=== PATIENT | female | born 1950 | race Caucasian/White ===

== ENCOUNTER → 2019-06-22 14:15 | Outpatient (BNVA) | payer MEDICARE, OTHER, SELFPAY | PROVIDERS: Visit Provider Internal Medicine Rheumatology | DX: M05.79 Rheumatoid arthritis with rheumatoid factor of multiple sites without organ or systems involvement (principal); Z79.899 Other long term (current) drug therapy; Z11.59 Encounter for screening for other viral diseases; M19.90 Unspecified osteoarthritis, unspecified site; F17.210 Nicotine dependence, cigarettes, uncomplicated; J44.9 Chronic obstructive pulmonary disease, unspecified; Z79.52 Long term (current) use of systemic steroids; M19.042 Primary osteoarthritis, left hand; M05.9 Rheumatoid arthritis with rheumatoid factor, unspecified; M05.741 Rheumatoid arthritis with rheumatoid factor of right hand without organ or systems involvement; M05.742 Rheumatoid arthritis with rheumatoid factor of left hand without organ or systems involvement; F17.200 Nicotine dependence, unspecified, uncomplicated | CPT/HCPCS: 36415; 71046; 73130; 73630; 80076; 82306; 82565; 85025; 85651; 86140; 86480; 86704; 99214 ==

== ENCOUNTER → 2019-06-22 15:17 | Outpatient (BNVA) | payer MEDICARE, OTHER, SELFPAY | PROVIDERS: Visit Provider Internal Medicine Rheumatology | DX: Z79.899 Other long term (current) drug therapy (principal); M19.90 Unspecified osteoarthritis, unspecified site; Z11.59 Encounter for screening for other viral diseases; M05.9 Rheumatoid arthritis with rheumatoid factor, unspecified; M05.741 Rheumatoid arthritis with rheumatoid factor of right hand without organ or systems involvement; M05.742 Rheumatoid arthritis with rheumatoid factor of left hand without organ or systems involvement; F17.200 Nicotine dependence, unspecified, uncomplicated; J44.9 Chronic obstructive pulmonary disease, unspecified; M05.79 Rheumatoid arthritis with rheumatoid factor of multiple sites without organ or systems involvement; M19.042 Primary osteoarthritis, left hand | CPT/HCPCS: 85025 ==

== ENCOUNTER 2019-06-22 15:48 | Outpatient (CLI) | payer MEDICARE, OTHER, SELFPAY ==
--- NOTE | 2019-06-22 15:57 | XR_ITS ---
WS: [id number] RIGHT HAND: 3 VIEW(S) TECHNIQUE: PA, oblique and lateral. HISTORY: arthritis COMPARISON: None available. No acute fracture or dislocation. Mild interphalangeal joint space narrowing. No definite erosions. There is some osteopenia. No ulnar styloid erosion. XR/XR hand RT min 3V* [id number] IMPRESSION: No definite erosions.
--- NOTE | 2019-06-22 15:57 | XR_ITS ---
WS: [id number] LEFT FOOT: 3 VIEW(S) TECHNIQUE: PA, oblique and lateral. HISTORY: arthritis COMPARISON: None available. No acute fracture or dislocation. Normal tarsal/metatarsal alignment. No soft tissue abnormality or bone destruction. Small calcaneal spur. XR/XR foot LT min 3V* [id number] IMPRESSION: No erosions.
--- NOTE | 2019-06-22 15:57 | XR_ITS ---
WS: [id number] RIGHT FOOT: 3 VIEW(S) TECHNIQUE: PA, oblique and lateral. HISTORY: arthritis COMPARISON: None available. No acute fracture or dislocation. Normal tarsal/metatarsal alignment. Possible early erosion at the fifth metatarsal head. No subluxations. Mild periarticular osteopenia. XR/XR foot RT min 3V* [id number] IMPRESSION: Indeterminate for early erosion at the fifth metatarsal head.
--- NOTE | 2019-06-22 15:57 | XR_ITS ---
WS: [id number] CHEST 2 VIEWS HISTORY: arthritis COMPARISON: 07/09/2018 Lungs: Soft tissue mass is ovoid with poorly visualized margins over the RIGHT lower lung field. This mass measures 3.0 x 2.5 cm. Otherwise the lungs are clear. Cardiac size: Normal. Mediastinum/Aorta: Mild atherosclerosis aorta. Bones: Normal. XR/XR chest 2V* [id number] IMPRESSION: 1. Possible mass in the RIGHT lower lobe versus fluid along the fissure. Recom mend follow-up chest CT with IV contrast to exclude neoplasm. 2. Chronic emphysema.
--- NOTE | 2019-06-22 15:57 | XR_ITS ---
WS: [id number] LEFT HAND: 3 VIEW(S) TECHNIQUE: PA, oblique and lateral. HISTORY: arthritis COMPARISON: None available. No acute fracture or dislocation. No soft tissue or bone abnormality. No ulnar styloid erosions. Mild osteoarthritis at the first carpometacarpal joint. XR/XR hand LT min 3V* [id number] IMPRESSION: 1. Osteoarthritis at the first carpometacarpal joint. No erosions.
== END 2019-06-22 15:49 | disposition home or self-care (01) ==
LOC: RADWPI 15:53
PROVIDERS: Visit Provider Internal Medicine Rheumatology
DX: M19.042 Primary osteoarthritis, left hand (principal); J43.9 Emphysema, unspecified
CPT/HCPCS: 71046; 73130; 73630; 80076; 82306; 82565; 85651; 86140; 86704

== ENCOUNTER 2019-09-11 11:17 | Outpatient (CLI) | payer MEDICARE, OTHER, SELFPAY ==
--- NOTE | 2019-09-11 11:45 | CT_ITS ---
WS: [id number] CT CHEST TECHNIQUE: Noncontrast CT of the chest with coronal and sagittal reformatted images. CLINICAL INFORMATION: lung mass COMPARISON: None. DLP: 902.[address] scans at [facility] use at least one of these dose optimization techniques: automat ed exposure control; mA and/or kV adjustment per patient size (includes targeted exams where dose is matched to clinical indication); or iterative reconstruction. FINDINGS: Lobulated parenchymal mass in the right lower lobe anteriorly along the fissure abutting the diaphrag m. Parenchymal mass measures 2.9 x 3.7 x 2.8 cm AP by transverse by craniocaudal. This abuts the diap hragm anteriorly. Lobulated irregular margins. A few tiny micronodular satellite opacities. Findings are suspicious for neoplasm. Small left suprahilar opacity measuring 8 mm. Small slightly spiculated nodule in the right upper lobe measuring 4 mm may represent fibrosis but indeterminant. Additional no ncalcified pulmonary nodule right upper lobe measuring 2 mm. No mediastinal or hilar lymphadenopathy. Aortic calcification. A few calcified left hilar and anterio r mediastinal lymph nodes. No axillary lymphadenopathy. Left breast nodule measuring 9 mm. Recommend diagnostic mammography and ultrasound. This is in the posterior depth outer left breast. Adrenal glands are normal. Partially visualized right renal cyst. Normal GE junction. CT/CT chest wo con [id number] IMPRESSION: 1. Lobulated parenchymal mass in the right lower lobe along the fissure suspic ious for neoplasm. This abuts the anterior diaphragm. This can be further evalu ated with PET/CT. 2. Additional hazy left suprahilar nodule measuring 8 mm. 3. Noncalcified nodule right upper lobe measuring 2 mm 4. Additional fibrotic opacity right upper lobe anteriorly measuring 4 mm. 5. No mediastinal or hilar lymphadenopathy. 6. Left breast nodule measuring 9 mm. Recommend further evaluation with diagno stic mammogram and ultrasound.
== END 2019-09-11 11:18 | disposition home or self-care (01) ==
LOC: RADWPI 11:23
PROVIDERS: PCP Nurse Practitioner Family; Visit Provider Internal Medicine Critical Care Medicine
DX: R91.8 Other nonspecific abnormal finding of lung field (principal); N63.20 Unspecified lump in the left breast, unspecified quadrant
CPT/HCPCS: 71250

== ENCOUNTER 2019-10-02 06:07 | Day surgery (SDC) | payer MEDICARE, OTHER, SELFPAY ==
[2019-10-01 14:11] VITALS: BMI 31.8
[2019-10-02] VITALS (8 sets, daily range): BP systolic 124–168; BP diastolic 47–67; PULSE 74–93; RESP 16–22; TEMP 36.4–37.1; O2SAT 88–97
--- NOTE | 2019-10-02 | CT_ITS ---
Guided Bronchoscopy Planning CT images; total exam DLP: 700.74 mGy-cm MTDD
--- NOTE | 2019-10-02 06:25 | ECG_ITS ---
Measurements Intervals [place] Rate: 79 P: 55 SD: 181 QRS: 19 QRSD: 81 T: 47 QT: 383 QTc: 441 SINUS RHYTHM NONSPECIFIC T-WAVE ABNORMALITY Compared to ECG 08/22/2018 23:14:59 T-wave abnormality now present Electronically Signed On 10-02-2019 18:32:08 CDT by Babs Young M.D. [email or web address]
[2019-10-02 06:38] LABS: Glucose Point of Care 120 mg/dL (70-110)
[2019-10-02] MEDS: sodium chloride 0.9% 1,000 ML 30 ML IV (06:39)
--- NOTE | 2019-10-02 06:46 | ANES.PREANE2 ---
Pre-Anesthetic Assessment Pre-Anesthetic Assessment: Height/Weight: Height 1.6 m Weight 81.647 kg Temp Pulse Resp BP Pulse Ox 98.8 F 74 18 153/67 97 10/02/19 06:26 10/02/19 06:26 10/02/19 06:26 10/02/19 06:26 10/02/19 06:26 Preop Diagnosis: Lung cancer Proposed Procedure: Operation Date: 10/02/19 07:00 Proposed Procedures p Navigational Bronchoscopy(Not Applicable) - Speedy Santacruz MD s Ebus(Not Applicable) - Speedy Santacruz MD Familial anesthetic complications: None Was Beta Loulou taken within 24 hours: Yes Last intake: Intake Last Liquid Date 10/01/19 Last Liquid Time 20:00 Last Solid Date 10/01/19 Last Solid Time 19:00 Social: Social History: Tobacco and No alcohol Exam: Pre-Anes Outpt Exam: alert, oriented x 3, clear to auscultation bilaterally and regular rate & rhythm Airway: Cervical ROM: WNL MP: 3 Dentition: False Pulmonary: Pulmonary: COPD Comments: Lung cancer CV/HEM: CV/HEM: HTN : : None reported Hepatic: Hepatic: None reported GI: GI: None reported Metabolic: Metabolic: DM Musc/skel: Musc/skel: None reported Neuropsych: Neuropsych: None reported Anesthetic Plan: ASA status: 3 Anesthesia: General Risk of > 500 ml blood loss (7ml/kg in children): No Meds/Allergies Current Medications: Current Medications Generic Name Dose Route Start Last Admin Trade Name Freq PRN Reason Stop Dose Admin Sodium Chloride 1,000 mls @ 30 ml s/hr 10/02/19 06:30 10/02/19 06:39 Sodium Chloride 0.9% IV 10/03/19 06:29 30 mls/hr .Q24H GEOFFREY Administration PFSH Anesthesia PFSH: Medical History (Updated 08/27/19 @ 11:58 by Renata Kwan LPN) Chronic obstructive pulmonary disease, unspecified Continuous nicotine dependence Encounter for screening for other viral diseases Essential (primary) hypertension High risk medication use Hyperlipidemia, unspecified Neuropathy Rheumatoid arthritis involving both hands with positive rheumatoid factor Type 2 diabetes mellitus without complications Surgical History No pertinent past surgical history Family History Father Osteoarthritis Mother Hypertension Fibromyalgia Denies family history of Rheumatoid arthritis Lupus Social History Smoking and tobacco status: current every day smoker cigarettes Packs smoked per day: 0.5 Years cigarettes smoked: 50 Alcohol intake: never Lives independently: Yes Household members: none Housing: House Marital status: / Current occupational status: retired History of recent travel: No Current gender identity: Female Data Anesthesia Other Labs: Laboratory Results - last 48 hr 10/02/19 06:34 POC Glucose 120 Cardiac Studies: No Data to Display
--- NOTE | 2019-10-02 06:54 | P.HP_ITS ---
Same Day Surgery H&P Indication for Procedure/HPI DATE OF PROCEDURE: October 02, 2019 CHIEF COMPLAINT/INDICATIONFOR SURGICAL PROCEDURE: Right lower lobe lung mass PREOP DIAGNOSIS: Lung cancer PLANNED PROCEDRUE: Patient is a 68-year-old female with a past history of rheumatoid arthritis coming in today for bronchoscopy, endobronchial ultrasound- guided transbronchial needle aspiration of lymph nodes and navigational bronchoscopy guided biopsy of the right lower lobe lung mass. During her visit to the product support analyst in June the patient underwent a chest x-ray with a complaints of cough. The chest x-ray revealed a right lower lobe pulmonary lesion. The patient subsequently underwent a CT scan of her chest in September 2019 which revealed a large lung mass in the right lower lobe. The patient also underwent a PET scan which showed hypermetabolic activity in the lung mass. The patient today is not complaining any significant change in her respiratory status. She has an extensive history of smoking for more than 50 years. The patient has occasional cough without any significant sputum production episodes of wheezing and exertional shortness of breath. Operation Date: 10/02/19 07:00 Proposed Procedures p Navigational Bronchoscopy(Not Applicable) - Speedy aSntacruz MD s Ebus(Not Applicable) - Speedy Santacruz MD Medications/Allergies* Home Medications Medication Instructions Recorded Confirmed Type blood sugar diagnostic #10 each 05/12/19 08/27/19 History lancets 28 gauge #25 each 05/12/19 08/27/19 History metformin 500 mg tablet 500 mg PO BID 05/12/19 10/02/19 History spironolactone 25 mg tablet 12.5 mg PO DAILY tab 05/12/19 10/02/19 History Allergies/Adverse Reactions Allergy/AdvReac Type Severity Reaction Status Date / Time aspirin Allergy Intermediate bloody Verified 10/02/19 06:56 stools lisinopril Allergy Mild rash Verified 10/02/19 06:56 nickel Allergy Mild rash Verified 10/02/19 06:56 Current Medications: Generic Name Dose Route Start Last Admin Trade Name Freq PRN Reason Stop Dose Admin Sodium Chloride 1,000 mls @ 30 mls/hr 10/02/19 06:30 10/02/19 06:39 Sodium Chloride 0.9% IV 10/03/19 06:29 30 mls/hr .Q24H GEOFFREY Administration Pertinent History/Comorbid Conditions* Medical History (Updated 08/04/19 @ 14:56 by Speedy Santacruz MD) Chronic obstructive pulmonary disease, unspecified Continuous nicotine dependence Encounter for screening for other viral diseases Essential (primary) hypertension High risk medication use Hyperlipidemia, unspecified Neuropathy Rheumatoid arthritis involving both hands with positive rheumatoid factor Type 2 diabetes mellitus without complications Surgical History (Updated 06/22/19 @ 18:07 by Ad Patterson MD) No pertinent past surgical history Family History (Updated 06/22/19 @ 14:47 by Mag Bland LPN) Father Fibromyalgia Mother Osteoarthritis Father Hypertension Mother Denies family history of Rheumatoid arthritis Lupus Social History Smoking and tobacco status: current every day smoker cigarettes Packs smoked per day: 0.5 Years cigarettes smoked: 50 Alcohol intake: never Lives independently: Yes Household members: none Housing: House Marital status: / Current occupational status: retired History of recent travel: No Current gender identity: Female Pertinent Exam Findings alert, oriented x 3, clear to auscultation bilaterally and regular rate & rhythm Related Problem List Diagnoses (1) Right lower lobe lung mass: Recommendations Surgery/Procedure today Other Plans: The patient did undergo bronchoscopy with inspection of the airway, endobronchial ultrasound-guided transbronchial needle aspiration of lymph nodes and navigational bronchoscopy guided fine-needle aspiration, transbronchial biopsy and possible transthoracic needle biopsy of the mass. The patient will follow-up with me in 2 weeks time following the procedure. Coding Level of Care Code Acute Merchandise Buyer for Olman Santamariad Diagnoses Right lower lobe lung mass R91.8
[2019-10-02 07:09] LABS: Anion Gap 19.4 (5-19); Blood Urea Nitrogen 14 mg/dL (8-23); Calcium 10.1 mg/dL (8.5-10.5); Carbon Dioxide 23 mmol/L (22-29); Chloride 96 mmol/L (98-107); Glomerular Filtration Rate 99.4 mL/min (90-130); Glucose 123 mg/dL (65-115); Osmolality Calculated 276 mOsm/kg (285-295); Potassium 4.4 mmol/L (3.5-5.1); Sodium 134 mmol/L (136-145)
[2019-10-02] MEDS: lidocaine 1% INJ 20 mL XX (07:48)
--- NOTE | 2019-10-02 09:41 | P.OP_ITS ---
Operative Report Date of procedure: October 02, 2019 Pre-op Diagnosis: Lung cancer Post-op diagnosis: same Brief History: 68-year-old lady with history of pulmonary arthritis and right lower lobe lung mass coming in for bronchoscopy evaluation. Procedure: Name of the procedure: Bronchoscopy with inspection of the airway, transbronchial biopsies and core needle biopsy of the right lower lobe lung mass under navigational guidance, endobronchial ultrasound-guided transbronchial needle aspiration of lymph nodes and control of bleeding. Indication: Right lower lobe lung mass Anesthesia: General anesthesia. Local anesthesia: The claritza in the right and left mainstem bronchi were anesthetized with 1% lidocaine, 3 mL. Description of the procedure: The procedure was explained to the patient and the consent was obtained. The patient was brought to the OR. The patient underwent endotracheal intubation for general anesthesia. Following induction of general anesthesia, the bronchoscope was advanced through the ET tube. The lower trachea appeared to be normal. The claritza was sharp. The claritza, the right and left mainstem bronchi are anesthetized with 1% lidocaine. In a systematic man ner bilateral bronchial tree was then examined. The bronchoscope was advanced into the left mainstem bronchus. There was no erythema, or areas of cobblestoning. The left upper lobe, lingula and left lower lobe bronchi were examined up to the third subsegmental level and no abnormalities were identified. There was no endobronchial lesion, active bleeding or mucous plug. The bronchoscope was then introduced into the right mainstem bronchus. The right upper lobe, right middle lobe and right lower lobe bronchi were examined up to the third subsegmental level and no abnormalities were identified. Mild mucus was noted throughout the airway. Using navigational bronchoscopy transbronchial biopsies were performed from the right lower lobe lung mass. Fine-needle aspiration and core needle biopsies were also performed. The endobronchial ultrasound was introduced through the ET tube. Mediastinal and hilar lymphadenopathy was identified with the ultrasound. Transbronchial needle aspiration was performed from 7, 10 R, 11 R lymph nodes. Samples: 1. Transbronchial biopsy of the right lower lobe lung mass was sent for histopathology 2. The core needle biopsy of the right lower lobe lung mass was sent for histopathology 3. The fine-needle aspiration of the right lower lobe lung mass was sent for cytology 4. The transbronchial needle aspiration of the aforementioned lymph node groups were sent for cytology. Complications: There was no immediate complications. The patient was extubated and brought to the PACU in stable condition. Chest x-ray: Pending
--- NOTE | 2019-10-02 09:44 | XR_ITS ---
WS: [id number] CHEST XRAY TECHNIQUE: Portable chest. CLINICAL INFORMATION: Post transbronchial biopsies COMPARISON: June 22, 2019 FINDINGS: Heart: Cardiomegaly. Aortic calcification. Lungs: Pulmonary mass right lower lobe post biopsy. Small amount of surrounding infiltrate may repres ent a small amount of hemorrhage. Left lung is well aerated. Bones: Normal visualized bony structures. XR/XR chest 1V portable [id number] IMPRESSION: Pulmonary mass right lower lobe postbiopsy with expected postbiopsy changes. No pneumothorax.
== END 2019-10-02 11:17 | disposition home or self-care (01) ==
PROVIDERS: Anesthesiology; PCP Nurse Practitioner Family; Visit Provider Internal Medicine Critical Care Medicine
PROC: 0BJ08ZZ Inspection of Tracheobronchial Tree, Via Natural or Artificial Opening Endoscopic (ICD-10-PCS; CPT 31622; principal; 2019-10-02 07:00)
PROC: BB4BZZZ Ultrasonography of Pleura (ICD-10-PCS; 2019-10-02 07:00)
DX: R91.1 Solitary pulmonary nodule (principal); R91.8 Other nonspecific abnormal finding of lung field; J44.9 Chronic obstructive pulmonary disease, unspecified; F17.210 Nicotine dependence, cigarettes, uncomplicated; I10 Essential (primary) hypertension; E78.5 Hyperlipidemia, unspecified; M06.9 Rheumatoid arthritis, unspecified; E11.40 Type 2 diabetes mellitus with diabetic neuropathy, unspecified
CPT/HCPCS: 12345; 31625; 31627; 36416; 71045; 77011; 80048; 80500; 82962; 88112; 88173; 88305; 88307; 93005; J2001; J2405; J2704; J3010; J3490; J7030

== ENCOUNTER → 2019-10-09 09:27 | Outpatient (BNVA) | payer MEDICARE, OTHER, SELFPAY | PROVIDERS: PCP Nurse Practitioner Family; Visit Provider Internal Medicine Rheumatology | DX: E11.9 Type 2 diabetes mellitus without complications (principal); I10 Essential (primary) hypertension; Z79.899 Other long term (current) drug therapy; M05.741 Rheumatoid arthritis with rheumatoid factor of right hand without organ or systems involvement; M19.90 Unspecified osteoarthritis, unspecified site; M05.742 Rheumatoid arthritis with rheumatoid factor of left hand without organ or systems involvement | CPT/HCPCS: 80053; 80061; 80076; 83036; 85025; 85651; 86140 ==

== ENCOUNTER 2019-10-19 14:01 | Outpatient (CLI) | payer MEDICARE, OTHER, SELFPAY ==
--- NOTE | 2019-10-19 20:44 | ONC CON_ITS ---
Dr. Olson New Patient Note Patient: Eunice Aguilar Unit #: [id number]: 1950 Dicatated By: Chino Olson M.D.Date of Visit: Oct 19, 2019 Onc MED New Patient/Consult Referring Physician: Dr. ISAURA SANTACRUZ M.D. Chief Complaint: Lung mass. History of Present Illness: This is a 68 year-old woman with a right lower lobe lung mass and suspected lung cancer. She has hypertension, hyperlipidemia, type 2 diabetes, and COPD. She also has rheumatoid arthritis, for which she has been on treatment with methotrexate and hydroxychloroquine. She had seen Dr. Patterson in June for a scheduled rheumatology follow-up visit. At that time, she had a coughing fit which led to a chest x-ray. That study showed a possible mass in the right lower lobe. Her further evaluation was delayed, I assume because of the restrictions related to the coronavirus pandemic. In any case, her chest CT on 09/11/2019 showed a lobulated mass in the right lower lobe measuring 2.9 x 3.7 x 2.8 cm. It was noted to abut the diaphragm anteriorly. There were a few tiny micronodular satellite opacities. A small left suprahilar opacity measured 8 mm. A noncalcified nodule in the right upper lobe measured 2 mm. An additional fibrotic opacity in the right upper lobe measured 4 mm. There was no mediastinal or hilar lymphadenopathy. She was incidentally noted to have a 9 mm left breast nodule. PET/CT on 09/19/2019 showed FDG avid mass in the right lower lobe measuring 4.0 x 3.5 cm, SUV 12.5, indicating high probability of malignancy. A 6 mm left upper lobe nodule with SUV 2.5, which was concerning for contralateral metastatic disease. There were no other areas of abnormal uptake on that study. On 10/02/2019 she underwent navigational bronchoscopy with EBUS and transbronchial biopsy of the right lung mass. The EBUS did show evidence of mediastinal and hilar lymphadenopathy, and the procedure also included FNA biopsies of stations 7, 10 R, and 11 R lymph nodes. Pathology on the transbronchial biopsy showed benign bronchial mucosa with no dysplasia or malignancy seen. Cytology on the FNA biopsies was also negative for malignancy. She says that her energy is not been very good but she thinks that some of that may be related to depression. She is still doing housework. ECOG score is 1. Her appetite has been the same. She did have a weight gain of 30 pounds, but since then her weight has remained stable. She has not had fever or night sweats. She has not had sore throat or difficulty swallowing. She has a little bit of cough which is mostly nonproductive. She has no shortness of breath or chest pain. She has no GI/ complaints other than occasional heartburn. Her joint pain is pretty well controlled on her medication. She has occasional flareups, which she manages with short course steroid therapy. She recently has been having pain in her right wrist, presumably related to minor injury. She does not complain of headache or dizziness. She does have some neuropathy in her feet. Past Medical History: Her medical history includes chronic obstructive pulmonary disease, hyperlipidemia, hypertension, peripheral neuropathy, rheumatoid arthritis, and type II diabetes. Past Surgical History: She underwent navigational bronchoscopy with EBUS and transbronchial biopsy of right lung nodule on 10/02/2019. She has had no other surgeries. Medications: Carvedilol 1.5 Tablet (of 12.5 mg) Oral b.i.d., Folic Acid 1 Tablet (of 800 mcg) Oral daily, metFORMIN HCl 1.5 Tablet (of 500 mg) Oral b.i.d., Methotrexate Sodium (2.5 mg) Tablet Oral Take as Directed, Spironolactone 0.5 Tablet (of 25 mg) Oral daily Allergies: Aspirin, Lisinopril, and Nickel. Social History: Ms. Aguilar is and she is retired. She has a history of smoking 1-1/2 packs of cigarettes daily for 50 years. She does not drink alcohol. Family History: Father of heart attack at age 69. Mother is still living at age 92. She is being treated for breast cancer. A brother of vasculitis. Another brother has had a stroke. A maternal aunt had breast cancer. Review Of Symptoms: Constitutional - Her energy is not very good, but some of that may be related to depression. There is been no change in her appetite. She had a weight gain of 30 pounds, but it then stabilized. She does not have fever, night sweats, or hot flashes. ECOG score is 1, Eyes - No change in vision, ENMT - No hearing loss or tinnitus. No sinus congestion/drainage. No mouth sores. No sore throat or difficulty swallowing, Hematologic/Lymphatic - No abnormal bruising or bleeding, Respiratory - No shortness of breath. She has a chronic smoker's cough. No pleuritic pain or hemoptysis, Cardiovascular - No angina pain. No palpitations, Gastrointestinal - No nausea or vomiting. She has heartburn. No diarrhea or constipation. No blood in the stool or black stools, Genitourinary (F) - No dysuria or hematuria. No urinary frequency. No urgency or incontinence, Musculoskeletal - She has occasional flare ups of joint pain. She sprained her right wrist and is wearing a brace, Integumentary - No skin rash or other skin changes, Neurologic - No headache or dizziness. She has chronic neuropathy in her feet. No other focal neurologic symptoms, Psychiatric - No anxiety. She has depression. She does not sleep well. Vital Signs: Performed on Oct 19, 2019 14:31: 0, 32.20 (HIGH), 1.86 sq.m, 63.00 in, 97 %, 81 /min, 22 /min, 193/72 mm(hg) (HIGH), 98.2 F (LOW), and 181.8 lbs (HIGH). Physical Examination: Constitutional - She appears to be in reasonably good general health, Eyes - Sclerae nonicteric. Conjunctivae clear, ENMT - No lesions noted in the oral cavity, Neck - No mass or thyromegaly, Hematologic/Lymphatic - No cervical, clavicular, or axillary adenopathy, Respiratory - Lungs show some decrease in air movement with slightly coarse breath sounds bilaterally, Cardiovascular - Heart rhythm is regular. There is no murmur, gallop, or rub noted, Breasts - There are no breast masses noted. There is no axillary adenopathy, Abdomen - Soft and non-tender. Liver and spleen are not enlarged. There is no abdominal mass or ascites noted and there is no inguinal adenopathy, Back/Spine - No spine or CVA tenderness noted, Extremities - Mild edema. Dorsalis pedis pulses are palpable bilaterally, Integumentary - No rashes. No suspicious skin lesions noted, Neurologic - No focal neurologic deficits noted. Impression: 1. Patient with PET/CT evidence of FDG avid right lower lobe lung mass, highly suspicious for malignancy. 2. On 10/02/2019 she underwent navigational bronchoscopy/EBUS with transbronchial biopsy of the right lung mass and with FNA biopsies of mediastinal and right hilar lymph nodes. All of these appear to have been negative for malignancy. 3. There is additional subcentimeter left upper lobe nodule with mild FDG activity suggestive of possible contralateral lung malignancy. 4. She has underlying COPD. Her other medical illnesses include: 5. Hypertension. 6. Hyperlipidemia. 7. Type 2 diabetes with neuropathy. 8. Rheumatoid arthritis, currently on immunosuppressive therapy with methotrexate and hydroxychloroquine. Plan: The CT and PET/CT findings were reviewed with the patient and her daughter, and I also reviewed the images with them. We discussed the clinical implications. There is a high probability that she has a primary lung cancer in the right lower lobe. This may be localized. However, there is an additional small left upper lobe pulmonary nodule with mild FDG avidity by PET. While it is a nonspecific finding, does raise the possibility of contralateral lung malignancy, which would obviously alter her treatment recommendations. If her disease is localized to the right lung mass, surgical resection would be appropriate, assuming her lung function is adequate. If the left upper lobe nodule is malignant, she may still be eligible for SBRT to both lesions, but that obviously would be contingent on getting a tissue diagnosis from both sides, and that will almost certainly be problematic. At least initially I will plan to review the PET/CT with Dr. Santacruz and we can determine whether to proceed with CT directed needle biopsy or other procedure. However, given the small size of the left lung nodule, there may be no option for that lesion other than to monitor it with serial imaging. Signed By: Chino Olson M.D. <<Signature on File>>
== END 2019-10-19 14:02 | disposition home or self-care (01) ==
LOC: ONCMED 14:05
PROVIDERS: PCP Family Medicine; Referring Provider Internal Medicine Critical Care Medicine; Visit Provider Internal Medicine Medical Oncology
DX: R91.8 Other nonspecific abnormal finding of lung field (principal); J44.9 Chronic obstructive pulmonary disease, unspecified; I10 Essential (primary) hypertension; E78.5 Hyperlipidemia, unspecified; E11.40 Type 2 diabetes mellitus with diabetic neuropathy, unspecified; M06.9 Rheumatoid arthritis, unspecified; Z79.899 Other long term (current) drug therapy
CPT/HCPCS: 99205

== ENCOUNTER → 2019-10-20 12:03 | Outpatient (BNVA) | payer MEDICARE, OTHER, SELFPAY | PROVIDERS: PCP Family Medicine; Visit Provider Internal Medicine Rheumatology | DX: M05.741 Rheumatoid arthritis with rheumatoid factor of right hand without organ or systems involvement (principal); M05.742 Rheumatoid arthritis with rheumatoid factor of left hand without organ or systems involvement; R91.8 Other nonspecific abnormal finding of lung field; J44.9 Chronic obstructive pulmonary disease, unspecified; Z79.899 Other long term (current) drug therapy; F17.210 Nicotine dependence, cigarettes, uncomplicated | CPT/HCPCS: 99214 ==

== ENCOUNTER 2019-11-05 07:14 | Day surgery (SDC) | payer MEDICARE, OTHER, SELFPAY ==
[2019-11-05] VITALS (10 sets, daily range): BP systolic 102–181; BP diastolic 49–83; PULSE 69–86; RESP 16–20; TEMP 36.2–36.4; O2SAT 96–100; BMI 31.7
[2019-11-05] MEDS: sodium chloride 0.9% 1,000 ML 30 ML IV (07:55)
[2019-11-05 08:00] LABS: Glucose Point of Care 124 mg/dL (70-110)
[2019-11-05 08:36] LABS: INR 0.88 (0.8-1.2)
[2019-11-05] MEDS: midazolam 1 mg/mL INJ 5 ML 5 MG IV ×2 (09:51→10:02)
[2019-11-05] MEDS: fentaNYL 50 mcg/mL INJ 2mL IVP ×2 (09:54→10:03)
--- NOTE | 2019-11-05 11:46 | XR_ITS ---
WS: [id number] PORTABLE CHEST HISTORY: post ct biopsy COMPARISON: 10/02/2019 Consolidation at the RIGHT lung base corresponds to the mass that was recently biopsied. There is a s mall amount of adjacent hemorrhage. No pneumothorax. Cardiac size: Normal. Mediastinum/Aorta: Mild atherosclerosis aorta. No osseous abnormality seen. XR/XR chest 1V portable [id number] IMPRESSION: 1. No pneumothorax status post RIGHT lung mass biopsy. 2. Small amount of postprocedural bleeding at the biopsy site.
== END 2019-11-05 12:50 | disposition home or self-care (01) ==
PROVIDERS: Visit Provider Radiology Diagnostic Radiology
DX: Z48.89 Encounter for other specified surgical aftercare (principal)
CPT/HCPCS: 36415; 36416; 71045; 82962; 85610; 96374; 96375; J2250; J3010; J7030

== ENCOUNTER 2019-11-05 08:00 | Day surgery (SDC) | payer MEDICARE, OTHER, SELFPAY ==
[2019-11-04 14:19] VITALS: BMI 30.9
--- NOTE | 2019-11-05 08:00 | CT_ITS ---
WS: [id number] CT-GUIDED BIOPSY RIGHT LUNG MASS. HISTORY: Lung cancer DLP: 710.37 mGy-cm. All CT scans at [facility] use at least one of these dose optimization techniques: automat ed exposure control; mA and/or kV adjustment per patient size (includes targeted exams where dose is matched to clinical indication); or iterative reconstruction. Prior imaging studies are reviewed. History and physical are reviewed. Procedure, risks and complicat ions were explained to the patient and family. Consent is obtained. With the patient in supine position the mass in the RIGHT lower lobe abutting the fissure is identifi ed. Skin is cleansed with ChloraPrep and anesthetized with 1% buffered lidocaine. Conscious sedation was also utilized. Small dermatome is made. 20-gauge Temno needle is inserted into the mass. After th e first biopsy the patient began coughing and the needle became dislodged from the mass and had to be a reinserted. 4 biopsies were obtained in total and placed in saline for pathology. No pneumothorax. Small amount of adjacent bleeding at the biopsy site. Patient will be observed for [address]/CT biopsy lung [id number] IMPRESSION: 1. Uncomplicated RIGHT lower lobe pulmonary mass biopsy. 2. Multiple core biopsies are obtained and placed in saline for pathology.
== END 2019-11-05 09:00 | disposition home or self-care (01) ==
LOC: RAD 12-31 15:25
PROVIDERS: PCP Nurse Practitioner Family; Visit Provider Internal Medicine Critical Care Medicine
DX: J84.10 Pulmonary fibrosis, unspecified (principal); Z85.118 Personal history of other malignant neoplasm of bronchus and lung
CPT/HCPCS: 32405; 77012; 88307

== ENCOUNTER 2019-11-09 09:11 | Outpatient (CLI) | payer MEDICARE, OTHER, SELFPAY ==
--- NOTE | 2019-11-09 14:20 | PFTS_ITS ---
Date of Study:11/09/19 Date of Dictation: MECHANICS: Forced vital capacity (FVC) is reduced. Forced expiratory volume in one second (FEV1) is . FEV1/FVC is normal. FLOW VOLUME LOOP: Normal. LUNG VOLUMES: Total lung capacity (TLC) is normal. Residual volume (RV) is normal. DIFFUSING CAPACITY FOR CARBON MONOXIDE: Moderately reduced. INTERPRETATION: The pulmonary function tests are consistent with mild restriction. Total lung capacity and residual volumes are normal. Gas exchange (DLCO) is moderately reduced. MTDD
== END 2019-11-09 09:12 | disposition home or self-care (01) ==
LOC: RT 09:11
PROVIDERS: Visit Provider Internal Medicine Critical Care Medicine
DX: C34.90 Malignant neoplasm of unspecified part of unspecified bronchus or lung (principal)
CPT/HCPCS: 94010; 94726; 94729

== ENCOUNTER 2019-11-23 13:11 | Outpatient (CLI) | payer MEDICARE, OTHER, SELFPAY ==
--- NOTE | 2019-11-24 15:00 | N.ONRAD NP_ITS ---
Radiation Oncology New Patient Visit Patient: Eunice Aguilar MR#: [id number] : 1950 Age: 69 Sex: Female Dictated by: Dr. Bossman Hong Date of Service: 11/23/2019 Referring Physician(s) : Dr Olson Primary Site: Right lower lobe of lung. 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 Although there is ambiguity with respect to histology, given the preponderance of evidence, the histology most likely represents a non-small cell carcinoma. Fine-needle aspiration of an 11 R lymph node revealed metastatic carcinoma (possibly small cell), yet CT guided needle biopsy of the right lower lobe mass revealed a rare focus that was suspicious for non-small cell malignancy (the first core needle biopsy of the right lower lobe lung mass was non-diagnostic). R91.8 - other nonspecific abnormal finding of lung field, Diagnosed 10/19/2019 (active). Purpose of Visit: Discuss the role of radiotherapy with curative intent. History of Present Illness: The patient is a 68-year-old female with a past medical history significant for a [id number] history of smoking, COPD, and rheumatoid arthritis treated with methotrexate and hydroxychloroquine. During a rheumatology routine follow-up visit, she presented with a cough and a subsequent CXR followed by a CT of the chest (09/11/2019) revealed a 2.9 x 3.7 x 2.8 cm mass in the right lower lobe of lung abutting the anterior diaphragm, an 8 mm indeterminate left suprahilar nodule, a 2 mm indeterminate non-calcified nodule in the right upper lobe, a 4 mm indeterminate fibrotic opacity in the right upper lobe, and an incidental finding of a 9 mm nodule in the upper outer quadrant of the left breast (follow-up mammogram and ultrasound recommended). A subsequent PET/CT (09/19/2019) revealed a strongly FDG avid right lower lobe mass, a subcentimeter left upper lobe nodule with an SUV of 2.5, and no other evidence for metastatic disease outside of the lungs. On 10/02/2019 a bronchoscopy with transbronchial biopsies (7, 10 R, 11 R lymph nodes) and core needle biopsy of the right lower lobe lung mass was performed by Dr. Santacruz. Pathology revealed: -) FNA right lower lobe lung mass -reactive and nonspecific inflammatory changes, no evidence of dysplastic or neoplastic process -) FNA right lower lobe, station 1 -benign lymphoid aspirate, no evidence of dysplastic or neoplastic process -) FNA right lower lobe 10 R -9 lymphoid aspirate with no evidence of necrosis or metastatic disease -) FNA right lower lobe 11 R - metastatic carcinoma. Based purely on cytomorphology, a small cell or neuroendocrine carcinoma cannot be totally excluded. Unfortunately, material for cell block is not available and special studies to attempt definitive cell lineage analysis cannot be performed. On 11/05/2019, a CT-guided biopsy of the right lower lobe lung mass revealed ???peripheral lung with fibrosis chronic inflammation and rare focus suspicious for non-small cell malignancy.??? A pulmonary function test (11/09/2019) revealed a normal total lung capacity, normal residual volume, mild restriction, and DLCO was moderately reduced. On interview today, the patient reports a dry cough, no hemoptysis, no bone pain, no headaches, no weakness/numbness, and no shortness of breath. Imaging Review: I reviewed the radiographic images discussed above. Current Medications: Carvedilol, folic Acid, metFORMIN HCl, methotrexate Sodium, spironolactone. Allergies: Aspirin, Lisinopril and Nickel. Medical History: - Chronic obstructive pulmonary disease, - hyperlipidemia, - hypertension, - peripheral neuropathy, - rheumatoid arthritis, - type II diabetes. No history of collagen vascular disease. No previous radiation therapy. Surgical History: Colonoscopy in 2017 and navigational bronchoscopy with EBUS and transbronchial biopsy of right lung nodule on 10/02/2019. Family History: Father is at age 69 having experienced myocardial infarction. Mother is alive. Father of heart attack at age 69. Mother is still living at age 92. She is being treated for breast cancer. A brother of vasculitis. Another brother has had a stroke. A maternal aunt had breast cancer. Social History: Last screened on 11/23/2019 - Current every day smoker 1.0 pack/day for 50 years (50 pack years). Last screened on 10/15/2019 - Never drank. Patient indicated access to the following support systems: Adequate transportation available for expected visits, Lives alone, and Supportive family/friends willing to assist with needs. Patient indicated the following nutritional habits: Regular meals. Patient indicated participation in the following forms of activity: Regular exercise. Current Complaints / Review of Systems: Constitutional - Complains of fatigue occasionally. Denies lack of appetite, fever, night sweats and change in weight. Eyes - Denies blurred vision and double vision. ENMT - Denies dysphagia, ear pain, problems with hearing, mouth dryness, stomatitis, altered taste and tinnitus. Neck - Denies neck pain. Integumentary - Denies rash. Breasts - Denies pain. Cardiovascular - Complains of edema in both feet. Denies arrhythmias and chest pain. Respiratory - Complains of a moderate cough which is non-productive. Complains of wheezing occasionally. Denies hemoptysis. Gastrointestinal - Complains of occasional diarrhea. Denies abdominal pain, constipation, heartburn / dyspepsia, melena / GI bleeding, nausea and vomiting. Genitourinary (F) - Denies dysuria, frequency, nocturia, urgency, vaginal discharge / bleeding and vaginal spotting. Musculoskeletal - Complains of joint pain in both hands and feet. Denies bone pain and muscle weakness. Neurologic - Denies dizziness, abnormal gait and headaches. Endocrine - Complains of Type 2 diabetes. Denies thyroid disease. Hematologic/Lymphatic - Denies tender or enlarged lymph nodes.. Vital Signs: Performed on 11/23/2019 1:35 PM BMI - 32.665 kg/m2 (high), Height - 63.00 in, Weight - 184.4 lbs, Temperature - 98.6 f, Pulse - 76, Respiration - 20, O2 Sat - 96 %, Pain - 0, Fatigue - 0 and BP - 185/ 72 mm(hg)(high/). Physical Exam: GENERAL:??? The patient is alert, and in no acute distress. HEENT:??? Head is normocephalic. Face is symmetric. External ocular movements are intact. Sclera and conjunctivae are non erythematous. NECK:??? Trachea is midline.??? Thyroid is not enlarged by palpation.??? LYMPH NODES:??? There is no cervical, supraclavicular, or axillary adenopathy bilaterally. LUNGS:??? Clear to auscultation bilaterally. Respiratory movement is unlabored. HEART:??? Regular rate and rhythm. ABDOMEN:??? Soft, nontender, without palpable mass.??? No hepatosplenomegaly. EXTREMITIES:??? No deformities. NEUROLOGIC:??? Gait and station are normal.??? The patient is well coordinated and strength is equal bilaterally. GLOVE PARTS INSPECTOR:??? Cranial nerves II-XII are intact and without focal deficits.??? Psych: Affect is normal. Skin: Cursory review of the skin reveals no obvious lesions concerning for malignancy. Pain assessment: This patient???s pain was personally assessed by me. This patient requires no adjustments to pain medications at this time. Performance Status: 1 - No physically strenuous activity, but ambulatory and able to carry out light or sedentary work (e.g. office work, light house work). (ECOG) Impression: The patient is a 68 year old female with T2a N1 MX carcinoma of the right lower lobe of lung (NSCL histology is favored). There is a question of a contralateral subcentimeter nodule in the left upper lobe of lung, which could be benign, a second primary, or metastasis. Unfortunately, this nodule is too small to biopsy at this time. This patient???s diagnosis was obtained through transbronchial fine-needle aspiration of an 11 R lymph node. Although cytology favored small cell lung carcinoma in the fine-needle aspiration, the final pathology report on the CT guided core needle biopsy of the right lower lobe lung mass favored suspicion for non-small cell lung carcinoma. Given the patient???s performance status, age, decent pulmonary function, and her desire for aggressive treatment despite the indeterminate contralateral nodule, we discussed surgical treatment options and surveillance of the left upper lobe lesion. In the event that the left upper lobe lesion grew and we are able to obtain a tissue diagnosis, SBRT to this lesion would be a reasonable treatment for local control. During our meeting, we discussed other treatment options including concurrent chemoradiation therapy; and we also discussed the prognosis of this treatment decision in the setting of a resectable stage IIB NSCLC coupled with smoking cessation counseling. Although the patient has not yet decided upon smoking cessation, the patient did verbalize understanding of the risks/benefits of concurrent chemoradiation therapy and the patient has agreed to proceed with understanding more about surgical options. If she undergoes surgery, she should be considered for adjuvant chemotherapy +/- radiotherapy as indicated after pathologic analysis. Therefore the plan is: -) Meet with Dr Cox to discuss surgical resection on at 3:00 pm; -) Evaluate the appropriateness of systemic therapy after surgical resection; -) Surveillance of the indeterminate nodules in the lung (especially the left upper lobe nodule). I have requested a follow up CT chest for Mid-Late December,; -) Order a diagnostic mammogram/biopsy to address the abnormality in the upper outer quadrant of the left breast. In the event that invasive ER positive breast cancer is found, it may be prudent to either delay definitive treatment of the breast while undergoing primary treatment of the lung, or consider neoadjuvant endocrine therapy while undergoing treatment to the lung. I defer to Medical Oncology???s opinion regarding this. -) As it relates to the possibility of adjuvant radiation therapy (most likely sequential s/p systemic therapy), this would be indicated with the presence of N2 positive disease, an R1 or R2 resection, or lymph nodes with pathologically proven extra capsular extension. The patient was requested to follow up with us one month after completing surgery. -) If metastasis is ultimately found or the patient???s stage is upstaged after surgery, consider an MRI of the brain at that time. Signed by: Bossman Hong MD 11/24/2019 2:58:52 PM <<Signature on File>> Cc: Dr Olson, Dr Santacruz, Dr Cox. CPT Code: CPT Code:
--- NOTE | 2020-01-07 12:07 | ONCRAD EPV_ITS ---
Radiation Oncology Established Patient Visit Patient: Jeff Dawson [id number] : 1950 Age: 69 Sex: Female Dictated by: Dr. 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 Fine-needle aspiration of an 11 R lymph node revealed metastatic carcinoma. On 12/07/2019 she was treated by Dr Cox with a ???right??? lower lobectomy and sampling of N1 lymph nodes (N2 lymph nodes not surgically sampled). Pathology revealed negative margins and one surgically removed interbronchial positive lymph node. The patient has a persistent ???left??? upper lobe of lung lesion now measuring 10 mm (FDG avid prior to surgery). The interventional radiologist does not believe that this is readily amenable to biopsy given the small size. Thus a repeat CT chest is planned in two months for subsequent biopsy and treatment planning (SRS is amenable if clinically indicated). Patient also has a concerning 1.2 cm lesion in the upper outer quadrant of the left breast (biopsy pending 01/07/2020). History of Present Illness: The patient is a 68-year-old female with a past medical history significant for a [id number] history of smoking, COPD, and rheumatoid arthritis treated with methotrexate and hydroxychloroquine. During a rheumatology routine follow-up visit, she presented with a cough and a subsequent CXR followed by a CT of the chest (09/11/2019) revealed a 2.9 x 3.7 x 2.8 cm mass in the right lower lobe of lung abutting the anterior diaphragm, an 8 mm indeterminate left suprahilar nodule, a 2 mm indeterminate non-calcified nodule in the right upper lobe, a 4 mm indeterminate fibrotic opacity in the right upper lobe, and an incidental finding of a 9 mm nodule in the upper outer quadrant of the left breast (follow-up mammogram and ultrasound recommended). A subsequent PET/CT (09/19/2019) revealed a strongly FDG avid right lower lobe mass, a subcentimeter left upper lobe nodule with an SUV of 2.5, and no other evidence for metastatic disease outside of the lungs. On 10/02/2019 a bronchoscopy with transbronchial biopsies (7, 10 R, 11 R lymph nodes) and core needle biopsy of the right lower lobe lung mass was performed by Dr. Santacruz. Pathology revealed: -) FNA right lower lobe lung mass -reactive and nonspecific inflammatory changes, no evidence of dysplastic or neoplastic process -) FNA right lower lobe, station 7 -benign lymphoid aspirate, no evidence of dysplastic or neoplastic process -) FNA right lower lobe 10 R -9 lymphoid aspirate with no evidence of necrosis or metastatic disease -) FNA right lower lobe 11 R - metastatic carcinoma. Based purely on cytomorphology, a small cell or neuroendocrine carcinoma cannot be totally excluded. Unfortunately, material for cell block is not available and special studies to attempt definitive cell lineage analysis cannot be performed. On 11/05/2019, a CT-guided biopsy of the right lower lobe lung mass revealed ???peripheral lung with fibrosis chronic inflammation and rare focus suspicious for non-small cell malignancy.??? A pulmonary function test (11/09/2019) revealed a normal total lung capacity, normal residual volume, mild restriction, and DLCO was moderately reduced. On December 07, 2019 Dr. Cox performed a right lower lobectomy and sampling of and 1 lymph nodes. There were no surgical complications known to me and N2 lymph nodes were not sampled. Pathology revealed 4.2 cm invasive adenocarcinoma, poorly differentiated with components comprising: Sarcomatoid, rhabdoid and giant cell-20%, invasive adenocarcinoma acinar component of 25%, papillary component of 25%, solid component of 25%, and micropapillary component of 5%. The tumor was noted to spread through airspaces. Lymphovascular invasion was present, visceropleural invasion was not identified, margins were negative, 1 interbronchial lymph node was positive (extranodal extension could not be determined), and both sampled hilar lymph nodes were negative. A postoperative CT of the chest (01/06/2020 versus 11/05/2019 and PET/CT 09/19/2019) revealed an indeterminate subcarinal lymph node which is increased in size from 8 mm to 12 mm since the prior study, a slight increase in size in the left upper lobe nodule (from 7.5mm to 10 mm), a new 5 mm nodule along the remaining fissure of the right medial lower lung field, and a small loculated right pleural effusion. In addition, a bilateral digital mammogram (12/31/2019) revealed a 1.2 cm nodule in the left breast at the 3 o'clock position concerning for malignancy. This is scheduled to be biopsied today on 01/07/2020. In follow-up today, the patient reports that she is doing well. She has minimal chest pain from the removal of her chest tube, she reports mild shortness of breath on exertion, no shortness of breath at rest, no cough, and she quit smoking approximately 6 weeks ago. Current Medications: Carvedilol, folic Acid, metFORMIN HCl, methotrexate Sodium, spironolactone. Allergies: Aspirin, Lisinopril and Nickel. Current Complaints / Review of Systems: Constitutional - Denies lack of appetite, fatigue and night sweats. Eyes - Denies blurred vision and double vision. ENMT - Denies dysphagia, ear pain, mouth dryness, stomatitis and altered taste. Neck - Denies neck pain. Integumentary - Denies rash. Breasts - Denies pain. Cardiovascular - Complains of edema is both feet. Denies arrhythmias and chest pain. Respiratory - Complains of mild dyspnea associated with normal activity. Denies cough, hemoptysis and wheezing. Gastrointestinal - Denies abdominal pain, constipation, diarrhea, heartburn / dyspepsia, melena / GI bleeding, nausea and vomiting. Genitourinary (F) - Denies dysuria, frequency, nocturia, urgency, vaginal discharge / bleeding and vaginal spotting. Musculoskeletal - Complains of joint pain in both knees, feet, and hands. Denies bone pain and muscle weakness. Neurologic - Denies dizziness, abnormal gait and headaches. Endocrine - Complains of Type 2 diabetes. Denies thyroid disease. Hematologic/Lymphatic - Denies tender or enlarged lymph nodes.. Vital Signs: Performed on 01/07/2020 9:53 AM BMI - 32.913 kg/m2 (high), Height - 63.00 in, Weight - 185.8 lbs, Temperature - 97.6 f, Pulse - 64, Respiration - 20, O2 Sat - 97 %, Pain - 0, Fatigue - 0 and BP - 161/ 74 mm(hg)(high/). Physical Exam: General: Alert and oriented x 3. No acute distress. HEENT: Normocephalic, atraumatic. Extraocular Movements Intact: Pupils Equal, Round, Reactive to Light and Accommodation: Sclerae anicteric. Oral cavity is clear without lesions, masses or ulcers. NECK: Supple without supraclavicular or jugular lymphadenopathy. LUNGS: Clear to auscultation bilaterally without rales, rhonchi or wheeze. HEART: Regular rate and rhythm, normal S1 and S2 without murmur, gallop or rub. MUSCULOSKELETAL: No tenderness or percussion pain over the axial skeleton, scapulae or pelvis. ABDOMEN: Soft, nontender, nondistended without masses or organomegaly. Bowell sounds are present. EXTREMITIES: No peripheral edema is identified. Limited motor and sensory examination are grossly intact and symmetric bilaterally. NEUROLOGIC: Cranial nerves II ???XII are grossly intact. Normal sensation, strength 5/5 in all extremities, normal gait, no ataxia. Performance Status: 1 - No physically strenuous activity, but ambulatory and able to carry out light or sedentary work (e.g. office work, light house work). (ECOG) Lab: None pending. Pathology: Primary, r91.8 - other nonspecific abnormal finding of lung field, Diagnosed 10/19/2019 (active). Imaging: See HPI Impression: The patient is a 69-year-old female with concern for not only lung cancer but also undiagnosed left breast cancer. Biopsy is pending on the left breast later on today. 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 During work-up prior to surgery, fine-needle aspiration of an 11 R lymph node revealed metastatic carcinoma, while fine-needle aspiration of a subcarinal lymph node was benign.. On 12/07/2019 she was treated by Dr Cox with a ???right??? lower lobectomy and sampling of N1 lymph nodes (N2 lymph nodes were not surgically sampled). Pathology revealed negative margins and one surgically removed interbronchial positive lymph node. The patient has a persistent ???left??? upper lobe of lung lesion which has shown slight interval growth. This lesion now measures 10 mm and it was FDG avid prior to surgery. The interventional radiologist does not believe that this is readily amenable to biopsy given its small size. Thus, a repeat CT chest was recommended to be completed in two months for subsequent biopsy and treatment planning. It should be noted that this lesion is amenable to SRS, if it is clinically warranted. There is also a new indeterminate 5 mm nodule along the remaining fissure in the medial right lower lung field, which warrants follow-up. The patient is scheduled to see Dr. Olson in the next week after her biopsy results of the left breast are available. Plan: -) Consider adjuvant chemotherapy given known N1 disease. -) Assess the feasibility and utility of a repeat EBUS and biopsy of the subcarinal lymph node (which has shown interval growth). -) If the pending left breast biopsy is ER positive, consider endocrine therapy while treating the lung cancer, until the suspected breast cancer can be treated at a later date. -) The 1 cm left upper lobe lesion could be either a new primary, metastasis, or benign. -) If the questioned subcarinal lymph node is later deemed to be positive, consider an MRI of the brain, and reconsider adjuvant treatment options (Mediastinal XRT following chemotherapy???). -) I will follow-up with the patient in 2 months with a repeat CT of the chest with contrast. Signed by: Bossman Hong MD 01/07/2020 12:06:05 PM <<Signature on File>> Time spent with patient: CPT Code: CPT Code:
== END 2019-11-23 13:12 | disposition home or self-care (01) ==
LOC: ONCMED 13:16
PROVIDERS: PCP Nurse Practitioner Family; Visit Provider Radiology Radiation Oncology
DX: C34.31 Malignant neoplasm of lower lobe, right bronchus or lung (principal); C77.1 Secondary and unspecified malignant neoplasm of intrathoracic lymph nodes; R91.8 Other nonspecific abnormal finding of lung field; N63.21 Unspecified lump in the left breast, upper outer quadrant; J44.9 Chronic obstructive pulmonary disease, unspecified; M06.9 Rheumatoid arthritis, unspecified; F17.210 Nicotine dependence, cigarettes, uncomplicated; E78.5 Hyperlipidemia, unspecified; I10 Essential (primary) hypertension; E11.42 Type 2 diabetes mellitus with diabetic polyneuropathy; Z79.899 Other long term (current) drug therapy; Z79.84 Long term (current) use of oral hypoglycemic drugs
CPT/HCPCS: 99215

== ENCOUNTER 2019-12-01 | Outpatient (CLI) | payer MEDICARE, OTHER, SELFPAY | END 2019-12-01 23:00 | disposition home or self-care (01) | LOC: LAB 12-30 12:23 | PROVIDERS: PCP Nurse Practitioner Family; Visit Provider Thoracic Surgery (Cardiothoracic Vascular Surgery) | DX: Z79.899 Other long term (current) drug therapy (principal) | CPT/HCPCS: 93005 ==

== ENCOUNTER 2019-12-07 09:25 | Inpatient (IN) | payer MEDICARE, OTHER, SELFPAY ==
[2019-12-01 13:27] VITALS: BMI 31.4
--- NOTE | 2019-12-01 13:33 | ECG_ITS ---
[facility] Test Date: 2019-12-01 Pat Name: Eunice Aguilar Department: Room: Gender: Female [employer] Developer: : 1950 Requested By: Antonio Cox Order Number: [id number] Elizalde MD: Charbel Walker M.D. Measurements Intervals Omega Rate: 73 P: 55 AZ: 166 QRS: 33 QRSD: 92 T: 50 QT: 375 QTc: 415 Interpretive Statements SINUS RHYTHM POSSIBLE RIGHT VENTRICULAR CONDUCTION DELAY [RSR (QR) IN V1/V2] NONSPECIFIC T-WAVE ABNORMALITY Compared to ECG 10/02/2019 07:03:30 No significant changes Electronically Signed On 12-01-2019 16:32:08 CDT by Charbel Walker M.D. [email or web address]
[2019-12-01 13:52] LABS: Basophils % 0.1 %; Eosinophils # 0.1 10^3/uL (0.0-0.8); Eosinophils % 1.8 %; Hematocrit 41.3 % (37.0-47.0); Hemoglobin 13.2 g/dL (11.5-15.3); Lymphocytes # 2.7 10^3/uL (0.8-4.8); Lymphocytes % 37.7 %; Mean Corpuscular Hemoglobin 30.5 pg (28.0-34.0); Mean Corpuscular Volume 95.4 fL (81-99); Mean Platelet Volume 10.2 fL (7.4-10.4); Monocytes # 0.5 10^3/uL (0.2-0.9); Monocytes % 6.6 %; Neutrophils # 3.79 10^3/uL (1.8-7.7); Neutrophils % 53.7 %; Nucleated Red Blood Cells % 0 %; Platelet Count 335 10^3/cmm (130-400); Red Blood Count 4.33 10^6/uL (4.1-5.3); White Blood Count 7.1 10^3/uL (4.0-10.0)
--- NOTE | 2019-12-01 13:56 | P.ANESASSM_ITS ---
Pre-Anesthetic Assessment Pre-Anesthetic Assessment: Height/Weight: Height 1.63 m Weight 83.007 kg Preop Diagnosis: right lower lobectomy Proposed Procedure: Operation Date: 12/07/19 12:30 Proposed Procedures p Lobectomy(Right) - Antonio Cox MD Familial anesthetic complications: None Social: Social History: Tobacco and No alcohol Exam: Pre-Anes Outpt Exam: alert, oriented x 3, clear to auscultation bilaterally and regular rate & rhythm Airway: Cervical ROM: WNL MP: 2 Dentition: False Pulmonary: Comments: Nodule/mass in R lower lobe CV/HEM: CV/HEM: HTN : : None reported Hepatic: Hepatic: None reported Metabolic: Metabolic: DM Musc/skel: Musc/skel: RA (per patient doesn't affect her neck, last took prednisone < 1 year ago) Neuropsych: Neuropsych: None reported Anesthetic Plan: ASA status: 3 Anesthesia: General and Regional (specify b elow) Risk of > 500 ml blood loss (7ml/kg in children): No PFSH Anesthesia PFSH: Medical History Chronic obstructive pulmonary disease, unspecified Continuous nicotine dependence Encounter for screening for other viral diseases Enrolled in chronic care management Essential (primary) hypertension Gastro-esophageal reflux disease without esophagitis High risk medication use Hyperlipidemia, unspecified Lung mass Neuropathy Rheumatoid arthritis involving both hands with positive rheumatoid factor Type 2 diabetes mellitus without complications Surgical History No pertinent past surgical history Family History Father Osteoarthritis Mother Hypertension Fibromyalgia Denies family history of Rheumatoid arthritis Lupus Social History Smoking and tobacco status: current every day smoker cigarettes Packs smoked per day: 0.5 Years cigarettes smoked: 50 Alcohol intake: never Lives independently: Yes Household members: none Housing: House Marital status: / Current occupational status: retired History of recent travel: No Current gender identity: Female Data Anesthesia CBC & Chem 7: 12/01/19 13:26 Other Labs: Laboratory Results - last 48 hr 12/01/19 13:26 WBC 7.1 RBC 4.33 Hgb 13.2 Hct 41.3 MCV 95.4 MCH 30.5 MCHC 32.0 RDW 15.0 Plt Count 335 MPV 10.2 Neut % (Auto) 53.7 Lymph % (Auto) 37.7 [place] % (Auto) 6.6 Eos % (Auto) 1.8 Baso % (Auto) 0.1 Neut # (Auto) 3.79 Lymph # (Auto) 2.7 [place] # (Auto) 0.5 Eos # (Auto) 0.1 Baso # (Auto) 0.0 Nucleated RBC % (auto) 0 Nucleated RBCs # 0.0 Cardiac Studies: No Data to Display
[2019-12-01 14:08] LABS: Add Urine Microscopic? NO
[2019-12-01 14:09] LABS: INR 0.91 (0.8-1.2)
[2019-12-01 14:14] LABS: Blood Urine Neg (Negative); Glucose Urine UA Norm (Normal); Ketones Urine Negative (Negative); Protein Urine Neg (Negative); Specific Gravity, Urine 1.005 (1.005-1.030); Urine Appearance Clear (CLEAR); Urine Color Yellow (Yellow); pH Urine 7 (5-7)
[2019-12-01 14:15] LABS: Bilirubin Urine Neg (NEGATIVE); Leukocyte Esterase Urine Negative (Negative); Nitrate Urine Negative (Negative); Urobilinogen Urine Neg (Negative)
[2019-12-01 14:16] LABS: Anion Gap 14.3 (5-19); Blood Urea Nitrogen 11 mg/dL (8-23); Calcium 9.2 mg/dL (8.5-10.5); Carbon Dioxide 25 mmol/L (22-29); Chloride 97 mmol/L (98-107); Glomerular Filtration Rate 99.1 mL/min (90-130); Glucose 140 mg/dL (65-115); Osmolality Calculated 272 mOsm/kg (285-295); Potassium 4.3 mmol/L (3.5-5.1); Sodium 132 mmol/L (136-145)
[2019-12-03 07:04] LABS: Coronavirus Lab Test PTC NOT DETECTED
[2019-12-07] VITALS (20 sets, daily range): BP systolic 126–175; BP diastolic 48–80; PULSE 64–101; RESP 12–26; TEMP 36.6–36.9; O2SAT 92–98
[2019-12-07] MEDS: sodium chloride 0.9% 1,000 ML 30 ML IV (10:02)
[2019-12-07] MEDS: mupirocin oint 22 gm 1 APPLIC NASAL (10:15)
[2019-12-07] MEDS: midazolam 1 mg/mL INJ 5 ML 5 MG IVP (11:01)
[2019-12-07] MEDS: fentaNYL 50 mcg/mL INJ 2mL 100 MCG IVP (11:02)
--- NOTE | 2019-12-07 11:03 | W.PM.OPSUD ---
Surgery/Procedure H&P Update DATE OF PROCEDURE: December 07, 2019 DATE H&P PERFORMED: 11/26/19 H&P UPDATE INFORMATION: I have reviewed H&P completed within last 30 days, I have examined patient prior to procedure and No changes to prior documentation PREOP DIAGNOSIS: Lung cancer PRIMARY INDICATION FOR PROCEDURE: Anterior segment right lower lobe mass with previous biopsies suspicious for malignancy. Lobectomy and appropriate node sampling carefully discussed. Proper consents have been reviewed and signed. PLANNED PROCEDURE: Operation Date: 12/07/19 11:25 Proposed Procedures p Lobectomy(Right) - Antonio Cox MD
[2019-12-07 11:14] LABS: Glucose Point of Care 111 mg/dL (70-110)
--- NOTE | 2019-12-07 11:15 | ANES.PROC ---
Anesthesia Procedures Procedure/Date: 12/07/19 Epidural: Time Out Performed: Yes Consents Signed: Procedure Consent Consent: requested by attending/covering physician, risks and benefits reviewed and patient agrees to proceed Thoracic Level: T10-T11 Epidural position: sitting Epidural procedure: sterile prep of area, 1% lidocaine to numb the area, 18 g needle, negative for paresthesia passed, neg for paresthesia, test dose given, 1.5% xylocaine 1:200k epi (3ml), no systemic response and sterile dressing applied
--- NOTE | 2019-12-07 12:38 | PC.RESP ---
Smoking Cessation and Pulmonary Rehab information sent to patient.
[2019-12-07] MEDS: ceFAZolin 1,000 mg SDV 3000 MG IRRIGATION (13:00)
--- NOTE | 2019-12-07 17:32 | PM.OP ---
Operative Report Date of procedure: December 07, 2019 Pre-op Diagnosis: Right lower lobe lung mass Post-op diagnosis: same Procedure Done: Right lower lobectomy Specimens removed/disposition: 1. Right lower lobe 2. lymph node samples from the right hilum anteriorly and posteriorly and lymph node sampling from endobronchial region between right lower lobe and right middle lobe. Surgeon: Antonio Cox Anesthesia: General Estimated blood loss (mL): 100 Condition: stable Disposition: ICU Brief History: 69-year-old female referred to our service for a 2.9 x 3.7 x 2.8 cm mass in the right lower lobe anteriorly, abutting the diaphragm which was found incidentally on routine chest x-ray. Rheumatology evaluation secondary to persistent cough. She has a long history tobacco use. Subsequent PET scan imaging revealed increased activity in this lesion. She is undergone prior MAYITO and lymph node sampling by Dr. Santacruz which returned suspicious for small cell carcinoma. She is also undergone radiology CT directed needle biopsy of the mass which returned suspicious for non-small cell carcinoma. She has been previously evaluated by Dr. Hong from oncology. Formal resection of this lesion has been recommended given the above findings and long history for tobacco use. Details risk procedure carefully and frankly discussed. Appropriate consents have been reviewed and signed. Procedure: Thoracic epidural catheter was placed prior to entering the surgical suite, by Dr. Roy. Ms. Aguilar underwent general endotracheal anesthesia with double-lumen endotracheal tube placed. Appropriate invasive lines were placed. She was placed in the left lateral decubitus position over axillary roll and protective padding. Her entire right chest was sterilely prepped and draped. A muscle-sparing limited right thoracotomy incision was made with cautery used to control bleeding. Latissimus muscle was divided. The anterior serratus muscle was retracted but not divided. The fifth intercostal space was entered. Moist laparotomy pads and the Finochietto retractor were placed. The chest was carefully opened. Right lower lobe mass could be easily palpated and identified. The pleura was opened circumferentially around the hilum. Inferior pulmonary ligament was taken down. Hilar dissection was initiated anteriorly and superiorly. The inferior pulmonary vein was controlled and stapled. It was then divided. Dissection was then continued cranially isolating branches of the pulmonary artery to the right lower lobe. These were also taken down ligated and divided. Posteriorly, the bronchus to the right lower lobe was dissected free. Fissure between middle lobe and lower lobe was divided using automated stapler both anteriorly and posteriorly. After completion of the fissure, arterial, venous, and bronchial supply to the middle lobe was preserved. Next, right lower lobe bronchus was stapled and sharply divided with scalpel. The right lower lobe specimen was removed. Lymph node sampling was then performed in the and the hilum anteriorly and posteriorly as well as interbronchial. The entire chest was irrigated with large amounts of antibiotic solution. Right upper and middle lobes were reinflated. Only a small air leaks were identified. 28 [place] drain was placed over the diaphragm and out to the apex. This was connected to Pleur-evac suction. Retractor and sponges were removed. Sponge and needle count was correct. Chest wall was reapproximated with interrupted #1 Vicryl suture. The fascia was closed with running 0 Vicryl suture. The subcutaneous layer was closed with 2-0 Vicryl suture. Skin was reapproximated in a subcuticular manner with 3-0 Monocryl suture. Sterile dressing was applied. Ms. Aguilar was returned to the supine position and awakened from anesthesia. She was extubated. She was then transferred to the ICU. Her daughter was counseled by phone. Chest x-ray is pending.
--- NOTE | 2019-12-07 19:00 | PC.NURSE ---
Received report from RIKA Estrada. Patient is resting comfortably. Slightly hypertensive at 140s/60s otherwise stable vital signs. In no discomfort at this time. SURVEY CREW CHIEF epidural is present. Epidural catheter site is free of drainage and dressing is intact. Bed in lowest position, call light in place. No concerns at this time.
[2019-12-07] MEDS: HYDROcodone-acetaminophen 7.5-325 mg Tablet PO (20:39)
[2019-12-07] MEDS: diphenhydrAMINE 25 mg Capsule PO (20:40)
--- NOTE | 2019-12-07 21:30 | PC.NURSE ---
Patient continues to be hypertensive running 150-160s/60s. Dr. Cox notified and ordered to restart home med dose of Carvedilol 18.75 mg BID.
[2019-12-07] MEDS: carvedilol 12.5 mg Tablet 18.75 MG PO (21:51)
[2019-12-07] MEDS: ketorolac 30 mg/mL INJ IVP (21:52)
--- NOTE | 2019-12-07 22:09 | PC.NURSE ---
Wasted 15mL of ropivacaine from LABOR SERVICE REPRESENTATIVE. New bag started.
[2019-12-08] VITALS (29 sets, daily range): BP systolic 111–183; BP diastolic 46–110; PULSE 72–97; RESP 16–26; TEMP 36.6–37; O2SAT 92–97
[2019-12-08] MEDS: ketorolac 30 mg/mL INJ IVP ×4 (03:44→22:00)
[2019-12-08 04:26] LABS: Basophils % 0.1 %; Eosinophils % 0.2 %; Hematocrit 36.8 % (37.0-47.0); Hemoglobin 11.5 g/dL (11.5-15.3); Lymphocytes # 2.1 10^3/uL (0.8-4.8); Lymphocytes % 20.7 %; Mean Corpuscular HGB Conc 31.3 g/dL (30.0-36.0); Mean Corpuscular Hemoglobin 30.4 pg (28.0-34.0); Mean Corpuscular Volume 97.4 fL (81-99); Mean Platelet Volume 10.3 fL (7.4-10.4); Monocytes # 0.3 10^3/uL (0.2-0.9); Neutrophils # 7.52 10^3/uL (1.8-7.7); Neutrophils % 75.9 %; Nucleated Red Blood Cells % 0 %; Platelet Count 300 10^3/cmm (130-400); Red Blood Count 3.78 10^6/uL (4.1-5.3); Red Cell Distribution Width 15.2 % (12.1-15.1); White Blood Count 9.9 10^3/uL (4.0-10.0)
[2019-12-08 05:19] LABS: Anion Gap 15.2 (5-19); Blood Urea Nitrogen 16 mg/dL (8-23); Calcium 7.7 mg/dL (8.5-10.5); Carbon Dioxide 23 mmol/L (22-29); Chloride 103 mmol/L (98-107); Glucose 120 mg/dL (65-115); Osmolality Calculated 280 mOsm/kg (285-295); Potassium 5.2 mmol/L (3.5-5.1); Sodium 136 mmol/L (136-145)
--- NOTE | 2019-12-08 06:00 | XRR_ITS ---
PROCEDURE INFORMATION: Exam: XR Chest, 1 View Exam date and time: 12/08/2019 6:23 AM Age: 69 years old Clinical indication: Condition or disease; Other: Post op; Prior surgery; Surgery date: Post-operative (0-2 days); Surgery type: RT lower lobectomy; Additional info: Pod #1 status post right lower lobectomy TECHNIQUE: Imaging protocol: XR of the chest Views: Frontal portable upright view of the chest. COMPARISON: CR XR chest 1V portable [id number] 11/05/2019 12:10 PM FINDINGS: Tubes, catheters and devices: EKG leads are present overlying the chest. Right hilar surgical clips. Lungs: The pulmonary vasculature is normal. Right pneumothorax which measures 10 mm at the medial pulmonary apex, however, there under additional contour in the medial right chest suggesting possible additional loculated pneumothorax. Mild left basilar pulmonary subsegmental atelectasis. Pleural space: Small-moderate right pleural effusion, likely with intra fissural partial loculation. Small left pleural effusion. Heart/Mediastinum: The heart is normal in size and contour. Vasculature: Moderate aortic arch atherosclerotic calcification without ectasia. Bones/joints: Mild medial positioning of the lateral right 5th rib likely related to interval thoracotomy. Soft tissues: Right lower chest tube. Mild right chest wall soft tissue emphysema. XR/XR chest 1V portable [id number] IMPRESSION: 1. Right pneumothorax with chest tube in place. A lateral image might add additional information as to the full volume and location. 2. Small-moderate right pleural effusion, likely with intra fissural partial loculation. 3. Small left pleural effusion. 4. Mild left basilar pulmonary subsegmental atelectasis.
--- NOTE | 2019-12-08 07:06 | P.PN_ITS ---
Subjective Subjective: Interval history: Postop day #1 status post right lower lobectomy. Up in chair on rounds. Looks very good. Cough is ineffective. Chest x-ray reveals right middle lobe atelectasis which I suspect is related to mucus plugging and less than ideal cough. Incentive spirometry only 500 cc. Chest tube output 350 cc since surgery. Very small intermittent air leak. Surgical dressing clean and dry. Chest wall stable. Vitals/I&O/Wt Last Vital Signs Temp 98.6 F 12/08/19 06:00 Pulse 81 12/08/19 06:00 Resp 25 H 12/08/19 06:00 BP 133/66 12/08/19 06:00 Pulse Ox 96 12/08/19 06:00 12/07/19 12/08/19 12/08/19 22:59 06:59 14:59 Intake Total 2049 / 2100 50 / 2150 Output Total 960 / 960 340 / 1300 Balance 1090 / 1140 -290 / 850 Physical Exam Resp: EFFORT & INSPECTION: Yes able to speak in complete sentences AUSCULTATION: diminished lung sounds Cardio: COMMON NORMALS: regular rate, regular rhythm and S1 normal heart sound present RATE: regular rate RHYTHM: regular rhythm HEART SOUNDS: S1 normal heart sound present Extremity: COMMON NORMALS: normal to inspection and no clubbing, cyanosis or edema Urinary Catheter Management^: Cano: Cath Placed During This Visit: yes Reason for Continuing Indwelling Catheter: Accurate Measurement of Urinary Output in Critically Ill Patients Urinary Catheter Date of Insertion: 12/07/19 Urinary Catheter Time of Insertion: 13:34 Data : 12/08/19 03:40 12/08/19 03:40 A&P Assessment and plan (1) Status post lobectomy of lung: Postop day #1 status post right lower lobectomy. Pathology pending. Atelectasis. Plan: Aggressive pulmonary toilet. DC Cano catheter. DC arterial line. Chest x-ray in a.m. 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
[2019-12-08] MEDS: pantoprazole DR 40 mg Tablet PO (08:45)
[2019-12-08] MEDS: carvedilol 12.5 mg Tablet 18.75 MG PO ×2 (08:45→17:38)
--- NOTE | 2019-12-08 10:14 | PC.NURSE ---
Observed Epidural site,scant amount of serosanguineous fluid noted under dressing.
--- NOTE | 2019-12-08 13:46 | PC.NURSE ---
Ambulated patient around unit. Did 3 laps (approx 300 feet). Patient tolerated very well. Did TCDB exercises after ambulation.
--- NOTE | 2019-12-08 14:18 | PC.NURSE ---
Slight bubbling was present in the water seal chamber after chest tube placement. After ambulation, bubbling increased. Added sterile water to the suction chamber and bubbling decreased to baseline.
--- NOTE | 2019-12-08 14:28 | PC.NURSE ---
Encouraged patient to regularly use Incentive Spirometer and tcdb. Patient is watching tv, i suggested she use commercial breaks as a reminder
--- NOTE | 2019-12-08 15:20 | PC.NURSE ---
patient stated she is having pain at the incision sites. Rated pain as 7/10. I educated patient on GRAIN SACKER pump, and adminstered scheduled ketoralac. I inspected the incision sites and saw no notable changes. Dressing still dry and intact. No additional chest tube drainage in past hour.
--- NOTE | 2019-12-08 15:56 | PC.NURSE ---
reassessed pain, patient states that her pain is now a 5/10. I offered additional pain meds if needed but patient declined.
[2019-12-08] MEDS: morphine 4 mg/mL SDV 1 mL IVP ×2 (16:36→21:00)
--- NOTE | 2019-12-08 16:46 | PC.NURSE ---
Throughout the day, patient has maintained a blood pressure between 120-150 systolic. It has increased to 184 and remained elevated for about 40 minutes. I provided PRN morphine for pain relief and hypertension. PRN dose is 4 mg. Pt is unfamiliar with morphine and requested a half dose. provided 2 mg per pt request.
[2019-12-09] VITALS (32 sets, daily range): BP systolic 102–193; BP diastolic 49–98; PULSE 66–165; RESP 16–30; TEMP 37.1–37.2; O2SAT 90–100
--- NOTE | 2019-12-09 00:37 | ECG_ITS ---
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 Measurements Intervals [place] Rate: 141 P: SD: -1 QRS: 19 QRSD: 85 T: 53 QT: 314 QTc: 482 Interpretive Statements ATRIAL FIBRILLATION WITH RAPID VENTRICULAR RESPONSE LOW QRS VOLTAGE IN PRECORDIAL LEADS [QRS DEFLECTION < 1.0 mV IN CHEST LEADS] NONSPECIFIC ST & T-WAVE ABNORMALITY ABNORMAL RHYTHM ECG INTERPRETATION BASED ON A DEFAULT AGE OF 40 YEARS Compared to ECG 12/01/2019 13:45:02 Low QRS voltage now present Sinus rhythm no longer present T-wave abnormality still present Electronically Signed On 12-10-2019 0:18:58 CDT by Kiko Albright M.D. [email or web address] cle[email or web address]/store/[id number] f
[2019-12-09] MEDS: morphine 4 mg/mL SDV 1 mL IVP ×2 (01:41→20:45)
[2019-12-09] MEDS: ketorolac 30 mg/mL INJ IVP ×4 (04:38→21:42)
--- NOTE | 2019-12-09 06:00 | XR_ITS ---
WS: [id number] CHEST XRAY TECHNIQUE: Portable chest. CLINICAL INFORMATION: POD #2 status post right lower lobectomy/atelectasis Rx with pulmonary toilet COMPARISON: December 08, 2019 FINDINGS: Shallow inspiration. Right chest tube with small right pneumothorax unchanged Heart: Cardiomegaly. Aortic calcification. Lungs: Postoperative changes right lower lobectomy. Small right pleural effusion with volume loss rig ht lower lobe. Right basilar atelectasis. Findings are unchanged since yesterday. Small left pleural effusion with left basilar atelectasis. Bones: Mild thoracic curve convex right. XR/XR chest 1V portable [id number] IMPRESSION: 1. Postoperative changes right lower lobectomy with right chest tube. Stable s mall pneumothorax. 2. Postoperative changes right lower lobe with small right pleural effusion an d right basilar atelectasis unchanged. 3. Small left pleural effusion is stable.
--- NOTE | 2019-12-09 06:44 | PM.PN ---
Subjective Subjective: Interval history: Postop day #2 status post right lower lobectomy. Pathology pending. Up in chair on rounds. Developed A. fib last night. Placed on amiodarone. Converted back to sinus rhythm. Once up in chair this morning, and has had intermittent A. fib versus sinus rhythm. Blood pressure is okay. Chest of output 4 and 70 cc overnight. Still not as effective cough as I would like. This will require some continued work. Vitals/I&O/Wt Last Vital Signs Temp 98.8 F 12/09/19 05:00 Pulse 77 12/09/19 06:00 Resp 20 H 12/09/19 06:00 BP 137/68 12/09/19 06:00 Pulse Ox 98 12/09/19 06:00 12/08/19 12/08/19 12/09/19 14:59 22:59 06:59 Intake Total 1170 / 1170 730 / 1900 50 / 1950 Output Total 690 / 690 100 / 790 820 / 1610 Balance 480 / 480 630 / 1110 -770 / 340 Physical Exam Chest: COMMONS NORMALS: normal inspection of the chest (Chest wall stable. Chest tube in place. Surgical dressing is dry.) Resp: COMMON NORMALS: normal respiratory effort OTHER: Less than ideal effective cough. Nonproductive. Only pulling about 700 cc on incentive spirometry. Cardio: RHYTHM: abnormal rhythm irregularly irregular (Still with intermittent A. fib, on amiodarone infusion.) GI: OTHER: Had some nausea this morning. Zofran given. Urinary Catheter Management^: Cano: Cath Placed During This Visit: yes Reason for Continuing Indwelling Catheter: Accurate Measurement of Urinary Output in Critically Ill Patients Urinary Catheter Date of Insertion: 12/07/19 Urinary Catheter Time of Insertion: 13:34 Data : 12/08/19 03:40 12/08/19 03:40 A&P Assessment and plan (1) Status post lobectomy of lung: Postop day #2 status post right lower lobectomy. Postop atelectasis. Pathology pending. Plan: Continue aggressive pulmonary toilet. CBC, BMP, chest x-ray in a.m. Will initiate p.o. amiodarone. Status: Acute (2) Postoperative atrial fibrillation: IV amiodarone infusing. Will add p.o. amiodarone Status: Acute Attestations Medical Necessity Statement*: Postop day #2 status post right lower lobectomy. Resume Coreg Time Spent in Patient Care: 16 - 35 minutes Coding Level of Care Code Acute Physical Therapy Assistant for Ulysses[place] Fwd Diagnoses Status post lobectomy of lung Z90.2 Postoperative atrial fibrillation I97.89; I48.91
[2019-12-09] MEDS: ondansetron 2 mg/ML SDV 2 mL 4 MG IVP (06:45)
--- NOTE | 2019-12-09 09:15 | PC.NURSE ---
epidural dressing showed to dr. james. some sersanguous drainage to sponge. feels happened during insertion. will monitor
[2019-12-09] MEDS: pantoprazole DR 40 mg Tablet PO (09:21)
[2019-12-09] MEDS: spironolactone 25 mg Tablet PO (09:21)
[2019-12-09] MEDS: carvedilol 12.5 mg Tablet 18.75 MG PO ×2 (09:21→17:45)
[2019-12-09] MEDS: amiodarone 200 mg Tablet PO (16:55)
--- NOTE | 2019-12-09 21:18 | PC.NURSE ---
Patient is reporting leaking from the epidural site. Removed dressing and evaluated. Leaking from insertion site. Redressed with tegaderm and contacted anesthesia. Spoke to Holly Bañuelos CRNA and she is going to remove epidural catheter.
--- NOTE | 2019-12-09 21:40 | PC.NURSE ---
Holly Bañuelos CRNA at bedside and assessed epidural catheter site. Epidural leaking from insertion site. FACTORER removed epidural catheter. Catheter tip intact. No bleeding noted at site. Band-aid applied to site. No complications or complaints from patient.
[2019-12-10] VITALS (21 sets, daily range): BP systolic 101–147; BP diastolic 47–76; PULSE 69–99; RESP 16–26; TEMP 36.4–37.1; O2SAT 92–100
[2019-12-10] MEDS: ketorolac 30 mg/mL INJ IVP ×4 (04:01→21:46)
[2019-12-10 04:05] LABS: Basophils % 0.3 %; Eosinophils # 0.3 10^3/uL (0.0-0.8); Eosinophils % 3.8 %; Hematocrit 33.1 % (37.0-47.0); Hemoglobin 10.2 g/dL (11.5-15.3); Lymphocytes # 2.1 10^3/uL (0.8-4.8); Lymphocytes % 27.8 %; Mean Corpuscular HGB Conc 30.8 g/dL (30.0-36.0); Mean Corpuscular Hemoglobin 30.5 pg (28.0-34.0); Mean Corpuscular Volume 99.1 fL (81-99); Mean Platelet Volume 10.1 fL (7.4-10.4); Monocytes # 0.5 10^3/uL (0.2-0.9); Monocytes % 7.1 %; Neutrophils # 4.48 10^3/uL (1.8-7.7); Neutrophils % 60.3 %; Nucleated Red Blood Cells % 0 %; Platelet Count 263 10^3/cmm (130-400); Red Blood Count 3.34 10^6/uL (4.1-5.3); Red Cell Distribution Width 15.4 % (12.1-15.1); White Blood Count 7.4 10^3/uL (4.0-10.0)
[2019-12-10 04:22] LABS: Anion Gap 11.9 (5-19); Blood Urea Nitrogen 27 mg/dL (8-23); Calcium 8.2 mg/dL (8.5-10.5); Carbon Dioxide 24 mmol/L (22-29); Chloride 100 mmol/L (98-107); Glucose 123 mg/dL (65-115); Osmolality Calculated 270 mOsm/kg (285-295); Potassium 4.9 mmol/L (3.5-5.1); Sodium 131 mmol/L (136-145)
--- NOTE | 2019-12-10 05:52 | P.PN_ITS ---
Subjective Subjective: Interval history: Postop day #3 status post right lower lobectomy. Pathology still pending. Cough is become much more effective. Chest tube output 310 cc past 24-hour, trending down. No air leak. Pleural fluid is serous. Lab has been reviewed. Chest x-ray reveals an apical cap Probably from the volume loss of the right lower lobectomy. Still needs some aggressive pulmonary toilet, though certainly is doing better. Currently remains in sinus rhythm. Vitals/I&O/Wt Last Vital Signs Temp 99 F 12/09/19 16:05 Pulse 80 12/10/19 04:00 Resp 19 H 12/10/19 04:00 BP 134/55 12/10/19 04:00 Pulse Ox 97 12/10/19 04:00 12/09/19 12/09/19 12/10/19 14:59 22:59 06:59 Intake Total 900 / 900 1378 / 2278 Output Total 0 / 0 580 / 580 730 / 1310 Balance 900 / 900 798 / 1698 -730 / 968 Physical Exam Chest: COMMONS NORMALS: normal inspection of the chest (Chest wall is stable. Surgical dressings will be removed today, incisions paint with Betadine, and redressed.) Resp: COMMON NORMALS: No use of accessory muscles EFFORT & INSPECTION: Yes able to speak in complete sentences and Yes Actively coughing (Much improved cough effort. Now becoming slightly productive of clear sputum.) AUSCULTATION: bronchial breath sounds (Slightly decreased breath sounds in the bases and some crackles, though I think this is actually improving as she opens up her airways.) Urinary Catheter Management^: Cano: Cath Placed During This Visit: yes Reason for Continuing Indwelling Catheter: Accurate Measurement of Urinary Output in Critically Ill Patients Urinary Catheter Date of Insertion: 12/07/19 Urinary Catheter Time of Insertion: 13:34 Data : 12/10/19 03:12 12/10/19 03:12 A&P Assessment and plan (1) Status post lobectomy of lung: Postop day #3 status post lobectomy. Postop A. fib, resolved. Plan: Transfer to [place]. Chest tube to waterseal. Pathology pending. 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
--- NOTE | 2019-12-10 06:00 | XR_ITS ---
WS: [id number] CHEST XRAY TECHNIQUE: Portable chest. CLINICAL INFORMATION: POD #3 status post right lower lobectomy COMPARISON: December 09, 2019 FINDINGS: Heart: Cardiomegaly. Aortic calcification. Lungs: Small bilateral pleural effusions appear unchanged. Bibasilar atelectasis right greater than l eft. Volume loss right lower lobe with right lower lobectomy. Small right pneumothorax. Bones: Normal visualized bony structures. XR/XR chest 1V portable [id number] IMPRESSION: 1. Small bilateral pleural effusions right greater than left with bibasilar at electasis unchanged. 2. Small right pneumothorax unchanged.
[2019-12-10] MEDS: amiodarone 200 mg Tablet PO ×2 (07:18→16:54)
--- NOTE | 2019-12-10 08:35 | PC.SOCIAL ---
IMM Page 2 of IMM explained to patient. Initialed, dated and timed and placed in chart. Copy provided to patient.
[2019-12-10] MEDS: enoxaparin 40 mg/0.4 mL Syringe SUBCUT (09:13)
[2019-12-10] MEDS: carvedilol 12.5 mg Tablet 18.75 MG PO ×2 (09:14→16:54)
[2019-12-10] MEDS: metformin 500 mg Tablet PO (09:14)
[2019-12-10] MEDS: pantoprazole DR 40 mg Tablet PO (09:15)
[2019-12-10] MEDS: spironolactone 25 mg Tablet PO (09:15)
--- NOTE | 2019-12-10 13:12 | PC.NURSE ---
transferred to [address] [place] [address] per w/c with belongings iincluding tablet and tour manager
--- NOTE | 2019-12-10 17:02 | PM.PN ---
Subjective Subjective: Interval history: Transfer to [place]. Up in chair on rounds. Looks very good. Cough remains effective though still pulling only about 700 cc on incentive spirometry. Chest tube output is still too great to allow for removal of the chest tube tonight. Erma was marked for reconsideration of chest tube removal tomorrow morning after review of overnight drainage. Vitals/I&O/Wt Last Vital Signs Temp 98.5 F 12/10/19 15:17 Pulse 77 12/10/19 15:17 Resp 18 12/10/19 15:17 BP 144/75 12/10/19 15:17 Pulse Ox 98 12/10/19 15:17 12/10/19 12/10/19 12/10/19 06:59 14:59 22:59 Intake Total 1020 / 1020 120 / 1140 Output Total 790 / 1370 Balance -790 / 908 1020 / 1020 120 / 1140 Physical Exam Chest: COMMONS NORMALS: normal inspection of the chest and normal palpation of entire chest wall Resp: COMMON NORMALS: normal respiratory effort and No retractions EFFORT & INSPECTION: Yes able to speak in complete sentences Urinary Catheter Management^: Cano: Cath Placed During This Visit: yes Reason for Continuing Indwelling Catheter: Accurate Measurement of Urinary Output in Critically Ill Patients Urinary Catheter Date of Insertion: 12/07/19 Urinary Catheter Time of Insertion: 13:34 Data : 12/10/19 03:12 12/10/19 03:12 A&P Assessment and plan (1) Status post lobectomy of lung: Status post right lower lobectomy. 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 Margins were clear. Plan: Reassess chest tube output overnight and possibly remove chest tube tomorrow. Status: Acute Attestations Medical Necessity Statement*: Status post right lower lobectomy; pathology: Adenocarcinoma stage II Time Spent in Patient Care: less than 15 minutes Coding Level of Care Code Acute Liquor Merchant for Olman Gomez Diagnoses Status post lobectomy of lung Z90.2
--- NOTE | 2019-12-10 18:39 | PC.NURSE ---
SHIFT SUMMARY PATIENT RECEIVED FROM ICU TODAY, SHE HAS AMBULATED WELL WITH ASSISTANCE. SHE HAS REMAINED ON 3L NC, CHEST TUBE OUTPUT WAS 100ML FOR THIS SHIFT, SEROSANGENIOUS IN COLOR. PAIN HAS BEEN WELL CONTROLLED, PT ONLY STATES DISCOMFORT WHEN COUGHING, COUGH SOUNDS MOIST BUT NO SPUTUM EXPECTORATED. LUNG SOUNDS ARE COARSE WITH INSPIRATORY AND EXPIRATORY WHEEZES. ABSENT LUNG SOUNDS TO RLL. PATIENT RESTING IN BED AT THIS TIME, CALL LIGHT WITHIN REACH.
--- NOTE | 2019-12-10 20:15 | PC.NURSE ---
dressing to right lateral and posterior chest dry and intact. Chest tube secure.
--- NOTE | 2019-12-10 21:42 | PC.NURSE ---
Voided 100 ml to hat plus miss hat.
[2019-12-10] MEDS: HYDROcodone-acetaminophen 7.5-325 mg Tablet PO (21:46)
[2019-12-11] VITALS (7 sets, daily range): BP systolic 141–170; BP diastolic 64–71; PULSE 64–68; RESP 16–21; TEMP 36.4–36.8; O2SAT 87–100
[2019-12-11] MEDS: ketorolac 30 mg/mL INJ IVP ×2 (04:10→09:49)
--- NOTE | 2019-12-11 04:17 | PC.NURSE ---
Pt ambulated to bathroom slightly sob but reports about same as it has been last couple days. No complaints voiced.
--- NOTE | 2019-12-11 06:00 | XRR_ITS ---
PROCEDURE INFORMATION: Exam: XR Chest, 1 View Exam date and time: 12/11/2019 5:18 AM Age: 69 years old Clinical indication: Device placement; Chest tube; Prior surgery; Surgery date: Post-operative (0-2 days); Additional info: Pod #4 status post right lower lobectomy TECHNIQUE: Imaging protocol: XR of the chest Views: 1 view. COMPARISON: [place] XR chest 1V portable [id number] 12/10/2019 4:56 AM FINDINGS: Tubes, catheters and devices: Parent thoracotomy tube inferiorly and medially. Lungs: Unremarkable. No consolidation. Pleural space: moderate right pleural effusion with right basilar consolidation versus atelectasis. Heart/Mediastinum: Unremarkable. No cardiomegaly. Bones/joints: Unremarkable. XR/XR chest 1V portable [id number] IMPRESSION: Moderate right pleural effusion with right basilar consolidation versus atelectasis. Pneumothorax previously described is not visualized. Minimal change.
[2019-12-11] MEDS: enoxaparin 40 mg/0.4 mL Syringe SUBCUT (06:52)
[2019-12-11] MEDS: metformin 500 mg Tablet PO (08:32)
[2019-12-11] MEDS: carvedilol 12.5 mg Tablet 18.75 MG PO (08:32)
[2019-12-11] MEDS: pantoprazole DR 40 mg Tablet PO (08:32)
[2019-12-11] MEDS: levoFLOXacin 500 mg Tablet PO (08:33)
[2019-12-11] MEDS: spironolactone 25 mg Tablet PO (08:33)
[2019-12-11] MEDS: amiodarone 200 mg Tablet PO (08:33)
--- NOTE | 2019-12-11 09:02 | PM.PN ---
Subjective Subjective: Interval history: Postop day #4 status post right lower lobectomy. 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 There still appears to be some volume loss on the right side though her cough appears to be quite effective. She still pulling only about 600 700 cc on incentive spirometry. Chest tube output 325 cc past 24 hours.. Vitals/I&O/Wt Last Vital Signs Temp 97.6 F 12/11/19 07:31 Pulse 64 12/11/19 07:31 Resp 16 12/11/19 07:31 BP 153/64 12/11/19 07:31 Pulse Ox 99 12/11/19 07:31 12/10/19 12/11/19 12/11/19 22:59 06:59 14:59 Intake Total 210 / 1230 150 / 1380 480 / 480 Output Total 200 / 200 700 / 900 Balance 10 / 1030 -550 / 480 480 / 480 Physical Exam Chest: COMMONS NORMALS: normal inspection of the chest (No crepitance. Incision line is clean and dry.) Resp: COMMON NORMALS: normal respiratory effort OTHER: A good and clearing, effective cough. Still with decreased breath sounds in the bases, on the right Cardio: COMMON NORMALS: regular rate, regular rhythm, S1 normal heart sound present and No murmurs present (Cardio) RATE: regular rate RHYTHM: regular rhythm HEART SOUNDS: S1 normal heart sound present Urinary Catheter Management^: Cano: Cath Placed During This Visit: yes Reason for Continuing Indwelling Catheter: Accurate Measurement of Urinary Output in Critically Ill Patients Urinary Catheter Date of Insertion: 12/07/19 Urinary Catheter Time of Insertion: 13:34 Data : 12/10/19 03:12 12/10/19 03:12 A&P Assessment and plan (1) Status post lobectomy of lung: Postop day #4 status post right lower lobectomy. Adenocarcinoma. Plan: Chest tube removed. Will plan Betasept shower this evening. Possible discharge home later today or tomorrow. I am a bit concerned of possibly delayed presents of an effusion. Will initiate Levaquin 500 mg daily. First dose now. Status: Acute Attestations Medical Necessity Statement*: Postop day #4 status post right lower lobectomy. Time Spent in Patient Care: 16 - 35 minutes Coding Level of Care Code Acute Newscast Producer for Chg Fwd Diagnoses Status post lobectomy of lung Z90.2
[2019-12-11] MEDS: chlorhexidine gluconate 4% Btl 118 mL 1 APPLIC TOPICAL (09:49)
--- NOTE | 2019-12-11 14:27 | PM.DCS ---
Discharge Providers Date of Admission: 12/07/19 09:25 Date of Discharge: December 11, 2019 Attending Provider at Admission: Antonio Cox MD Attending Provider at Discharge: Antonio Cox MD Primary Care Provider: LUIS Dailey Diagnoses at Discharge Discharge Diagnosis (1) Status post lobectomy of lung: Status: Acute Reason for Visit Reason for Visit: UNABLE TO SEE DX Hospital Course Discharge Summary: Ms. Aguilar is a 69-year-old female referred to our service for right lower lobe lung mass found incidentally. This was confirmed by CT scan of the chest and subsequent PET scan revealed increased activity in this lesion without evidence for metastatic disease. Given her age, and long history tobacco use along with radiographic findings, surgical resection was recommended. After careful outpatient evaluation, she was electively admitted on December 06 and underwent right lower lobectomy. Initially, she convalesced in the ICU where she remained hemodynamically stable. Good pain control with thoracic epidural catheter and supplemental narcotic administration. She did develop spontaneous atrial fibrillation and was placed on amiodarone where she chemically converted then 18 hours. She is remained in sinus rhythm since that time. IV amiodarone has been transitioned to oral. Small air leak that dissipated within 36 hours. Pulmonary status slowly improved over the next 3 days. Cough is become much more effective though her incentive spirometry still is below par, only averaging about 750 cc. 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 Margins were clear. Pleural drain was discontinued this morning. Incision line is clean and dry and intact. Chest wall is stable. She is very eager for discharge to home. We will have home O2 evaluation completed, though I do think she will qualify for supplemental oxygen. Home health arrangements are also being made. She will be scheduled to follow-up with me at [facility] next with a chest x-ray. At the time of discharge she is in stable condition. Physical Exam Chest: COMMONS NORMALS: normal inspection of the chest (Incision line is clean and dry. Chest wall is stable. Drain site is well approximated.) Resp: AUSCULTATION: breath sounds absent (In the right base. Slowly improving.) Cardio: COMMON NORMALS: regular rate, regular rhythm, S1 normal heart sound present, No gallops present (Cardio) and No rub (Cardio) RATE: regular rate RHYTHM: regular rhythm HEART SOUNDS: S1 normal heart sound present Urinary Catheter Management^: Cano: Cath Placed During This Visit: yes Reason for Continuing Indwelling Catheter: Accurate Measurement of Urinary Output in Critically Ill Patients Urinary Catheter Date of Insertion: 12/07/19 Urinary Catheter Time of Insertion: 13:34 Discharge Data Data Completed and Pending: Completed Studies During Hospitalization Category Date Time Status XR chest 1V napoleon ble 82063 Routine Exams 12/08/19 06:00 Completed XR chest 1V napoleon ble [id number] Routine Exams 12/09/19 06:00 Completed XR chest 1V napoleon ble [id number] Routine Exams 12/10/19 06:00 Completed XR chest 1V napoleon ble [id number] Routine Exams 12/11/19 06:00 Completed Pathology: Surgic al [PTH] Routine Pth 12/07/19 15:59 Completed Pending at discharge Category Date Time Status Leukocyte Reduced RBC Routine Lab 12/01/19 13:25 Results Retype for XM Rou jaclyn Lab 12/01/19 13:25 Results Type and Screen - Cardiac Routine Lab 12/01/19 13:25 Results Type and Screen R outine Lab 12/01/19 13:25 Results Vitals: Last Vital Signs Temp 97.9 F 12/11/19 14:21 Pulse 64 12/11/19 14:21 Resp 16 12/11/19 14:21 BP 154/68 12/11/19 14:21 Pulse Ox 99 12/11/19 14:21 Discharge Plan Discharge Patient Disposition: Home Health Service Condition: Stable Prescriptions: New Pacerone 200 mg Tablet 200 mg PO BID Qty: 60 RF: 0 hydrocodone-acetaminophen 7.5-325 mg Tablet 1 tab PO Q6H PRN (Reason: Moderate To Severe Pain) Qty: 28 RF: 0 levofloxacin 500 mg Tablet 500 mg PO DAILY Qty: 7 RF: 0 Continued (DME) FreeStyle Lite Strips Strip See Rx Instructions .ROUTE .MEDSUPPLY Qty: 10 RF: 0 (DME) lancets [FreeStyle Lancets] 28 gauge misc See Rx Instructions .ROUTE .MEDSUPPLY Qty: 25 RF: 0 spironolactone 25 mg tablet 25 mg PO DAILY Qty: 90 RF: 1 folic acid 1 mg tablet 1 mg PO DAILY Qty: 90 RF: 3 carvedilol 12.5 mg tablet 18.75 mg PO BID 30 Days Qty: 90 RF: 3 methotrexate sodium 2.5 mg tablet 20 mg PO .weekly Qty: 32 RF: 0 metformin 500 mg tablet 500 mg PO DAILY RF: 0 cinnamon bark [Cinnamon] 500 mg Capsule 500 mg PO QPM RF: 0 Discharge Orders: Discharge Order (Routine); Ordered 12/11/19 Ordered By: Antonio Cox Other Ambulatory Orders: XR chest 1V [id number] (Routine) Timeframe: 20191217 Facility: [facility] - Location: Radiology Ordered By: Antonio Cox DME: Oxygen (Order) Location: None Selected Ordered By: Antonio Cox Referrals: Antonio Cox MD [Physician] - 12/17/19 (With portable single view chest x-ray taken on day of and prior to clinic visit.) Discharge Diet: Usual diet Discharge Activity: Limit activity as instructed Patient Instructions: Hydrocodone/Acetaminophen (By mouth), Amiodarone (By mouth), Levofloxacin (By mouth), How to Stop Smoking (GEN), Thoracotomy (DC), Lung Lobectomy (DC), Cigarette Smoking and Your Health (GEN) Activity Restrictions/Additional Instructions: May begin daily showers [place] incision with Betadine and recover daily after drying completely following showers, for the next 2 days. No swimming or tub baths x 2 weeks No ointments on incision Report drainage, redness, heat, increased pain, or swelling to clinic Use incentive spirometer frequently. Frequent coughing and deep breathing exercises. Walk frequently, but avoid excessive heat After 2 days, May leave bandages off if desired, or recover if you prefer. Discharge Attestations Time Spent in Discharge Care*: less than 30 min Specific Discharge Activities: Specific discharge activities: educating patient, discussing with trimming caser/social workers/dc planners, documenting/other paperwork and evaluating patient/reviewing data Time Spent in Smoking Cessation: Time spent discussing smoking cessation with patient: 3 to 10 minutes Status at Discharge: Cognitive status at discharge: cognitively intact, Behavioral status at discharge: cooperative, Functional status at discharge: independent ambulation Overall status at discharge: patient is progressing back to baseline Quality Metrics Clinical Quality Measures During this hospital stay, did patient experience: None Coding Level of Care Code Acute Chargeback Specialist for Olman Gomez Diagnoses Status post lobectomy of lung Z90.2
--- NOTE | 2019-12-11 14:36 | PC.NURSE ---
patient showered with betasept today, minimal assistance needed. incision to R lateral chest clean and dry, asymptomatic. incision painted with betadine, new island dressing applied. pt tolerated well.
--- NOTE | 2019-12-11 14:59 | PC.NURSE ---
discharge instructions gone over with patient, all questions answered. patient verbalized understanding.
--- NOTE | 2019-12-24 08:48 | PC.SOCIAL ---
Post D/C Note Ailyn from [facility] calls and requests the signed O2 order. It appears that it was entered incorrectly and likely is not in Dr. Cox's electronic folder to be signed. Printed off order and faxed to [facility] and spoke with [place]. Requested Dr. Cox's signature and for her to fax back to , then we will forward it on to [facility].
== END 2019-12-11 16:21 | disposition home health service (06) | DRG 164 ==
LOC: ICU 14:26 → MEDSURG 12-10 12:50
PROVIDERS: Admitting Provider Thoracic Surgery (Cardiothoracic Vascular Surgery); PCP Nurse Practitioner Family; Visit Provider Thoracic Surgery (Cardiothoracic Vascular Surgery)
PROC: 0BTF0ZZ Resection of Right Lower Lung Lobe, Open Approach (ICD-10-PCS; CPT 32480; principal; 2019-12-07 11:15)
DX: C34.31 Malignant neoplasm of lower lobe, right bronchus or lung (principal); C77.9 Secondary and unspecified malignant neoplasm of lymph node, unspecified; J98.11 Atelectasis; I48.91 Unspecified atrial fibrillation; I10 Essential (primary) hypertension; Z79.84 Long term (current) use of oral hypoglycemic drugs; J44.9 Chronic obstructive pulmonary disease, unspecified; K21.9 Gastro-esophageal reflux disease without esophagitis; E11.40 Type 2 diabetes mellitus with diabetic neuropathy, unspecified; M06.842 Other specified rheumatoid arthritis, left hand; M06.841 Other specified rheumatoid arthritis, right hand; E78.5 Hyperlipidemia, unspecified; F17.210 Nicotine dependence, cigarettes, uncomplicated
CPT/HCPCS: 12345; 36415; 36416; 51702; 71045; 80048; 81003; 82962; 85025; 85610; 86850; 86900; 86920; 87635; 88305; 88309; 93005; 96372; 96374; 96375; J0131; J0282; J0690; J1650; J1885; J2250; J2270; J2405; J2704; J2710; J2765; J2795; J3010; J3490; J7030; J7060

== ENCOUNTER 2019-12-31 08:44 | Outpatient (CLI) | payer MEDICARE, OTHER, SELFPAY ==
--- NOTE | 2019-12-31 08:51 | MM_ITS ---
WS: [id number] DIAGNOSTIC BILATERAL DIGITAL MAMMOGRAM WITH CAD LEFT breast ultrasound, limited HISTORY: LT BREAST NODULE COMPARISON: 09/19/2019 TECHNIQUE: Bilateral craniocaudad, mediolateral oblique, and mediolateral views are submitted. Comput er aided detection utilized. Breast composition: There are scattered areas of fibroglandular density. Well-circumscribed high dens ity nodule in the mid posterior LEFT breast along the 3:00 axis measures 1.2 cm. No calcification or distortion. No additional masses or suspicious calcifications. LEFT breast ultrasound. Well-circumscribed mass in the LEFT breast is not identified by ultrasound. This may be a fatty tumor . This mass was negative by PET/CT imaging. MM/[place] [id number] IMPRESSION: BI-RADS: 4-Suspicious Finding-Biopsy Should Be Considered FOLLOW UP: Biopsy Recommended 1. Stereotactic biopsy is recommended of the LEFT breast mass. This mass is no t identified by ultrasound therefore biopsy should be performed with stereotact ic guidance. 2. Also this mass was negative on PET/CT from 09/19/2019 and therefore may be be nign.
== END 2019-12-31 08:45 | disposition home or self-care (01) ==
LOC: RADSHAW 08:49
PROVIDERS: PCP Nurse Practitioner Family; Visit Provider Radiology Radiation Oncology
DX: N63.25 Unspecified lump in the left breast, overlapping quadrants (principal)
CPT/HCPCS: 76642; 77066

== ENCOUNTER 2020-01-06 07:53 | Outpatient (CLI) | payer MEDICARE, OTHER, SELFPAY ==
--- NOTE | 2020-01-06 08:06 | CT_ITS ---
WS: [id number] CT CHEST WITH INTRAVENOUS CONTRAST HISTORY: ABNORMAL FINDINGS IN LUNG NANCE TECHNIQUE: Contiguous 5 mm axial imaging performed on the thorax. Coronal and sagittal reformats are submitted. All CT scans at [facility] use at least one of these dose optimization techniq ues: automated exposure control; mA and/or kV adjustment per patient size (includes targeted exams wh ere dose is matched to clinical indication); or iterative reconstruction. CONTRAST: Omnipaque 300; 95 mL IV. DLP: 918.08 mGycm COMPARISON: 11/05/2019, PET/CT 09/19/2019 Lungs and central airway: Status post RIGHT lower lobectomy. Volume loss in the RIGHT thorax and a sm all partially loculated pleural effusion. There is a new 5 mm nodule along the fissure projecting ove r the medial RIGHT lower lung field. LEFT upper lobe solid nodule measures 10 mm with minimal increas e in size since 11/05/2019. This LEFT upper lobe nodule was positive on the recent PET/CT. Pleura: Small loculated RIGHT pleural effusion. Heart and pericardium: Normal size heart. No pericardial effusion. Mediastinum and karly: Indeterminate subcarinal lymph node has increased in size from 8 to 12 mm since the prior study. This lymph node is closely associated with the RIGHT hilar biopsy sutures. Vessels: Mild atherosclerosis aorta with no aneurysm. Pulmonary artery size is equal to the aorta. Chest wall and lower neck: 10 mm nodule in the posterior LEFT breast at the level of the nipple. Gabby lar to prior studies and negative on the PET/CT. Upper abdomen: Small hiatal hernia. No adrenal mass. Visualized gallbladder is negative. Incompletely visualized density from the posterior mid RIGHT kidney. Osseous structures: No destructive bone lesions. Mild spondylosis. CT/CT chest w con* [id number] IMPRESSION: 1. Status post RIGHT lower lobectomy. 2. Slight increase in size of the LEFT upper lobe solid nodule since 11/05/2019 . Nodule now measures 10 mm in diameter. Positive on the PET/CT. 3. Increase in size of the RIGHT subcarinal lymph node suspicious for metastat ic disease. Lymph node has increased from 8 to 12 mm. 4. Small loculated RIGHT pleural effusion. 5. New 5 mm nodule along the remaining fissure in the medial RIGHT lower lung field. Indeterminate for metastatic lesion.
[2020-01-06] MEDS: iohexol 300 mg/mL 100 mL Btl IV (08:33)
== END 2020-01-06 07:54 | disposition home or self-care (01) ==
LOC: RADWPI 07:55
PROVIDERS: PCP Nurse Practitioner Family; Visit Provider Radiology Radiation Oncology
DX: R91.8 Other nonspecific abnormal finding of lung field (principal); Z90.2 Acquired absence of lung [part of]; R91.1 Solitary pulmonary nodule; R59.9 Enlarged lymph nodes, unspecified; J90 Pleural effusion, not elsewhere classified
CPT/HCPCS: 71260; Q9967

== ENCOUNTER 2020-01-07 09:23 | Outpatient (CLI) | payer MEDICARE, OTHER, SELFPAY ==
--- NOTE | 2020-01-07 13:06 | MM_ITS ---
WS: [id number] STEREOTACTIC LEFT BREAST BIOPSY WITH VACUUM ASSISTANCE. History: 11 mm asymmetric density mid left breast. This is unable to be verified on ultrasound and st ereotactic biopsy was recommended. Procedure, risks, and complications were discussed the patient who agreed to proceed. Prior imaging w as reviewed. Asymmetric density within the left breast localized. Stereotactic imaging was performed. Patient was prepped and draped in usual sterile fashion. After 1% lidocaine, asymmetric density was targeted ster eotactically in the left breast. Small incision was made. Needle advanced into the asymmetric density left breast. Imaging demonstrates appropriate position of the biopsy device however asymmetric densi ty is not well visualized. Needle was removed and additional imaging was performed under compression and asymmetric density not definitely identified. Biopsy clip was placed in the expected location of the asymmetric density to aashish position in case the density was cystic and ruptured by biopsy needle. Patient removed from compression and standard mammogram was performed with persistence of the opacit y with adjacent biopsy clip. Findings discussed with Dr. Olson and patient. Treatment options include stereotactic localization lesion with surgical excision which is recommende d. Alternatively, this could be followed up in 3-6 months, however based on the mammographic appearan ce and lack of comparisons, surgical excision is favored. MM/MM biopsy LT vac assist [id number] IMPRESSION: 1. Asymmetric density left breast was unable to be verified under stereotactic compression 2. Biopsy clip was placed to aashish position which will aid in placement of ster eotactic wire localization 3. Recommend treatment option is stereotactic wire localization with surgical excision.
--- NOTE | 2020-01-07 13:06 | MM_ITS ---
WS: [id number] STEREOTACTIC LEFT BREAST BIOPSY WITH VACUUM ASSISTANCE. History: 11 mm asymmetric density mid left breast. This is unable to be verified on ultrasound and st ereotactic biopsy was recommended. Procedure, risks, and complications were discussed the patient who agreed to proceed. Prior imaging w as reviewed. Asymmetric density within the left breast localized. Stereotactic imaging was performed. Patient was prepped and draped in usual sterile fashion. After 1% lidocaine, asymmetric density was targeted ster eotactically in the left breast. Small incision was made. Needle advanced into the asymmetric density left breast. Imaging demonstrates appropriate position of the biopsy device however asymmetric densi ty is not well visualized. Needle was removed and additional imaging was performed under compression and asymmetric density not definitely identified. Biopsy clip was placed in the expected location of the asymmetric density to aashish position in case the density was cystic and ruptured by biopsy needle. Patient removed from compression and standard mammogram was performed with persistence of the opacit y with adjacent biopsy clip. Findings discussed with Dr. Olson and patient. Treatment options include stereotactic localization lesion with surgical excision which is recommende d. Alternatively, this could be followed up in 3-6 months, however based on the mammographic appearan ce and lack of comparisons, surgical excision is favored. MM/[place] [id number] IMPRESSION: 1. Asymmetric density left breast was unable to be verified under stereotactic compression 2. Biopsy clip was placed to aashish position which will aid in placement of ster eotactic wire localization 3. Recommend treatment option is stereotactic wire localization with surgical excision.
[2020-01-07 13:52] LABS: INR 0.85 (0.8-1.2)
== END 2020-01-07 09:24 | disposition home or self-care (01) ==
LOC: RADSHAW 09:26
PROVIDERS: Absent Provider Radiology Radiation Oncology; PCP Nurse Practitioner Family; Visit Provider Internal Medicine Medical Oncology
DX: N64.89 Other specified disorders of breast (principal); N63.20 Unspecified lump in the left breast, unspecified quadrant
CPT/HCPCS: 19081; 77065; 85610

== ENCOUNTER → 2020-01-27 11:21 | Outpatient (BNVA) | payer MEDICARE, OTHER, SELFPAY | PROVIDERS: PCP Nurse Practitioner Family; Visit Provider Surgery | DX: Z11.59 Encounter for screening for other viral diseases (principal) | CPT/HCPCS: 87635 ==

== ENCOUNTER 2020-02-01 09:05 | Day surgery (SDC) | payer MEDICARE, OTHER, SELFPAY ==
[2020-01-29 08:25] VITALS: BMI 32.2
[2020-02-01] VITALS (7 sets, daily range): BP systolic 146–177; BP diastolic 74–85; PULSE 80–87; RESP 14–18; TEMP 36.1; O2SAT 93–96
--- NOTE | 2020-02-01 07:43 | MM_ITS ---
WS: [id number] STEREOTACTIC GUIDED LEFT BREAST NEEDLE LOCALIZATION INDICATION: Breast asymmetry FINDINGS: The procedure including risks, benefits, and complications were discussed with the patient who agreed to proceed. Using sterile technique patient was prepped and draped in usual sterile fashio n. After 1% lidocaine, using stereotactic guidance, a 9 cm Kopan's needle was advanced adjacent to th e focal asymmetric density left breast. Needle tip approximately 4 to 5 mm from the lesion. Surgical resection specimen demonstrates resected wire in total with gross total resection of the adj acent lesion Pathology is pending. MM/[place] [id number] IMPRESSION: Uncomplicated stereotactic localization of the left breast asymmetr y with gross total resection
--- NOTE | 2020-02-01 09:11 | W.PM.OPSUD ---
Surgery/Procedure H&P Update DATE OF PROCEDURE: February 01, 2020 DATE H&P PERFORMED: 01/14/20 H&P UPDATE INFORMATION: I have reviewed H&P completed within last 30 days, I have examined patient prior to procedure and No changes to prior documentation (Except for her needle localization tech the procedure went well yet the lesion tends to be mobile and the hookwire is not all the way encircling the lesion but at the lesion.) PREOP DIAGNOSIS: Abnormal mammogram PRIMARY INDICATION FOR PROCEDURE: The same PLANNED PROCEDURE: Operation Date: 02/01/20 09:10 Proposed Procedures p Breast Biopsy Needle Localization [id number] 82781 R92.8(Left) - Carmelo Osullivan MD s Excision of left breast lump(Left) - Carmelo Osullivan MD
--- NOTE | 2020-02-01 09:15 | ANES.PREANE2 ---
Pre-Anesthetic Assessment Pre-Anesthetic Assessment: Height/Weight: Height 1.63 m Weight 85.275 kg Preop Diagnosis: Abnormal mammogram Proposed Procedure: Operation Date: 02/01/20 09:10 Proposed Procedures p Breast Biopsy Needle Localization 73652 09783 R92.8(Left) - Carmelo Osullivan MD s Excision of left breast lump(Left) - Carmelo Osullivan MD Familial anesthetic complications: denies Was Beta Loulou taken within 24 hours: N/A Last intake: Intake Last Liquid Date 01/31/20 Last Liquid Time 22:00 Last Solid Date 01/31/20 Last Solid Time 22:00 Social: Social History: Tobacco and No alcohol Exam: Pre-Anes Outpt Exam: alert, oriented x 3, clear to auscultation bilaterally and regular rate & rhythm Airway: Submandibular: WNL Cervical ROM: WNL MP: 2 Dentition: False (upper) History/ROS: No significant history except as noted Pulmonary: Pulmonary: COPD and SOB CV/HEM: CV/HEM: HTN : : None reported Hepatic: Hepatic: None reported GI: GI: None reported Metabolic: Metabolic: DM Musc/skel: Musc/skel: RA (methotrexate weekly on Fridays) Neuropsych: Neuropsych: None reported Anesthetic Plan: ASA status: 3 Anesthesia: Anesthesia Evaluation and General Risk of > 500 ml blood loss (7ml/kg in children): No PFSH Anesthesia PFSH: Medical History Chronic obstructive pulmonary disease, unspecified Continuous nicotine dependence Encounter for screening for other viral diseases Enrolled in chronic care management Essential (primary) hypertension Gastro-esophageal reflux disease without esophagitis High risk medication use Hyperlipidemia, unspecified Lung mass Neuropathy Rheumatoid arthritis involving both hands with positive rheumatoid factor Type 2 diabetes mellitus without complications Surgical History No pertinent past surgical history Family History Father Osteoarthritis Mother Hypertension Fibromyalgia Denies family history of Rheumatoid arthritis Lupus Anesthesia complication Bleeding disorder Social History Smoking and tobacco status: former smoker Quit status (tobacco): has quit using tobacco Year quit tobacco: 2019 1PPD x 50 Years Alcohol intake: never Lives independently: Yes Household members: none Housing: House Marital status: / Current occupational status: retired History of recent travel: No Current gender identity: Female Data Anesthesia Cardiac Studies: No Data to Display
[2020-02-01] MEDS: sodium chloride 0.9% 1,000 ML 30 ML IV (09:38)
[2020-02-01] MEDS: lidocaine 2% INJ 20 mL INJECTION (09:55)
--- NOTE | 2020-02-01 10:33 | MM_ITS ---
WS: [id number] STEREOTACTIC GUIDED LEFT BREAST NEEDLE LOCALIZATION INDICATION: Breast asymmetry FINDINGS: The procedure including risks, benefits, and complications were discussed with the patient who agreed to proceed. Using sterile technique patient was prepped and draped in usual sterile fashio n. After 1% lidocaine, using stereotactic guidance, a 9 cm Kopan's needle was advanced adjacent to th e focal asymmetric density left breast. Needle tip approximately 4 to 5 mm from the lesion. Surgical resection specimen demonstrates resected wire in total with gross total resection of the adj acent lesion Pathology is pending. MM/MM surgical specimen LT IMPRESSION: Uncomplicated stereotactic localization of the left breast asymmetr y with gross total resection
--- NOTE | 2020-02-01 10:59 | P.OP_ITS ---
Operative Report Date of procedure: February 01, 2020 Pre-op Diagnosis: Abnormal mammogram Post-op diagnosis: same Procedure Done: Left breast lumpectomy with needle localization Specimens removed/disposition: Left breast mass with needle localization, short sutures marked superior and long sutures marked lateral, needle localization with the wire in the specimen. Surgeon: Carmelo Osullivan Auto Body Repairman: Surgical fiona Penn Circulating nurse Jessy Arnett Anesthesia: General (LMA bed bug exterminator Karen) Estimated blood loss (mL): 5 Condition: stable Disposition: same day Brief History: This is a pleasant 69 years old female patient with history of abnormal mammogram status post thoracotomy for lung cancer on the right side. She is undergone an attempt for stereotactic biopsy of a left breast lesion but that was not successful. Patient was referred to me for further surgical intervention.After thorough history physical examination and reviewing the chart and images with my personal interpretation.I did discuss with the patient and her family about surgical excision with needle localization of the left breast mass. Patient agreed to proceed accordingly and informed consent per chart. Procedure: After patient undergone a needle localization at Radiology Department hardcopies of the mammography were sent with the patient to the holding area. After identifying the patient holding area, the left breast was marked before the procedure by myself, patient was then taken to the operative suite, was placed in supine position, intubated by anesthesia, prophylactic IV antibiotics were given per protocol,left arm was placed in 90? to her body, I was able to take down the tape and dressing on top of the wire without jeopardizing it ,prep and drape of the left pectoralis region was done under the usual sterile technique. Time-out was done verifying the patient's name/date of /planned procedure and destination after the procedure, all were in agreement. After identifying the direction of the wire on the x-rays I did perform a transverse incision at the site of entrance of the needle used for the lo calization , dissection was carried on using electrocautery. The localization wire was grasped and pulled into the incision and dissection continued towards the tip of the wire and beyond it by 2 cm. The breast tissue containing mammographic abnormality was grasped with Allis forceps and using electrocautery the specimen was dissected free from the surrounding tissue.good margin of normal breast tissue surrounding the mass,and the specimen was taken out and passed to the circulating nurse to send for x-ray and pathology. Specimen was oriented with short suture superior and long suture left lateral Later we got the clearance from radiology department that the mammographic abnormality was all included in the specimen. Thorough irrigation of the cavity was done and hemostasis, followed by deep dermal closure by 3-0 Vicryl, then 4-0 Monocryl for skin closure Lidocaine 2% was injected at the site of the incision, followed by Mastisol and Steri-Strips. Pressure dressing was applied followed by fluffs and a sports bra Patient tolerated the procedure well, count of instruments and sponges were completed at the end of the procedure. And then patient was taken to the recovery area in stable condition. I was present for the whole entire procedure
--- NOTE | 2020-02-01 12:15 | ANE.PACU2 ---
Inpatient post-anesthesia follow up: Airway intact: Yes Vital signs: Temperature 97.0 F Pulse Rate 87 Respiratory Rate 18 Blood Pressure 158/82 Pulse Oximetry 94 Oxygen Delivery Me thod Room Air Oxygen Flow Rate Fraction of Inspir ed Oxygen Hydration adequate: Yes Nausea and vomiting: No Pain level: 1 Mental status: Baseline
== END 2020-02-01 12:16 | disposition home or self-care (01) ==
LOC: OPS 09:06
PROVIDERS: PCP Nurse Practitioner Family; Visit Provider Surgery
PROC: (CPT 19301; principal; 2020-02-01 09:10)
PROC: (CPT 19301; 2020-02-01 09:10)
DX: N63.20 Unspecified lump in the left breast, unspecified quadrant (principal); J44.9 Chronic obstructive pulmonary disease, unspecified; I10 Essential (primary) hypertension; E11.9 Type 2 diabetes mellitus without complications; M06.9 Rheumatoid arthritis, unspecified; E78.5 Hyperlipidemia, unspecified; Z87.891 Personal history of nicotine dependence
CPT/HCPCS: 19301; 12345; 19283; J0690; J2405; J2704; J3010; J7030

== ENCOUNTER → 2020-02-15 09:57 | Outpatient (BNVA) | payer MEDICARE, OTHER, SELFPAY | PROVIDERS: PCP Nurse Practitioner Family; Visit Provider Nurse Practitioner Family | DX: E11.9 Type 2 diabetes mellitus without complications (principal); I10 Essential (primary) hypertension; M05.741 Rheumatoid arthritis with rheumatoid factor of right hand without organ or systems involvement; M05.742 Rheumatoid arthritis with rheumatoid factor of left hand without organ or systems involvement; E78.5 Hyperlipidemia, unspecified | CPT/HCPCS: 80053; 80061; 83036; 85025; 85651; 86140 ==

== ENCOUNTER → 2020-02-23 11:27 | Outpatient (BNVA) | payer MEDICARE, OTHER, SELFPAY | PROVIDERS: PCP Nurse Practitioner Family; Visit Provider Internal Medicine Rheumatology | DX: M05.741 Rheumatoid arthritis with rheumatoid factor of right hand without organ or systems involvement (principal); Z79.899 Other long term (current) drug therapy; M05.742 Rheumatoid arthritis with rheumatoid factor of left hand without organ or systems involvement; C34.91 Malignant neoplasm of unspecified part of right bronchus or lung; E87.5 Hyperkalemia; Z90.2 Acquired absence of lung [part of]; Z87.891 Personal history of nicotine dependence | CPT/HCPCS: 36415; 84132; 99214 ==

== ENCOUNTER 2020-03-08 08:43 | Outpatient (CLI) | payer MEDICARE, OTHER, SELFPAY ==
--- NOTE | 2020-03-08 08:51 | CT_ITS ---
WS: [id number] CT CHEST TECHNIQUE: Contrast enhanced CT of the chest with coronal and sagittal reformatted images. CLINICAL INFORMATION: RESTAGING LUNG CANCER COMPARISON: CT chest January 06, 2020 DLP: 911.[address] scans at [facility] use at least one of these dose optimization techniques: automat ed exposure control; mA and/or kV adjustment per patient size (includes targeted exams where dose is matched to clinical indication); or iterative reconstruction. FINDINGS: Prior postoperative changes right lower lobectomy. Previously described small right pleural effusion has resolved. Previously described 10 mm left upper lobe nodule is unchanged from previous. Stable 5 mm nodule along the right fissure right lower lobe medially. Right subcarinal lymph node has enlarged measuring 14 mm today compared to 12 mm previous. Anterior m ediastinal lymph node measuring 10 mm appears increased in size measuring 7 mm previous. Postoperative changes left breast are new from previous. Small residual or recurrent low-attenuation lesion at the inferior margin of the resection cavity smaller compared to previous, measuring approxi mately 7 mm. Slightly prominent lymph nodes in the upper abdomen and along the napoleon hepatis appears slightly prog ressed compared to previous measuring 9 mm in maximum dimension. Small esophageal hiatal hernia. Mild diffuse fatty infiltration the liver. Adrenal glands are normal. Normal thoracic spine. CT/CT chest w con* [id number] IMPRESSION: 1. Prior postoperative changes right lower lobectomy. 2. Stable left upper lobe nodule measuring 10 mm is unchanged. 3. Slight increase in size of right subcarinal lymph node measuring 14 mm toda y. Also slightly increased right anterior mediastinal lymph node measuring 10 m m today compared to 7 mm previous. Findings suspicious for progressive disease. Recommend 3 month follow-up. 4. Stable 5 mm nodule right lower lobe along the fissure is unchanged. 5. Resolved right pleural effusion. 6. Postoperative changes left breast with residual or recurrent nodular densit y measuring 7 mm along the inferior margin of the resection cavity. Recommend l eft diagnostic mammography and ultrasound 6 months post surgical resection per protocol. 7. Prominent lymph nodes in the upper abdomen and along the napoleon hepatis appe ars slightly progressed compared to previous measuring 9 mm in maximum dimensio n.
[2020-03-08] MEDS: iohexol 300 mg/mL 100 mL Btl IV (09:10)
== END 2020-03-08 08:44 | disposition home or self-care (01) ==
LOC: RADWPI 08:48
PROVIDERS: Family Provider Nurse Practitioner Family; PCP Nurse Practitioner Family; Visit Provider Radiology Radiation Oncology
DX: C34.90 Malignant neoplasm of unspecified part of unspecified bronchus or lung (principal); R91.1 Solitary pulmonary nodule
CPT/HCPCS: 71260; Q9967

== ENCOUNTER 2020-03-09 10:59 | Outpatient (CLI) | payer MEDICARE, OTHER, SELFPAY ==
--- NOTE | 2020-03-09 17:58 | ONCRAD EPV_ITS ---
Radiation Oncology Established Patient Visit Patient: Jeff Dawson [id number] : 1950> Age: 69> Sex: Female> Dictated by: Dr. 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 Fine-needle aspiration of an 11 R lymph node revealed metastatic carcinoma, whereas FNA of lymph node stations 7 and 10R revealed benign findings (10/02/2019). Treatment rendered: -) On 12/07/2019 she was treated by Dr Cox with a ???right??? lower lobectomy and sampling of N1 lymph nodes. N2 lymph nodes were not surgically sampled at the time of lobectomy. Pathology revealed negative margins and one surgically removed positive interbronchial lymph node. -) The patient has not received adjuvant systemic therapy. Pertinent surveillance: -) The patient was also being followed for a persistent ???left??? upper lobe of lung lesion. This lesion was FDG avid prior to surgery, yet it was not amenable to biopsy per the opinion of the interventional radiologist. Thus, the left upper lobe lesion was being followed radiographically with plans for potential SRS treatment upon tissue confirmation of malignancy. -) Initial work-up incidentally found a 1.2 cm mass in the UOQ of the left breast at the 3:00 o'clock position. This was pathologically proven to be benign after a stereotactic excisional biopsy (02/01/2020). Apparently, an ultrasound-guided biopsy was initially planned, but it was later determined that a stereotactic biopsy would be more appropriate. Current History: The patient is seen today in follow-up and she reports no symptoms. She reports no shortness of breath, no chest pain, no swallowing difficulties, no bone pain, no abdominal pain, no nausea/vomiting, no headaches, no seizures, no numbness/weakness and no visual disturbances. Current Medications: Carvedilol, folic Acid, metFORMIN HCl, methotrexate Sodium, predniSONE, spironolactone. Allergies: Aspirin, Lisinopril and Nickel. Current Complaints / Review of Systems: . Vital Signs: Performed on 03/09/2020 11:44 AM BMI - 35.039 kg/m2 (high), Height - 63.00 in, Weight - 197.8 lbs, Temperature - 98.3 f, Pulse - 73, Respiration - 18, O2 Sat - 95 % (low), Pain - 0 and BP - 125/ 75 mm(hg). Physical Exam: Physical examination today was deferred and instead we spent a significant amount of time discussing current radiographic findings. Performance Status: 1 - No physically strenuous activity, but ambulatory and able to carry out light or sedentary work (e.g. office work, light house work). (ECOG) Lab: None pending. Test performed on 01/07/2020 1:10 PM PT - 11.90 seconds (low). Pathology: Primary, r91.8 - other nonspecific abnormal finding of lung field, Diagnosed 10/19/2019 (active). Imaging: I personally reviewed the radiographic imaging discussed below. 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 She was treated with a right lower lobectomy (Dr. Cox 12/07/2019) and pathology revealed negative margins and one positive interbronchial lymph node. N2 lymph nodes were not surgically sampled at the time of lobectomy and the patient has not yet begun adjuvant systemic therapy. Unfortunately, the patient's most recent CT of the chest (03/08/2020 vs 01/06/2020) revealed concern for interval growth of a subcarinal lymph node, interval growth of an anterior mediastinal lymph node, and interval growth of nap[place]on hepatic lymphadenopathy. The previously noted left upper lobe nodule in the prior study is unchanged, the previously noted right lower lobe nodule along the fissure is also unchanged, and the previously noted right pleural effusion has resolved. This case was discussed with Dr. Olson in December 2019 as well as today. I am uncertain as to why the patient did not follow-up with Dr. Olson in December as requested. I suspect that the difficulties encountered regarding the patient's left breast biopsy may have played a role. The patient was given clear instructions to follow-up with Dr. Olson after the breast biopsy was completed. I ordered a PET/CT to guide further treatment recommendations and Dr. Olson has already placed orders for molecular analysis and PD-L1 testing. The patient was instructed to follow-up with Dr. Olson and with Radiation Oncology approximately 1-2 days after completing the PET/CT. This PET/CT is expected to be completed either this Saturday, or the following Saturday, pending insurance prior authorization. In the event that PET/CT indicates no significant FDG avid concern for metastasis, I still recommend that the patient undergo EBUS and repeat biopsy of the subcarinal lymph node especially since it has demonstrated interval growth. In the absence of metastatic disease, a postoperative positive subcarinal lymph node would be an indication for adjuvant mediastinal radiation therapy after the patient received adjuvant systemic chemotherapy. However, if the PET/CT indicates positive concern for metastasis, then a new treatment plan would be warranted (i.e., biopsy to prove metastasis? MRI of the brain? Systemic chemotherapy plus immunotherapy?). I spent a total of 30 minutes in [id number] consultation answering the patient's questions. Both the patient and her friend verbally acknowledged that she was told that she needed chemotherapy in December 2019 (witnessed by Laura, radiation oncology nurse). Signed by: 03/09/2020 5:57:20 PM <<Signature on File>> Time spent with patient: CPT Code: CPT Code:
== END 2020-03-09 11:00 | disposition home or self-care (01) ==
LOC: ONCMED 11:01
PROVIDERS: PCP Nurse Practitioner Family; Visit Provider Radiology Radiation Oncology
DX: C34.31 Malignant neoplasm of lower lobe, right bronchus or lung (principal); R91.8 Other nonspecific abnormal finding of lung field; Z90.2 Acquired absence of lung [part of]
CPT/HCPCS: 99214

== ENCOUNTER 2020-03-23 06:23 | Outpatient (CLI) | payer MEDICARE, OTHER, SELFPAY ==
[2020-03-23] MEDS: pneumococcal (23 valent) SDV 0.5 mL IM (10:15)
--- NOTE | 2020-03-23 12:55 | ONC FU_ITS ---
Dr. Olson Patient Follow-Up Note Patient: Eunice Aguilar Unit #: [id number]: 1950 Dicatated By: Chino Olson M.D.Date of Visit:Mar 23, 2020 Onc Med Follow-up/Prog Note Chief Complaint: Lung mass. History of Present Illness: This is a 68 year-old woman with a right lower lobe lung mass and suspected lung cancer. In June 2019 she had a coughing fit which led to a chest x-ray. That study showed a possible mass in the right lower lobe. Her further evaluation was delayed, I assume because of the restrictions related to the coronavirus pandemic. In any case, her chest CT on 09/11/2019 showed a lobulated mass in the right lower lobe measuring 2.9 x 3.7 x 2.8 cm. It was noted to abut the diaphragm anteriorly. There were a few tiny micronodular satellite opacities. A small left suprahilar opacity measured 8 mm. A noncalcified nodule in the right upper lobe measured 2 mm. An additional fibrotic opacity in the right upper lobe measured 4 mm. There was no mediastinal or hilar lymphadenopathy. She was incidentally noted to have a 9 mm left breast nodule. PET/CT on 09/19/2019 showed FDG avid mass in the right lower lobe measuring 4.0 x 3.5 cm, SUV 12.5, indicating high probability of malignancy. A 6 mm left upper lobe nodule with SUV 2.5, which was concerning for contralateral metastatic disease. There were no other areas of abnormal uptake on that study. On 10/02/2019 she underwent navigational bronchoscopy with EBUS and transbronchial biopsy of the right lung mass. The EBUS did show evidence of mediastinal and hilar lymphadenopathy, and the procedure also included FNA biopsies of stations 7, 10 R, and 11 R lymph nodes. Pathology on the transbronchial biopsy showed benign bronchial mucosa with no dysplasia or malignancy seen. Cytology on the FNA biopsies was also negative for malignancy. I had seen her initially on 10/19/2019. With those findings, she was referred to Dr. Cox and on 12/07/2019 she underwent right lower lobectomy. 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 The tumor measured 4 x 4.2 x 3.2 cm. There was involvement in 1/3 lymph nodes, which included an intrabronchial lymph node, and inferior hilar lymph node, and a posterior hilar lymph node. The procedure did not include mediastinal lymph node sampling. Pathologic staging was pT2b, pN1. Her other medical illnesses include COPD, hypertension, hyperlipidemia, type 2 diabetes with neuropathy, and rheumatoid arthritis. She has history of smoking 1-1/2 packs of cigarettes daily for 50 years. INTERIM HISTORY: Postoperatively she underwent further evaluation for the left breast mass which had been noted on her chest CT scan. She eventually underwent left breast lumpectomy under needle localization on 02/01/2020. Pathology was benign. She has had radiation oncology follow-up with Dr. Hong regarding the left upper lobe nodule. Restaging chest CT on 03/08/2020 showed the left upper lobe nodule stable at 10 mm. There was slight increase in the right subcarinal lymph node measuring 14 mm as well as slight increase in a right anterior mediastinal lymph node measuring 10 mm. This was felt to be suspicious for disease progression. Restaging PET/CT on 03/12/2020 showed no evidence for recurrent or residual malignancy. The left upper lobe nodule measured 6 mm and showed low FDG activity, SUV 1.5, improved from the prior study. The mediastinal lymph nodes appeared radiographically benign and without significant FDG uptake. She is seen for a follow-up visit. She has been feeling okay, though she says her energy is not real good, and she has been short of breath a lot since her surgery. She has doing light work, though,. Her ECOG score is 1. Her only other significant complaint is that she has been having more joint pain, mainly in her hands, knees, and feet. She is on prednisone for that. Medications: Carvedilol 1.5 Tablet (of 12.5 mg) Tablet Oral b.i.d., Folic Acid 1 Tablet (of 800 mcg) Oral daily, metFORMIN HCl 1.5 Tablet (of 500 mg) Oral b.i.d., Methotrexate Sodium (2.5 mg) Tablet Oral Take as Directed, predniSONE 1 Tablet (of 10 mg) Tablet Oral daily PRN, Spironolactone 0.5 Tablet (of 25 mg) Oral daily, sulfaSALAzine 2 Tablet (of 500 mg) Tablet, enteric coated Oral b.i.d. Allergies: Aspirin, Lisinopril, and Nickel. Review of Systems: Constitutional - Her energy is not real good, she does get short of breath with activity. She is able to do light work. Her appetite is good, and she is curling taking prednisone. She does not have fever or night sweats. ECOG score is 1, ENMT - No sinus congestion/drainage. No mouth sores. No sore throat or difficulty swallowing, Hematologic/Lymphatic - No abnormal bruising or bleeding, Respiratory - She has been short of breath a lot since her surgery. No cough. No pleuritic pain or hemoptysis, Cardiovascular - No angina pain. No palpitations, Gastrointestinal - No nausea or vomiting. No heartburn or acid reflux. No diarrhea or constipation. No blood in the stool or black stools, Genitourinary (F) - No dysuria or hematuria. No urinary frequency. No urgency or incontinence, Musculoskeletal - She has been having more joint pain, particularly the hands, knees, and feet, Integumentary - No skin rash, Neurologic - No headache or dizziness. No numbness or tingling. No other focal neurologic symptoms, Psychiatric - She has a little depression. She does not sleep well. Vital Signs: Performed on Mar 23, 2020 09:35 Height - 63.00 in Weight - 198.8 lbs (HIGH) BSA - 1.93 sq.m BMI - 35.22 (HIGH) Temperature - 97.8 F (LOW) Pulse - 77 /min Respiration - 18 /min BP - 156/74 mm(hg) (HIGH) O2 Sat - 95 % (LOW) Pain - 0 Physical Examination: Constitutional - She looks pretty good generally, Eyes - Sclerae nonicteric. Conjunctivae clear, ENMT - No lesions noted in the oral cavity, Hematologic/Lymphatic - No cervical, clavicular, or axillary adenopathy, Respiratory - Lungs sound clear with some decrease in air movement bilaterally, Cardiovascular - Heart rhythm is regular. There is no murmur, gallop, or rub noted, Abdomen - Soft. Liver and spleen are not enlarged. There is no abdominal mass or ascites noted and there is no inguinal adenopathy, Extremities - No edema, Neurologic - No focal neurologic deficits noted. Impression: 1. 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 2. She underwent right lower lobectomy on 12/07/2019. 3. She is known to have an additional subcentimeter left upper lobe nodule with mild FDG activity, initially felt to be suspicious for contralateral lung malignancy. 4. She has underlying COPD. Her other medical illnesses include: 5. Hypertension. 6. Hyperlipidemia. 7. Type 2 diabetes with neuropathy. 8. Rheumatoid arthritis, currently on immunosuppressive therapy with methotrexate and hydroxychloroquine. Postoperative course was complicated due to finding of left breast nodule, which ultimately was determined to be benign. However, as result of that, I did not have the opportunity to see her for discussion of adjuvant chemotherapy. Her restaging chest CT was suspicious for progression of disease and mediastinal lymph nodes, but a subsequent restaging PET/CT showed no evidence for residual or recurrent malignancy. Plan: I will review the scans with Dr. Santacruz, but in the absence of any definite evidence of disease recurrence/progression, she will be followed on observation/expectant management. I will tentatively plan a follow-up visit with surveillance chest CT in 3 months. In the meantime, she will be given flu shot and Pneumovax today. Signed By: Chino Olson M.D. <<Signature on File>>
== END 2020-03-23 06:24 | disposition home or self-care (01) ==
LOC: ONCMED 06:25
PROVIDERS: PCP Nurse Practitioner Family; Visit Provider Internal Medicine Medical Oncology
DX: C34.31 Malignant neoplasm of lower lobe, right bronchus or lung (principal); Z23 Encounter for immunization; R91.1 Solitary pulmonary nodule; J44.9 Chronic obstructive pulmonary disease, unspecified; I10 Essential (primary) hypertension; E78.5 Hyperlipidemia, unspecified; E11.42 Type 2 diabetes mellitus with diabetic polyneuropathy; M06.9 Rheumatoid arthritis, unspecified; Z79.899 Other long term (current) drug therapy; Z90.2 Acquired absence of lung [part of]
CPT/HCPCS: 36415; 80076; 82565; 85025; 85651; 86140; 90471; 90686; 90732; 99214

== ENCOUNTER 2020-07-18 12:44 | Outpatient (CLI) | payer MEDICARE, OTHER, SELFPAY ==
--- NOTE | 2020-07-18 13:06 | CT_ITS ---
WS: [id number] CT CHEST TECHNIQUE: Contrast enhanced CT of the chest with coronal and sagittal reformatted images. CLINICAL INFORMATION: LUNG CANCER COMPARISON: PET/CT 03/12 CT chest March 08, 2020 DLP: 815.[address] scans at [facility] use at least one of these dose optimization techniques: automat ed exposure control; mA and/or kV adjustment per patient size (includes targeted exams where dose is matched to clinical indication); or iterative reconstruction. FINDINGS: Prior postoperative changes right lower lobectomy. 10 mm left upper lobe pulmonary nodule is stable f rom previous. Stable 5 mm nodule along the right fissure right lower lobe medially. Surgical clips in the right hilum. Bronchovascular thickening right hilum. Small right pleural effusion with subsegmen jennifer atelectasis right lower lobe. New noncalcified right upper lobe nodule measuring 3 mm. A few tiny subpleural nodules in right lower lobe appears new from previous Diffuse fatty infiltration of the liver. Prominent lymph nodes along the nap[place] hepatis are unchanged. Heterogeneously enhancing right renal cortical lesion partially visualized has a suspicious appearan ce and renal neoplasm not excluded. Recommend further evaluation with ultrasound. Interval increase in size of the right subcarinal lymph node measuring 19 mm today compared to 14 mm previous. Interval increase in size of the subcarinal lymph node measuring 17 mm today compared to 10 mm previous. Interval increase in size of the right anterior mediastinal lymph node previously measu ring 10 mm today measuring 18 mm. Postoperative changes left breast with residual nodular density measuring 7 mm. No axillary lymphaden opathy. CT/CT chest w con* [id number] IMPRESSION: 1. Prior postoperative changes right lower lobectomy. 2. Stable left upper lobe nodule measuring 10 mm is unchanged. 3. Right lower lobe nodule along the fissure measuring 6 mm is stable. 4. Several new subcentimeter noncalcified pulmonary nodules largest in the rig ht upper lobe measuring 3 mm are new from previous. Recommend 6 month follow-up . 5. Significant progression of the mediastinal and subcarinal lymphadenopathy c ompared to previous suspicious for disease progression. 6. Stable 7 mm left breast nodule. 7. Heterogeneously enhancing partially visualized right renal lesion may repre sent a complex cyst but renal neoplasm not excluded. This can be further evalua mac with ultrasound.
[2020-07-18 13:47] LABS: Basophils % 0.3 %; Eosinophils # 0.3 10^3/uL (0.0-0.8); Eosinophils % 4.8 %; Hematocrit 35.7 % (37.0-47.0); Hemoglobin 11.3 g/dL (11.5-15.3); Lymphocytes # 2.5 10^3/uL (0.8-4.8); Lymphocytes % 37.1 %; Mean Corpuscular HGB Conc 31.7 g/dL (30.0-36.0); Mean Corpuscular Hemoglobin 30.7 pg (28.0-34.0); Mean Platelet Volume 9.2 fL (7.4-10.4); Monocytes # 0.6 10^3/uL (0.2-0.9); Monocytes % 8.8 %; Neutrophils # 3.33 10^3/uL (1.8-7.7); Neutrophils % 48.7 %; Nucleated Red Blood Cells % 0 %; Platelet Count 335 10^3/cmm (130-400); Red Blood Count 3.68 10^6/uL (4.1-5.3); Red Cell Distribution Width 15.4 % (12.1-15.1); White Blood Count 6.8 10^3/uL (4.0-10.0)
[2020-07-18 14:17] LABS: Alanine Aminotransferase 30 U/L (0-33); Albumin Level 3.7 g/dL (3.5-5.2); Alkaline Phosphatase 94 IU/L (35-105); Anion Gap 15.7 (5-19); Aspartate Amino Transferase 29 U/L (0-32); Blood Urea Nitrogen 15 mg/dL (8-23); Carbon Dioxide 23 mmol/L (22-29); Chloride 100 mmol/L (98-107); Globulin 3.3 g/dL (1.3-4.6); Glucose 92 mg/dL (65-115); Osmolality Calculated 278 mOsm/kg (285-295); Potassium 4.7 mmol/L (3.5-5.1); Sodium 134 mmol/L (136-145); Total Bilirubin 0.2 mg/dL (0.15-1.2)
[2020-07-18] MEDS: iohexol 300 mg/mL 100 mL Btl IV (14:40)
== END 2020-07-18 12:45 | disposition home or self-care (01) ==
PROVIDERS: PCP Nurse Practitioner Family; Visit Provider Internal Medicine Medical Oncology
DX: C34.31 Malignant neoplasm of lower lobe, right bronchus or lung (principal); N63.20 Unspecified lump in the left breast, unspecified quadrant; R91.8 Other nonspecific abnormal finding of lung field
CPT/HCPCS: 36415; 71260; 80053; 85025

== ENCOUNTER → 2020-07-20 10:26 | Outpatient (BNVA) | payer MEDICARE, OTHER, SELFPAY | PROVIDERS: PCP Nurse Practitioner Family; Visit Provider Internal Medicine Rheumatology | DX: M05.741 Rheumatoid arthritis with rheumatoid factor of right hand without organ or systems involvement (principal); M05.742 Rheumatoid arthritis with rheumatoid factor of left hand without organ or systems involvement; Z79.899 Other long term (current) drug therapy; E87.5 Hyperkalemia; Z90.2 Acquired absence of lung [part of]; Z87.891 Personal history of nicotine dependence | CPT/HCPCS: 99214 ==

== ENCOUNTER 2020-07-27 10:26 | Outpatient (CLI) | payer MEDICARE, OTHER, SELFPAY ==
--- NOTE | 2020-07-27 14:15 | ONC FU_ITS ---
Dr. Olson Patient Follow-Up Note Patient: Eunice Aguilar Unit #: [id number]: 1950 Dicatated By: Chino Olson M.D.Date of Visit:Jul 27, 2020 Onc Med Follow-up/Prog Note Chief Complaint: Lung mass. History of Present Illness: This is a 69 year-old woman with a right lower lobe lung mass and suspected lung cancer. In June 2019 she had a coughing fit which led to a chest x-ray. That study showed a possible mass in the right lower lobe. Her further evaluation was delayed, I assume because of the restrictions related to the coronavirus pandemic. In any case, her chest CT on 09/11/2019 showed a lobulated mass in the right lower lobe measuring 2.9 x 3.7 x 2.8 cm. It was noted to abut the diaphragm anteriorly. There were a few tiny micronodular satellite opacities. A small left suprahilar opacity measured 8 mm. A noncalcified nodule in the right upper lobe measured 2 mm. An additional fibrotic opacity in the right upper lobe measured 4 mm. There was no mediastinal or hilar lymphadenopathy. She was incidentally noted to have a 9 mm left breast nodule. PET/CT on 09/19/2019 showed FDG avid mass in the right lower lobe measuring 4.0 x 3.5 cm, SUV 12.5, indicating high probability of malignancy. A 6 mm left upper lobe nodule with SUV 2.5, which was concerning for contralateral metastatic disease. There were no other areas of abnormal uptake on that study. On 10/02/2019 she underwent navigational bronchoscopy with EBUS and transbronchial biopsy of the right lung mass. The EBUS did show evidence of mediastinal and hilar lymphadenopathy, and the procedure also included FNA biopsies of stations 7, 10 R, and 11 R lymph nodes. Pathology on the transbronchial biopsy showed benign bronchial mucosa with no dysplasia or malignancy seen. Cytology on the FNA biopsies was also negative for malignancy. I had seen her initially on 10/19/2019. With those findings, she was referred to Dr. Cox and on 12/07/2019 she underwent right lower lobectomy. 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 The tumor measured 4 x 4.2 x 3.2 cm. There was involvement in 1/3 lymph nodes, which included an intrabronchial lymph node, and inferior hilar lymph node, and a posterior hilar lymph node. The procedure did not include mediastinal lymph node sampling. Pathologic staging was pT2b, pN1. Postoperatively she underwent further evaluation for the left breast mass which had been noted on her chest CT scan. She eventually underwent left breast lumpectomy under needle localization on 02/01/2020. Pathology was benign. She has had radiation oncology follow-up with Dr. Hong regarding the left upper lobe nodule. Restaging chest CT on 03/08/2020 showed the left upper lobe nodule stable at 10 mm. There was slight increase in the right subcarinal lymph node measuring 14 mm as well as slight increase in a right anterior mediastinal lymph node measuring 10 mm. This was felt to be suspicious for disease progression. Restaging PET/CT on 03/12/2020 showed no evidence for recurrent or residual malignancy. The left upper lobe nodule measured 6 mm and showed low FDG activity, SUV 1.5, improved from the prior study. The mediastinal lymph nodes appeared radiographically benign and without significant FDG uptake. I had seen her for a follow-up visit on 03/23/2020, and with those findings, she continued on observation/expectant management for the lung cancer. Her other medical illnesses include COPD, hypertension, hyperlipidemia, type 2 diabetes with neuropathy, and rheumatoid arthritis. She has history of smoking 1-1/2 packs of cigarettes daily for 50 years. INTERIM HISTORY: Her repeat chest CT on 07/18/2020 showed postoperative changes of prior right lower lobectomy. A left upper pulmonary nodule measuring 10 mm appeared unchanged. A right lower lobe nodule along the fissure measuring 6 mm also appeared stable. There were several new subcentimeter noncalcified pulmonary nodules, the largest in the right upper lobe measuring 3 mm. There appeared to be significant progression of the mediastinal and subcarinal lymphadenopathy with the right subcarinal lymph node measuring 19 mm compared to 14 mm on the previous study and with the anterior mediastinal lymph node measuring 17 mm compared to 10 mm. A partially visualized heterogeneously enhancing right renal cortical lesion was noted to have a suspicious appearance with renal neoplasm not excluded. Further evaluation with ultrasound was recommended. She is seen for a follow-up visit. She has been feeling okay. Her main complaint is that her arthritis has been bothering her more despite taking methotrexate. Her most significant pain is in her feet, hands, wrists, and knees. She also complains that her energy is not good, but she is doing light work. ECOG score is 1. She has good appetite. She has no fever or night sweats. She has noticed that she has been more short of breath since her surgery. She has just occasional cough. She does not complain of chest pain. She has no GI/ complaints other than occasional loose stools, attributable to Metformin. She does not complain of headache or dizziness. She has a little bit of numbness/tingling in her feet. Medications: Carvedilol 1.5 Tablet (of 12.5 mg) Tablet Oral b.i.d., Cinnamon Capsule Oral, [employer] Fish Oil Capsule Oral, Folic Acid 1 Tablet (of 800 mcg) Oral daily, metFORMIN HCl 1 Tablet (of 500 mg) Oral b.i.d., Methotrexate Sodium (2.5 mg) Tablet Oral Take as Directed, predniSONE 1 Tablet (of 10 mg) Tablet Oral daily PRN, Spironolactone 0.5 Tablet (of 25 mg) Oral daily Allergies: Aspirin, Lisinopril, and Nickel. Vital Signs: Performed on Jul 27, 2020 10:47 Height - 63.00 in Weight - 198.2 lbs (LOW) BSA - 1.93 sq.m BMI - 35.11 (HIGH) Temperature - 98.9 F (HIGH) Pulse - 80 /min Respiration - 16 /min BP - 142/73 mm(hg) (HIGH) O2 Sat - 96 % Pain - 0 Physical Examination: Constitutional - She looks pretty good generally, Eyes - Sclerae nonicteric. Conjunctivae clear, ENMT - No lesions noted in the oral cavity, Hematologic/Lymphatic - No cervical, clavicular, or axillary adenopathy, Respiratory - Lungs sound clear with some decrease in air movement bilaterally, Cardiovascular - Heart rhythm is regular. There is no murmur, gallop, or rub noted, Abdomen - Soft. Liver and spleen are not enlarged. There is no abdominal mass or ascites noted and there is no inguinal adenopathy, Extremities - Slight edema, Neurologic - No focal neurologic deficits noted. Lab/Imaging: Test performed on Jul 18, 2020 13:40 Sodium 134 mmol/L Potassium 4.7 mmol/L Chloride 100 mmol/L CO2 23 mmol/L Anion Gap 15.7 BUN 15 mg/dL Creatinine 0.7 mg/dL Cr Clearance (Est) 107.9800 mL/min eGFR 83.0 mL/min Glucose 92 mg/dL Osmolality - Calculated 278 mOsm/kg Calcium 9.0 mg/dL Protein, Total 7.0 g/dL Albumin 3.7 g/dL Globulin 3.3 g/dL Bilirubin, Total 0.2 mg/dL ALT (SGPT) 30 U/L AST (SGOT) 29 U/L Alkaline Phosphatase 94 IU/L WBC 6.8 10 3/uL RBC 3.68 10 6/uL HGB 11.3 g/dL HCT 35.7 % MCV 97.0 fL MCH 30.7 pg MCHC 31.7 g/dL RDW 15.4 % Platelet Count 335 10 3/cmm MPV 9.2 fL Neutrophils 3.33 10 3/uL Lymphocytes 2.5 10 3/uL Monocytes 0.6 10 3/uL Eosinophils 0.3 10 3/uL Basophils 0.0 10 3/uL Neutrophil % 48.7 % Lymphocyte % 37.1 % Monocyte % 8.8 % Eosinophil % 4.8 % Basophils % 0.3 % NRBC % 0 % Problem List: 1. 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 She underwent right lower lobectomy on 12/07/2019. 2. She also was found to have an additional subcentimeter left upper lobe nodule with mild FDG activity, initially felt to be suspicious for contralateral lung malignancy. 3. She has underlying COPD. 4. Hypertension. 5. Hyperlipidemia. 6. Type 2 diabetes with neuropathy. 7. Rheumatoid arthritis, currently on immunosuppressive therapy with methotrexate and hydroxychloroquine. 8. She had CT evidence of a left breast nodule, but that was ultimately determined to be benign on excisional biopsy. Problems Addressed with this Encounter and Plan: 1. 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 She underwent right lower lobectomy on 12/07/2019. During follow-up she has had enlarging subcarinal and anterior mediastinal lymph nodes, suspicious for metastatic disease. These had previously been evaluated with bronchoscopy/EBUS with benign findings on FNA biopsy. Nonetheless, the progressive enlargement of the lymph nodes is suspicious for metastatic disease. The CT findings and images were reviewed with the patient. At the present time she prefers to continue on close observations with surveillance CT scans. She will be scheduled for follow-up in 3 months. 2. She has CT evidence of an additional left upper lobe nodule with mild FDG activity, initially felt to be suspicious for contralateral lung malignancy. On follow-up CT scans this has not progressed. It is being managed expectantly. 3. Her current chest CT also reported presence of a suspicious appearing right renal cortical lesion. It will be further evaluated with CT abdomen/pelvis and ultrasound with her 3-month follow-up chest CT. Signed By: Chino Olson M.D. <<Signature on File>>
== END 2020-07-27 10:27 | disposition home or self-care (01) ==
LOC: ONCMED 10:29
PROVIDERS: PCP Nurse Practitioner Family; Visit Provider Internal Medicine Medical Oncology
DX: Z08 Encounter for follow-up examination after completed treatment for malignant neoplasm (principal); Z85.118 Personal history of other malignant neoplasm of bronchus and lung; J44.9 Chronic obstructive pulmonary disease, unspecified; I10 Essential (primary) hypertension; E78.5 Hyperlipidemia, unspecified; E11.42 Type 2 diabetes mellitus with diabetic polyneuropathy; M06.9 Rheumatoid arthritis, unspecified; Z79.52 Long term (current) use of systemic steroids; D84.9 Immunodeficiency, unspecified
CPT/HCPCS: 99214

== ENCOUNTER 2020-08-30 16:46 | Inpatient (IN) | payer MEDICARE, OTHER, SELFPAY ==
[2020-08-30] VITALS (7 sets, daily range): BP systolic 182–203; BP diastolic 84–107; PULSE 89–100; RESP 16–28; TEMP 36.8; O2SAT 93–94; BMI 32.5
--- NOTE | 2020-08-30 17:37 | XR_ITS ---
WS: [id number] Portable AP upright chest, 08/30/2020 Clinical Data: dyspnea/cough Comparison: Portable chest, 12/11/2019. Findings: There is a large right pleural effusion with effusion along the superior right chest wall. The left lung is clear. No pneumonia or pneumothorax is seen. There are right hilar clips seen. The a ortic arch and descending aorta are minimally tortuous. XR/XR chest 1V portable [id number] Impression: Large right pleural effusion.
--- NOTE | 2020-08-30 17:38 | ECG_ITS ---
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
--- NOTE | 2020-08-30 17:46 | ED_ITS ---
Documented by User: Francisco Riley DO 09/05/20 06:42 HPI - SOB/Dyspnea General: Chief Complaint: Shortness of Breath/Dyspnea Stated Complaint: Trouble Breathing (2nd covid shot related) Time Seen by Provider: 08/30/20 17:36 History of Present Illness: HPI Narrative: 9-year-old female comes in complaining of shortness of breath. She had increasing shortness of breath over the last week coughing the last 2 days. She is convinced is related to her second Covid shot from 3 weeks ago additionally around that same time she started taking CBD oil. She has glucose intolerance. She has a history of hypertension. She denies any history of coronary disease no history of DVTs or PEs not on anticoagulants. She denies running a fever cough has not been particularly productive. Patient has a history of adeno CA of the right lung. Reviewing her history. 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 During follow-up she had enlarging subcarinal and anterior mediastinal lymph nodes suspicious for metastatic disease. They were biopsied and found to be negative however they have continued to enlarge and are continued to thought to be suspicious for metastatic disease despite the negative biopsies per the oncology note. MD elicited complaint: shortness of breath and cough Associated symptoms: Deny abdominal pain, chest pain, fever(s), nausea, orthopnea or vomiting Review of Systems Const: Denies: fever(s), chills, body aches, change in appetite, fatigue or malaise ENMT: Denies: throat pain, ear or mastoid pain, nasal discharge or nasal congestion Card: Denies: chest pain, edema, dyspnea on exertion or orthopnea Resp: Denies: dyspnea, productive cough or non-productive cough GI: Denies: abdominal pain, nausea, vomiting, hematemesis, coffee ground emesis, diarrhea, constipation, bloating, hematochezia or melena : Denies: flank pain, difficulty voiding, dysuria, urinary frequency or urinary urgency Skin/Breast: Denies: rash or pruritus PFS ED PFSH: Medical History Chronic obstructive pulmonary disease, unspecified Continuous nicotine dependence Encounter for screening for other viral diseases Enrolled in chronic care management Essential (primary) hypertension Gastro-esophageal reflux disease without esophagitis High risk medication use Hyperlipidemia, unspecified Immunization counseling Lung mass Neuropathy Rheumatoid arthritis involving both hands with positive rheumatoid factor Type 2 diabetes mellitus without complications Surgical History H/O colonoscopy 3 yrs ago History of lobectomy of lung right lower No pertinent past surgical history Family History Father Osteoarthritis Mother Hypertension Fibromyalgia Denies family history of Rheumatoid arthritis Lupus Anesthesia complication Bleeding disorder Social History Smoking and tobacco status: former smoker Quit status (tobacco): has quit using tobacco Year quit tobacco: 2019 1PPD x 50 Years Alcohol intake: never Lives independently: Yes Household members: none Housing: House Marital status: / Current occupational status: retired History of recent travel: No Current gender identity: Female Physical Exam Const: COMMON NORMALS: no acute distress GENERAL APPEARANCE: cooperative and comfortable ORIENTATION/CONSCIOUSNESS: Yes awake, Yes oriented to person, Yes oriented to place and Yes oriented to time HENMT: COMMON NORMALS: normocephalic, atraumatic, hearing grossly normal bilaterally, external ears normal, EAC's normal, TM's normal bilaterally, Normal nasal mucous membranes and turbinates present, moist oral mucous membranes and oropharynx normal HEAD & SCALP: normocephalic and atraumatic NOSE: Normal nasal mucous membranes and turbinates present EXTERNAL EAR: Yes external ears normal EXTERNAL AUDITORY CANAL: EAC's normal TYMPANIC MEMBRANE: TM's normal bilaterally Eye: COMMON NORMALS: Equal, round and reactive pupils present, EOMs intact bilaterally, conjunctivae normal and no scleral icterus CONJUNCTIVA: Yes conjunctivae normal PUPIL: Yes Equal, round and reactive pupils present Neck/C-Spine: COMMON NORMALS: full ROM, no lymphadenopathy, supple and no JVD Lymph: LYMPHATIC: no lymphadenopathy noted and no lymphedema noted Resp: COMMON NORMALS: normal respiratory effort, No retractions, No use of accessory muscles and clear to auscultation bilaterally AUSCULTATION: clear to auscultation bilaterally Cardio: COMMON NORMALS: no JVD, regular rate, regular rhythm and No murmurs present (Cardio) RATE: regular rate RHYTHM: regular rhythm GI: COMMON NORMALS: Soft to palpation and No hepatosplenomegaly present AUSCULTATION: Yes normoactive bowel sounds PALPATION: Yes Soft to palpation, No Tenderness to palpation present (GI), No Guarding due to palpation present (GI) and Yes No hepatosplenomegaly present Extremity: COMMON NORMALS: normal to inspection, capillary refill normal, no clubbing, cyanosis or edema, no calf tenderness and no pedal edema Neuro: SENSORIUM/ORIENTATION: Yes oriented to person, Yes oriented to place and Yes oriented to time Skin: COMMON NORMALS: no rashes or lesions noted GENERAL SKIN EXAM: no rashes or lesions noted Course Vital Signs: Vital signs: Vital Signs Temperature 98.6 F 08/31/20 17:57 Pulse Rate 73 08/31/20 17:57 Respiratory Rate 18 08/31/20 17:57 Blood Pressure 120/54 08/31/20 17:57 Pulse Oximetry 98 08/31/20 17:57 MDM - SOB/Dyspnea MDM Narrative: Medical decision making narrative: Labs pending care turned over to Dr. Humphreys at change of shift see his notes for final diagnosis and disposition Lab Data: Labs: Lab Results 08/30/20 08/30/20 08/30/20 Range/Units 17:39 17:40 17:40 WBC 9.2 (4.0-10.0) 10^3/ uL RBC 3.98 L (4.1-5.3) 10^6/u L Hgb 12.4 (11.5-15.3) g/dL Hct 39.0 (37.0-47.0) % MCV 98.0 (81-99) fL MCH 31.2 (28.0-34.0) pg MCHC 31.8 (30.0-36.0) g/dL RDW 15.5 H (12.1-15.1) % Plt Count 454 H (130-400) 10^3/c mm MPV 9.6 (7.4-10.4) fL Neut % (Auto) 72.2 % Lymph % (Auto) 20.0 % [place] % (Auto) 7.1 % Eos % (Auto) 0.2 % Baso % (Auto) 0.1 % Neut # (Auto) 6.62 (1.8-7.7) 10^3/u L Lymph # (Auto) 1.8 (0.8-4.8) 10^3/u L Wy[place] # (Auto) 0.7 (0.2-0.9) 10^3/u L Eos # (Auto) 0.0 (0.0-0.8) 10^3/u L Baso # (Auto) 0.0 (0.0-0.1) 10^3/u L Nucleated RBC % (a uto) 0 % Nucleated RBCs # 0.0 /100WBC PT (12.1-14.9) SECO NDS INR (0.8-1.2) APTT (23.9-36.7) SECO NDS Specimen Type Arterial Sample Site Radial, right ABG pH 7.43 (7.35-7.45) ABG pCO2 41.6 (35-45) mmHg ABG pO2 63.4 L (80.0-100.0) mmH g ABG HCO3 27.6 H (22-26) mmol/L ABG O2 Saturation 92.9 ABG Base Excess 3.0 H (-2.0-2.0) mmol/ L Grupo Test Pos A-a O2 Gradient 4.6 L (5-10) mmHg Hematocrit 38.6 (37-47) % Hgb O2 Saturation 90.8 L (95-100) % Carboxyhemoglobin 1.4 (0.4-20.1) %THgb Methemoglobin 0.9 (0.4-1.5) % Total Hemoglobin 12.6 (12-16) g/dL Sodium 138.0 135 L (131-143) mmol/L Potassium 3.8 4.0 (3.5-5.0) mmol/L Glucose 127.0 H 133 H (70-115) mg/dL Ionized Calcium 1.3 (1.1-1.4) mmol/L O2 Delivery Device Room air FiO2 21.0 % [employer] Specialist ID Ed Chloride 97 L (98-107) mmol/L Carbon Dioxide 27 (22-29) mmol/L Anion Gap 15.0 (5-19) BUN 18 (8-23) mg/dL Creatinine 0.6 (0.5-0.9) mg/dL GFR Calculation 99.1 (90-130) mL/min Calculated Osmolal ity 284 L (285-295) mOsm/k g Calcium 9.1 (8.5-10.5) mg/dL Magnesium (1.7-2.3) mg/dL Total Bilirubin 0.3 (0.15-1.2) mg/dL AST 15 (0-32) U/L ALT 20 (0-33) U/L Alkaline Phosphata se 107 H (35-105) IU/L Total Protein 6.9 (6.6-8.7) g/dL Albumin 3.9 (3.5-5.2) g/dL Globulin 3.0 (1.3-4.6) g/dL 08/31/20 08/31/20 08/31/20 Range/Units 05:13 05:13 09:23 WBC 8.2 (4.0-10.0) 10^3/ uL RBC 3.74 L (4.1-5.3) 10^6/u L Hgb 11.8 (11.5-15.3) g/dL Hct 36.9 L 0.2 L* D (37.0-47.0) % MCV 98.7 (81-99) fL MCH 31.6 (28.0-34.0) pg MCHC 32.0 (30.0-36.0) g/dL RDW 15.5 H (12.1-15.1) % Plt Count 417 H (130-400) 10^3/c mm MPV 9.2 (7.4-10.4) fL Neut % (Auto) 60.9 % Lymph % (Auto) 28.0 % [place] % (Auto) 8.6 % Eos % (Auto) 1.8 % Baso % (Auto) 0.1 % Neut # (Auto) 4.99 (1.8-7.7) 10^3/u L Lymph # (Auto) 2.3 (0.8-4.8) 10^3/u L [place] # (Auto) 0.7 (0.2-0.9) 10^3/u L Eos # (Auto) 0.2 (0.0-0.8) 10^3/u L Baso # (Auto) 0.0 (0.0-0.1) 10^3/u L Nucleated RBC % (a uto) 0 % Nucleated RBCs # 0.0 /100WBC PT (12.1-14.9) SECO NDS INR (0.8-1.2) APTT (23.9-36.7) SECO NDS Specimen Type Sample Site ABG pH (7.35-7.45) ABG pCO2 (35-45) mmHg ABG pO2 (80.0-100.0) mmH g ABG HCO3 (22-26) mmol/L ABG O2 Saturation ABG Base Excess (-2.0-2.0) mmol/ L Grupo Test A-a O2 Gradient (5-10) mmHg Hematocrit (37-47) % Hgb O2 Saturation (95-100) % Carboxyhemoglobin (0.4-20.1) %THgb Methemoglobin (0.4-1.5) % Total Hemoglobin (12-16) g/dL Sodium 136 (131-143) mmol/L Potassium 3.7 (3.5-5.0) mmol/L Glucose 116 H (70-115) mg/dL Ionized Calcium (1.1-1.4) mmol/L O2 Delivery Device FiO2 % [employer] Specialist ID Chloride 99 (98-107) mmol/L Carbon Dioxide 28 (22-29) mmol/L Anion Gap 12.7 (5-19) BUN 17 (8-23) mg/dL Creatinine 0.6 (0.5-0.9) mg/dL GFR Calculation 99.1 (90-130) mL/min Calculated Osmolal ity 285 (285-295) mOsm/k g Calcium 8.8 (8.5-10.5) mg/dL Magnesium 1.9 (1.7-2.3) mg/dL Total Bilirubin (0.15-1.2) mg/dL AST (0-32) U/L ALT (0-33) U/L Alkaline Phosphata se (35-105) IU/L Total Protein (6.6-8.7) g/dL Albumin (3.5-5.2) g/dL Globulin (1.3-4.6) g/dL 08/31/20 Range/Units 11:57 WBC (4.0-10.0) 10^3/ uL RBC (4.1-5.3) 10^6/u L Hgb (11.5-15.3) g/dL Hct (37.0-47.0) % MCV (81-99) fL MCH (28.0-34.0) pg MCHC (30.0-36.0) g/dL RDW (12.1-15.1) % Plt Count (130-400) 10^3/c mm MPV (7.4-10.4) fL Neut % (Auto) % Lymph % (Auto) % Wy[place] % (Auto) % Eos % (Auto) % Baso % (Auto) % Neut # (Auto) (1.8-7.7) 10^3/u L Lymph # (Auto) (0.8-4.8) 10^3/u L [place] # (Auto) (0.2-0.9) 10^3/u L Eos # (Auto) (0.0-0.8) 10^3/u L Baso # (Auto) (0.0-0.1) 10^3/u L Nucleated RBC % (a uto) % Nucleated RBCs # /100WBC PT 14.30 (12.1-14.9) SECO NDS INR 1.07 (0.8-1.2) APTT 26.0 (23.9-36.7) SECO NDS Specimen Type Sample Site ABG pH (7.35-7.45) ABG pCO2 (35-45) mmHg ABG pO2 (80.0-100.0) mmH g ABG HCO3 (22-26) mmol/L ABG O2 Saturation ABG Base Excess (-2.0-2.0) mmol/ L Grupo Test A-a O2 Gradient (5-10) mmHg Hematocrit (37-47) % Hgb O2 Saturation (95-100) % Carboxyhemoglobin (0.4-20.1) %THgb Methemoglobin (0.4-1.5) % Total Hemoglobin (12-16) g/dL Sodium (131-143) mmol/L Potassium (3.5-5.0) mmol/L Glucose (70-115) mg/dL Ionized Calcium (1.1-1.4) mmol/L O2 Delivery Device FiO2 % [employer] Specialist ID Chloride (98-107) mmol/L Carbon Dioxide (22-29) mmol/L Anion Gap (5-19) BUN (8-23) mg/dL Creatinine (0.5-0.9) mg/dL GFR Calculation (90-130) mL/min Calculated Osmolal ity (285-295) mOsm/k g Calcium (8.5-10.5) mg/dL Magnesium (1.7-2.3) mg/dL Total Bilirubin (0.15-1.2) mg/dL AST (0-32) U/L ALT (0-33) U/L Alkaline Phosphata se (35-105) IU/L Total Protein (6.6-8.7) g/dL Albumin (3.5-5.2) g/dL Globulin (1.3-4.6) g/dL Discharge Plan Discharge Patient Disposition: Placed in Observation Admit Provider: Torrey Palacio Clinical Impression: Pleural effusion exudative, Lung cancer, middle lobe, Exertional shortness of breath, Hypertensive urgency Discharge Diet: Cardiac Discharge Activity: Resume usual activity Sign Out Sign Out Data: Patient Sign Out occurred on 08/30/20 at 18:14. Patient's care was discussed, and care was transferred from to Prince Humphreys MD. Coding Level of Care Code ED Remote Sensing Engineer for Chg Fwd Exam Comprehensive Documented by User: Prince Humphreys MD 08/30/20 20:23 HPI - SOB/Dyspnea General: Chief Complaint: Shortness of Breath/Dyspnea Stated Complaint: Trouble Breathing (2nd covid shot related) Time Seen by Provider: 08/30/20 17:36 PFSH ED PFSH: Medical History Chronic obstructive pulmonary disease, unspecified Continuous nicotine dependence Encounter for screening for other viral diseases Enrolled in chronic care management Essential (primary) hypertension Gastro-esophageal reflux disease without esophagitis High risk medication use Hyperlipidemia, unspecified Immunization counseling Lung mass Neuropathy Rheumatoid arthritis involving both hands with positive rheumatoid factor Type 2 diabetes mellitus without complications Surgical History H/O colonoscopy 3 yrs ago History of lobectomy of lung right lower No pertinent past surgical history Family History Father Osteoarthritis Mother Hypertension Fibromyalgia Denies family history of Rheumatoid arthritis Lupus Anesthesia complication Bleeding disorder Social History Smoking and tobacco status: former smoker Quit status (tobacco): has quit using tobacco Year quit tobacco: 2019 1PPD x 50 Years Alcohol intake: never Lives independently: Yes Household members: none Housing: House Marital status: / Current occupational status: retired History of recent travel: No Current gender identity: Female Course Vital Signs: Vital signs: Vital Signs Temperature 98.6 F 08/31/20 17:57 Pulse Rate 73 08/31/20 17:57 Respiratory Rate 18 08/31/20 17:57 Blood Pressure 120/54 08/31/20 17:57 Pulse Oximetry 98 08/31/20 17:57 MDM - SOB/Dyspnea MDM Narrative: Medical decision making narrative: Patient has recurrence of right pleural effusion with moderate to large effusion to the right lung. Patient will likely require thoracentesis to improve her shortness of breath wi th exertion. Case discussed with hospitalist Dr. Carrera he will place patient in observation. Lab Data: Attestation: I reviewed the patient's lab results. Labs: Lab Results 08/30/20 08/30/20 08/30/20 Range/Units 17:39 17:40 17:40 WBC 9.2 (4.0-10.0) 10^3/ uL RBC 3.98 L (4.1-5.3) 10^6/u L Hgb 12.4 (11.5-15.3) g/dL Hct 39.0 (37.0-47.0) % MCV 98.0 (81-99) fL MCH 31.2 (28.0-34.0) pg MCHC 31.8 (30.0-36.0) g/dL RDW 15.5 H (12.1-15.1) % Plt Count 454 H (130-400) 10^3/c mm MPV 9.6 (7.4-10.4) fL Neut % (Auto) 72.2 % Lymph % (Auto) 20.0 % [place] % (Auto) 7.1 % Eos % (Auto) 0.2 % Baso % (Auto) 0.1 % Neut # (Auto) 6.62 (1.8-7.7) 10^3/u L Lymph # (Auto) 1.8 (0.8-4.8) 10^3/u L [place] # (Auto) 0.7 (0.2-0.9) 10^3/u L Eos # (Auto) 0.0 (0.0-0.8) 10^3/u L Baso # (Auto) 0.0 (0.0-0.1) 10^3/u L Nucleated RBC % (a uto) 0 % Nucleated RBCs # 0.0 /100WBC PT (12.1-14.9) SECO NDS INR (0.8-1.2) APTT (23.9-36.7) SECO NDS Specimen Type Arterial Sample Site Radial, right ABG pH 7.43 (7.35-7.45) ABG pCO2 41.6 (35-45) mmHg ABG pO2 63.4 L (80.0-100.0) mmH g ABG HCO3 27.6 H (22-26) mmol/L ABG O2 Saturation 92.9 ABG Base Excess 3.0 H (-2.0-2.0) mmol/ L Grupo Test Pos A-a O2 Gradient 4.6 L (5-10) mmHg Hematocrit 38.6 (37-47) % Hgb O2 Saturation 90.8 L (95-100) % Carboxyhemoglobin 1.4 (0.4-20.1) %THgb Methemoglobin 0.9 (0.4-1.5) % Total Hemoglobin 12.6 (12-16) g/dL Sodium 138.0 135 L (131-143) mmol/L Potassium 3.8 4.0 (3.5-5.0) mmol/L Glucose 127.0 H 133 H (70-115) mg/dL Ionized Calcium 1.3 (1.1-1.4) mmol/L O2 Delivery Device Room air FiO2 21.0 % [employer] Specialist ID Ed Chloride 97 L (98-107) mmol/L Carbon Dioxide 27 (22-29) mmol/L Anion Gap 15.0 (5-19) BUN 18 (8-23) mg/dL Creatinine 0.6 (0.5-0.9) mg/dL GFR Calculation 99.1 (90-130) mL/min Calculated Osmolal ity 284 L (285-295) mOsm/k g Calcium 9.1 (8.5-10.5) mg/dL Magnesium (1.7-2.3) mg/dL Total Bilirubin 0.3 (0.15-1.2) mg/dL AST 15 (0-32) U/L ALT 20 (0-33) U/L Alkaline Phosphata se 107 H (35-105) IU/L Total Protein 6.9 (6.6-8.7) g/dL Albumin 3.9 (3.5-5.2) g/dL Globulin 3.0 (1.3-4.6) g/dL 08/31/20 08/31/20 08/31/20 Range/Units 05:13 05:13 09:23 WBC 8.2 (4.0-10.0) 10^3/ uL RBC 3.74 L (4.1-5.3) 10^6/u L Hgb 11.8 (11.5-15.3) g/dL Hct 36.9 L 0.2 L* D (37.0-47.0) % MCV 98.7 (81-99) fL MCH 31.6 (28.0-34.0) pg MCHC 32.0 (30.0-36.0) g/dL RDW 15.5 H (12.1-15.1) % Plt Count 417 H (130-400) 10^3/c mm MPV 9.2 (7.4-10.4) fL Neut % (Auto) 60.9 % Lymph % (Auto) 28.0 % [place] % (Auto) 8.6 % Eos % (Auto) 1.8 % Baso % (Auto) 0.1 % Neut # (Auto) 4.99 (1.8-7.7) 10^3/u L Lymph # (Auto) 2.3 (0.8-4.8) 10^3/u L [place] # (Auto) 0.7 (0.2-0.9) 10^3/u L Eos # (Auto) 0.2 (0.0-0.8) 10^3/u L Baso # (Auto) 0.0 (0.0-0.1) 10^3/u L Nucleated RBC % (a uto) 0 % Nucleated RBCs # 0.0 /100WBC PT (12.1-14.9) SECO NDS INR (0.8-1.2) APTT (23.9-36.7) SECO NDS Specimen Type Sample Site ABG pH (7.35-7.45) ABG pCO2 (35-45) mmHg ABG pO2 (80.0-100.0) mmH g ABG HCO3 (22-26) mmol/L ABG O2 Saturation ABG Base Excess (-2.0-2.0) mmol/ L Grupo Test A-a O2 Gradient (5-10) mmHg Hematocrit (37-47) % Hgb O2 Saturation (95-100) % Carboxyhemoglobin (0.4-20.1) %THgb Methemoglobin (0.4-1.5) % Total Hemoglobin (12-16) g/dL Sodium 136 (131-143) mmol/L Potassium 3.7 (3.5-5.0) mmol/L Glucose 116 H (70-115) mg/dL Ionized Calcium (1.1-1.4) mmol/L O2 Delivery Device FiO2 % [employer] Specialist ID Chloride 99 (98-107) mmol/L Carbon Dioxide 28 (22-29) mmol/L Anion Gap 12.7 (5-19) BUN 17 (8-23) mg/dL Creatinine 0.6 (0.5-0.9) mg/dL GFR Calculation 99.1 (90-130) mL/min Calculated Osmolal ity 285 (285-295) mOsm/k g Calcium 8.8 (8.5-10.5) mg/dL Magnesium 1.9 (1.7-2.3) mg/dL Total Bilirubin (0.15-1.2) mg/dL AST (0-32) U/L ALT (0-33) U/L Alkaline Phosphata se (35-105) IU/L Total Protein (6.6-8.7) g/dL Albumin (3.5-5.2) g/dL Globulin (1.3-4.6) g/dL 08/31/20 Range/Units 11:57 WBC (4.0-10.0) 10^3/ uL RBC (4.1-5.3) 10^6/u L Hgb (11.5-15.3) g/dL Hct (37.0-47.0) % MCV (81-99) fL MCH (28.0-34.0) pg MCHC (30.0-36.0) g/dL RDW (12.1-15.1) % Plt Count (130-400) 10^3/c mm MPV (7.4-10.4) fL Neut % (Auto) % Lymph % (Auto) % [place] % (Auto) % Eos % (Auto) % Baso % (Auto) % Neut # (Auto) (1.8-7.7) 10^3/u L Lymph # (Auto) (0.8-4.8) 10^3/u L [place] # (Auto) (0.2-0.9) 10^3/u L Eos # (Auto) (0.0-0.8) 10^3/u L Baso # (Auto) (0.0-0.1) 10^3/u L Nucleated RBC % (a uto) % Nucleated RBCs # /100WBC PT 14.30 (12.1-14.9) SECO NDS INR 1.07 (0.8-1.2) APTT 26.0 (23.9-36.7) SECO NDS Specimen Type Sample Site ABG pH (7.35-7.45) ABG pCO2 (35-45) mmHg ABG pO2 (80.0-100.0) mmH g ABG HCO3 (22-26) mmol/L ABG O2 Saturation ABG Base Excess (-2.0-2.0) mmol/ L Grupo Test A-a O2 Gradient (5-10) mmHg Hematocrit (37-47) % Hgb O2 Saturation (95-100) % Carboxyhemoglobin (0.4-20.1) %THgb Methemoglobin (0.4-1.5) % Total Hemoglobin (12-16) g/dL Sodium (131-143) mmol/L Potassium (3.5-5.0) mmol/L Glucose (70-115) mg/dL Ionized Calcium (1.1-1.4) mmol/L O2 Delivery Device FiO2 % [employer] Specialist ID Chloride (98-107) mmol/L Carbon Dioxide (22-29) mmol/L Anion Gap (5-19) BUN (8-23) mg/dL Creatinine (0.5-0.9) mg/dL GFR Calculation (90-130) mL/min Calculated Osmolal ity (285-295) mOsm/k g Calcium (8.5-10.5) mg/dL Magnesium (1.7-2.3) mg/dL Total Bilirubin (0.15-1.2) mg/dL AST (0-32) U/L ALT (0-33) U/L Alkaline Phosphata se (35-105) IU/L Total Protein (6.6-8.7) g/dL Albumin (3.5-5.2) g/dL Globulin (1.3-4.6) g/dL Imaging Data^: CT Chest: Radiologist's impression: [place] [address] CT Scan Report Signed Patient: Eunice Aguilar #: [id number] : 1950[facility][id number] Age/Sex: 69 / FADM Date: 08/30/20 Loc: [facility]/Bed: Attending Dr: Ordering Provider/Ordering MD: Francisco Riley DO Date of Service: 08/30/20 Procedure(s): CT angio chest PE protcl [id number] Accession Number(s): [id number] Report Number: [id number] PROCEDURE INFORMATION: Exam: CTA Chest With Contrast Exam date and time: 08/30/2020 5:54 PM Age: 69 years old Clinical indication: Shortness of breath; Prior surgery; Surgery type: RT lobectomy; Additional info: Lung CA, dyspnea TECHNIQUE: Imaging protocol: Computed tomographic angiography of the chest with contrast. 3D rendering (Not supervised by radiologist): MIP and/or 3D reconstructed images were created by the technologist. Radiation optimization: All CT scans at this facility use at least one of these dose optimization techniques: automated exposure control; mA and/or kV adjustment per patient size (includes targeted exams where dose is matched to clinical indication); or iterative reconstruction. Contrast material: OMNI 350; Contrast volume: 80 ml; Contrast route: INTRAVENOUS (IV); COMPARISON: CT chest w con* [id number] 07/18/2020 2:44 PM RADIATION DOSE METRICS: Total DLP (mGy-cm): 655.42 FINDINGS: Pulmonary arteries: The pulmonary arteries are adequately opacified for evaluation to the subsegmental level. There is no filling defect to suggest embolism. Aorta: There is severe aortic atherosclerotic disease. There is extensive ulcerated plaque in the distal descending aorta. Lungs: There is truncation of the right lower lobe bronchus and adjacent sutures consistent with lobectomy. There is partial atelectasis of the inferior right upper lobe and right middle lobe. There are multiple scattered noncalcified pulmonary nodules in the left lung. The nodules are slightly increased in size by 1-2 mm each since 07/31. Pleural spaces: There is a large loculated right pleural effusion. Heart: Heart size is normal. There is mild coronary artery calcification. Lymph nodes: There are enlarged right paratracheal, right hilar and subcarinal lymph nodes, similar to 07/18/2020. Bones/joints: Bones are unremarkable. Soft tissues: Unremarkable. CT/CT angio chest PE protcl [id number] IMPRESSION: 1. No pulmonary embolism. 2. New large right pleural effusion with compressive atelectasis in the right lung. 3. Increasing size of scattered pulmonary nodules in the left lung. Possible metastases. Fleischner Society follow up recommendations for incidental nodules are not indicated. Follow up per the patient's medical condition. 4. Stable mediastinal and right hilar lymphadenopathy. 5. Right lower lobectomy. 6. Incidental findings above. Radiation Dose CTDIVOL = (mGy): DLP = 655.42 (mGy-cm) Dictated By:Pb Boone MD Signed By:Pb Booneigned Date/Time:08/30/20 521 Critical Care Time Critical Care Time: Critical Care Time: Yes Total Critical Care Time: 44 Attestation: For care of hypertension and IV labetalol, hospitalist consulted Discharge Plan Discharge Patient Disposition: Placed in Observation Admit Provider: Torrey Palacio Clinical Impression: Pleural effusion exudative, Lung cancer, middle lobe, Exertional shortness of breath, Hypertensive urgency Discharge Diet: Cardiac Discharge Activity: Resume usual activity Sign Out Sign Out Data: Patient Sign Out occurred on 08/30/20 at 18:14. Patient's care was discussed, and care was transferred from to Prince Humphreys MD. Coding Level of Care Code ED Remote Sensing Engineer for Chg Fwd Exam Comprehensive
[2020-08-30 17:49] LABS: ABG PCO2 41.6 mmHg (35-45); ABG PH Result 7.43 (7.35-7.45); Alveolar-Arterial Oxygen Gradi 4.6 mmHg (5-10); Arterial Blood Gas Hematocrit 38.6 % (37-47); Blood Gas Allen Test Pos; Blood Gas Sample Type Arterial; Carboxyhemoglobin 1.4 %THgb (0.4-20.1); HCO3 ABG 27.6 mmol/L (22-26); HGB O2 Sat 90.8 % (95-100); Ionized Calcium Level - ABG 1.3 mmol/L (1.1-1.4); Methemoglobin 0.9 % (0.4-1.5); Oxygen Saturation ABG 92.9; PO2 ABG 63.4 mmHg (80.0-100.0); Potassium Level - ABG 3.8 mmol/L (3.5-5.0); Total Hemoglobin 12.6 g/dL (12-16)
--- NOTE | 2020-08-30 17:49 | CTR_ITS ---
PROCEDURE INFORMATION: Exam: CTA Chest With Contrast Exam date and time: 08/30/2020 5:54 PM Age: 69 years old Clinical indication: Shortness of breath; Prior surgery; Surgery type: RT lobectomy; Additional info: Lung CA, dyspnea TECHNIQUE: Imaging protocol: Computed tomographic angiography of the chest with contrast. 3D rendering (Not supervised by radiologist): MIP and/or 3D reconstructed images were created by the technologist. Radiation optimization: All CT scans at this facility use at least one of these dose optimization techniques: automated exposure control; mA and/or kV adjustment per patient size (includes targeted exams where dose is matched to clinical indication); or iterative reconstruction. Contrast material: OMNI 350; Contrast volume: 80 ml; Contrast route: INTRAVENOUS (IV); COMPARISON: CT chest w con* [id number] 07/18/2020 2:44 PM RADIATION DOSE METRICS: Total DLP (mGy-cm): 655.42 FINDINGS: Pulmonary arteries: The pulmonary arteries are adequately opacified for evaluation to the subsegmental level. There is no filling defect to suggest embolism. Aorta: There is severe aortic atherosclerotic disease. There is extensive ulcerated plaque in the distal descending aorta. Lungs: There is truncation of the right lower lobe bronchus and adjacent sutures consistent with lobectomy. There is partial atelectasis of the inferior right upper lobe and right middle lobe. There are multiple scattered noncalcified pulmonary nodules in the left lung. The nodules are slightly increased in size by 1-2 mm each since 07/31. Pleural spaces: There is a large loculated right pleural effusion. Heart: Heart size is normal. There is mild coronary artery calcification. Lymph nodes: There are enlarged right paratracheal, right hilar and subcarinal lymph nodes, similar to 07/18/2020. Bones/joints: Bones are unremarkable. Soft tissues: Unremarkable. CT/CT angio chest PE protcl [id number] IMPRESSION: 1. No pulmonary embolism. 2. New large right pleural effusion with compressive atelectasis in the right lung. 3. Increasing size of scattered pulmonary nodules in the left lung. Possible metastases. Fleischner Society follow up recommendations for incidental nodules are not indicated. Follow up per the patient's medical condition. 4. Stable mediastinal and right hilar lymphadenopathy. 5. Right lower lobectomy. 6. Incidental findings above. Radiation Dose CTDIVOL = (mGy): DLP = 655.42 (mGy-cm)
[2020-08-30 17:50] LABS: Blood Gas Operator Identificat ED; Blood Gas Sample Site Radial, right; Oxygen Device ROOM AIR
[2020-08-30 18:03] LABS: Basophils % 0.1 %; Eosinophils % 0.2 %; Hemoglobin 12.4 g/dL (11.5-15.3); Lymphocytes # 1.8 10^3/uL (0.8-4.8); Mean Corpuscular HGB Conc 31.8 g/dL (30.0-36.0); Mean Corpuscular Hemoglobin 31.2 pg (28.0-34.0); Mean Platelet Volume 9.6 fL (7.4-10.4); Monocytes # 0.7 10^3/uL (0.2-0.9); Monocytes % 7.1 %; Neutrophils # 6.62 10^3/uL (1.8-7.7); Neutrophils % 72.2 %; Nucleated Red Blood Cells % 0 %; Platelet Count 454 10^3/cmm (130-400); Red Blood Count 3.98 10^6/uL (4.1-5.3); Red Cell Distribution Width 15.5 % (12.1-15.1); White Blood Count 9.2 10^3/uL (4.0-10.0)
[2020-08-30] MEDS: iohexol 350 mg/mL 100 mL Btl IV (18:04)
[2020-08-30 18:27] LABS: Alanine Aminotransferase 20 U/L (0-33); Albumin Level 3.9 g/dL (3.5-5.2); Alkaline Phosphatase 107 IU/L (35-105); Aspartate Amino Transferase 15 U/L (0-32); Blood Urea Nitrogen 18 mg/dL (8-23); Calcium 9.1 mg/dL (8.5-10.5); Carbon Dioxide 27 mmol/L (22-29); Chloride 97 mmol/L (98-107); Glomerular Filtration Rate 99.1 mL/min (90-130); Glucose 133 mg/dL (65-115); Osmolality Calculated 284 mOsm/kg (285-295); Sodium 135 mmol/L (136-145); Total Bilirubin 0.3 mg/dL (0.15-1.2); Total Protein 6.9 g/dL (6.6-8.7)
[2020-08-30] MEDS: labetalol 5 mg/mL SDV 20mL 10 MG IVP (20:27)
--- NOTE | 2020-08-30 20:44 | PM.HP ---
Providers/Chief Complaint Primary Care Provider: LUIS Dailey Chief Complaint: Trouble Breathing (2nd covid shot related) History of Present Illness Eunice Aguilar is a 69 year old female with past medical history of hypertension, COPD, diabetes, rheumatoid arthritis, neuropathy, right lung adenocarcinoma diagnosed in 2019, status post right lower lobectomy, with recently diagnosed contralateral metastatic disease to the left lung with associated right mediastinal and hilar lymphadenopathy managed by Dr. Olson who is presenting with complaints of shortness of breath worsening with exertion which started several days ago and progressively got worse. Imaging studies in the emergency room revealed large right pleural effusion and evidence of recurrence of the lung cancer on the right. Currently the patient feels better in emergency room with supplemental oxygen at rest. She denies any pain. No nausea or vomiting. No fevers or chills. No diarrhea. No history of blood clots or bleeding problems. Review of Systems General: Reports: 10 or more systems reviewed and unremarkable except in HPI and below Medications/Allergies Home Medications Medication Instructions Recorded Confirmed Last Taken Type blood sugar diagnostic #10 each 05/12/19 08/30/20 Unknown History lancets 28 gauge #25 each 05/12/19 08/30/20 Unknown History spironolactone 25 mg tablet 25 mg PO DAILY #90 tab 10/29/19 08/30/20 12/06/19 Rx cinnamon bark [Cinnamon] 500 mg PO DAILY 12/01/19 08/30/20 12/06/19 History diclofenac sodium 1 % topical gel 2 g TOPICAL QID #100 g 07/20/20 08/30/20 Unknown Rx metformin 500 mg tablet 750 mg PO DAILY tab 07/20/20 08/30/20 Unknown History Fish Oil 1 cap PO DAILY@0830 08/30/20 08/30/20 Unknown History carvedilol 18.75 mg PO BID@0830,2030 08/30/20 08/30/20 08/30/20 History folic acid 1 mg PO DAILY@0830 08/30/20 08/30/20 08/30/20 History methotrexate sodium 20 mg PO Q7D 08/30/20 08/30/20 08/29/20 History prednisone 5 mg PO DAILY PRN 08/30/20 08/30/20 Unknown History turmeric 400 mg PO DAILY@0830 08/30/20 08/30/20 Unknown History valsartan-hydrochlorothiazide 1 tab PO DAILY@0830 08/30/20 08/30/20 08/30/20 History Allergies Allergy/AdvReac Type Severity Reaction Status Date / Time aspirin Allergy Intermediate bloody Verified 08/30/20 17:10 stools lisinopril Allergy Mild rash Verified 08/30/20 17:10 nickel Allergy Mild rash Verified 08/30/20 17:10 PFSH Acute PFSH: Medical History Chronic obstructive pulmonary disease, unspecified Continuous nicotine dependence Encounter for screening for other viral diseases Enrolled in chronic care management Essential (primary) hypertension Gastro-esophageal reflux disease without esophagitis High risk medication use Hyperlipidemia, unspecified Immunization counseling Lung mass Neuropathy Rheumatoid arthritis involving both hands with positive rheumatoid factor Type 2 diabetes mellitus without complications Surgical History H/O colonoscopy 3 yrs ago History of lobectomy of lung right lower No pertinent past surgical history Family History Father Osteoarthritis Mother Hypertension Fibromyalgia Denies family history of Rheumatoid arthritis Lupus Anesthesia complication Bleeding disorder Social History Smoking and tobacco status: former smoker Quit status (tobacco): has quit using tobacco Year quit tobacco: 2019 1PPD x 50 Years Alcohol intake: never Lives independently: Yes Household members: none Housing: House Marital status: / Current occupational status: retired History of recent travel: No Current gender identity: Female Vitals/I&O/Wt Last Vital Signs Temp 98.3 F 08/30/20 17:11 Pulse 99 08/30/20 20:22 Resp 21 H 08/30/20 20:22 BP 197/86 08/30/20 20:22 Pulse Ox 94 08/30/20 20:22 Weight last 48 hrs Weight 86.183 kg Physical Exam Narrative: EXAM NARRATIVE: The patient is awake alert oriented. No acute distress. Mood and affect are appropriate. Responses are adequate. Skin is warm and dry. Moist mucous brains Eyes PERRL, extraocular muscle intact Neck supple. No JVD Lungs severely decreased breath sounds on the right side. Bilateral rhonchi are present. Tachypnea present when she starts speaking. Heart S1, S2, regular Abdomen soft, obese, nontender, bowel sounds are present Extremities trace edema no cyanosis no calf tenderness bilaterally No focal muscle weakness or sensory loss. Normal speech. Data : 08/30/20 17:40 08/30/20 17:40 Other Labs: Laboratory Results WBC 9.2 10^3/uL (4.0-10.0) 08/30/20 17:40 RBC 3.98 10^6/uL (4.1-5.3) L 08/30/20 17:40 Hgb 12.4 g/dL (11.5-15.3) 08/30/20 17:40 Hct 39.0 % (37.0-47.0) 08/30/20 17:40 MCV 98.0 fL (81-99) 08/30/20 17:40 MCH 31.2 pg (28.0-34.0) 08/30/20 17:40 MCHC 31.8 g/dL (30.0-36.0) 08/30/20 17:40 RDW 15.5 % (12.1-15.1) H 08/30/20 17:40 Plt Count 454 10^3/cmm (130-400) H 08/30/20 17:40 MPV 9.6 fL (7.4-10.4) 08/30/20 17:40 Neut % (Auto) 72.2 % 08/30/20 17:40 Lymph % (Auto) 20.0 % 08/30/20 17:40 [place] % (Auto) 7.1 % 08/30/20 17:40 Eos % (Auto) 0.2 % 08/30/20 17:40 Baso % (Auto) 0.1 % 08/30/20 17:40 Neut # (Auto) 6.62 10^3/uL (1.8-7.7) 08/30/20 17:40 Lymph # (Auto) 1.8 10^3/uL (0.8-4.8) 08/30/20 17:40 [place] # (Auto) 0.7 10^3/uL (0.2-0.9) 08/30/20 17:40 Eos # (Auto) 0.0 10^3/uL (0.0-0.8) 08/30/20 17:40 Baso # (Auto) 0.0 10^3/uL (0.0-0.1) 08/30/20 17:40 Nucleated RBC % (auto) 0 % 08/30/20 17:40 Nucleated RBCs # 0.0 /100WBC 08/30/20 17:40 Specimen Type Arterial 08/30/20 17:39 Sample Site Radial, right 08/30/20 17:39 ABG pH 7.43 (7.35-7.45) 08/30/20 17:39 ABG pCO2 41.6 mmHg (35-45) 08/30/20 17:39 ABG pO2 63.4 mmHg (80.0-100.0) L 08/30/20 17:39 ABG HCO3 27.6 mmol/L (22-26) H 08/30/20 17:39 ABG O2 Saturation 92.9 08/30/20 17:39 ABG Base Excess 3.0 mmol/L (-2.0-2.0) H 08/30/20 17:39 Grupo Test Pos 08/30/20 17:39 A-a O2 Gradient 4.6 mmHg (5-10) L 08/30/20 17:39 Hematocrit 38.6 % (37-47) 08/30/20 17:39 Hgb O2 Saturation 90.8 % (95-100) L 08/30/20 17:39 Carboxyhemoglobin 1.4 %THgb (0.4-20.1) 08/30/20 17:39 Methemoglobin 0.9 % (0.4-1.5) 08/30/20 17:39 Total Hemoglobin 12.6 g/dL (12-16) 08/30/20 17:39 Sodium 138.0 mmol/L (131-143) 08/30/20 17:39 Potassium 3.8 mmol/L (3.5-5.0) 08/30/20 17:39 Glucose 127.0 mg/dL (70-115) H 08/30/20 17:39 Ionized Calcium 1.3 mmol/L (1.1-1.4) 08/30/20 17:39 O2 Delivery Device Room air 08/30/20 17:39 FiO2 21.0 % 08/30/20 17:[address] ID Ed 08/30/20 17:39 Sodium 135 mmol/L (136-145) L 08/30/20 17:40 Potassium 4.0 mmol/L (3.5-5.1) 08/30/20 17:40 Chloride 97 mmol/L (98-107) L 08/30/20 17:40 Carbon Dioxide 27 mmol/L (22-29) 08/30/20 17:40 Anion Gap 15.0 (5-19) 08/30/20 17:40 BUN 18 mg/dL (8-23) 08/30/20 17:40 Creatinine 0.6 mg/dL (0.5-0.9) 08/30/20 17:40 GFR Calculation 99.1 mL/min (90-130) 08/30/20 17:40 Glucose 133 mg/dL (65-115) H 08/30/20 17:40 Calculated Osmolality 284 mOsm/kg (285-295) L 08/30/20 17:40 Calcium 9.1 mg/dL (8.5-10.5) 08/30/20 17:40 Total Bilirubin 0.3 mg/dL (0.15-1.2) 08/30/20 17:40 AST 15 U/L (0-32) 08/30/20 17:40 ALT 20 U/L (0-33) 08/30/20 17:40 Alkaline Phosphatase 107 IU/L (35-105) H 08/30/20 17:40 Total Protein 6.9 g/dL (6.6-8.7) 08/30/20 17:40 Albumin 3.9 g/dL (3.5-5.2) 08/30/20 17:40 Globulin 3.0 g/dL (1.3-4.6) 08/30/20 17:40 Impressions Chest CTA 08/30/20 17:49 IMPRESSION: 1. No pulmonary embolism. 2. New large right pleural effusion with compressive atelectasis in the right lung. 3. Increasing size of scattered pulmonary nodules in the left lung. Possible metastases. Fleischner Society follow up recommendations for incidental nodules are not indicated. Follow up per the patient's medical condition. 4. Stable mediastinal and right hilar lymphadenopathy. 5. Right lower lobectomy. 6. Incidental findings above. Radiation Dose CTDIVOL = (mGy): DLP = 655.42 (mGy-cm) A&P Additional A&P Information 69-year-old female with history of R lung adenocarcinoma diagnosed in 2020, status post right lower lobectomy, associated lymphadenopathy, left lung metastatic lesions who is presenting with new onset shortness of breath. She has new large right pleural effusion. Acute hypoxic respiratory failure secondary to right large pleural effusion, probably neoplastic. Stable with supplemental oxygen which we will continue until morning. We will request therapeutic thoracentesis in the morning. Her oncologist is Dr. Olson. Uncontrolled hypertension. We will resume her home medications and provide as needed hydralazine. History of diabetes. We will resume her home medications at discharge. Hyponatremia probably secondary to hydrochlorothiazide and lung disease. Mild. Continue monitoring. COPD. No evidence of acute exacerbation at this time. Will order as needed DuoNeb's. CODE STATUS the patient wants to be full code. The plan of care was discussed with the patient. She verbalized understanding and agreement. Attestations Medical Necessity Statement*: Observation Coding Level of Care Code Acute Apparel Manager for Olman Gomez
--- NOTE | 2020-08-30 22:08 | PC.NURSE ---
called report to Rica MELÉNDEZ on med-surg at [phone]
[2020-08-31] VITALS (10 sets, daily range): BP systolic 116–159; BP diastolic 54–76; PULSE 68–101; RESP 15–22; TEMP 36.4–37.1; O2SAT 94–98
[2020-08-31 05:30] LABS: Basophils % 0.1 %; Eosinophils # 0.2 10^3/uL (0.0-0.8); Eosinophils % 1.8 %; Hematocrit 36.9 % (37.0-47.0); Hemoglobin 11.8 g/dL (11.5-15.3); Lymphocytes # 2.3 10^3/uL (0.8-4.8); Mean Corpuscular Hemoglobin 31.6 pg (28.0-34.0); Mean Corpuscular Volume 98.7 fL (81-99); Mean Platelet Volume 9.2 fL (7.4-10.4); Monocytes # 0.7 10^3/uL (0.2-0.9); Monocytes % 8.6 %; Neutrophils # 4.99 10^3/uL (1.8-7.7); Neutrophils % 60.9 %; Nucleated Red Blood Cells % 0 %; Platelet Count 417 10^3/cmm (130-400); Red Blood Count 3.74 10^6/uL (4.1-5.3); Red Cell Distribution Width 15.5 % (12.1-15.1); White Blood Count 8.2 10^3/uL (4.0-10.0)
[2020-08-31 06:21] LABS: Anion Gap 12.7 (5-19); Blood Urea Nitrogen 17 mg/dL (8-23); Calcium 8.8 mg/dL (8.5-10.5); Carbon Dioxide 28 mmol/L (22-29); Chloride 99 mmol/L (98-107); Glomerular Filtration Rate 99.1 mL/min (90-130); Glucose 116 mg/dL (65-115); Magnesium 1.9 mg/dL (1.7-2.3); Osmolality Calculated 285 mOsm/kg (285-295); Potassium 3.7 mmol/L (3.5-5.1); Sodium 136 mmol/L (136-145)
[2020-08-31] MEDS: ipratropium-albuterol 3 mL Neb INHALATION (08:28)
[2020-08-31] MEDS: losartan 50 mg Tablet PO (09:12)
[2020-08-31] MEDS: folic acid 1 mg Tablet PO (09:12)
[2020-08-31] MEDS: carvedilol 12.5 mg Tablet 18.75 MG PO (09:12)
[2020-08-31] MEDS: omega-3 fatty acids 1,000 mg Capsule 1000 MG PO (09:12)
[2020-08-31] MEDS: hydroCHLOROthiazide 25 mg Tablet 12.5 MG PO (09:13)
[2020-08-31] MEDS: spironolactone 25 mg Tablet PO (09:14)
--- NOTE | 2020-08-31 09:23 | US_ITS ---
WS: [id number] ULTRASOUND-GUIDED THORACENTESIS CLINICAL INFORMATION: right pleural effusion COMPARISON: None. PROCEDURE: Informed consent: The risks, benefits, and alternatives of the procedure were discussed with the hilary ent. Verbal and written consent was obtained. Timeout: A timeout was performed to confirm the correct patient, procedure, and site. Site: Right Preparation: A suitable skin site was identified. The patient was prepped and draped in usual sterile fashion. Lidocaine 1% was used for local anesthesia. Catheter: 4 Slovak One-Step catheter. Fluid Volume: 1000 ml Color: Red/Brown Fluid sent for requested diagnostic tests. Complications: None. No pneumothorax on the postthoracentesis radiograph US/US thoracentesis [id number] IMPRESSION: Uncomplicated ultrasound-guided right thoracentesis with removal of 1000 cc.
[2020-08-31 12:31] LABS: INR 1.07 (0.8-1.2)
--- NOTE | 2020-08-31 13:06 | P.PN_ITS ---
Subjective Subjective: Interval history: Patient was examined this morning, she tells me that she is able to ablate to the bathroom, but does have episodes of shortness of breath, no fevers, no chills, no exposure to COVID-19, the sudden onset of shortness of breath came on the last 4 to 5 days, no history of heart failure, no chest pain, no history of liver cirrhosis, does have a history of lung cancer status post lobectomy Vitals/I&O/Wt Last Vital Signs Temp 97.9 F 08/31/20 11:35 Pulse 80 08/31/20 11:35 Resp 18 08/31/20 11:35 BP 132/70 08/31/20 11:35 Pulse Ox 95 08/31/20 11:35 08/30/20 08/31/20 08/31/20 22:59 06:59 14:59 Intake Total 0 / 0 Balance 0 / 0 Weight last 48 hrs Weight 86.183 kg Physical Exam Const: COMMON NORMALS: no acute distress and patient oriented x3 HENMT: COMMON NORMALS: normocephalic HEAD & SCALP: normocephalic Neck/C-Spine: COMMON NORMALS: no JVD Resp: COMMON NORMALS: normal respiratory effort, No retractions and No use of accessory muscles AUSCULTATION: diminished lung sounds on the right Cardio: COMMON NORMALS: no JVD, regular rate, regular rhythm, S1 normal heart sound present and S2 normal heart sound present RATE: regular rate RHYTHM: regular rhythm HEART SOUNDS: S1 normal heart sound present and S2 normal heart sound present GI: COMMON NORMALS: Normal to inspection, nondistended, normoactive bowel sounds present, Soft to palpation, non-tender, No hepatosplenomegaly present, no masses and no bruits PALPATION: Yes Soft to palpation and Yes No hepatosplenomegaly present Extremity: COMMON NORMALS: capillary refill normal, no clubbing, cyanosis or edema, no calf tenderness and no pedal edema Neuro: COMMON NORMALS: patient oriented x3 Psych: COMMON NORMALS: mental status grossly normal Data : 08/31/20 05:13 08/31/20 05:13 A&P Assessment and plan (1) Pleural effusion, right: -Concerning for malignant pleural effusion given history of lung cancer status post lobectomy, with persistent lymphadenopathy, now with pulmonary nodule seen on CT angio -We will need to perform a thoracocentesis today, diagnostic and therapeutic -Send fluid for cytology, smear Status: Acute (2) Type 2 diabetes mellitus without complications: Status: Acute Qualifiers: Diabetes mellitus detention insulin use: without detention use Qualified Code(s): E11.9 - Type 2 diabetes mellitus without complications (3) Pulmonary nodule: Status: Acute (4) Primary cancer of right lower lobe of lung: -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, stage IIb, underwent lobectomy of lower lobe, 11/30/2019 -Has enlarging subcarinal and anterior mediastinal lymph node suspicious for metastatic disease, had previously been biopsy with benign findings -There has been's concerns for metastatic disease CT angiogram does show -Increasing size of scattered pulmonary nodules, stable mediastinal and right hilar lymphadenopathy -Now large right pleural effusion Status: Acute (5) Acute respiratory failure with hypoxia: -On 2 L -Secondary to right pleural effusion, concerning for malignant effusion -No wheezing on exam, likely to be COPD exacerbation -No focal pneumonia, afebrile, no significant cytosis, unlikely to be pneumonia -We will do an echocardiogram for evaluation for possible CHF, although unlikely Status: Acute Additional A&P Information 69-year-old female with history of R lung adenocarcinoma diagnosed in 2019, status post right lower lobectomy, associated lymphadenopathy, left lung metast atic lesions who is presenting with new onset shortness of breath. She has new large right pleural effusion. Uncontrolled hypertension. We will resume her home medications and provide as needed hydralazine. History of type 2 diabetes mellitus, insulin sliding scale Hyponatremia probably secondary to hydrochlorothiazide and lung disease. Mild. Continue monitoring. COPD. No evidence of acute exacerbation at this time. Will order as needed DuoNeb's. CODE STATUS the patient wants to be full code. The plan of care was discussed with the patient. She verbalized understanding and agreement. Attestations Medical Necessity Statement*: Patient requires hospitalization for acute hypoxic respiratory failure secondary to right pleural effusion Coding Level of Care Code Acute Credit Controller for Olman Patricia Diagnoses Pleural effusion, right J90 Type 2 diabetes mellitus without complications E11.9 Diabetes mellitus detention insulin use: without poultry field service technician use Pulmonary nodule R91.1 Primary cancer of right lower lobe of lung C34.31 Acute respiratory failure with hypoxia J96.01
--- NOTE | 2020-08-31 13:12 | USCV_ITS ---
Eunice Aguilar Age: 69 Gender: F : 1950 Exam Date: 08/31/2020 15:31 Ordering Phys: Duke Estrada MD Technologist: Rowena Bunch [place]am [place] [facility] [place]: SOB BP: 116 / 90 HR: 75 Rhythm: Sinus Technical Quality: Very technically difficult study MEASUREMENTS (Male / Female) Normal Values 2D ECHO LV Diastolic Diameter PLAX 4.2 cm 4.2 - 5.9 / 3.9 - 5.3 cm LV Systolic Diameter PLAX 3.2 cm IVS Diastolic Thickness 1.4 cm 0.6 - 1.0 / 0.6 - 0.9 cm IVS Systolic Thickness 1.5 cm LVPW Diastolic Thickness 0.9 cm 0.6 - 1.0 / 0.6 - 0.9 cm LVPW Systolic Thickness 1.6 cm LVOT Diameter 2.0 cm LV Ejection Fraction 2D Teich 45.7 % LA Diameter 3.2 cm Aorta at Sinotubular Diameter 2.3 cm M-MODE LV Diastolic Diameter MM 3.7 cm 4.2 - 5.9 / 3.9 - 5.3 cm LV Systolic Diameter MM 3.0 cm LV Ejection Fraction MM Teich 39.1 % IVS Diastolic Thickness MM 1.3 cm 0.6 - 1.0 / 0.6 - 0.9 cm IVS Systolic Thickness MM 1.4 cm LVPW Diastolic Thickness MM 1.1 cm 0.6 - 1.0 / 0.6 - 0.9 cm LVPW Systolic Thickness MM 1.1 cm Aortic Annulus Diameter 2.8 cm LA Ao Ratio MM 1.2 MV E Point Septal Separation 0.9 cm DOPPLER TR Peak Velocity 302.0 cm/s TR Peak Gradient 36.5 mmHg TV Peak E Velocity 120.0 cm/s Right Atrial Pressure 3.0 mmHg Pulmonary Artery Systolic Pressu 39.5 mmHg PV Peak Velocity 110.0 cm/s RV Acceleration Time 0.1 s RV Ejection Time 0.3 s RV AcT/ET 0.3 FINDINGS Left Ventricle Normal left ventricular size and systolic function, EF 55%. No gross wall motion normalities. Right Ventricle The right ventricle is normal in size and function. Right Atrium The right atrium is normal in size. Left Atrium The left atrium is normal in size. Mitral Valve Thickened mitral valve. Aortic Valve No gross abnormalities noted Tricuspid Valve Tricuspid valve not well visualized. Pulmonic Valve Pulmonic valve not well visualized. Pericardium Normal pericardium without effusion. Aorta Normal ascending aorta dimension. CONCLUSIONS Normal left ventricular size and systolic function, EF 55%. No gross wall motion normalities. Normal cardiac chamber sizes. Minimally thickened mitral valve. There are no intracardiac masses. There is no pericardial effusion. Comparison with the previous study is difficult because of the difference in the technical quality. Dr Kiko Albright MD FAC (Electronically Signed) Final Date: 01 September 2020 00:27 S
--- NOTE | 2020-08-31 15:00 | XR_ITS ---
WS: [id number] CHEST XRAY TECHNIQUE: Portable chest. CLINICAL INFORMATION: post thoracentesis COMPARISON: None. FINDINGS: Heart: Cardiomegaly. Lungs: Improved right pleural effusion post thoracentesis with residual pleural fluid and atelectasis right lower lobe. Right hilar and mediastinal lymphadenopathy. Left lung is well aerated. Prior righ t partial lobectomy. Bones: Normal visualized bony structures. XR/XR chest 1V portable [id number] IMPRESSION: 1. Improved right pleural effusion post thoracentesis. No pneumothorax. Residu al right pleural fluid and compressive atelectasis right lower lobe. 2. Right hilar and mediastinal lymphadenopathy.
[2020-08-31 15:32] LABS: Body Fluid Polynuclear #Cells 0.069; Body Fluid WBC 1023 /uL; Monocytes # Body Fluid 0.954
[2020-08-31 15:53] LABS: Albumin Body Fluid 3.1 g/dL; Creatinine Body Fluid 0.63 (0.5-0.9); LDH Pleural Fluid 338 U/L; Total Protein Pleural Fluid 4.5 g/dL; Triglycerides, Pleural Fluid 85 mg/dL
[2020-08-31 16:34] LABS: Apprearance, Body Fluid CLOUDY; Color, Body Fluid OTHER
[2020-08-31 16:45] LABS: Hematocrit 0.2 % (37.0-47.0)
--- NOTE | 2020-08-31 17:00 | PM.DCS ---
Discharge Providers Date of Admission: 08/31/20 15:30 Date of Discharge: August 31, 2020 Attending Provider at Admission: Torrey Palacio Attending Provider at Discharge: Duke Estrada MD Primary Care Provider: LUIS Dailey Diagnoses at Discharge Discharge Diagnosis (1) Pleural effusion, right: Status: Acute (2) Type 2 diabetes mellitus without complications: Status: Acute Qualifiers: Diabetes mellitus correction insulin use: without employment consultant use Qualified Code(s): E11.9 - Type 2 diabetes mellitus without complications (3) Pulmonary nodule: Status: Acute (4) Primary cancer of right lower lobe of lung: Status: Acute (5) Acute respiratory failure with hypoxia: Status: Acute Reason for Visit Reason for Visit: Trouble Breathing (2nd covid shot related) Hospital Course Hospital Course 69-year-old female with history of R lung adenocarcinoma diagnosed in 2019, status post right lower lobectomy, associated lymphadenopathy, left lung metastatic lesions who is presenting with new onset shortness of breath. She has new large right pleural effusion. Patient was admitted to [facility] for acute hypoxic respiratory failure secondary to right large pleural effusion, status post thoracocentesis by Dr. Petit, 1 L fluid removed, exudative pleural effusion, cytology pending, culture pending, highly suspicious for malignant pleural effusion. Patient was afebrile, no significant leukocytosis, CT angiogram of the chest did not show any focal pneumonia, but did show increased size of scattered pulmonary nodules, mediastinal and right hilar lymphadenopathy. We will have patient follow-up with Dr. Dawn as outpatient for cytology. Patient was advised if she were to have fevers, chills, worsening shortness of breath to come back to emergency room. Physical Exam Const: COMMON NORMALS: no acute distress and patient oriented x3 HENMT: COMMON NORMALS: normocephalic HEAD & SCALP: normocephalic Neck/C-Spine: COMMON NORMALS: no JVD Resp: COMMON NORMALS: normal respiratory effort, No retractions, No use of accessory muscles and clear to auscultation bilaterally AUSCULTATION: clear to auscultation bilaterally Cardio: COMMON NORMALS: no JVD, regular rate, regular rhythm, S1 normal heart sound present and S2 normal heart sound present RATE: regular rate RHYTHM: regular rhythm HEART SOUNDS: S1 normal heart sound present and S2 normal heart sound present GI: COMMON NORMALS: Normal to inspection, nondistended, normoactive bowel sounds present, Soft to palpation, non-tender, No hepatosplenomegaly present, no masses and no bruits PALPATION: Yes Soft to palpation and Yes No hepatosplenomegaly present Extremity: COMMON NORMALS: capillary refill normal, no clubbing, cyanosis or edema, no calf tenderness and no pedal edema Neuro: COMMON NORMALS: patient oriented x3 Psych: COMMON NORMALS: mental status grossly normal Discharge Data Data Completed and Pending: Completed Studies During Hospitalization Category Date Time Status CT angio chest PE protcl [id number] Stat Cat Scan 08/30/20 17:49 Completed XR chest 1V napoleon ble [id number] Stat Exams 08/30/20 17:37 Completed XR chest 1V napoleon ble [id number] Stat Exams 08/31/20 15:00 Completed US thoracentesis [id number] Routine Ultrasound 08/31/20 09:23 Completed Pending at discharge Category Date Time Status Body Fluid Cultur e & GS Routine Lab 08/31/20 09:23 Received Complete Blood Co unt w/Auto AM LABS Lab 09/01/20 04:00 Ordered Complete Blood Co unt w/Auto AM LABS Lab 09/02/20 04:00 Ordered Complete Blood Co unt w/Auto AM LABS Lab 09/03/20 04:00 Ordered Comprehensive Met abolic Panel AM LA BS Lab 09/01/20 04:00 Ordered Comprehensive Met abolic Panel AM LA BS Lab 09/02/20 04:00 Ordered Comprehensive Met abolic Panel AM LA BS Lab 09/03/20 04:00 Ordered Magnesium AM LABS Lab 09/01/20 04:00 Ordered Magnesium AM LABS Lab 09/02/20 04:00 Ordered Magnesium AM LABS Lab 09/03/20 04:00 Ordered Mycobacteria, Cul ture w/Fluor Routi ne Lab 08/31/20 09:23 Received Phosphorus AM LAB S Lab 09/01/20 04:00 Ordered Phosphorus AM LAB S Lab 09/02/20 04:00 Ordered Phosphorus AM LAB S Lab 09/03/20 04:00 Ordered Cytology [PTH] Ro utine Pth 08/31/20 09:23 Received CV echo complete* [id number] Routine Ultrasound 08/31/20 13:12 Taken Labs from last 24 hours 08/31/20 08/31/20 08/31/20 Unknown 11:57 09:23 WBC RBC Hgb Hct 0.2 L* D MCV MCH MCHC RDW Plt Count MPV Neut % (Auto) Lymph % (Auto) [place] % (Auto) Eos % (Auto) Baso % (Auto) Neut # (Auto) Lymph # (Auto) [place] # (Auto) Eos # (Auto) Baso # (Auto) Nucleated RBC % (a uto) Nucleated RBCs # PT 14.30 INR 1.07 APTT 26.0 Specimen Type Sample Site ABG pH ABG pCO2 ABG pO2 ABG HCO3 ABG O2 Saturation ABG Base Excess Grupo Test A-a O2 Gradient Hematocrit Hgb O2 Saturation Carboxyhemoglobin Methemoglobin Total Hemoglobin Sodium Potassium Glucose Ionized Calcium O2 Delivery Device FiO2 Seaweed Harvester ID Chloride Carbon Dioxide Anion Gap BUN Creatinine GFR Calculation Calculated Osmolal ity Calcium Magnesium Total Bilirubin AST ALT Alkaline Phosphata se Total Protein Albumin Globulin Fluid Color Other Fluid Appearance Cloudy Fluid WBC 1023 Fluid RBC 14.000 Fld Polynuclear WB Cs # 0.069 Fld Polynuclear WB Cs % 6.700 Fl Mononucl WBCs # (Auto) 0.954 Fl Mononuclear % A uto 93.300 Fluid Albumin 3.1 Fluid Creatinine 0.63 Pleural pH 8.00 H Pleural Total Prot ein 4.5 Pleural LDH 338 Pleural Glucose 97.0 Pleural Amylase 37.0 Pleural Triglyceri rosi 85 08/31/20 08/31/20 08/30/20 05:13 05:13 17:40 WBC 8.2 RBC 3.74 L Hgb 11.8 Hct 36.9 L MCV 98.7 MCH 31.6 MCHC 32.0 RDW 15.5 H Plt Count 417 H MPV 9.2 Neut % (Auto) 60.9 Lymph % (Auto) 28.0 [place] % (Auto) 8.6 Eos % (Auto) 1.8 Baso % (Auto) 0.1 Neut # (Auto) 4.99 Lymph # (Auto) 2.3 [place] # (Auto) 0.7 Eos # (Auto) 0.2 Baso # (Auto) 0.0 Nucleated RBC % (a uto) 0 Nucleated RBCs # 0.0 PT INR APTT Specimen Type Sample Site ABG pH ABG pCO2 ABG pO2 ABG HCO3 ABG O2 Saturation ABG Base Excess Grupo Test A-a O2 Gradient Hematocrit Hgb O2 Saturation Carboxyhemoglobin Methemoglobin Total Hemoglobin Sodium 136 135 L Potassium 3.7 4.0 Glucose 116 H 133 H Ionized Calcium O2 Delivery Device FiO2 Seaweed Harvester ID Chloride 99 97 L Carbon Dioxide 28 27 Anion Gap 12.7 15.0 BUN 17 18 Creatinine 0.6 0.6 GFR Calculation 99.1 99.1 Calculated Osmolal ity 285 284 L Calcium 8.8 9.1 Magnesium 1.9 Total Bilirubin 0.3 AST 15 ALT 20 Alkaline Phosphata se 107 H Total Protein 6.9 Albumin 3.9 Globulin 3.0 Fluid Color Fluid Appearance Fluid WBC Fluid RBC Fld Polynuclear WB Cs # Fld Polynuclear WB Cs % Fl Mononucl WBCs # (Auto) Fl Mononuclear % A uto Fluid Albumin Fluid Creatinine Pleural pH Pleural Total Prot ein Pleural LDH Pleural Glucose Pleural Amylase Pleural Triglyceri rosi 08/30/20 08/30/20 17:40 17:39 WBC 9.2 RBC 3.98 L Hgb 12.4 Hct 39.0 MCV 98.0 MCH 31.2 MCHC 31.8 RDW 15.5 H Plt Count 454 H MPV 9.6 Neut % (Auto) 72.2 Lymph % (Auto) 20.0 [place] % (Auto) 7.1 Eos % (Auto) 0.2 Baso % (Auto) 0.1 Neut # (Auto) 6.62 Lymph # (Auto) 1.8 [place] # (Auto) 0.7 Eos # (Auto) 0.0 Baso # (Auto) 0.0 Nucleated RBC % (a uto) 0 Nucleated RBCs # 0.0 PT INR APTT Specimen Type Arterial Sample Site Radial, right ABG pH 7.43 ABG pCO2 41.6 ABG pO2 63.4 L ABG HCO3 27.6 H ABG O2 Saturation 92.9 ABG Base Excess 3.0 H Grupo Test Pos A-a O2 Gradient 4.6 L Hematocrit 38.6 Hgb O2 Saturation 90.8 L Carboxyhemoglobin 1.4 Methemoglobin 0.9 Total Hemoglobin 12.6 Sodium 138.0 Potassium 3.8 Glucose 127.0 H Ionized Calcium 1.3 O2 Delivery Device Room air FiO2 21.0 Seaweed Harvester ID Ed Chloride Carbon Dioxide Anion Gap BUN Creatinine GFR Calculation Calculated Osmolal ity Calcium Magnesium Total Bilirubin AST ALT Alkaline Phosphata se Total Protein Albumin Globulin Fluid Color Fluid Appearance Fluid WBC Fluid RBC Fld Polynuclear WB Cs # Fld Polynuclear WB Cs % Fl Mononucl WBCs # (Auto) Fl Mononuclear % A uto Fluid Albumin Fluid Creatinine Pleural pH Pleural Total Prot ein Pleural LDH Pleural Glucose Pleural Amylase Pleural Triglyceri rosi Vitals: Last Vital Signs Temp 98.6 F 08/31/20 15:48 Pulse 73 08/31/20 15:48 Resp 18 08/31/20 15:48 BP 120/54 08/31/20 15:48 Pulse Ox 98 08/31/20 15:48 Discharge Plan Discharge Patient Disposition: Home Condition: Stable Prescriptions: Continued (DME) FreeStyle Lite Strips Strip See Rx Instructions .ROUTE .MEDSUPPLY Qty: 10 RF: 0 (DME) lancets [FreeStyle Lancets] 28 gauge misc See Rx Instructions .ROUTE .MEDSUPPLY Qty: 25 RF: 0 spironolactone 25 mg tablet 25 mg PO DAILY Qty: 90 RF: 1 metformin 500 mg tablet 750 mg PO DAILY RF: 0 diclofenac sodium 1 % gel 2 g TOPICAL QID Qty: 100 RF: 2 turmeric 400 mg Capsule 400 mg PO DAILY@0830 RF: 0 Fish Oil 1 cap PO DAILY@0830 RF: 0 carvedilol 12.5 mg tablet 18.75 mg PO BID@0830,2029 RF: 0 valsartan-hydrochlorothiazide 160-12.5 mg tablet 1 tab PO DAILY@0830 RF: 0 prednisone 5 mg tablet 5 mg PO DAILY PRN (Reason: RA FLARE UP) RF: 0 methotrexate sodium 2.5 mg tablet 20 mg PO Q7D RF: 0 folic acid 1 mg tablet 1 mg PO DAILY@0830 RF: 0 cinnamon bark [Cinnamon] 500 mg Capsule 500 mg PO DAILY RF: 0 Discharge Orders: Discharge Order (Routine); Ordered 08/31/20 Ordered By: Duke Estrada Referrals: Glory Valencia FNP [Primary Care Provider] - Maria G Dawn MD [Staff Physician] - 4-7 days Discharge Diet: Cardiac Discharge Activity: Resume usual activity Patient Instructions: Opioid Safety Activity Restrictions/Additional Instructions: -Please follow-up with Dr. Dawn in 4 to 7 days -If you have worsening shortness of breath please go to back to emergency room Discharge Attestations Time Spent in Discharge Care*: less than 30 min Status at Discharge: Cognitive status at discharge: cognitively intact, Behavioral status at discharge: cooperative, Quality Metrics Clinical Quality Measures During this hospital stay, did patient experience: None Coding Level of Care Code Acute Chg FW DC note Diagnoses Pleural effusion, right J90 Type 2 diabetes mellitus without complications E11.9 Diabetes mellitus employment consultant insulin use: without correction use Pulmonary nodule R91.1 Primary cancer of right lower lobe of lung C34.31 Acute respiratory failure with hypoxia J96.01
--- NOTE | 2020-08-31 17:54 | NUR.SHIFT ---
IV removed. Educated patient to call for a follow up with primary care provider and with Dr. Olson tomorrow. Discharge instructions give to patient and son. Wheeled out via wheel chair to private vehicle with son.
--- NOTE | 2020-09-02 18:14 | PC.RESP ---
Pulmonary Rehab information sent to patient.
== END 2020-08-31 16:30 | disposition home or self-care (01) | DRG 180 ==
LOC: ER 20:16 → MEDSURG 21:19
PROVIDERS: Family Medicine; Admitting Provider Internal Medicine; Emergency Provider Family Medicine; PCP Nurse Practitioner Family; Visit Provider Family Medicine
DX: C34.31 Malignant neoplasm of lower lobe, right bronchus or lung (principal); J96.01 Acute respiratory failure with hypoxia; C77.1 Secondary and unspecified malignant neoplasm of intrathoracic lymph nodes; C78.02 Secondary malignant neoplasm of left lung; J91.0 Malignant pleural effusion; E87.1 Hypo-osmolality and hyponatremia; I10 Essential (primary) hypertension; J44.9 Chronic obstructive pulmonary disease, unspecified; E11.42 Type 2 diabetes mellitus with diabetic polyneuropathy; M05.9 Rheumatoid arthritis with rheumatoid factor, unspecified; Z87.891 Personal history of nicotine dependence; K21.9 Gastro-esophageal reflux disease without esophagitis; E78.5 Hyperlipidemia, unspecified; Z90.2 Acquired absence of lung [part of]
CPT/HCPCS: 32555; 36415; 36600; 71045; 71275; 80048; 80051; 80053; 80500; 82042; 82150; 82330; 82570; 82805; 82945; 83615; 83735; 83986; 84157; 84478; 85014; 85025; 85610; 85730; 87015; 87070; 87075; 87116; 87205; 87206; 87801; 88305; 89050; 93005; 93306; 93308; 94640; 94664; 96374; 99285; G0378; J3490; Q9967

== ENCOUNTER 2020-09-08 12:20 | Outpatient (CLI) | payer MEDICARE, OTHER, SELFPAY ==
--- NOTE | 2020-09-08 13:22 | XR_ITS ---
WS: [id number] Exam: XR chest 2V* [id number] Date/Time of Exam: 09/08/2020 1:26 PM Reason For Exam: LUNG CANCER/SHORTNESS OF BREATH Comparison 08/31/2020. Right-sided pleural effusion slightly increased since previous exam. Left lung is clear and fully exp anded. Surgical clips at the right hilum. The heart is top limits normal size. XR/XR chest 2V* [id number] IMPRESSION: 1. Right-sided pleural effusion slightly increased when compared to the last ex am. 2. No consolidating infiltrates. No other change.
--- NOTE | 2020-09-08 20:12 | ONC FU_ITS ---
Dr. Olson Patient Follow-Up Note Patient: Eunice Aguilar Unit #: [id number]: 1950 Dicatated By: Chino Olson M.D.Date of Visit:Sep 08, 2020 Onc Med Follow-up/Prog Note Chief Complaint: Lung cancer. 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 In June 2019 she had a coughing fit which led to a chest x-ray. That study showed a possible mass in the right lower lobe. Her further evaluation was delayed, I assume because of the restrictions related to the coronavirus pandemic. In any case, her chest CT on 09/11/2019 showed a lobulated mass in the right lower lobe measuring 2.9 x 3.7 x 2.8 cm. It was noted to abut the diaphragm anteriorly. There were a few tiny micronodular satellite opacities. A small left suprahilar opacity measured 8 mm. A noncalcified nodule in the right upper lobe measured 2 mm. An additional fibrotic opacity in the right upper lobe measured 4 mm. There was no mediastinal or hilar lymphadenopathy. She was incidentally noted to have a 9 mm left breast nodule. PET/CT on 09/19/2019 showed FDG avid mass in the right lower lobe measuring 4.0 x 3.5 cm, SUV 12.5, indicating high probability of malignancy. A 6 mm left upper lobe nodule with SUV 2.5, which was concerning for contralateral metastatic disease. There were no other areas of abnormal uptake on that study. On 10/02/2019 she underwent navigational bronchoscopy with EBUS and transbronchial biopsy of the right lung mass. The EBUS did show evidence of mediastinal and hilar lymphadenopathy, and the procedure also included FNA biopsies of stations 7, 10 R, and 11 R lymph nodes. Pathology on the transbronchial biopsy showed benign bronchial mucosa with no dysplasia or malignancy seen. Cytology on the FNA biopsies was also negative for malignancy. I had seen her initially on 10/19/2019. With those findings, she was referred to Dr. Cox and on 12/07/2019 she underwent right lower lobectomy. 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 The tumor measured 4 x 4.2 x 3.2 cm. There was involvement in 1/3 lymph nodes, which included an intrabronchial lymph node, and inferior hilar lymph node, and a posterior hilar lymph node. The procedure did not include mediastinal lymph node sampling. Pathologic staging was pT2b, pN1. Postoperatively she underwent further evaluation for the left breast mass which had been noted on her chest CT scan. She eventually underwent left breast lumpectomy under needle localization on 02/01/2020. Pathology was benign. She then had radiation oncology follow-up with Dr. Hong regarding the left upper lobe nodule. Restaging chest CT on 03/08/2020 showed the left upper lobe nodule stable at 10 mm. There was slight increase in the right subcarinal lymph node measuring 14 mm as well as slight increase in a right anterior mediastinal lymph node measuring 10 mm. This was felt to be suspicious for disease progression. Restaging PET/CT on 03/12/2020 showed no evidence for recurrent or residual malignancy. The left upper lobe nodule measured 6 mm and showed low FDG activity, SUV 1.5, improved from the prior study. The mediastinal lymph nodes appeared radiographically benign and without significant FDG uptake. I had seen her for a follow-up visit on 03/23/2020, and with those findings, she continued on observation/expectant management for the lung cancer. However, at that point I had requested a next generation sequencing study on the primary tumor. It was found to have positive PD-L1 expression for 22C3 and for 28-8, both at 20%. The tumor also was found to harbor a exon 2 p.G12C KRAS mutation. There were no other actionable mutations identified. Her other medical illnesses include COPD, hypertension, hyperlipidemia, type 2 diabetes with neuropathy, and rheumatoid arthritis. She has history of smoking 1-1/2 packs of cigarettes daily for 50 years. INTERIM HISTORY: Her repeat chest CT on 07/18/2020 showed postoperative changes of prior right lower lobectomy. A left upper pulmonary nodule measuring 10 mm appeared unchanged. A right lower lobe nodule along the fissure measuring 6 mm also appeared stable. There were several new subcentimeter noncalcified pulmonary nodules, the largest in the right upper lobe measuring 3 mm. There appeared to be significant progression of the mediastinal and subcarinal lymphadenopathy with the right subcarinal lymph node measuring 19 mm compared to 14 mm on the previous study and with the anterior mediastinal lymph node measuring 17 mm compared to 10 mm. I had seen her for a follow-up visit on 07/27/2020. Although the CT findings were suspicious for disease progression, at that point she still preferred to continue with observation/expectant management. On 08/30/2020 she was admitted to the hospital after presenting to the emergency room with shortness of breath and hypoxic respiratory failure. Her CT pulmonary angiogram showed no evidence of pulmonary embolism, but there was a new large right pleural effusion with compressive atelectasis in the right lung. Also noted was increasing size of scattered pulmonary nodules in the left lung possibly due to metastatic disease. Mediastinal and right hilar lymphadenopathy appeared stable. She had significant improvement in symptoms following ultrasound-guided thoracentesis. Her pleural fluid cytology was positive for malignancy. She has seen for a follow-up visit. Although she initiated felt better following the thoracentesis in the hospital, since discharge she has become very short of breath again, the point that she can barely walk across the room. Her activity is very limited. ECOG score is two. Her appetite also is not as good. She does not have fever or night sweats. She has only a little bit of cough, and she does not complain of chest pain. She has no GI complaints other than she does tend to have loose stools, attributable to Metformin. Bladder function has been okay. She has a little joint pain in her hands and feet, but that is not new. She does not complain of headache or dizziness. She does have some numbness/tingling in her feet. Medications: Carvedilol 1.5 Tablet (of 12.5 mg) Tablet Oral b.i.d., Cinnamon Capsule Oral, [facility] Fish Oil Capsule Oral, Folic Acid 1 Tablet (of 800 mcg) Oral daily, metFORMIN HCl 1 Tablet (of 500 mg) Oral b.i.d., Methotrexate Sodium (2.5 mg) Tablet Oral Take as Directed, predniSONE 1 Tablet (of 10 mg) Tablet Oral daily PRN, Spironolactone 0.5 Tablet (of 25 mg) Oral daily Allergies: Aspirin, Lisinopril, and Nickel. Vital Signs: Performed on Sep 08, 2020 12:32 Height - 63.00 in Weight - 193.4 lbs (LOW) BSA - 1.91 sq.m BMI - 34.26 (HIGH) Temperature - 98.6 F Pulse - 90 /min Respiration - 18 /min BP - 138/68 mm(hg) O2 Sat - 91 % (LOW) Pain - 0 Fatigue - 8 Physical Examination: Constitutional - She appears short of breath with effort, Eyes - Sclerae nonicteric. Conjunctivae clear, ENMT - No lesions noted in the oral cavity, Hematologic/Lymphatic - No cervical, clavicular, or axillary adenopathy, Respiratory - Lungs show markedly diminished air movement on the right, Cardiovascular - Heart rhythm is regular. There is no murmur, gallop, or rub noted, Abdomen - Soft. Liver and spleen are not enlarged. There is no abdominal mass or ascites noted and there is no inguinal adenopathy, Extremities - No edema, Neurologic - No focal neurologic deficits noted. Problem List: 1. 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 She underwent right lower lobectomy on 12/07/2019. Her disease was initially stage IIB (pT2b, pN1, M0). She has now developed malignant pleural effusion. 2. She also was found to have an additional subcentimeter left upper lobe nodule with mild FDG activity, initially felt to be suspicious for contralateral lung malignancy. 3. She has underlying COPD. 4. Hypertension. 5. Hyperlipidemia. 6. Type 2 diabetes with neuropathy. 7. Rheumatoid arthritis, currently on immunosuppressive therapy with methotrexate and hydroxychloroquine. 8. She had CT evidence of a left breast nodule, but that was ultimately determined to be benign on excisional biopsy. Problems Addressed with this Encounter and Plan: 1. 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 She underwent right lower lobectomy on 12/07/2019. During follow-up she has had enlarging subcarinal and anterior mediastinal lymph nodes, suspicious for metastatic disease. These had previously been evaluated with bronchoscopy/EBUS with benign findings on FNA biopsy. The progressive enlargement of the lymph nodes appeared suspicious for metastatic disease, but she preferred to continue close observation. On 08/30/2020 she was admitted to the hospital with development of new large right pleural effusion. She had significant symptomatic improvement following thoracentesis. Her pleural fluid cytology was positive, consistent with metastatic disease. She has had recurrence of symptoms following discharge from the hospital, and by clinical evaluation she appears to have reaccumulation of pleural fluid. We discussed the fact that she now has metastatic disease which will not be amenable to either surgery or radiation. For symptomatic management, I feel that it is appropriate now to proceed with placement of [place] drain, and I have been able to arrange for that to be done by Dr. Santacruz tomorrow. I also discussed further management of the lung cancer, for which there will be several options available, as her tumor was found to be P-L1 positive and it also was found to have harbor a potentially targetable mutation (KRAS p.G12C). The targetable agent for the latter has not yet been FDA approved, but it should be within the very near future, and I will first research that option in more detail before recommending a specific treatment. In her situation, immunotherapy may not be appropriate due to her underlying rheumatoid arthritis and immunosuppressive therapy. 2. She has CT evidence of an additional left upper lobe nodule with mild FDG activity, initially felt to be suspicious for contralateral lung malignancy. On follow-up CT scans this has not progressed. It has been managed expectantly. 3. Her chest CT in July 2020 also reported presence of a suspicious appearing right renal cortical lesion. Signed By: Chino Olson M.D. <<Signature on File>>
== END 2020-09-08 12:21 | disposition home or self-care (01) ==
PROVIDERS: PCP Nurse Practitioner Family; Visit Provider Internal Medicine Medical Oncology
DX: C34.31 Malignant neoplasm of lower lobe, right bronchus or lung (principal); J91.0 Malignant pleural effusion; J44.9 Chronic obstructive pulmonary disease, unspecified; I10 Essential (primary) hypertension; E78.5 Hyperlipidemia, unspecified; E11.42 Type 2 diabetes mellitus with diabetic polyneuropathy; M06.9 Rheumatoid arthritis, unspecified; D84.9 Immunodeficiency, unspecified; Z79.899 Other long term (current) drug therapy
CPT/HCPCS: 71046; 99215

== ENCOUNTER 2020-09-09 06:51 | Day surgery (SDC) | payer MEDICARE, OTHER, SELFPAY ==
[2020-09-08 16:10] VITALS: BMI 33.5
[2020-09-09] VITALS (15 sets, daily range): BP systolic 76–141; BP diastolic 36–65; PULSE 62–74; RESP 16–20; TEMP 36.3–36.8; O2SAT 93–100
[2020-09-09 07:30] LABS: Glucose Point of Care 155 mg/dL (70-110)
--- NOTE | 2020-09-09 07:34 | ANES.PREANE2 ---
Pre-Anesthetic Assessment Pre-Anesthetic Assessment: Height/Weight: Height 1.63 m Weight 88.451 kg Preop Diagnosis: Abnormal mammogram Proposed Procedure: Operation Date: 09/09/20 08:25 Proposed Procedures p [place] Drain Placement Pleurx Catheter Insertion(Not Applicable) - Speedy Santacruz MD Familial anesthetic complications: None Was Beta Loulou taken within 24 hours: N/A Was Clonidine taken within 24 hours: N/A Last intake: Intake Last Liquid Date 09/08/20 Last Liquid Time 21:00 Last Solid Date 09/08/20 Last Solid Time 21:00 Social: Social History: No alcohol and No tobacco Comment: former smoker Exam: Pre-Anes Outpt Exam: alert, oriented x 3, clear to auscultation bilaterally and regular rate & rhythm Airway: Cervical ROM: WNL MP: 3 Dentition: False Pulmonary: Comments: Lung cancer Metabolic: Metabolic: DM Musc/skel: Musc/skel: RA Anesthetic Plan: ASA status: 4 Anesthesia: MAC Risk of > 500 ml blood loss (7ml/kg in children): No PFSH Anesthesia PFSH: Medical History Chronic obstructive pulmonary disease, unspecified Continuous nicotine dependence Encounter for screening for other viral diseases Enrolled in chronic care management Essential (primary) hypertension Gastro-esophageal reflux disease without esophagitis High risk medication use Hyperlipidemia, unspecified Immunization counseling Lung mass Neuropathy Rheumatoid arthritis involving both hands with positive rheumatoid factor Type 2 diabetes mellitus without complications Surgical History H/O colonoscopy 3 yrs ago History of lobectomy of lung right lower No pertinent past surgical history Family History Father Osteoarthritis Mother Hypertension Fibromyalgia Denies family history of Rheumatoid arthritis Lupus Anesthesia complication Bleeding disorder Social History Smoking and tobacco status: former smoker Quit status (tobacco): has quit using tobacco Year quit tobacco: 2019 1PPD x 50 Years Alcohol intake: never Lives independently: Yes Household members: none Housing: House Marital status: / Current occupational status: retired History of recent travel: No Current gender identity: Female Data Anesthesia Other Labs: Laboratory Results - last 48 hr 09/09/20 07:27 POC Glucose 155 H Cardiac Studies: No Data to Display
--- NOTE | 2020-09-09 08:17 | P.HP_ITS ---
Same Day Surgery H&P Indication for Procedure/HPI DATE OF PROCEDURE: September 09, 2020 CHIEF COMPLAINT/INDICATIONFOR SURGICAL PROCEDURE: This is a 69-year-old lady with malignant pleural effusion of the right side presenting with Pleurx catheter placement for worsening shortness of breath. PREOP DIAGNOSIS: Abnormal mammogram PLANNED PROCEDRUE: Right-sided Pleurx catheter placement under ultrasound guidance. 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 Now the patient has developed malignant pleural effusion. She is coming in for a Pleurx catheter placement. Medications/Allergies* Home Medications Medication Instructions Recorded Confirmed Type blood sugar diagnostic #10 each 05/12/19 08/30/20 History lancets 28 gauge #25 each 05/12/19 08/30/20 History cinnamon bark [Cinnamon] 500 mg PO DAILY 12/01/19 09/09/20 History metformin 500 mg tablet 750 mg PO DAILY tab 07/20/20 09/09/20 History Fish Oil 1 cap PO DAILY@0830 08/30/20 09/09/20 History folic acid 1 mg PO DAILY@0830 08/30/20 09/09/20 History methotrexate sodium 20 mg PO Q7D 08/30/20 09/09/20 History prednisone 5 mg PO DAILY PRN 08/30/20 09/09/20 History turmeric 400 mg PO DAILY@0830 08/30/20 09/09/20 History valsartan-hydrochlorothiazide 1 tab PO DAILY@0830 08/30/20 09/09/20 History furosemide 40 mg PO DAILY 09/08/20 09/09/20 History Allergies/Adverse Reactions Allergy/AdvReac Type Severity Reaction Status Date / Time aspirin Allergy Intermediate bloody Verified 08/30/20 17:10 stools lisinopril Allergy Mild rash Verified 08/30/20 17:10 nickel Allergy Mild rash Verified 08/30/20 17:10 Pertinent History/Comorbid Conditions* Medical History (Updated 09/01/20 @ 00:01 by ) Chronic obstructive pulmonary disease, unspecified Continuous nicotine dependence Encounter for screening for other viral diseases Enrolled in chronic care management Essential (primary) hypertension Gastro-esophageal reflux disease without esophagitis High risk medication use Hyperlipidemia, unspecified Immunization counseling Lung mass Neuropathy Rheumatoid arthritis involving both hands with positive rheumatoid factor Type 2 diabetes mellitus without complications Surgical History (Updated 02/19/20 @ 12:08 by LUIS Dailey) H/O colonoscopy 3 yrs ago History of lobectomy of lung right lower No pertinent past surgical history Family History (Updated 01/14/20 @ 11:33 by Bri Rojas LPN) Father Fibromyalgia Mother Osteoarthritis Father Hypertension Mother Denies family history of Rheumatoid arthritis Lupus Anesthesia complication Bleeding disorder Social History Smoking and tobacco status: former smoker Quit status (tobacco): has quit using tobacco Year quit tobacco: 2020 1PPD x 50 Years Alcohol intake: never Lives independently: Yes Household members: none Housing: House Marital status: / Current occupational status: retired History of recent travel: No Current gender identity: Female Pertinent Exam Findings alert, oriented x 3 and regular rate & rhythm Chest auscultation revealed diminished breath sound in the right upper to the half of the posterior hemithorax, no wheezing or rhonchi Recommendations Surgery/Procedure today Coding Level of Care Code Acute Senior Support Analyst for Olman Gomez
[2020-09-09] MEDS: lidocaine 1% INJ 20 mL INJECTION (08:47)
--- NOTE | 2020-09-09 08:57 | XR_ITS ---
WS: [id number] Exam: XR chest 1V portable [id number] Date/Time of Exam: 09/09/2020 9:02 AM Reason For Exam: post sarita drain Comparison 09/08/2020. Previously noted right pleural effusion has been drained. There is atelectasis of the right lower lob e and small right lower lobe pneumothorax. A thoracostomy tube is positioned in the right lower pleur al cavity. There is still some loculated fluid along the lateral aspect of the right lung. The left l tiffani remains clear. Normal cardiomediastinal structures and bony elements. Surgical clips at the right hilum. XR/XR chest 1V portable [id number] IMPRESSION: 1. Markedly improved right pleural effusion secondary to the right-sided thorac ostomy drainage tube. There is atelectasis of the right lower lobe with right l ower lobe pneumothorax estimated at 10%.
--- NOTE | 2020-09-09 09:29 | SUR.PHASEI ---
0900 PT TO PACU AWAKE ALERT DENIES PAIN AND NAUSEA =T ON RA NO DISTRESS, PB LOW RECHECKED AND BP 101/41 X RAY CALLED DRESSING TO RT LAT CHEST D/IWITH RT LOWER LOBE DIMINISHED BUT WITH AIRMOVEMENT 0909 PT UP TO 45 DEGREES , X RAY HERE PT VERY ALERT AND COOPERATIVE.
--- NOTE | 2020-09-09 09:30 | P.OP_ITS ---
Operative Report Date of procedure: September 09, 2020 Pre-op Diagnosis: Malignant pleural effusion Post-op diagnosis: same Brief History: This is 69-year-old lady with metastatic pleural effusion with shortness of breath coming in for Pleurx catheter placement. Procedure: Name of the procedure: Right-sided Pleurx catheter placement for malignant pleural effusion Anesthesia: Monitor anesthesia care. Local: 1% lidocaine 13 mL. Description of the procedure: The patient was brought to the OR and monitored anesthesia care was started by the anesthesia team. The patient was placed in left lateral position. Using the ultrasound a safe fluid pocket was identified in the right ninth intercostal space in the midaxillary line. The site was marked. The patient was then prepared using sterile technique. 1% lidocaine was used to anesthetize the skin and subcutaneous tissue periosteum and the pleural space was entered. Serosanguineous fluid was aspirated. The introducer needle was then introduced into the pleural space. The guide wire was introduced and left in place. About 6 cm from the initial introduction site in the anterolateral chest wall a second incision was made. The pleural catheter was then tunneled under the skin with the help of a trocar. The initial site was then dilated and the Pleurx catheter was advanced into the pleural space without any difficulty. The incision sites were sutured. There was good hemostasis. 2000 cc of serosanguineous fluid was drained. Complications: None Chest x-ray: Reviewed good position of the Pleurx catheter. Basilar pneumo thorax likely secondary to trapped lung physiology. Follow-up: 1. The patient will follow-up with me in 10 days time for removal of sutures.
--- NOTE | 2020-09-09 09:33 | SUR.PHASEI ---
0915 PT VERY ALERT BUT BP DOWN TO 76/58 TO BILAT YOVANY PT HOB AT 20 WITH FEET NOW ELEVATED BP CHECKED WITH MANUAL CUFF TO RT ARM UNCHANGED DR MATSON AT BEDSIDE IV W/O RATE 0916 PT NOW IN [place] BP BETTER, PT TO RECIEVE THE REST OF IV BAG BOLUS PER VERBAL ORDER BY DR SIDDIQUI AND PER PHASE 1 PROTOCOL ORDERS. 0935 PT ALERT BP 112/42 PT REMAINS ALERT DENIES NAUSEA, PT BED NOW FLAT PT SATS 94% PT STATES ( IT HURTS TO TAKE A DEEP BREATH, BUT OTHERWISE NO PAIN) PT PLACED ON 3NC SATS UP TO 98%
--- NOTE | 2020-09-09 09:41 | SUR.PHASEI ---
[address] [facility] FLAT NOW BP 101/49
[2020-09-09] MEDS: sodium chloride 0.9% 500 ML 999 ML IV (09:51)
--- NOTE | 2020-09-09 11:43 | SUR.PHASEII ---
home health ordered by dr gan for draining of pleural cath daily for 14 days. [facility] said they wouldnt be able to make it there until saturday. dr gan aware and ok with this. [facility] will be there saturday and will show family member how to do this daily. family member Raquel is ok with this.
--- NOTE | 2020-09-09 12:56 | ANE.PACU2 ---
Inpatient post-anesthesia follow up: Airway intact: Yes Vital signs: Temperature 98.3 F Pulse Rate 74 Respiratory Rate 18 Blood Pressure 141/54 Pulse Oximetry 96 Oxygen Delivery Me thod Room Air Oxygen Flow Rate 1.5 Fraction of Inspir ed Oxygen Hydration adequate: Yes Nausea and vomiting: No Pain level: 1 Mental status: Baseline Additional Comments: 2 L NS
== END 2020-09-09 11:35 | disposition home or self-care (01) ==
PROVIDERS: PCP Nurse Practitioner Family; Visit Provider Internal Medicine Critical Care Medicine
PROC: (CPT 32550; principal; 2020-09-09 08:15)
DX: J90 Pleural effusion, not elsewhere classified (principal); E11.9 Type 2 diabetes mellitus without complications; M06.9 Rheumatoid arthritis, unspecified; Z85.118 Personal history of other malignant neoplasm of bronchus and lung; J44.9 Chronic obstructive pulmonary disease, unspecified; I10 Essential (primary) hypertension; E78.5 Hyperlipidemia, unspecified; Z87.891 Personal history of nicotine dependence
CPT/HCPCS: 32550; 36416; 71045; 82962; C1729; J2370; J2704; J3010; J7040

== ENCOUNTER 2020-10-13 15:00 | Outpatient (CLI) | payer MEDICARE, OTHER, SELFPAY ==
--- NOTE | 2020-10-13 15:10 | XR_ITS ---
WS: [id number] PA and lateral chest, 10/13/2020 Clinical Data: SOB Comparison: Portable chest, 09/09/2020. Findings: The right pleural effusion has reaccumulated. There is still a basilar right chest tube pre sent. The fluid is present along the right lateral chest wall right apex and medial aspect of the rig ht upper pleura. The heart size is probably normal. There are right hilar clips noted. The left lung is clear. The aortic arch shows calcification. No pneumothorax is seen. XR/XR chest 2V* [id number] Impression: 1. Reaccumulation of right pleural fluid. 2. No change in right basilar chest tube.
== END 2020-10-13 15:01 | disposition home or self-care (01) ==
LOC: RAD 15:09
PROVIDERS: PCP Nurse Practitioner Family; Visit Provider Internal Medicine Critical Care Medicine
DX: R06.02 Shortness of breath (principal)
CPT/HCPCS: 71046

== ENCOUNTER 2020-10-14 13:34 | Inpatient (IN) | payer MEDICARE, OTHER, SELFPAY ==
[2020-10-14] VITALS (10 sets, daily range): BP systolic 116–138; BP diastolic 56–73; PULSE 83–90; RESP 17–20; TEMP 36.6–36.9; O2SAT 88–98; BMI 32.5
--- NOTE | 2020-10-14 13:53 | XR_ITS ---
WS: [id number] Portable AP upright chest, 10/14/2020 Clinical Data: sob Comparison: PA and lateral chest, 10/13/2020 Findings: The right pleural effusion remains the same. There is a right basilar chest tube. The pleur al effusion also tracks along the right lateral pleural thickening into the right apex. The left lung remains clear. XR/XR chest 1V portable [id number] Impression: No change in right pleural fluid and right basilar chest tube.
--- NOTE | 2020-10-14 13:53 | ECG_ITS ---
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
[2020-10-14] MEDS: ipratropium-albuterol 3 mL Neb INHALATION ×3 (14:15)
--- NOTE | 2020-10-14 14:24 | ED_ITS ---
HPI - General Adult General: Chief complaint: General Medical Stated complaint: sent by Dr to have fluid drained from around lungs Time Seen by Provider: 10/14/20 13:49 History of Present Illness: HPI narrative: The patient is a 69-year-old female with past medical history right-sided lung cancer status post lobectomy and pleural effusion with likely metastatic cancer there. She has a chronic chest tube which she drains fluid from but has not drained it in a few days. She has been using a syringe to drain it which is abnormal per Dr. Santacrzu. He recommends hooking up the Pleurx drainage get. She complains of increasing shortness of breath over the past couple days and is satting 88% on room air. Placed on oxygen and she is resting comfortably. Severity: moderate Associated symptoms: Reports dyspnea and short of breath; Deny chest pain, confusion, headache(s), rash or palpitations Review of Systems General: Reports: 10 or more systems reviewed and unremarkable except in HPI and below Const: Denies: fatigue Eyes: Denies: change in vision, blurry vision or eye redness ENMT: Denies: throat pain, swelling of lips/tongue, ear or mastoid pain or nasal congestion Card: Denies: chest pain, palpitations, irregular heart rhythm, edema, dyspnea on exertion or orthopnea Resp: Reports: dyspnea; Denies: productive cough or non-productive cough GI: Denies: abdominal pain, diarrhea or GI cramping : Denies: flank pain, difficulty voiding, urinary frequency or urinary urgency Musc: Denies: neck pain, back pain, extremity pain, joint pain, joint redness, limited range of motion or muscle weakness Skin/Breast: Denies: rash, pruritus, erythema, skin pain or skin tenderness Neuro: Denies: headache(s), numbness in extremities, weakness in extremities, sensory changes, difficulty walking, dizziness, confusion or Slurred speech present Psych: Denies: anxiety or depression Endo: Denies: polyuria All/Imm: Denies: urticaria, throat swelling or tongue swelling PFSH ED PFSH: Medical History Chronic obstructive pulmonary disease, unspecified Continuous nicotine dependence Encounter for screening for other viral diseases Enrolled in chronic care management Essential (primary) hypertension Gastro-esophageal reflux disease without esophagitis High risk medication use Hyperlipidemia, unspecified Immunization counseling Lung mass Neuropathy Rheumatoid arthritis involving both hands with positive rheumatoid factor Type 2 diabetes mellitus without complications Surgical History H/O colonoscopy 3 yrs ago History of lobectomy of lung right lower No pertinent past surgical history Family History Father Osteoarthritis Mother Hypertension Fibromyalgia Denies family history of Rheumatoid arthritis Lupus Anesthesia complication Bleeding disorder Social History Smoking and tobacco status: former smoker Quit status (tobacco): has quit using tobacco Year quit tobacco: 2019 1PPD x 50 Years Second hand smoke exposure: No Alcohol intake: never Lives independently: Yes Household members: none Housing: House Marital status: / Current occupational status: retired History of recent travel: No Current gender identity: Female Physical Exam Const: COMMON NORMALS: no acute distress, average body habitus, patient oriented x3, no limitations, healthy appearing, alert and well nourished GENERAL APPEARANCE: cooperative, comfortable, well kempt and well developed ORIENTATION/CONSCIOUSNESS: Yes awake, Yes oriented to person, Yes oriented to place and Yes oriented to time HENMT: COMMON NORMALS: normocephalic, external ears normal and Normal external nose present HEAD & SCALP: normal to inspection and normocephalic NOSE: Normal external nose present EXTERNAL EAR: Yes external ears normal MOUTH: Normal oral and palatal mucosa present THROAT: posterior oropharynx normal Eye: COMMON NORMALS: Equal, round and reactive pupils present and EOMs intact bilaterally GENERAL EYE: appearance normal, both eyes and all related structures PUPIL: Yes Equal, round and reactive pupils present Neck/C-Spine: COMMON NORMALS: full ROM, no lymphadenopathy, no meningeal signs and no JVD GENERAL: Yes normal visual inspection Lymph: LYMPHATIC: no lymphadenopathy noted Chest: COMMONS NORMALS: normal inspection of the chest and normal palpation of entire chest wall Resp: COMMON NORMALS: normal respiratory effort, No retractions, No use of accessory muscles, clear to auscultation bilaterally and percussion normal EFFORT & INSPECTION: Yes able to speak in complete sentences AUSCULTATION: clear to auscultation bilaterally and diminished lung sounds on the right in the lower lung [place] PERCUSSION: percussion normal Cardio: COMMON NORMALS: no JVD, regular rate, regular rhythm, S1 normal heart sound present, S2 normal heart sound present and Peripheral pulses 2+ throughout RATE: regular rate RHYTHM: regular rhythm HEART SOUNDS: S1 normal heart sound present and S2 normal heart sound present PERIPHERAL PULSES: Peripheral pulses 2+ throughout GI: COMMON NORMALS: Normal to inspection, nondistended, normoactive bowel sounds present, Soft to palpation, non-tender and no masses INSPECTION: Yes normal to inspection PALPATION: Yes Soft to palpation : COMMON NORMALS: Yes no CVA tenderness BLADDER/KIDNEY EXAM: Yes no CVA tenderness Back/Pelvis: COMMON NORMALS: no CVA tenderness, thoracic and lumbar spine normal to inspection, no thoracic nor lumbar tenderness and thoraco-lumbar ROM normal Extremity: COMMON NORMALS: normal to inspection, full ROM, capillary refill normal, no joint enlargement and no pedal edema GENERAL: Yes normal exam except as noted Neuro: COMMON NORMALS: patient oriented x3, CN's II-XII intact bilaterally, moves all extremities, no focal motor deficits, no sensory deficits noted and gait normal SENSORIUM/ORIENTATION: Yes alert, Yes oriented to person, Yes oriented to place and Yes oriented to time MENINGEAL SIGNS: Yes no meningeal signs Psych: COMMON NORMALS: mental status grossly normal, Normal thought process present, cooperative, normal affect and speech normal APPEARANCE: Yes well kempt ATTITUDE: Yes calm SPEECH: Yes normal speech THOUGHT PROCESS: Normal thought process present Skin: COMMON NORMALS: no rashes or lesions noted GENERAL SKIN EXAM: no rashes or lesions noted Course Vital Signs: Vital signs: Vital Signs Temperature 98.5 F 10/14/20 18:05 Pulse Rate 85 10/14/20 18:05 Respiratory Rate 17 10/14/20 18:05 Blood Pressure 125/73 10/14/20 18:05 Pulse Oximetry 91 10/14/20 18:05 MDM - General Adult MDM Narrative: Medical decision making narrative: The patient is a 69-year-old female with past medical history right lung cancer and lobectomy. She has metas tatic spread and has had a chest tube placed sometime ago which gets drain daily. She has been unable to drain it for the past 3 days. I hooked up a Pleurx negative pressure drain to it and drained 100 cc of cloudy yellow fluid. Her chest x-ray clearly shows that there is more than 100 cc and she continues to sat 88% on room air. Discussed with Dr. Santacruz who recommends admission and possible TPA administration to clean the tube out and if that fails replace another chest tube. Discussed with Dr. Krishnamurthy who accepts for admission. The fluid is cloudy and yellow as well as she has a white count. Possible infection. She was started on Vanco and Zosyn in the ED. Lab Data: Labs: Lab Results 10/14/20 10/14/20 10/14/20 Range/Units 14:20 14:20 14:20 WBC 13.3 H (4.0-10.0) 10^3/ uL RBC 3.95 L (4.1-5.3) 10^6/u L Hgb 11.5 (11.5-15.3) g/dL Hct 35.9 L (37.0-47.0) % MCV 90.9 (81-99) fL MCH 29.1 (28.0-34.0) pg MCHC 32.0 (30.0-36.0) g/dL RDW 17.2 H (12.1-15.1) % Plt Count 304 (130-400) 10^3/c mm MPV 9.5 (7.4-10.4) fL Neut % (Auto) 79.8 % Lymph % (Auto) 8.4 % [place] % (Auto) 10.7 % Eos % (Auto) 0.2 % Baso % (Auto) 0.2 % Neut # (Auto) 10.64 H (1.8-7.7) 10^3/u L Lymph # (Auto) 1.1 (0.8-4.8) 10^3/u L [place] # (Auto) 1.4 H (0.2-0.9) 10^3/u L Eos # (Auto) 0.0 (0.0-0.8) 10^3/u L Baso # (Auto) 0.0 (0.0-0.1) 10^3/u L Nucleated RBC % (a uto) 0 % Nucleated RBCs # 0.0 /100WBC Sodium 132 L (136-145) mmol/L Potassium 3.5 (3.5-5.1) mmol/L Chloride 95 L (98-107) mmol/L Carbon Dioxide 25 (22-29) mmol/L Anion Gap 15.5 (5-19) BUN 17 (8-23) mg/dL Creatinine 0.6 (0.5-0.9) mg/dL GFR Calculation 99.1 (90-130) mL/min Glucose 144 H (65-115) mg/dL Calculated Osmolal ity 278 L (285-295) mOsm/k g Calcium 8.0 L (8.5-10.5) mg/dL Total Bilirubin 0.6 (0.15-1.2) mg/dL AST 9 (0-32) U/L ALT 9 (0-33) U/L Alkaline Phosphata se 106 H (35-105) IU/L Troponin T Baselin e 12 H (0-10) ng/L Troponin T 120 Min [place] (0-10) ng/L Delta Troponin T (0-10) ABS# NT-Pro-B Natriuret Pep 453 H (0-125) pg/mL Total Protein 6.0 L (6.6-8.7) g/dL Albumin 3.4 L (3.5-5.2) g/dL Globulin 2.6 (1.3-4.6) g/dL 10/14/20 Range/Units 16:03 WBC (4.0-10.0) 10^3/ uL RBC (4.1-5.3) 10^6/u L Hgb (11.5-15.3) g/dL Hct (37.0-47.0) % MCV (81-99) fL MCH (28.0-34.0) pg MCHC (30.0-36.0) g/dL RDW (12.1-15.1) % Plt Count (130-400) 10^3/c mm MPV (7.4-10.4) fL Neut % (Auto) % Lymph % (Auto) % [place] % (Auto) % Eos % (Auto) % Baso % (Auto) % Neut # (Auto) (1.8-7.7) 10^3/u L Lymph # (Auto) (0.8-4.8) 10^3/u L [place] # (Auto) (0.2-0.9) 10^3/u L Eos # (Auto) (0.0-0.8) 10^3/u L Baso # (Auto) (0.0-0.1) 10^3/u L Nucleated RBC % (a uto) % Nucleated RBCs # /100WBC Sodium (136-145) mmol/L Potassium (3.5-5.1) mmol/L Chloride (98-107) mmol/L Carbon Dioxide (22-29) mmol/L Anion Gap (5-19) BUN (8-23) mg/dL Creatinine (0.5-0.9) mg/dL GFR Calculation (90-130) mL/min Glucose (65-115) mg/dL Calculated Osmolal ity (285-295) mOsm/k g Calcium (8.5-10.5) mg/dL Total Bilirubin (0.15-1.2) mg/dL AST (0-32) U/L ALT (0-33) U/L Alkaline Phosphata se (35-105) IU/L Troponin T Baselin e (0-10) ng/L Troponin T 120 Min [place] 10.71 H (0-10) ng/L Delta Troponin T -1.29 L (0-10) ABS# NT-Pro-B Natriuret Pep (0-125) pg/mL Total Protein (6.6-8.7) g/dL Albumin (3.5-5.2) g/dL Globulin (1.3-4.6) g/dL Discharge Plan Discharge Patient Disposition: Admitted As Inpatient Admit Provider: Chilango Krishnamurthy Clinical Impression: Pleural effusion, right, Empyema, Hypoxia Condition: Stable Coding Level of Care Code ED Masonry Inspector for Chg Fwd Exam Comprehensive
[2020-10-14 14:40] LABS: Basophils % 0.2 %; Eosinophils % 0.2 %; Hematocrit 35.9 % (37.0-47.0); Hemoglobin 11.5 g/dL (11.5-15.3); Lymphocytes # 1.1 10^3/uL (0.8-4.8); Lymphocytes % 8.4 %; Mean Corpuscular Hemoglobin 29.1 pg (28.0-34.0); Mean Corpuscular Volume 90.9 fL (81-99); Mean Platelet Volume 9.5 fL (7.4-10.4); Monocytes # 1.4 10^3/uL (0.2-0.9); Monocytes % 10.7 %; Neutrophils # 10.64 10^3/uL (1.8-7.7); Neutrophils % 79.8 %; Nucleated Red Blood Cells % 0 %; Platelet Count 304 10^3/cmm (130-400); Red Blood Count 3.95 10^6/uL (4.1-5.3); Red Cell Distribution Width 17.2 % (12.1-15.1); White Blood Count 13.3 10^3/uL (4.0-10.0)
--- NOTE | 2020-10-14 14:46 | PC.NURSE ---
right basilar chest tube dressing dry and intact.
[2020-10-14 14:50] LABS: Troponin(5th) Baseline 12 ng/L (0-10)
[2020-10-14 14:56] LABS: Alanine Aminotransferase 9 U/L (0-33); Albumin Level 3.4 g/dL (3.5-5.2); Alkaline Phosphatase 106 IU/L (35-105); Anion Gap 15.5 (5-19); Aspartate Amino Transferase 9 U/L (0-32); Blood Urea Nitrogen 17 mg/dL (8-23); Carbon Dioxide 25 mmol/L (22-29); Chloride 95 mmol/L (98-107); Globulin 2.6 g/dL (1.3-4.6); Glomerular Filtration Rate 99.1 mL/min (90-130); Glucose 144 mg/dL (65-115); NT Pro B Type Natriuretic Pept 453 pg/mL (0-125); Osmolality Calculated 278 mOsm/kg (285-295); Potassium 3.5 mmol/L (3.5-5.1); Sodium 132 mmol/L (136-145); Total Bilirubin 0.6 mg/dL (0.15-1.2)
--- NOTE | 2020-10-14 14:59 | PC.NURSE ---
MD connected chest tube to pleurx drainage, output about 100ml. dressing applied by MD. patient stated felt a little bit better. no acute distress noted at this time.
--- NOTE | 2020-10-14 15:05 | PC.NURSE ---
Assisted Dr Lundberg with accessing and draining of Muir drain at bedside.
--- NOTE | 2020-10-14 15:53 | ECG_ITS ---
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
[2020-10-14] MEDS: piperacillin-tazobactam 3.375 GM in sodium chloride 0.9% (plus) 50 ML IV (16:22)
[2020-10-14] MEDS: vancomycin 1,000 MG in sodium chloride 0.9% 250 ML 250 MG IV (16:26)
[2020-10-14 16:35] LABS: Troponin 5 2HR 10.71 ng/L (0-10)
[2020-10-14 16:39] LABS: Troponin 5 2HR Delta -1.29 ABS# (0-10)
[2020-10-14 17:50] LABS: Mononuclear %, Pleural Fluid 11 %; Polynuclear Cells, Pleural % 89 %
[2020-10-14 18:03] LABS: Albumin Body Fluid 2.3 g/dL; Total Protein Pleural Fluid 3.9 g/dL
[2020-10-14 18:04] LABS: LDH Pleural Fluid 1064 U/L
[2020-10-14 18:06] LABS: Appearance, Pleural Fluid CLOUDY (CLEAR); Color, Pleural Fluid Pale Yellow (Pale Yellow); PATH Referal YES
--- NOTE | 2020-10-14 19:53 | ECG_ITS ---
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
[2020-10-14 21:10] LABS: Glucose Point of Care 200 mg/dL (70-110)
[2020-10-14 21:22] LABS: Troponin 5 6HR 8.29 ng/L (0-10)
[2020-10-14 21:24] LABS: Troponin 5 6HR Delta -3.71 ng/L (0-12)
[2020-10-14] MEDS: carvedilol 12.5 mg Tablet 18.75 MG PO (21:48)
[2020-10-15] VITALS (8 sets, daily range): BP systolic 113–161; BP diastolic 60–82; PULSE 75–89; RESP 15–18; TEMP 35.9–37; O2SAT 91–97
[2020-10-15] MEDS: alteplase 1 mg/mL SDV 2 mL 2 MG INTRACATH (00:46)
--- NOTE | 2020-10-15 01:21 | P.HP_ITS ---
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 She has been draining her pleurex cath daily with around 100cc output. Instead of using a draining kit has been using a syringe. Denied any fever, chills, nausea or vomiting. Laboratory work up on arrival showed a WBC of 13.3, hemoglobin of 11.5, hematocrit of 35.9, and platelet count of 304. Sodium of 132, potassium of 3.5, chloride of 95, bicarb of 25, BUN of 17 and a creatinine of 0.6. Troponin T of 12, 10.7 at 120 min, proBNP of 453, Patient was started on broad specturm abx. Review of Systems General: Reports: 10 or more systems reviewed and unremarkable except in HPI and below Medications/Allergies Home Medications Medication Instructions Recorded Confirmed Last Taken Type blood sugar diagnostic #10 each 05/12/19 10/14/20 Unknown History lancets 28 gauge #25 each 05/12/19 10/14/20 Unknown History cinnamon bark [Cinnamon] 500 mg PO DAILY 12/01/19 10/14/20 09/08/20 History diclofenac sodium 1 % topical gel 2 g TOPICAL QID #100 g 07/20/20 10/14/20 09/08/20 Rx Fish Oil 1 cap PO DAILY@199908/30/20 10/14/20 10/13/20 History folic acid 1 mg PO DAILY@30 08/30/20 10/14/20 10/14/20 History methotrexate sodium 20 mg PO Q7D 08/30/20 10/14/20 10/12/20 History prednisone 5 mg PO DAILY PRN 08/30/20 10/14/20 10/14/20 History turmeric 400 mg PO DAILY@0830 08/30/20 10/14/20 10/14/20 History valsartan-hydrochlorothiazide 1 tab PO DAILY@30 08/30/20 10/14/2009/08/21 History furosemide 20 mg PO DAILY 09/08/20 10/14/20 10/14/20 History carvedilol 12.5 mg tablet 18.75 mg PO BID@829,2029 #75 tab 10/12/20 10/14/20 10/14/20 Rx Allergies Allergy/AdvReac Type Severity Reaction Status Date / Time aspirin Allergy Intermediate bloody Verified 09/19/20 09:48 stools lisinopril Allergy Mild rash Verified 09/19/20 09:48 nickel Allergy Mild rash Verified 09/19/20 09:48 PFSH Acute PFSH: Medical History Chronic obstructive pulmonary disease, unspecified Continuous nicotine dependence Encounter for screening for other viral diseases Enrolled in chronic care management Essential (primary) hypertension Gastro-esophageal reflux disease without esophagitis High risk medication use Hyperlipidemia, unspecified Immunization counseling Lung mass Neuropathy Rheumatoid arthritis involving both hands with positive rheumatoid factor Type 2 diabetes mellitus without complications Surgical History H/O colonoscopy 3 yrs ago History of lobectomy of lung right lower No pertinent past surgical history Family History Father Osteoarthritis Mother Hypertension Fibromyalgia Denies family history of Rheumatoid arthritis Lupus Anesthesia complication Bleeding disorder Social History Smoking and tobacco status: former smoker Quit status (tobacco): has quit using tobacco Year quit tobacco: 2019 1PPD x 50 Years Second hand smoke exposure: No Alcohol intake: never Lives independently: Yes Household members: none Housing: House Marital status: / Current occupational status: retired History of recent travel: No Current gender identity: Female Vitals/I&O/Wt Last Vital Signs Temp 98.3 F 10/15/20 00:00 Pulse 78 10/15/20 00:00 Resp 16 10/15/20 00:00 BP 130/71 10/15/20 00:00 Pulse Ox 95 10/15/20 00:00 10/14/20 10/14/20 10/15/20 14:59 22:59 06:59 Intake Total 300 / 300 0 / 300 Balance 300 / 300 0 / 300 Weight last 48 hrs Weight 86.183 kg Physical Exam Narrative: EXAM NARRATIVE: General : Alert, Awake, NAD HEENT : Grossly unremarkable e CVS : RRR Chest - Non-labored respiration decrase BS at bases, right pleurex cath in place. Abd: Non-tender/nondistended Ext : no edema Data : 10/15/20 04:10 10/15/20 04:10 Micro: Microbiology 10/14/20 17:00 Gram Stain - Final Pleural Fluid A&P Assessment and plan (1) Malignant pleural effusion: Status: Acute (2) Primary cancer of right lower lobe of lung: Status: Acute (3) Hyperlipidemia, unspecified: Status: Acute (4) Chronic obstructive pulmonary disease, unspecified: Status: Acute Qualifiers: COPD type: unspecified COPD Qualified Code(s): J44.9 - Chronic obstructive pulmonary disease, unspecified (5) Essential (primary) hypertension: Status: Acute (6) Type 2 diabetes mellitus without complications: Status: Acute Qualifiers: Diabetes mellitus terminal carman insulin use: without terminal carman use Qualified Code(s): E11.9 - Type 2 diabetes mellitus without complications (7) Rheumatoid arthritis involving both hands with positive rheumatoid factor: Status: Acute Malignant R.Pleural Effusion - S/p right sided pleurx catheter - S/p 100cc drained on arrival to ER - Fluid analysis ordered - Fluid gram stain and culture - Empirically started on IV abx - Vancomycin pharmacy to dose - zosyn 3.375g - Plan for Intrapleural TPA - If limited drainage post TPA - may require IR -thoracentesis - RLL invasive adenocarcinoma s/p hx of R.L.Lobectomy - Unclear if outpatient oncology consult was obtain RLL invasive adenocarcinoma s/p hx of R.L.Lobectomy - Unclear if outpatient oncology consult was obtain Additional medical problems Chronic obstructive pulmonary disease Hypertension Hyperlipidemia Rheumatoid arthritis Diabetes Mellitus Neuropathy GERD DVT ppx Attestations Medical Necessity Statement*: Patient who presented with acute respiratory distress due to chronic right sided pleural effusion with possible malfunction of pleurex catheter who will likely require over 2 midnight stay in hospital for eval and treatment. Time Spent in Patient Care: Greater than 35 minutes Coding Level of Care Code Acute Enrollment Manager for [facility] Fwd Diagnoses Malignant pleural effusion J91.0 Primary cancer of right lower lobe of lung C34.31 Hyperlipidemia, unspecified E78.5 Chronic obstructive pulmonary disease, unspecified J44.9 COPD type: unspecified COPD Essential (primary) hypertension I10 Type 2 diabetes mellitus without complications E11.9 Diabetes mellitus terminal carman insulin use: without terminal carman use Rheumatoid arthritis involving both hands with positive rheumatoid factor M05.741; M05.742
[2020-10-15 04:49] LABS: Basophils % 0.1 %; Hematocrit 35.9 % (37.0-47.0); Hemoglobin 11.2 g/dL (11.5-15.3); Lymphocytes % 9.6 %; Mean Corpuscular HGB Conc 31.2 g/dL (30.0-36.0); Mean Corpuscular Hemoglobin 29.4 pg (28.0-34.0); Mean Corpuscular Volume 94.2 fL (81-99); Mean Platelet Volume 9.7 fL (7.4-10.4); Monocytes # 0.2 10^3/uL (0.2-0.9); Monocytes % 2.4 %; Neutrophils # 8.86 10^3/uL (1.8-7.7); Neutrophils % 87.4 %; Nucleated Red Blood Cells % 0 %; Platelet Count 326 10^3/cmm (130-400); Red Blood Count 3.81 10^6/uL (4.1-5.3); Red Cell Distribution Width 16.9 % (12.1-15.1); White Blood Count 10.1 10^3/uL (4.0-10.0)
[2020-10-15 05:11] LABS: Alanine Aminotransferase 8 U/L (0-33); Albumin Level 2.7 g/dL (3.5-5.2); Alkaline Phosphatase 96 IU/L (35-105); Anion Gap 17.6 (5-19); Aspartate Amino Transferase 7 U/L (0-32); Blood Urea Nitrogen 18 mg/dL (8-23); Calcium 8.6 mg/dL (8.5-10.5); Carbon Dioxide 23 mmol/L (22-29); Chloride 97 mmol/L (98-107); Globulin 3.8 g/dL (1.3-4.6); Glomerular Filtration Rate 122.3 mL/min (90-130); Glucose 175 mg/dL (65-115); Magnesium 2.2 mg/dL (1.7-2.3); Osmolality Calculated 284 mOsm/kg (285-295); Potassium 3.6 mmol/L (3.5-5.1); Sodium 134 mmol/L (136-145); Total Bilirubin 0.4 mg/dL (0.15-1.2); Total Protein 6.5 g/dL (6.6-8.7)
[2020-10-15 05:15] LABS: Procalcitonin 0.23 ng/mL (0-0.5)
--- NOTE | 2020-10-15 06:14 | PC.NURSE ---
bed scale not working
[2020-10-15 06:30] LABS: Glucose Point of Care 179 mg/dL (70-110)
[2020-10-15] MEDS: vancomycin 1,000 MG in sodium chloride 0.9% 250 ML 250 MG IV ×2 (07:15→21:12)
[2020-10-15] MEDS: folic acid 1 mg Tablet PO (08:31)
[2020-10-15] MEDS: carvedilol 12.5 mg Tablet 18.75 MG PO ×2 (08:31→20:18)
[2020-10-15] MEDS: piperacillin-tazobactam 3.375 GM in sodium chloride 0.9% (plus) 50 ML IV ×2 (08:31→17:13)
[2020-10-15] MEDS: pantoprazole DR 40 mg Tablet PO (08:35)
--- NOTE | 2020-10-15 10:34 | CTR_ITS ---
PROCEDURE INFORMATION: Exam: CT Chest With Contrast; Diagnostic Exam date and time: 10/15/2020 10:47 AM Age: 69 years old Clinical indication: Shortness of breath; Prior surgery; Surgery type: RT lower lobe; Additional info: Dyspnea. Pleural effusion TECHNIQUE: Imaging protocol: Diagnostic computed tomography of the chest with contrast. Radiation optimization: All CT scans at this facility use at least one of these dose optimization techniques: automated exposure control; mA and/or kV adjustment per patient size (includes targeted exams where dose is matched to clinical indication); or iterative reconstruction. Contrast material: OMNI 300; Contrast volume: 95 ml; Contrast route: INTRAVENOUS (IV); COMPARISON: 1. CT chest w con* [id number] 07/18/2020 2:[address] angio chest PE protcl [id number] 08/30/2020 6:18:22 PM RADIATION DOSE METRICS: Total DLP (mGy-cm): 724.7 FINDINGS: Lungs: Partial right lower lung consolidation, decreased. Right lower lobectomy. Multiple left lung nodules, minimally increased; largest approximately. Pleural spaces: Right pleural tube in place, small right pleural effusion. Heart: No cardiomegaly. No pericardial effusion. Aorta: No aortic aneurysm. Lymph nodes: Stable mediastinal adenopathy. Bones/joints: No acute findings. Soft tissues: Unremarkable. CT/CT chest w con* [id number] IMPRESSION: Right pleural effusion decreased status post pleural tube placement, partial right lower lobe consolidation. Multiple left lung nodules, minimally increased. Mediastinal adenopathy. Radiation Dose CTDIVOL = (mGy): DLP = 724.7 (mGy-cm)
--- NOTE | 2020-10-15 10:36 | PM.PN ---
Subjective Subjective: Interval history: Patient is not feeling any better today. She still has some shortness of breath. No fevers. Doing about the same. They only had 150 cc drained after the TPA. This is about what she has been getting since the catheter was placed 6 weeks ago. She is anxious to go home if we are not going to be doing much for her here today. Her shortness of breath has been gradual over the past 7 to 10 days. Medications: Reviewed: Yes Vitals/I&O/Wt Last Vital Signs Temp 96.7 F L 10/15/20 07:36 Pulse 84 10/15/20 07:36 Resp 18 10/15/20 07:36 BP 135/82 10/15/20 07:36 Pulse Ox 95 10/15/20 07:36 10/14/20 10/15/20 10/15/20 22:59 06:59 14:59 Intake Total 300 / 300 0 / 300 250 / 250 Output Total 150 / 150 Balance 300 / 150 -150 / 150 250 / 250 Weight last 48 hrs Weight 190 lb Physical Exam Narrative: EXAM NARRATIVE: General: No acute distress, Alert. Well nourished. Heart: Regular rate and rhythm. No murmurs, rubs or gallops. Normal capillary refill. Lungs: Coarse breath sounds throughout worse on the right. Some occasional expiratory wheezes.. Abdomen: Positive bowel sounds. Non-tender, non-distended. No hepatosplenomegaly. No gaurding. Extremities: No clubbing, cyanosis, or edema. Negative Adriana's Data : 10/15/20 04:10 10/15/20 04:10 Micro: Microbiology 10/14/20 17:00 Gram Stain - Final Pleural Fluid Body Fluid Culture - Preliminary Gram Negative Rods A&P Assessment and plan (1) Adenocarcinoma of right lung: Status: Acute (2) Malignant pleural effusion: -Patient has some increasing shortness of breath and hypoxia. Possible that it is due to this effusion however pneumonia is also in the differential or an infected empyema. We will need to obtain a CT scan to help sort this out today. Continue with IV antibiotics. Pulmonary embolism is in the differential however this was gradual in onset and even with her cancer history makes this a little less likely. We do not have pulmonology available this weekend but may need intervention when they are available this week. Status: Acute Attestations Medical Necessity Statement*: This is a 69-year-old female with malignant pleural effusion requiring further testing evaluation and IV treatments and possible surgical intervention. She requires continued inpatient hospital stay. Coding Level of Care Code Acute Transit Department Clerk for [employer] Fwd Diagnoses Adenocarcinoma of right lung C34.91 Malignant pleural effusion J91.0
[2020-10-15] MEDS: iohexol 300 mg/mL 100 mL Btl IV (11:09)
[2020-10-15 11:41] LABS: Glucose Point of Care 184 mg/dL (70-110)
[2020-10-15 17:11] LABS: Glucose Point of Care 293 mg/dL (70-110)
[2020-10-15 21:32] LABS: Glucose Point of Care 232 mg/dL (70-110)
[2020-10-16] VITALS (9 sets, daily range): BP systolic 114–172; BP diastolic 68–76; PULSE 67–78; RESP 16–18; TEMP 36.4–36.8; O2SAT 90–98
[2020-10-16] MEDS: piperacillin-tazobactam 3.375 GM in sodium chloride 0.9% (plus) 50 ML IV ×3 (00:33→17:08)
[2020-10-16 06:21] LABS: Glucose Point of Care 167 mg/dL (70-110)
[2020-10-16] MEDS: carvedilol 12.5 mg Tablet 18.75 MG PO ×2 (07:54→20:57)
[2020-10-16] MEDS: pantoprazole DR 40 mg Tablet PO (07:54)
[2020-10-16] MEDS: folic acid 1 mg Tablet PO (07:54)
[2020-10-16] MEDS: vancomycin 1,000 MG in sodium chloride 0.9% 250 ML 250 MG IV (07:54)
--- NOTE | 2020-10-16 09:02 | P.PN_ITS ---
Subjective Subjective: Interval history: Patient thinks that she is feeling just a little bit better this morning. Just a little less short of breath. No fevers or chills. No chest pain. CT scan of the chest was read yesterday as showing minimal progression of metastatic disease and smaller right pleural effusion since the Sperry drain had been placed. No evidence of pneumonia. This morning however I was called by radiology and apparently the over read on the CAT scan showed some left pulmonary embolisms which for me better explains her symptom complex. I discussed this with her and she is a bit nervous about anticoagulation. She states that she has rectal bleeding even with just aspirin. She has no history of pulmonary embolisms. She was checked for this 2 to 3 months ago on the [address] which was negative at that time. Nursing staff got 250 mils out of her Sperry drain this morning. Medications: Reviewed: Yes Vitals/I&O/Wt Last Vital Signs Temp 98.2 F 10/16/20 08:00 Pulse 72 10/16/20 08:00 Resp 18 10/16/20 08:00 BP 161/68 10/16/20 08:00 Pulse Ox 90 10/16/20 08:00 10/15/20 10/16/20 10/16/20 22:59 06:59 14:59 Intake Total 300 / 650 50 / 650 360 / 360 Output Total 250 / 250 Balance 300 / 400 -200 / 400 360 / 360 Weight last 48 hrs Weight 187 lb 14.4 oz Weight 189 lb Weight 190 lb Physical Exam Narrative: EXAM NARRATIVE: General: No acute distress, Alert. Well nourished. Heart: Regular rate and rhythm. No murmurs, rubs or gallops. Normal capillary refill. Lungs: Coarse breath sounds throughout worse on the right. Some occasional expiratory wheezes.. Abdomen: Positive bowel sounds. Non-tender, non-distended. No hepatosplenomegaly. No gaurding. Extremities: No clubbing, cyanosis, or edema. Negative Adriana's Data : 10/15/20 04:10 10/15/20 04:10 Micro: Microbiology 10/14/20 17:00 Gram Stain - Final Pleural Fluid Body Fluid Culture - Preliminary Escherichia coli A&P Assessment and plan (1) Pulmonary embolism: We will start her on Lovenox 40 mg twice a day. She is nervous about blood thinners due to bleeding with just aspirin. We will initiate at lower than normal dosing and see how she tolerates that. Discussed with her the risks and benefits of blood thinners. She is agreeable to this dosing for now. She is also worried about the cost of long-term treatment. Status: Acute (2) Malignant pleural effusion: -This actually seems stable on CT scan. -Pleural fluid cultures grew out E. coli suggesting a possible empyema. It is pansensitive. We will stop the vancomycin. Continue with Zosyn for now. After pulmonology reviews the CAT scan tomorrow we will likely be able to further narrow our antibiotic regimen. -Anticipate consulting pulmonology tomorrow to help guide us in how to proceed with treatment. Status: Acute (3) Adenocarcinoma of right lung: Needs follow-up with oncology to initiate treatment. Status: Acute (4) Empyema: Status: Acute Attestations Medical Necessity Statement*: This is a 69-year-old female with malignant pleural effusion and pulmonary embolisms requiring continued IV treatments and monitoring in the inpatient setting. Coding Level of Care Code Acute International Banker for [facility] Diagnoses Pulmonary embolism I26.99 Malignant pleural effusion J91.0 Adenocarcinoma of right lung C34.91 Empyema J86.9
[2020-10-16] MEDS: enoxaparin 40 mg/0.4 mL Syringe SUBCUT ×2 (10:45→21:03)
[2020-10-16 16:44] LABS: Glucose Point of Care 174 mg/dL (70-110)
[2020-10-16 20:28] LABS: Glucose Point of Care 185 mg/dL (70-110)
[2020-10-17] VITALS (9 sets, daily range): BP systolic 121–184; BP diastolic 64–80; PULSE 65–95; RESP 16–18; TEMP 36.3–37; O2SAT 91–98
[2020-10-17] MEDS: piperacillin-tazobactam 3.375 GM in sodium chloride 0.9% (plus) 50 ML IV ×3 (01:22→17:11)
[2020-10-17 05:25] LABS: Basophils % 0.2 %; Eosinophils # 0.2 10^3/uL (0.0-0.8); Eosinophils % 3.5 %; Hematocrit 32.2 % (37.0-47.0); Hemoglobin 9.7 g/dL (11.5-15.3); Lymphocytes # 1.5 10^3/uL (0.8-4.8); Lymphocytes % 25.9 %; Mean Corpuscular HGB Conc 30.1 g/dL (30.0-36.0); Mean Corpuscular Hemoglobin 28.4 pg (28.0-34.0); Mean Corpuscular Volume 94.4 fL (81-99); Mean Platelet Volume 9.6 fL (7.4-10.4); Monocytes # 0.7 10^3/uL (0.2-0.9); Monocytes % 12.8 %; Neutrophils # 3.32 10^3/uL (1.8-7.7); Neutrophils % 57.3 %; Nucleated Red Blood Cells % 0 %; Platelet Count 369 10^3/cmm (130-400); Red Blood Count 3.41 10^6/uL (4.1-5.3); White Blood Count 5.8 10^3/uL (4.0-10.0)
[2020-10-17 05:46] LABS: Alanine Aminotransferase 8 U/L (0-33); Albumin Level 2.7 g/dL (3.5-5.2); Alkaline Phosphatase 68 IU/L (35-105); Aspartate Amino Transferase 6 U/L (0-32); Blood Urea Nitrogen 23 mg/dL (8-23); Calcium 7.9 mg/dL (8.5-10.5); Carbon Dioxide 25 mmol/L (22-29); Chloride 103 mmol/L (98-107); Globulin 2.5 g/dL (1.3-4.6); Glomerular Filtration Rate 71.1 mL/min (90-130); Glucose 118 mg/dL (65-115); Osmolality Calculated 293 mOsm/kg (285-295); Sodium 139 mmol/L (136-145); Total Bilirubin 0.2 mg/dL (0.15-1.2); Total Protein 5.2 g/dL (6.6-8.7)
[2020-10-17 06:22] LABS: Glucose Point of Care 119 mg/dL (70-110)
--- NOTE | 2020-10-17 08:40 | PC.NURSE ---
150ml fluid removed from sarita drain. sterile technique used to drain. fluid clear yellow.
[2020-10-17] MEDS: folic acid 1 mg Tablet PO (09:28)
[2020-10-17] MEDS: carvedilol 12.5 mg Tablet 18.75 MG PO ×2 (09:28→19:58)
[2020-10-17] MEDS: pantoprazole DR 40 mg Tablet PO (09:28)
[2020-10-17] MEDS: enoxaparin 40 mg/0.4 mL Syringe SUBCUT ×2 (09:29→21:56)
[2020-10-17 10:56] LABS: Glucose Point of Care 185 mg/dL (70-110)
--- NOTE | 2020-10-17 11:05 | PC.SOCIAL ---
*IMM UPDATE* Gave patient IMM update. Provided copy of page 2 of IMM. Verbalized understanding. 10/17/20 @ 1010 Initialed, dated, timed and placed in chart.
--- NOTE | 2020-10-17 11:07 | PC.NURSE ---
patient refuses Novolog. commercial insurance underwriter notified Dr Pritchard.
[2020-10-17] MEDS: potassium chloride ER 20 mEq Tablet PO (15:00)
--- NOTE | 2020-10-17 16:11 | PM.CONSULT ---
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 She has been draining her pleurex cath daily with around 100cc output. Instead of using a draining kit has been using a syringe. Denied any fever, chills, nausea or vomiting. Upon admission, laboratory work up on arrival showed a WBC of 13.3, hemoglobin of 11.5, hematocrit of 35.9, and platelet count of 304. Sodium of 132, potassium of 3.5, chloride of 95, bicarb of 25, BUN of 17 and a creatinine of 0.6. Troponin T of 12, 10.7 at 120 min, proBNP of 453. Patient was admitted to floor and started on broad specturm abx. Drain 100 cc on arrival in ER and sent for cultures. Later patient received intrapleural TPA on the day of admission 10/15/2020. After TPA patient drained 150 cc, 250 cc, 150 cc on subsequent days. CT chest showed minimal progression of metastatic disease and smaller right pleural effusion since the Dylan drain had been placed. No evidence of pneumonia. Also CT chest reported by radiology as left lower lung pulmonary emboli in the lower division of the left pulmonary artery with no thrombus extending across the main pulmonary artery and no right ventricular dilation. Patient has comes in starting on anticoagulation as she has rectal bleeding even with aspirin previously. Meanwhile pleural fluid cultures grew pansensitive E. coli patient is already on Zosyn. Today pulmonary were consulted as patient had recurrent malignant pleural effusion with recent Vassar drain placement and currently pleural fluid cultures growing pansensitive E. coli. Patient seen at bedside today currently on 1 L nasal cannula saturating 95%. She is afebrile and WBC 5.8K Currently on Zosyn for pansensitive E. coli and pleural fluid cultures and Lovenox 40 mg twice daily for LLL PE and reported subjective improvement in her shortness of breath since admission Review of Systems General: Reports: 10 or more systems reviewed and unremarkable except in HPI and below Meds/Allergies Home Medications and Allergies Home Medications Medication Instructions Recorded Confirmed Last Taken Type blood sugar diagnostic #10 each 05/12/19 10/14/20 Unknown History lancets 28 gauge #25 each 05/12/19 10/14/20 Unknown History cinnamon bark [Cinnamon] 500 mg PO DAILY 12/01/19 10/14/20 09/08/20 History diclofenac sodium 1 % topical gel 2 g TOPICAL QID #100 g 07/20/20 10/14/20 09/08/20 Rx Fish Oil 1 cap PO DAILY@199908/30/20 10/14/20 10/13/20 History folic acid 1 mg PO DAILY@0830 08/30/20 10/14/20 10/14/20 History methotrexate sodium 20 mg PO Q7D 08/30/20 10/14/20 10/12/20 History prednisone 5 mg PO DAILY PRN 08/30/20 10/14/20 10/14/20 History turmeric 400 mg PO DAILY@0830 08/30/20 10/14/20 10/14/20 History valsartan-hydrochlorothiazide 1 tab PO DAILY@0830 08/30/20 10/14/20 09/08/20 History furosemide 20 mg PO DAILY 09/08/20 10/14/20 10/14/20 History carvedilol 12.5 mg tablet 18.75 mg PO BID@30,2029 #75 tab 10/12/20 10/14/20 10/14/20 Rx Allergies Allergy/AdvReac Type Severity Reaction Status Date / Time aspirin Allergy Intermediate bloody Verified 09/19/20 09:48 stools lisinopril Allergy Mild rash Verified 09/19/20 09:48 nickel Allergy Mild rash Verified 09/19/20 09:48 Current Medications Current Medications Generic Name Dose Route Start Last Admin Trade Name Freq PRN Reason Stop Dose Admin Carvedilol 18.75 mg 10/14/20 20:30 10/17/20 09:28 Carvedilol 12.5 Mg Tablet PO 18.75 mg BID@0830,2030 GEOFFREY Administration Enoxaparin Sodium 40 mg 10/16/20 10:00 10/17/20 09:29 Enoxaparin 40 Mg/0.4 Ml Syringe SUBCUT 40 mg Q12H GEOFFREY Administration Folic Acid 1 mg 10/15/20 08:30 10/17/20 09:28 Folic Acid 1 Mg Tablet PO 1 mg DAILY@0830 GEOFFREY Administration Piperacillin Sod/Tazobactam 50 mls @ 12.5 mls/hr 10/15/20 08:30 10/17/20 13:28 Sod 3.375 gm/ Sodium Chloride IV Infused Q8H GEOFFREY Infusion Protocol As Directed Insulin Aspart 0 unit 10/15/20 08:00 10/17/20 11:04 Insulin Aspart 100 Unit/1 Ml SUBCUT Not Given TIDWM GEOFFREY Protocol Pantoprazole Sodium 40 mg 10/15/20 09:00 10/17/20 09:[address] 40 Mg Tablet PO 40 mg DAILY GEOFFREY Administration PFSH Acute PFSH: Medical History Chronic obstructive pulmonary disease, unspecified Continuous nicotine dependence Encounter for screening for other viral diseases Enrolled in chronic care management Essential (primary) hypertension Gastro-esophageal reflux disease without esophagitis High risk medication use Hyperlipidemia, unspecified Immunization counseling Lung mass Neuropathy Rheumatoid arthritis involving both hands with positive rheumatoid factor Type 2 diabetes mellitus without complications Surgical History H/O colonoscopy 3 yrs ago History of lobectomy of lung right lower No pertinent past surgical history Family History Father Osteoarthritis Mother Hypertension Fibromyalgia Denies family history of Rheumatoid arthritis Lupus Anesthesia complication Bleeding disorder Social History Smoking and tobacco status: former smoker Quit status (tobacco): has quit using tobacco Year quit tobacco: 2019 1PPD x 50 Years Second hand smoke exposure: No Alcohol intake: never Lives independently: Yes Household members: none Housing: House Marital status: / Current occupational status: retired History of recent travel: No Current gender identity: Female Vitals/I&O/Wt Last Vital Signs Temp 98.0 F 10/17/20 15:19 Pulse 65 10/17/20 15:19 Resp 18 10/17/20 15:19 BP 151/66 10/17/20 15:19 Pulse Ox 91 10/17/20 15:19 10/17/20 10/17/20 10/17/20 06:59 14:59 22:59 Intake Total 50 / 1120 650 / 650 Output Total 150 / 150 Balance 50 / 1120 500 / 500 Weight last 48 hrs Weight 285 lb 14.4 oz Weight 187 lb 14.4 oz Weight 189 lb Physical Exam Narrative: EXAM NARRATIVE: General: alert, NAD HEENT: conj clear, EOMI, PERRL, mmm, Neck: supple, no meningismus Heme: no cervical LAP Pulmonary: Clean insertion site of Vassar drain, CTAB, mildly reduced breath sounds on right lower lung zone Cardiovascular: rrr, nl s1s2, no mrg Abdomen: soft, nt, nd, no r/g, bs+ Extremities: pulses +, no edema, no c/c : no CVA tenderness Skin: intact, no rash MSK: no back or neck pain Neurologic: grossly intact Data Labs: Other Labs: Laboratory Results WBC 5.8 10^3/uL (4.0- 10.0) 10/17/20 05:00 RBC 3.41 10^6/uL (4.1 -5.3) L 10/17/20 05:00 Hgb 9.7 g/dL (11.5-15 .3) L 10/17/20 05:00 Hct 32.2 % (37.0-47.0 ) L 10/17/20 05:00 MCV 94.4 fL (81-99) 10/17/20 05:00 MCH 28.4 pg (28.0-34. 0) 10/17/20 05:00 MCHC 30.1 g/dL (30.0-3 6.0) 10/17/20 05:00 RDW 17.0 % (12.1-15.1 ) H 10/17/20 05:00 Plt Count 369 10^3/cmm (130 -400) 10/17/20 05:00 MPV 9.6 fL (7.4-10.4) 10/17/20 05:00 Neut % (Auto) 57.3 % 10/17/20 05:00 Lymph % (Auto) 25.9 % 10/17/20 05:00 Placer % (Auto) 12.8 % 10/17/20 05:00 Eos % (Auto) 3.5 % 10/17/20 05:00 Baso % (Auto) 0.2 % 10/17/20 05:00 Neut # (Auto) 3.32 10^3/uL (1.8 -7.7) 10/17/20 05:00 Lymph # (Auto) 1.5 10^3/uL (0.8- 4.8) 10/17/20 05:00 Placer # (Auto) 0.7 10^3/uL (0.2- 0.9) 10/17/20 05:00 Eos # (Auto) 0.2 10^3/uL (0.0- 0.8) 10/17/20 05:00 Baso # (Auto) 0.0 10^3/uL (0.0- 0.1) 10/17/20 05:00 Nucleated RBC % (a uto) 0 % 10/17/20 05:00 Total Counted Not Reportable 10/14/20 17:00 Nucleated RBCs # 0.0 /100WBC 10/17/20 05:00 Differential Comme nt Cancelled 10/14/20 17:00 Sodium 139 mmol/L (136-1 45) 10/17/20 05:00 Potassium 3.0 mmol/L (3.5-5 .1) L 10/17/20 05:00 Chloride 103 mmol/L (98-10 7) 10/17/20 05:00 Carbon Dioxide 25 mmol/L (22-29) 10/17/20 05:00 Anion Gap 14.0 (5-19) 10/17/20 05:00 BUN 23 mg/dL (8-23) 10/17/20 05:00 Creatinine 0.8 mg/dL (0.5-0. 9) 10/17/20 05:00 GFR Calculation 71.1 mL/min (90-1 30) L 10/17/20 05:00 Glucose 118 mg/dL (65-115 ) H 10/17/20 05:00 POC Glucose 148 mg/dL (70-110 ) H 10/17/20 20:11 Calculated Osmolal ity 293 mOsm/kg (285- 295) 10/17/20 05:00 Calcium 7.9 mg/dL (8.5-10 .5) L 10/17/20 05:00 Magnesium 2.2 mg/dL (1.7-2. 3) 10/15/20 04:10 Total Bilirubin 0.2 mg/dL (0.15-1 .2) 10/17/20 05:00 AST 6 U/L (0-32) 10/17/20 05:00 ALT 8 U/L (0-33) 10/17/20 05:00 Alkaline Phosphata se 68 IU/L (35-105) 10/17/20 05:00 Troponin T Baselin e 12 ng/L (0-10) H 10/14/20 14:20 Troponin T [address] [place] 10.71 ng/L (0-10) H 10/14/20 16:03 Delta Troponin T -1.29 ABS# (0-10) L 10/14/20 16:03 Troponin T Hi Sens 6Hr 8.29 ng/L (0-10) 10/14/20 20:42 Troponin T Hi Sens 6Hr Delta -3.71 ng/L (0-12) L 10/14/20 20:42 NT-Pro-B Natriuret Pep 453 pg/mL (0-125) H 10/14/20 14:20 Total Protein 5.2 g/dL (6.6-8.7 ) L 10/17/20 05:00 Albumin 2.7 g/dL (3.5-5.2 ) L 10/17/20 05:00 Globulin 2.5 g/dL (1.3-4.6 ) 10/17/20 05:00 Procalcitonin 0.23 ng/mL (0-0.5 ) 10/15/20 04:10 Fluid Color Cancelled 10/14/20 17:00 Fluid Appearance Cancelled 10/14/20 17:00 Fluid WBC Cancelled 10/14/20 17:00 Fluid RBC Cancelled 10/14/20 17:00 Fluid Tot Cell Cou nt Cancelled 10/14/20 17:00 Fld Polynuclear WB Cs # Cancelled 10/14/20 17:00 Fld Polynuclear WB Cs % Cancelled 10/14/20 17:00 Fl Mononucl WBCs # (Auto) Cancelled 10/14/20 17:00 Fl Mononuclear % A uto Cancelled 10/14/20 17:00 Fluid Albumin 2.3 g/dL 10/14/20 17:00 Pleural Color Pale yellow (Pal e Yellow) 10/14/20 17:00 Pleural Appearance Cloudy (CLEAR) 10/14/20 17:00 Pleural pH 8.00 (6.5-7.5) H 10/14/20 17:00 Pleural WBC 2946.000 /uL (0-1 000) H 10/14/20 17:00 Pleural RBC 4.000 10^3/uL 10/14/20 17:00 Pleural Other Cell s Not Reportable 10/14/20 17:00 Pleural Polynuclea r % 89 % 10/14/20 17:00 Pleural Mononuclea r % 11 % 10/14/20 17:00 Pleural Total Prot ein 3.9 g/dL 10/14/20 17:00 Pleural LDH 1064 U/L 10/14/20 17:00 Pleural Glucose 27.0 mg/dL 10/14/20 17:00 Pleural Amylase 38.0 U/L 10/14/20 17:00 Path Cons w/Slide Yes 10/14/20 17:00 Impressions Chest X-Ray 10/14/20 13:53 Impression: No change in right pleural fluid and right basilar chest tube. Chest CT 10/15/20 10:34 IMPRESSION: Right pleural effusion decreased status post pleural tube placement, partial right lower lobe consolidation. Multiple left lung nodules, minimally increased. Mediastinal adenopathy. Radiation Dose CTDIVOL = (mGy): DLP = 724.7 (mGy-cm) ADDENDUM: 10/16/20 1100 Addendum/correction: Left lower lung pulmonary emboli in the lower division of the left pulmonary artery. No thrombus extends across the main pulmonary artery. No right ventricular dilatation, RV/LV ratio is less than 1. Radiation Dose CTDIVOL = (mGy): DLP = 724.7 (mGy-cm) ADDENDUM: 10/17/20 1445 ADDENDUM: THIS REPORT CONTAINS FINDINGS THAT MAY BE CRITICAL TO PATIENT CARE. The findings (left lower lobe pulmonary emboli) were verbally communicated by Dr. Rayna Leung via telephone conference with Lm Hopkins at 9:25 PM EST on 10/16/2020. The findings were acknowledged and understood. Radiation Dose CTDIVOL = (mGy): DLP = 724.7 (mGy-cm) Micro: Micro: Microbiology 10/14/20 17:00 Gram Stain - Final Pleural Fluid Body Fluid Culture - Final Escherichia col i A&P Assessment and plan (1) Hypoxia: Status: Acute (2) Parapneumonic effusion: Status: Acute (3) Malignant pleural effusion: Status: Acute (4) Pulmonary embolism: Status: Acute Qualifiers: Pulmonary embolism type: unspecified Chronicity: acute Acute cor pulmonale presence: without acute cor pulmonale Qualified Code(s): I26.99 - Other pulmonary embolism without acute cor pulmonale (5) Adenocarcinoma of right lung: Status: Acute (6) Status post lobectomy of lung: Status: Acute (7) Smoker: Status: Acute (8) Chronic obstructive pulmonary disease, unspecified: Status: Acute Qualifiers: COPD type: unspecified COPD Qualified Code(s): J44.9 - Chronic obstructive pulmonary disease, unspecified (9) Essential (primary) hypertension: Status: Acute (10) Rheumatoid arthritis involving both hands with positive rheumatoid factor: Status: Acute (11) High risk medication use: Status: Acute # 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 involving RLL S/P RLL lobectomy # s/p dylan drain placement for recurrent malignant right pleural effusion # Right pleural fluid cultures positive for pansensitive E.coli # Left lower lobe PE noted on recent CT Chest # Hypoxia secondary to parapneumonic efffsuion and LLL PE # Underlying COPD in smoker and RA on MTX & Prednisone # Hypertesion - Currently on 1-2 L nasal cannula - s/p intrapleural TPA on 10/15/2020 - drained 500 cc since then over 3 days - Bedside ultrasound showed mild pleural effusion with no adhesions or loculations - connected to intermitted suction for few hours today - Ok to switch zosyn to PO ciprofloxacin (SABIHA < 1 ) for 2 weeks - On lovenox 40 mg sc bid to oral anticoagulation; noted some drop in H&H from 11 to 9 but with no obvious evidence of bleeding. monitor H & H, if gradual drop then we will hold AC. if no further drop with no active bleeding - Ok to switch to low dose elliquis (as she has h/o gi bleed with aspirin - monitor H & H AC cautiously ) - assess risks vs benefits. - Patient needs to be educated and when it is time, discharge home with Pleurex suction bottles and strongly recommend not to use syringes as there is chance of contamination. Everything explained to RN taking care and Nursing supervisor paint department and to further notify with case management before discharge. - recommended Spiriva 2 puffs daily - held methotrexate and PO prednisone for RA in view of parapneumonic effusion - Hypokalemia - 3.0 supplemented - monitor - Patient currently on Coreg 18.75 mg PO bid; Monitor and adjust medications accordingly; she is on valsartan/HCTZ 160 - 12.5 mg daily once. recommendations conveyed to Hospitalist, RN taking care of the patient. Plan of care explained to the patient and she verbalized understanding. Consult Attestations Medical Necessity Statement: Left lower lobe PE on anticoagulation with bleeding risk & Malignant recurrent right pleural effusion with cultures positive for E.Coli - pleurex connected to suction - for close monitoring of bleeding on AC and Antibiotics for parapneumonic effusion Time Spent in Patient Care: Greater than 35 minutes (>than 50% of time spent in counselling and/or direct pt care on unit). Critical Care Time: Critical Care Time (min): 45 Coding Level of Care Code New Pt Acute Art Conservator for g Fwd Patient Type New History Comprehensive Exam Comprehensive Medical Decision Making Moderate Complexity Diagnoses Hypoxia R09.02 Parapneumonic effusion J18.9; J91.8 Malignant pleural effusion J91.0 Pulmonary embolism I26.99 Pulmonary embolism type: unspecified Chronicity: acute Acute cor pulmonale presence: without acute cor pulmonale Adenocarcinoma of right lung C34.91 Status post lobectomy of lung Z90.2 Smoker F17.200 Chronic obstructive pulmonary disease, unspecified J44.9 COPD type: unspecified COPD Essential (primary) hypertension I10 Rheumatoid arthritis involving both hands with positive rheumatoid factor M05.741; M05.742 High risk medication use Z79.899 Time Spent (min) 45
[2020-10-17 17:07] LABS: Glucose Point of Care 111 mg/dL (70-110)
--- NOTE | 2020-10-17 19:04 | PM.PN ---
Subjective Subjective: Interval history: She is overall doing somewhat better. Normally does not require oxygen, here today still has been needing 1 L supplemental nasal cannula. Medications: Reviewed: Yes Vitals/I&O/Wt Last Vital Signs Temp 98.0 F 10/17/20 15:19 Pulse 65 10/17/20 15:19 Resp 18 10/17/20 15:19 BP 151/66 10/17/20 15:19 Pulse Ox 91 10/17/20 15:19 10/17/20 10/17/20 10/17/20 06:59 14:59 22:59 Intake Total 50 / 1120 650 / 650 360 / 1010 Output Total 150 / 150 50 / 200 Balance 50 / 1120 500 / 500 310 / 810 Weight last 48 hrs Weight 129.682 kg Weight 85.23 kg Physical Exam Const: COMMON NORMALS: no acute distress and patient oriented x3 OTHER: Sitting up in chair. HENMT: COMMON NORMALS: oropharynx normal Neck/C-Spine: COMMON NORMALS: no JVD Resp: COMMON NORMALS: normal respiratory effort AUSCULTATION: diminished lung sounds on the right in the lower lung de [place]z Cardio: COMMON NORMALS: no JVD, regular rhythm, S1 normal heart sound present, S2 normal heart sound present and No murmurs present (Cardio) RHYTHM: regular rhythm HEART SOUNDS: S1 normal heart sound present and S2 normal heart sound present GI: COMMON NORMALS: Normal to inspection, nondistended, normoactive bowel sounds present, Soft to palpation and non-tender PALPATION: Yes Soft to palpation Extremity: COMMON NORMALS: no joint enlargement and no pedal edema Neuro: COMMON NORMALS: patient oriented x3 and moves all extremities Skin: COMMON NORMALS: no rashes or lesions noted GENERAL SKIN EXAM: no rashes or lesions noted Data : 10/17/20 05:00 10/17/20 05:00 Micro: Microbiology 10/14/20 17:00 Gram Stain - Final Pleural Fluid Body Fluid Culture - Final Escherichia coli A&P Assessment and plan (1) Parapneumonic effusion: Discussed with patient, pulmonology. Appreciate assessment. No conditions noted on ultrasound imaging of the lung. At this time continue drainage of the effusion, per recommendation connect to suction via Pleurx catheter connector. Continue antibiotic. At home would benefit from Pleurx collection bottles to keep the procedure more sterile. Suspected contamination of the catheter given organism is E. coli. Continue treatment of possible pneumonia with Zosyn. Continue wean off oxygen as tolerating. Status: Acute (2) Malignant pleural effusion: Continue Pleurx catheter drainage. Status: Acute (3) Pulmonary embolism: She has so far tolerated lower dose Lovenox. Also noted acute on chronic anemia. She did have some decline in hemoglobin down to 9.7, although no outward signs of bleeding. Will reassess in the morning. She would be agreeable to continue with oral anticoagulation, possibly at lower dose, with up titration after follow-up visit if hemoglobin remains stable and no bleeding. Status: Acute (4) Primary cancer of right lower lobe of lung: Status: Acute (5) Hyperlipidemia, unspecified: Status: Acute (6) Chronic obstructive pulmonary disease, unspecified: Status: Acute Qualifiers: COPD type: unspecified COPD Qualified Code(s): J44.9 - Chronic obstructive pulmonary disease, unspecified (7) Essential (primary) hypertension: Status: Acute (8) Type 2 diabetes mellitus without complications: Status: Acute Qualifiers: Diabetes mellitus penitentiary insulin use: without penitentiary use Qualified Code(s): E11.9 - Type 2 diabetes mellitus without complications (9) Rheumatoid arthritis involving both hands with positive rheumatoid factor: Status: Acute (10) Adenocarcinoma of right lung: Status: Acute Additional A&P Information Hypokalemia: Replace Attestations Medical Necessity Statement*: Continue admission for assessment management of parapneumonic effusion, new hypoxia, in the setting of malignant effusion, lung cancer, with acute on chronic anemia, need for anticoagulation given pulmonary embolization. Coding Level of Care Code Acute Heading Repairer for [facility] Diagnoses Parapneumonic effusion J18.9; J91.8 Malignant pleural effusion J91.0 Pulmonary embolism I26.99 Primary cancer of right lower lobe of lung C34.31 Hyperlipidemia, unspecified E78.5 Chronic obstructive pulmonary disease, unspecified J44.9 COPD type: unspecified COPD Essential (primary) hypertension I10 Type 2 diabetes mellitus without complications E11.9 Diabetes mellitus intermodal customer service insulin use: without intermodal customer service use Rheumatoid arthritis involving both hands with positive rheumatoid factor M05.741; M05.742 Adenocarcinoma of right lung C34.91
[2020-10-17 20:18] LABS: Glucose Point of Care 148 mg/dL (70-110)
[2020-10-18] VITALS (7 sets, daily range): BP systolic 147–160; BP diastolic 65–78; PULSE 73–85; RESP 16–18; TEMP 36.3–37.9; O2SAT 84–98
[2020-10-18] MEDS: piperacillin-tazobactam 3.375 GM in sodium chloride 0.9% (plus) 50 ML IV ×2 (01:50→09:59)
--- NOTE | 2020-10-18 05:34 | PC.NURSE ---
Shift Summary Patient has rested well tonight, with no complaints of pain. Patient did get SOB and O2 stats dropped after getting up to the bathroom so has been on 1.5L NC during this shift. Did have a temp of 100.2 during 0400 vital checks.
[2020-10-18 05:41] LABS: Basophils % 0.3 %; Eosinophils # 0.4 10^3/uL (0.0-0.8); Hematocrit 32.3 % (37.0-47.0); Hemoglobin 9.8 g/dL (11.5-15.3); Lymphocytes # 1.4 10^3/uL (0.8-4.8); Lymphocytes % 22.2 %; Mean Corpuscular HGB Conc 30.3 g/dL (30.0-36.0); Mean Corpuscular Hemoglobin 28.3 pg (28.0-34.0); Mean Corpuscular Volume 93.4 fL (81-99); Mean Platelet Volume 9.9 fL (7.4-10.4); Monocytes # 0.7 10^3/uL (0.2-0.9); Monocytes % 11.4 %; Neutrophils # 3.76 10^3/uL (1.8-7.7); Neutrophils % 59.8 %; Nucleated Red Blood Cells % 0 %; Platelet Count 378 10^3/cmm (130-400); Red Blood Count 3.46 10^6/uL (4.1-5.3); Red Cell Distribution Width 16.9 % (12.1-15.1); White Blood Count 6.3 10^3/uL (4.0-10.0)
[2020-10-18 06:02] LABS: Anion Gap 13.6 (5-19); Blood Urea Nitrogen 17 mg/dL (8-23); Carbon Dioxide 26 mmol/L (22-29); Chloride 104 mmol/L (98-107); Glomerular Filtration Rate 99.1 mL/min (90-130); Glucose 111 mg/dL (65-115); Osmolality Calculated 292 mOsm/kg (285-295); Potassium 3.6 mmol/L (3.5-5.1); Sodium 140 mmol/L (136-145)
[2020-10-18 06:42] LABS: Glucose Point of Care 126 mg/dL (70-110)
--- NOTE | 2020-10-18 06:56 | XRR_ITS ---
PROCEDURE INFORMATION: Exam: XR Chest Exam date and time: 10/18/2020 7:14 AM Age: 69 years old Clinical indication: Condition or disease; Other: RT side pleural -check fluid; Patient HX: Check right pleural effusion; Chest tube TECHNIQUE: Imaging protocol: XR of the chest. Views: 1 view. COMPARISON: CT chest w con* [id number] 10/15/2020 11:04 AM FINDINGS: Tubes, catheters and devices: Right-sided chest tube remains in satisfactory position. Lungs: The left lung is clear. Persistent small right pleural effusion with adjacent atelectasis. Pneumonia should be excluded clinically. No pneumothorax. Surgical clips noted in the right hilar region. Pleural spaces: See Lungs finding. Heart/Mediastinum: Stable cardiomediastinal silhouette. Bones/joints: Unremarkable. XR/XR chest 1V portable [id number] IMPRESSION: Persistent small right pleural effusion with adjacent atelectasis. Pneumonia should be excluded clinically. No pneumothorax. Right-sided chest tube remains in satisfactory position.
[2020-10-18] MEDS: carvedilol 12.5 mg Tablet 18.75 MG PO (08:27)
[2020-10-18] MEDS: folic acid 1 mg Tablet PO (08:28)
[2020-10-18] MEDS: pantoprazole DR 40 mg Tablet PO (09:55)
[2020-10-18] MEDS: enoxaparin 40 mg/0.4 mL Syringe SUBCUT (09:56)
[2020-10-18 11:07] LABS: Glucose Point of Care 176 mg/dL (70-110)
--- NOTE | 2020-10-18 15:50 | PC.NURSE ---
discharge instructions given to patient and daughter. both verbalized understanding of instructions. patient taken to private vehicle via wheelchair. eliquis coupon given to patient.
--- NOTE | 2020-10-18 21:50 | P.DS_ITS ---
Discharge Providers Date of Admission: 10/14/20 16:05 Date of Discharge: October 18, 2020 Attending Provider at Admission: Chilango Krishnamurthy Attending Provider at Discharge: Henok Pritchard Primary Care Provider: LUIS Dailey Diagnoses at Discharge Discharge Diagnosis (1) Hypoxia: Status: Acute (2) Parapneumonic effusion: Status: Acute (3) Malignant pleural effusion: Status: Acute (4) Pulmonary embolism: Status: Acute Qualifiers: Pulmonary embolism type: unspecified Chronicity: acute Acute cor pulmonale presence: without acute cor pulmonale Qualified Code(s): I26.99 - Other pulmonary embolism without acute cor pulmonale (5) Adenocarcinoma of right lung: Status: Acute (6) Status post lobectomy of lung: Status: Acute (7) Smoker: Status: Acute (8) Chronic obstructive pulmonary disease, unspecified: Status: Acute Qualifiers: COPD type: unspecified COPD Qualified Code(s): J44.9 - Chronic obstructive pulmonary disease, unspecified (9) Essential (primary) hypertension: Status: Acute (10) Rheumatoid arthritis involving both hands with positive rheumatoid factor: Status: Acute (11) High risk medication use: Status: Acute Reason for Visit Reason for Visit: sent by to have fluid drained from around lungs Hospital Course Hospital Course Pleasant 69-year-old lady with metastatic adenocarcinoma of the lung, with malignant pleural effusion, status post placement of [place] drain on 09/09 was admitted after presenting with dyspnea on exertion, with pleural fluid suggestive of parapneumonic effusion as opposed to empyema. Fluid culture eventually grew pansensitive E. coli. She was treated initially empirically with antibiotics with vancomycin, Zosyn then transitioned to Zosyn alone after culture results. Received intrapleural TPA on presentation. She was also on presentation noted to have multiple lung nodules, as well as left lower lobe pulmonary emboli. Due to concern for bleeding she was initiated on partial anticoagulation with low-dose Lovenox. So far had mild decrease in hemoglobin without overt bleeding, with hemoglobin remaining stable around 10 last 2 days. It concern regarding parapneumonic effusion versus possible empyema, was assessed by pulmonology. No loculations were noted on ultrasonographic evaluation. Effusion suspected parapneumonic as opposed to empyema. Catheter maintained in place, recommend due to organism and concern for external contamination recommendation made for use of Pleurx kit with suction bottles as opposed to syringe to prevent repeat contamination. Drainage recommended once every 2-3 days. 1 kit is provided for her, however, additional kits will need to be arranged through home health. At this time application is being made as she otherwise cannot afford these kits on her own. director of radio services assisted her with the application. She will complete additional 2 weeks antibiotic course with ciprofloxacin. On discharge she started on somewhat lower dose of Eliquis at 5 mg twice daily for pulmonary emboli. Please follow-up her anemia, she is aware to monitor for any bleeding, discontinue medication seek medical attention in case bleeding occurs. She is asked to follow-up with oncology by call the office to request versus available appointment to proceed with arrangements for treatment of her cancer. Physical Exam Const: COMMON NORMALS: no acute distress and patient oriented x3 OTHER: Sitting up. HENMT: COMMON NORMALS: oropharynx normal Neck/C-Spine: COMMON NORMALS: no JVD Resp: COMMON NORMALS: normal respiratory effort AUSCULTATION: diminished lung sounds on the right in the lower lung de [place]z Cardio: COMMON NORMALS: no JVD, regular rhythm, S1 normal heart sound present, S2 normal heart sound present and No murmurs present (Cardio) RHYTHM: regular rhythm HEART SOUNDS: S1 normal heart sound present and S2 normal heart sound present GI: COMMON NORMALS: Normal to inspection, nondistended, normoactive bowel sounds present, Soft to palpation and non-tender PALPATION: Yes Soft to palpation Extremity: COMMON NORMALS: no joint enlargement and no pedal edema Neuro: COMMON NORMALS: patient oriented x3 and moves all extremities Skin: COMMON NORMALS: no rashes or lesions noted GENERAL SKIN EXAM: no rashes or lesions noted Discharge Data Data Completed and Pending: Completed Studies During Hospitalization Category Date Time Status CT chest w con* [id number] Routine Cat Scan 10/15/20 10:34 Completed XR chest 1V [place] ble [id number] Routine Exams 10/18/20 06:56 Completed XR chest 1V [place] ble [id number] Stat Exams 10/14/20 13:53 Completed Labs from last 24 hours 10/18/20 10/18/20 10/18/20 10:59 06:24 04:58 WBC RBC Hgb Hct MCV MCH MCHC RDW Plt Count MPV Neut % (Auto) Lymph % (Auto) [place] % (Auto) Eos % (Auto) Baso % (Auto) Neut # (Auto) Lymph # (Auto) [place] # (Auto) Eos # (Auto) Baso # (Auto) Nucleated RBC % (a uto) Nucleated RBCs # Sodium 140 Potassium 3.6 Chloride 104 Carbon Dioxide 26 Anion Gap 13.6 BUN 17 Creatinine 0.6 GFR Calculation 99.1 Glucose 111 POC Glucose 176 H 126 H Calculated Osmolal ity 292 Calcium 8.0 L 10/18/20 04:58 WBC 6.3 RBC 3.46 L Hgb 9.8 L Hct 32.3 L MCV 93.4 MCH 28.3 MCHC 30.3 RDW 16.9 H Plt Count 378 MPV 9.9 Neut % (Auto) 59.8 Lymph % (Auto) 22.2 [place] % (Auto) 11.4 Eos % (Auto) 6.0 Baso % (Auto) 0.3 Neut # (Auto) 3.76 Lymph # (Auto) 1.4 [place] # (Auto) 0.7 Eos # (Auto) 0.4 Baso # (Auto) 0.0 Nucleated RBC % (a uto) 0 Nucleated RBCs # 0.0 Sodium Potassium Chloride Carbon Dioxide Anion Gap BUN Creatinine GFR Calculation Glucose POC Glucose Calculated Osmolal ity Calcium Vitals: Last Vital Signs Temp 97.3 F L 10/18/20 15:51 Pulse 84 10/18/20 15:51 Resp 18 10/18/20 15:51 BP 160/71 10/18/20 15:51 Pulse Ox 96 10/18/20 15:51 Discharge Plan Discharge Patient Disposition: Home Health Service Condition: Stable Prescriptions: New ciprofloxacin HCl 500 mg tablet 500 mg PO BID Qty: 28 RF: 0 Eliquis 5 mg tablet 5 mg PO BID Qty: 60 RF: 0 Continued diclofenac sodium 1 % gel 2 g TOPICAL QID Qty: 100 RF: 2 carvedilol 12.5 mg tablet 18.75 mg PO BID@829,2029 Qty: 75 RF: 0 turmeric 400 mg Capsule 400 mg PO DAILY@829 RF: 0 Fish Oil 1 cap PO DAILY@1999 RF: 0 valsartan-hydrochlorothiazide 160-12.5 mg tablet 1 tab PO DAILY@829 RF: 0 folic acid 1 mg tablet 1 mg PO DAILY@829 RF: 0 cinnamon bark [Cinnamon] 500 mg Capsule 500 mg PO DAILY RF: 0 Changed furosemide 40 mg Tablet 20 mg PO DAILY PRN (Reason: Edema) Qty: 0 RF: 0 Held prednisone 5 mg tablet 5 mg PO DAILY PRN (Reason: RA FLARE UP) RF: 0 Hold Instructions: Resume on 10/25/20. methotrexate sodium 2.5 mg tablet 20 mg PO Q7D RF: 0 Hold Instructions: Resume on 10/25/20. No Action (DME) FreeStyle Lite Strips Strip See Rx Instructions .ROUTE .MEDSUPPLY Qty: 10 RF: 0 (DME) lancets [FreeStyle Lancets] 28 gauge misc See Rx Instructions .ROUTE .MEDSUPPLY Qty: 25 RF: 0 Discharge Orders: Discharge Order (Routine); Ordered 10/18/20 Ordered By: Henok Pritchard Other Ambulatory Orders: DME: Oxygen (Order) Location: None Selected Ordered By: Henok Pritchard Referrals: [facility] [Outside] Glory Valencia FNP [Primary Care Provider] - 10/24/20 10:20 am Chino Olson MD [Hospitalist] - 11/01/20 11:30 am Speedy Santacruz MD [Physician] - 10/31/20 1:00 pm Discharge Diet: Regular Discharge Activity: Increase activity as tolerated and Oxygen as instructed Patient Instructions: Ciprofloxacin (By mouth), Apixaban (By mouth), Opioid Safety Activity Restrictions/Additional Instructions: Please follow-up with your primary doctor and machine operator. Continue draining fluid from a chest catheter every other day. Please use the Pleurx catheter drain set with suction bottles once these are available to avoid further contamination/infection of the fluid. Please have your primary doctor and lung doctor as well follow-up regarding the pulmonary embolism. For now you are started as discussed on blood thinner medication, although at lower dose. Please monitor for any bleeding. Please have your doctor follow-up blood count level. For now hold your arthritis medications until you have completed the antibiotic course, follow-up with your doctor with regards to this. Please follow up with your cancer doctor regarding starting treatment of the cancer. Please call their office for closest available appointment. Discharge Attestations Time Spent in Discharge Care*: greater than 30 min Status at Discharge: Cognitive status at discharge: cognitively intact , Behavioral status at discharge: cooperative , Quality Metrics Clinical Quality Measures During this hospital stay, did patient experience: None Coding Level of Care Code Acute Chg FW DC note Diagnoses Hypoxia R09.02 Parapneumonic effusion J18.9; J91.8 Malignant pleural effusion J91.0 Pulmonary embolism I26.99 Pulmonary embolism type: unspecified Chronicity: acute Acute cor pulmonale presence: without acute cor pulmonale Adenocarcinoma of right lung C34.91 Status post lobectomy of lung Z90.2 Smoker F17.200 Chronic obstructive pulmonary disease, unspecified J44.9 COPD type: unspecified COPD Essential (primary) hypertension I10 Rheumatoid arthritis involving both hands with positive rheumatoid factor M05.741; M05.742 High risk medication use Z79.899
== END 2020-10-18 15:52 | disposition home or self-care (01) | DRG 180 ==
LOC: ER 13:59 → MEDSURG 17:38
PROVIDERS: Family Medicine; Registered Nurse; Admitting Provider Hospitalist; Emergency Provider Family Medicine; PCP Nurse Practitioner Family; Visit Provider Internal Medicine
DX: C34.31 Malignant neoplasm of lower lobe, right bronchus or lung (principal); I26.99 Other pulmonary embolism without acute cor pulmonale; J86.9 Pyothorax without fistula; J91.0 Malignant pleural effusion; I10 Essential (primary) hypertension; E78.5 Hyperlipidemia, unspecified; M05.842 Other rheumatoid arthritis with rheumatoid factor of left hand; M05.841 Other rheumatoid arthritis with rheumatoid factor of right hand; E11.42 Type 2 diabetes mellitus with diabetic polyneuropathy; K21.9 Gastro-esophageal reflux disease without esophagitis; Z90.2 Acquired absence of lung [part of]; J44.9 Chronic obstructive pulmonary disease, unspecified; F17.210 Nicotine dependence, cigarettes, uncomplicated; Z79.899 Other long term (current) drug therapy; B96.20 Unspecified Escherichia coli [E. coli] as the cause of diseases classified elsewhere
CPT/HCPCS: 12345; 36415; 36416; 71045; 71046; 71260; 80048; 80053; 80500; 82042; 82150; 82945; 82962; 83615; 83735; 83880; 83986; 84145; 84157; 84484; 85025; 87070; 87075; 87077; 87186; 87205; 89050; 93005; 94640; 96365; 96367; 96372; 96375; 99285; C1729; J1650; J2543; J2930; J2997; J3370; J7050; Q9967

== ENCOUNTER → 2020-10-20 06:57 | Day surgery (SDC) | payer MEDICARE, OTHER, SELFPAY ==
[2020-10-20 07:02] VITALS: BP 167/58; PULSE 97; RESP 18; TEMP 37.3; O2SAT 93
[2020-10-20 07:10] VITALS: BMI 32.5
--- NOTE | 2020-10-20 07:37 | SUR.PREOP ---
During draining of sarita drain, very little fluid was pulled from drain, couple of splatters to bottom of canister. Fluid was thick and opaque in color. When removing suction tube from patient access tubing a string approximately 1 in of substance pulled out but released from suction tube went back in patient tube. A syringe was used to attempt to clear substance from tubing to prevent clotting. Process was unsuccessful. Tip cleaned with alcohol and new cap placed on end of patient tubing. Dressing was applied. Patient tolerated procedure well. Daughter was educated to process and given additional information for home. All questions were answered.
== END ==
PROVIDERS: PCP Nurse Practitioner Family; Visit Provider Internal Medicine Pulmonary Disease
DX: J18.9 Pneumonia, unspecified organism (principal); J91.8 Pleural effusion in other conditions classified elsewhere

== ENCOUNTER → 2020-10-24 11:43 | Outpatient (BNVA) | payer MEDICARE, OTHER, SELFPAY | PROVIDERS: PCP Nurse Practitioner Family; Visit Provider Nurse Practitioner Family | DX: I26.99 Other pulmonary embolism without acute cor pulmonale (principal) | CPT/HCPCS: 80053; 85025 ==

== ENCOUNTER 2020-10-31 13:57 | Outpatient (CLI) | payer MEDICARE, OTHER, SELFPAY ==
--- NOTE | 2020-10-31 14:10 | XRR_ITS ---
PROCEDURE INFORMATION: Exam: XR Chest Exam date and time: 10/31/2020 2:10 PM Age: 69 years old Clinical indication: Shortness of breath; Prior surgery; Surgery type: RT lung lobe removal; Patient HX: HX of lung cancer; Additional info: SOB TECHNIQUE: Imaging protocol: XR of the chest. Views: 2 views. COMPARISON: CR XR chest 1V portable [id number] 10/18/2020 7:22 AM FINDINGS: Tubes, catheters and devices: A chest tube is present in the right lower lung stable since prior Lungs: Unremarkable. No consolidation. Pleural spaces: Right lower lobe pleural effusion. No pneumothorax. Heart/Mediastinum: Unremarkable. No cardiomegaly. Surgical clips right hilum Bones/joints: Unremarkable. XR/XR chest 2V* [id number] IMPRESSION: 1. Right the lung pleural effusion 2. Right lower lobe chest tube 3. Surgical clips right hilum
== END 2020-10-31 13:58 | disposition home or self-care (01) ==
LOC: RAD 14:02
PROVIDERS: PCP Nurse Practitioner Family; Visit Provider Internal Medicine Critical Care Medicine
DX: R06.02 Shortness of breath (principal); J90 Pleural effusion, not elsewhere classified
CPT/HCPCS: 71046

== ENCOUNTER 2020-11-01 11:15 | Outpatient (CLI) | payer MEDICARE, OTHER, SELFPAY ==
--- NOTE | 2020-11-05 12:07 | ONC FU_ITS ---
Dr. Olson Patient Follow-Up Note Patient: Eunice Aguilar Unit #: [id number]: 1950 Dicatated By: Chino Olson M.D.Date of Visit:Nov 01, 2020 Onc Med Follow-up/Prog Note Chief Complaint: Lung cancer. 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 In June 2019 she had a coughing fit which led to a chest x-ray. That study showed a possible mass in the right lower lobe. Her further evaluation was delayed, I assume because of the restrictions related to the coronavirus pandemic. In any case, her chest CT on 09/11/2019 showed a lobulated mass in the right lower lobe measuring 2.9 x 3.7 x 2.8 cm. It was noted to abut the diaphragm anteriorly. There were a few tiny micronodular satellite opacities. A small left suprahilar opacity measured 8 mm. A noncalcified nodule in the right upper lobe measured 2 mm. An additional fibrotic opacity in the right upper lobe measured 4 mm. There was no mediastinal or hilar lymphadenopathy. She was incidentally noted to have a 9 mm left breast nodule. PET/CT on 09/19/2019 showed FDG avid mass in the right lower lobe measuring 4.0 x 3.5 cm, SUV 12.5, indicating high probability of malignancy. A 6 mm left upper lobe nodule with SUV 2.5, which was concerning for contralateral metastatic disease. There were no other areas of abnormal uptake on that study. On 10/02/2019 she underwent navigational bronchoscopy with EBUS and transbronchial biopsy of the right lung mass. The EBUS did show evidence of mediastinal and hilar lymphadenopathy, and the procedure also included FNA biopsies of stations 7, 10 R, and 11 R lymph nodes. Pathology on the transbronchial biopsy showed benign bronchial mucosa with no dysplasia or malignancy seen. Cytology on the FNA biopsies was also negative for malignancy. I had seen her initially on 10/19/2019. With those findings, she was referred to Dr. Cox and on 12/07/2019 she underwent right lower lobectomy. 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 The tumor measured 4 x 4.2 x 3.2 cm. There was involvement in 1/3 lymph nodes, which included an intrabronchial lymph node, and inferior hilar lymph node, and a posterior hilar lymph node. The procedure did not include mediastinal lymph node sampling. Pathologic staging was pT2b, pN1. Postoperatively she underwent further evaluation for the left breast mass which had been noted on her chest CT scan. She eventually underwent left breast lumpectomy under needle localization on 02/01/2020. Pathology was benign. She then had radiation oncology follow-up with Dr. Hong regarding the left upper lobe nodule. Restaging chest CT on 03/08/2020 showed the left upper lobe nodule stable at 10 mm. There was slight increase in the right subcarinal lymph node measuring 14 mm as well as slight increase in a right anterior mediastinal lymph node measuring 10 mm. This was felt to be suspicious for disease progression. Restaging PET/CT on 03/12/2020 showed no evidence for recurrent or residual malignancy. The left upper lobe nodule measured 6 mm and showed low FDG activity, SUV 1.5, improved from the prior study. The mediastinal lymph nodes appeared radiographically benign and without significant FDG uptake. I had seen her for a follow-up visit on 03/23/2020, and with those findings, she continued on observation/expectant management for the lung cancer. However, at that point I had requested a next generation sequencing study on the primary tumor. It was found to have positive PD-L1 expression for 22C3 and for 28-8, both at 20%. The tumor also was found to harbor a exon 2 p.G12C KRAS mutation. There were no other actionable mutations identified. Her other medical illnesses include COPD, hypertension, hyperlipidemia, type 2 diabetes with neuropathy, and rheumatoid arthritis. She has history of smoking 1-1/2 packs of cigarettes daily for 50 years. INTERIM HISTORY: Her repeat chest CT on 07/18/2020 showed postoperative changes of prior right lower lobectomy. A left upper pulmonary nodule measuring 10 mm appeared unchanged. A right lower lobe nodule along the fissure measuring 6 mm also appeared stable. There were several new subcentimeter noncalcified pulmonary nodules, the largest in the right upper lobe measuring 3 mm. There appeared to be significant progression of the mediastinal and subcarinal lymphadenopathy with the right subcarinal lymph node measuring 19 mm compared to 14 mm on the previous study and with the anterior mediastinal lymph node measuring 17 mm compared to 10 mm. I had seen her for a follow-up visit on 07/27/2020. Although the CT findings were suspicious for disease progression, at that point she still preferred to continue with observation/expectant management. On 08/30/2020 she was admitted to the hospital after presenting to the emergency room with shortness of breath and hypoxic respiratory failure. Her CT pulmonary angiogram showed no evidence of pulmonary embolism, but there was a new large right pleural effusion with compressive atelectasis in the right lung. Also noted was increasing size of scattered pulmonary nodules in the left lung possibly due to metastatic disease. Mediastinal and right hilar lymphadenopathy appeared stable. She had significant improvement in symptoms following ultrasound-guided thoracentesis. Her pleural fluid cytology was positive for malignancy. On 09/09/2020 she underwent placement of a Pleurx catheter in the right chest. On 10/16/2019 when she was admitted to the hospital with empyema due to E. coli. Her chest CT at that time showed evidence of right lower lobectomy with partial right lower lung consolidation. Multiple left pulmonary nodules were noted to be minimally increased. Mediastinal adenopathy was noted to be stable. She was treated with antibiotic therapy. Her discharge summary also noted that she had evidence of pulmonary emboli by CT scan, though on my review I do not see where that was actually reported. She was discharged home on ciprofloxacin and apixaban. She has seen for a follow-up visit. She has been feeling pretty good generally, but she has had ongoing problems with the right pleural effusion. She says her chest tube has not been draining much fluid lately. She still complains of shortness of breath and she has limited activity. She is now doing some walking and some housework. ECOG score is 1. She has good appetite. She has not had fever or night sweats, but she was having chills about a week ago. She does not have sore throat or difficulty swallowing. She has only a little bit of cough. Her breathing, overall, has improved. She does not complain of chest pain. She recently had nausea, but just for 1 day. She has no other GI or complaints. She has had some increase in her joint pain since she has been off the methotrexate. It is mainly in her hands and feet. She is still on a low-dose of prednisone. She does not complain of headache or dizziness. She has some numbness/tingling in her feet. Medications: Apixaban (5 mg) Tablet Oral b.i.d., Carvedilol 1.5 Tablet (of 12.5 mg) Tablet Oral b.i.d., Cinnamon Capsule Oral, Ciprofloxacin HCl (500 mg) Tablet Oral b.i.d., [employer] Fish Oil Capsule Oral, Folic Acid 1 Tablet (of 800 mcg) Oral daily, metFORMIN HCl 1 Tablet (of 500 mg) Oral b.i.d., Methotrexate Sodium (2.5 mg) Tablet Oral Take as Directed, Potassium Chloride ER Capsule, controlled release Oral daily, predniSONE 1 Tablet (of 10 mg) Tablet Oral daily PRN, Spironolactone 0.5 Tablet (of 25 mg) Oral daily Allergies: Aspirin, Lisinopril, and Nickel. Vital Signs: Performed on Nov 01, 2020 11:37 Height - 63.00 in Weight - 183 lbs (LOW) BSA - 1.86 sq.m BMI - 32.42 (HIGH) Temperature - 98.4 F Pulse - 87 /min Respiration - 18 /min BP - 179/78 mm(hg) (HIGH) O2 Sat - 96 % Pain - 3 Fatigue - 6 Physical Examination: Constitutional - She looks pretty good generally, Eyes - Sclerae nonicteric. Conjunctivae clear, ENMT - No lesions noted in the oral cavity, Hematologic/Lymphatic - No cervical, clavicular, or axillary adenopathy, Respiratory - Lungs show diminished air movement at the right base. There are coarse breath sounds bilaterally, Cardiovascular - Heart rhythm is regular. There is a II/ systolic murmur. There is no gallop or rub noted, Abdomen - Soft. Liver and spleen are not enlarged. There is no abdominal mass or ascites noted and there is no inguinal adenopathy, Extremities - Mild edema, Neurologic - No focal neurologic deficits noted. Problem List: 1. 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 She underwent right lower lobectomy on 12/07/2019. Her disease was initially stage IIB (pT2b, pN1, M0). She had subsequent progression to stage GLADYS (M1a) with development malignant pleural effusion. 2. She also was found to have an additional subcentimeter left upper lobe nodule with mild FDG activity, initially felt to be suspicious for contralateral lung malignancy. 3. She has underlying COPD. 4. Hypertension. 5. Hyperlipidemia. 6. Type 2 diabetes with neuropathy. 7. Rheumatoid arthritis, currently on immunosuppressive therapy with methotrexate and hydroxychloroquine. 8. She had CT evidence of a left breast nodule, but that was ultimately determined to be benign on excisional biopsy. 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 She underwent right lower lobectomy on 12/07/2019. She had subsequent progression to stage GLADYS (M1a) with development malignant pleural effusion. Her tumor was found to be positive for PD-L1 expression at 20%. It also was found to harbor a KRAS G12C mutation. During follow-up she was noted to have enlarging subcarinal and anterior mediastinal lymph nodes, suspicious for metastatic disease. These had previously been evaluated with bronchoscopy/EBUS with benign findings on FNA biopsy. The progressive enlargement of the lymph nodes appeared suspicious for metastatic disease, but she preferred to continue close observation. On 08/30/2020 she was admitted to the hospital with development of new large right pleural effusion. She had significant symptomatic improvement following thoracentesis. Her pleural fluid cytology was positive, consistent with metastatic disease. She had recurrence of symptoms following discharge from the hospital, and on 09/10/2019 when she underwent placement of a Pleurx catheter in the right chest. Her further clinical course was complicated by development of empyema due to E. coli and also, apparently, by pulmonary emboli. She has had improvement on antibiotic therapy and she now remains on anticoagulation with apixaban. I again reviewed options for her further treatment. There is now a targeted therapy available for the KRAS G12C mutation, but it has been approved as a second line treatment. With PD-L1 expression positive at 20%, her recommended first-line treatment would be combined chemotherapy/immunotherapy, though immunotherapy alone also would be an option. The main concern with the immunotherapy is that it potentially may cause exacerbation of her underlying rheumatoid arthritis. At least for now her treatment will be deferred pending further management of her chest tube. She has a follow-up visit scheduled with Dr. Santacruz for tomorrow. Signed By: Chino Olson M.D. <<Signature on File>>
== END 2020-11-01 11:16 | disposition home or self-care (01) ==
PROVIDERS: PCP Nurse Practitioner Family; Visit Provider Internal Medicine Medical Oncology
DX: C34.31 Malignant neoplasm of lower lobe, right bronchus or lung (principal); J91.0 Malignant pleural effusion; C78.02 Secondary malignant neoplasm of left lung; D24.2 Benign neoplasm of left breast; J44.9 Chronic obstructive pulmonary disease, unspecified; I10 Essential (primary) hypertension; E78.5 Hyperlipidemia, unspecified; E11.42 Type 2 diabetes mellitus with diabetic polyneuropathy; M06.9 Rheumatoid arthritis, unspecified; Z79.52 Long term (current) use of systemic steroids; Z79.899 Other long term (current) drug therapy
CPT/HCPCS: 99214

== ENCOUNTER 2020-11-02 13:47 | Outpatient (CLI) | payer MEDICARE, OTHER, SELFPAY | END 2020-11-02 13:48 | disposition home or self-care (01) | PROVIDERS: PCP Nurse Practitioner Family; Visit Provider Internal Medicine Critical Care Medicine | DX: J86.9 Pyothorax without fistula (principal) | CPT/HCPCS: 87070; 87075; 87077; 87186; 87205 ==

== ENCOUNTER → 2020-11-22 15:16 | Outpatient (BNVA) | payer MEDICARE, OTHER, SELFPAY | PROVIDERS: PCP Nurse Practitioner Family; Visit Provider Internal Medicine Rheumatology | DX: M05.741 Rheumatoid arthritis with rheumatoid factor of right hand without organ or systems involvement (principal); M05.742 Rheumatoid arthritis with rheumatoid factor of left hand without organ or systems involvement; J91.0 Malignant pleural effusion; Z79.899 Other long term (current) drug therapy; E87.5 Hyperkalemia; Z87.891 Personal history of nicotine dependence | CPT/HCPCS: 99214 ==

== ENCOUNTER 2020-12-20 07:54 | Outpatient (CLI) | payer MEDICARE, OTHER, SELFPAY ==
--- NOTE | 2020-12-20 17:35 | ONC FU_ITS ---
Dr. Olson Patient Follow-Up Note Patient: Eunice Aguilar Unit #: [id number]: [id number] Dicatated By: Chino Olson M.D.Date of Visit:Dec 20, 2020 Onc Med Follow-up/Prog Note Chief Complaint: Lung cancer. 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 In June 2019 she had a coughing fit which led to a chest x-ray. That study showed a possible mass in the right lower lobe. Her further evaluation was delayed, I assume because of the restrictions related to the coronavirus pandemic. In any case, her chest CT on 09/11/2019 showed a lobulated mass in the right lower lobe measuring 2.9 x 3.7 x 2.8 cm. It was noted to abut the diaphragm anteriorly. There were a few tiny micronodular satellite opacities. A small left suprahilar opacity measured 8 mm. A noncalcified nodule in the right upper lobe measured 2 mm. An additional fibrotic opacity in the right upper lobe measured 4 mm. There was no mediastinal or hilar lymphadenopathy. She was incidentally noted to have a 9 mm left breast nodule. PET/CT on 09/19/2019 showed FDG avid mass in the right lower lobe measuring 4.0 x 3.5 cm, SUV 12.5, indicating high probability of malignancy. A 6 mm left upper lobe nodule with SUV 2.5, which was concerning for contralateral metastatic disease. There were no other areas of abnormal uptake on that study. On 10/02/2019 she underwent navigational bronchoscopy with EBUS and transbronchial biopsy of the right lung mass. The EBUS did show evidence of mediastinal and hilar lymphadenopathy, and the procedure also included FNA biopsies of stations 7, 10 R, and 11 R lymph nodes. Pathology on the transbronchial biopsy showed benign bronchial mucosa with no dysplasia or malignancy seen. Cytology on the FNA biopsies was also negative for malignancy. I had seen her initially on 10/19/2019. With those findings, she was referred to Dr. Cox and on 12/07/2019 she underwent right lower lobectomy. 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 The tumor measured 4 x 4.2 x 3.2 cm. There was involvement in 1/3 lymph nodes, which included an intrabronchial lymph node, and inferior hilar lymph node, and a posterior hilar lymph node. The procedure did not include mediastinal lymph node sampling. Pathologic staging was pT2b, pN1. Postoperatively she underwent further evaluation for the left breast mass which had been noted on her chest CT scan. She eventually underwent left breast lumpectomy under needle localization on 02/01/2020. Pathology was benign. She then had radiation oncology follow-up with Dr. Hong regarding the left upper lobe nodule. Restaging chest CT on 03/08/2020 showed the left upper lobe nodule stable at 10 mm. There was slight increase in the right subcarinal lymph node measuring 14 mm as well as slight increase in a right anterior mediastinal lymph node measuring 10 mm. This was felt to be suspicious for disease progression. Restaging PET/CT on 03/12/2020 showed no evidence for recurrent or residual malignancy. The left upper lobe nodule measured 6 mm and showed low FDG activity, SUV 1.5, improved from the prior study. The mediastinal lymph nodes appeared radiographically benign and without significant FDG uptake. I had seen her for a follow-up visit on 03/23/2020, and with those findings, she continued on observation/expectant management for the lung cancer. However, at that point I had requested a next generation sequencing study on the primary tumor. It was found to have positive PD-L1 expression for 22C3 and for 28-8, both at 20%. The tumor also was found to harbor a exon 2 p.G12C KRAS mutation. There were no other actionable mutations identified. Her other medical illnesses include COPD, hypertension, hyperlipidemia, type 2 diabetes with neuropathy, and rheumatoid arthritis. She has history of smoking 1-1/2 packs of cigarettes daily for 50 years. INTERIM HISTORY: Her repeat chest CT on 07/18/2020 showed postoperative changes of prior right lower lobectomy. A left upper pulmonary nodule measuring 10 mm appeared unchanged. A right lower lobe nodule along the fissure measuring 6 mm also appeared stable. There were several new subcentimeter noncalcified pulmonary nodules, the largest in the right upper lobe measuring 3 mm. There appeared to be significant progression of the mediastinal and subcarinal lymphadenopathy with the right subcarinal lymph node measuring 19 mm compared to 14 mm on the previous study and with the anterior mediastinal lymph node measuring 17 mm compared to 10 mm. I had seen her for a follow-up visit on 07/27/2020. Although the CT findings were suspicious for disease progression, at that point she still preferred to continue with observation/expectant management. On 08/30/2020 she was admitted to the hospital after presenting to the emergency room with shortness of breath and hypoxic respiratory failure. Her CT pulmonary angiogram showed no evidence of pulmonary embolism, but there was a new large right pleural effusion with compressive atelectasis in the right lung. Also noted was increasing size of scattered pulmonary nodules in the left lung possibly due to metastatic disease. Mediastinal and right hilar lymphadenopathy appeared stable. She had significant improvement in symptoms following ultrasound-guided thoracentesis. Her pleural fluid cytology was positive for malignancy. On 09/09/2020 she underwent placement of a Pleurx catheter in the right chest. On 10/16/2019 when she was admitted to the hospital with empyema due to E. coli. Her chest CT at that time showed evidence of right lower lobectomy with partial right lower lung consolidation. Multiple left pulmonary nodules were noted to be minimally increased. Mediastinal adenopathy was noted to be stable. She was treated with antibiotic therapy. Her discharge summary also noted that she had evidence of pulmonary emboli by CT scan, though on my review I do not see where that was actually reported. She was discharged home on ciprofloxacin and rivaroxaban. She then continued followup with Dr. Santacruz. As of her visit with him on 11/25/2020 she was able to have the Pleurx catheter removed. She has seen for a follow-up visit. She has not been feeling very good. Since her chest tube was removed she is been having more cough, enough that it is driving her crazy. She is bringing up white frothy sputum. She is also having some shortness of breath. She has been having episodes of bright red blood in her stool. She decided on her own to reduce her rivaroxaban to 10 mg daily, but she still has had blood in the stool intermittently. Her energy is not that good. She is able to do some light work. ECOG score is 1. Her appetite has been okay. She has no fever or night sweats. She has not had sore mouth or throat. She has not been having chest pain. She has no other GI or complaints. She has some arthritis pain in her hands and feet and also occasionally in her knees. She does not complain of headache or dizziness. She has no focal neurologic symptoms. Medications: Apixaban (5 mg) Tablet Oral b.i.d., Carvedilol 1.5 Tablet (of 12.5 mg) Tablet Oral b.i.d., Cinnamon Capsule Oral, Ciprofloxacin HCl (500 mg) Tablet Oral b.i.d., [employer] Fish Oil Capsule Oral, Folic Acid 1 Tablet (of 800 mcg) Oral daily, metFORMIN HCl 1 Tablet (of 500 mg) Oral b.i.d., Methotrexate Sodium (2.5 mg) Tablet Oral Take as Directed, Potassium Chloride ER Capsule, controlled release Oral daily, predniSONE 1 Tablet (of 10 mg) Tablet Oral daily PRN, Spironolactone 0.5 Tablet (of 25 mg) Oral daily Allergies: Aspirin, Lisinopril, and Nickel. Vital Signs: Performed on Dec 20, 2020 09:25 Height - 63.00 in Weight - 178.8 lbs (LOW) BSA - 1.84 sq.m BMI - 31.67 (HIGH) Temperature - 98.3 F (LOW) Pulse - 78 /min Respiration - 18 /min BP - 109/58 mm(hg) O2 Sat - 92 % (LOW) Pain - 0 Fatigue - 7 Physical Examination: Constitutional - She does not appear acutely ill, Eyes - Sclerae nonicteric. Conjunctivae clear, ENMT - No lesions noted in the oral cavity, Hematologic/Lymphatic - No cervical, clavicular, or axillary adenopathy, Respiratory - Lungs show diminished air movement on the right. Breath sounds are slightly coarse, Cardiovascular - Heart rhythm is regular. There is a II/ systolic murmur. There is no gallop or rub noted, Abdomen - Soft. Liver and spleen are not enlarged. There is no abdominal mass or ascites noted and there is no inguinal adenopathy, Extremities - Slight edema, Neurologic - No focal neurologic deficits noted. Problem List: 1. 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 She underwent right lower lobectomy on 12/07/2019. Her disease was initially stage IIB (pT2b, pN1, M0). She had subsequent progression to stage GLADYS (M1a) with development malignant pleural effusion. 2. She also was found to have an additional subcentimeter left upper lobe nodule with mild FDG activity, initially felt to be suspicious for contralateral lung malignancy. 3. She also had CT evidence of pulmonary emboli. 4. She has underlying COPD. 5. Hypertension. 6. Hyperlipidemia. 7. Type 2 diabetes with neuropathy. 8. Rheumatoid arthritis. She as been on immunosuppressive therapy with methotrexate and hydroxychloroquine. 9. She had CT evidence of a left breast nodule, but that was ultimately determined to be benign on excisional biopsy. Problems Addressed with this Encounter and Plan: 1. 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 She underwent right lower lobectomy on 12/07/2019. She had subsequent progression to stage GLADYS (M1a) with development malignant pleural effusion. Her tumor was found to be positive for PD-L1 expression at 20%. It also was found to harbor a KRAS G12C mutation. During follow-up she was noted to have enlarging subcarinal and anterior mediastinal lymph nodes, suspicious for metastatic disease. These had previously been evaluated with bronchoscopy/EBUS with benign findings on FNA biopsy. The progressive enlargement of the lymph nodes appeared suspicious for metastatic disease, but she preferred to continue close observation. On 08/30/2020 she was admitted to the hospital with development of new large right pleural effusion. She had significant symptomatic improvement following thoracentesis. Her pleural fluid cytology was positive, consistent with metastatic disease. She had recurrence of symptoms following discharge from the hospital, and on 09/10/2019 when she underwent placement of a Pleurx catheter in the right chest. Her further clinical course was complicated by development of empyema due to E. coli and also, apparently, by pulmonary emboli. She had improvement on antibiotic therapy and she then continued on anticoagulation with rivaroxaban. She then continued follow-up with Dr. Santacruz. She is able to have her chest tube removed on 11/25/2020. Since then her cough has worsened somewhat and she has continued to have shortness of breath. As yet she has had no further treatment for her lung cancer. The recommended first-line treatment would be a chemotherapy/immunotherapy combination, though with some risk that the immunotherapy could worsen her underlying rheumatoid arthritis. She would then be eligible for targeted therapy for the KRAS G12C mutation as a second line treatment. She is willing to proceed with treatment, but she will first need a restaging CT scan and she will need to undergo placement of a Port-A-Cath venous access device. 2. She reportedly had evidence of pulmonary emboli by chest CT scan. She has been on anticoagulation with rivaroxaban. She had recently reduced the dosage to 10 mg daily due to intermittent rectal bleeding. She will now have restaging with CT pulmonary angiogram. If there is no evidence of pulmonary embolism, she will be given the option to stop anticoagulation. Signed By: Cihno Olson M.D. <<Signature on File>>
== END 2020-12-20 07:55 | disposition home or self-care (01) ==
LOC: ONCMED 08:02
PROVIDERS: PCP Nurse Practitioner Family; Visit Provider Internal Medicine Medical Oncology
DX: Z08 Encounter for follow-up examination after completed treatment for malignant neoplasm (principal); Z85.118 Personal history of other malignant neoplasm of bronchus and lung; J91.0 Malignant pleural effusion; I26.99 Other pulmonary embolism without acute cor pulmonale; J44.9 Chronic obstructive pulmonary disease, unspecified; I10 Essential (primary) hypertension; E78.5 Hyperlipidemia, unspecified; E11.42 Type 2 diabetes mellitus with diabetic polyneuropathy; M06.9 Rheumatoid arthritis, unspecified; Z79.899 Other long term (current) drug therapy; Z79.2 Long term (current) use of antibiotics; Z79.01 Long term (current) use of anticoagulants; Z92.21 Personal history of antineoplastic chemotherapy
CPT/HCPCS: 99214

== ENCOUNTER 2020-12-26 09:24 | Outpatient (CLI) | payer MEDICARE, OTHER, SELFPAY ==
[2020-12-26 10:05] LABS: Basophils % 0.2 %; Eosinophils # 0.5 10^3/uL (0.0-0.8); Eosinophils % 6.2 %; Hematocrit 35.3 % (37.0-47.0); Hemoglobin 10.4 g/dL (11.5-15.3); Lymphocytes # 1.5 10^3/uL (0.8-4.8); Lymphocytes % 18.2 %; Mean Corpuscular HGB Conc 29.5 g/dL (30.0-36.0); Mean Corpuscular Hemoglobin 26.3 pg (28.0-34.0); Mean Corpuscular Volume 89.1 fl (81-99); Mean Platelet Volume 9.3 fL (7.4-10.4); Monocytes # 0.5 10^3/uL (0.2-0.9); Neutrophils # 5.79 10^3/uL (1.8-7.7); Nucleated Red Blood Cells % 0.2 %; Platelet Count 428 10^3/cmm (130-400); Red Blood Count 3.96 10^6/uL (4.1-5.3); Red Cell Distribution Width 19.4 % (12.1-15.1); White Blood Count 8.4 10^3/uL (4.0-10.0)
--- NOTE | 2020-12-26 10:25 | CT_ITS ---
WS: [id number] CT CHEST ANGIOGRAPHY WITH REFORMATS HISTORY: SHORTNESS OF BREATH/BLOOD CLOTS/LUNG CA TECHNIQUE: Contiguous axial images are obtained through the chest during arterial injection of intrav enous contrast. Images are reconstructed to evaluate the pulmonary arteries. MIP imaging also reviewe d. All CT scans at [facility] use at least one of these dose optimization techniques: aut omated exposure control; mA and/or kV adjustment per patient size (includes targeted exams where dose is matched to clinical indication); or iterative reconstruction. CONTRAST: Omnipaque 350; 68 mL IV. DLP: 510.1 mGy.cm COMPARISON: 10/15/2020 Good opacification of the pulmonary artery. No pulmonary embolism. Pulmonary artery is slightly enlar ged. Mild atherosclerosis of the aorta. Normal size heart. There is a small pericardial effusion whic h has increased since the prior study. Volume loss RIGHT thorax. Status post RIGHT lower lobectomy. Extensive progression of neoplastic dise ase since the prior study. Numerous bilateral enlarging and new pulmonary nodules. There is pleural t hickening and nodularity throughout the RIGHT thorax. Dense soft tissue consolidation in the RIGHT lo wer thorax with soft tissue encasement of the RIGHT lower lung field bronchovascular tree. There is e xtensive mediastinal and hilar lymphadenopathy which has progressed. RIGHT paratracheal, para-aortic, LEFT paratracheal, subcarinal and RIGHT hilar lymphadenopathy. Small pleural effusion at the RIGHT lung base with mild enhancement. No abnormality noted within the liver. The adrenal glands are not completely included. No osteoblastic or osteolytic lesions are identified. CT/CT angio chest PE protcl [id number] IMPRESSION: 1. No pulmonary embolism. 2. Prior RIGHT lower lobectomy. 3. Significant progression of neoplastic disease throughout the lungs and lymp h nodes since 10/15/2020. Increasing pulmonary nodules and adenopathy. Increasin g soft tissue in the RIGHT lower thorax. 4. Increased pleural thickening and nodularity with a small effusion on the RI GHT consistent with metastatic disease to the pleura. 5. Increasing small pericardial effusion.
[2020-12-26 10:44] LABS: Alanine Aminotransferase 9 U/L (0-33); Albumin Level 3.5 g/dL (3.5-5.2); Alkaline Phosphatase 100 IU/L (35-105); Anion Gap 17.1 (5-19); Aspartate Amino Transferase 8 U/L (0-32); Blood Urea Nitrogen 17 mg/dL (8-23); Calcium 9.3 mg/dL (8.5-10.5); Carbon Dioxide 26 mmol/L (22-29); Chloride 101 mmol/L (98-107); Globulin 2.9 g/dL (1.3-4.6); Glucose 170 mg/dL (65-115); Osmolality Calculated 296 mOsm/kg (285-295); Potassium 4.1 mmol/L (3.5-5.1); Sodium 140 mmol/L (136-145); Thyroid Stimulating Hormone 0.74 uIU/mL (0.27-4.20); Total Bilirubin 0.3 mg/dL (0.15-1.2); Total Protein 6.4 g/dL (6.6-8.7)
[2020-12-26] MEDS: iohexol 350 mg/mL 100 mL Btl IV (11:13)
== END 2020-12-26 10:13 | disposition home or self-care (01) ==
LOC: ONCMED 09:24 → CT 14:34 → ONCMED 12-27 12:06
PROVIDERS: PCP Nurse Practitioner Family; Visit Provider Internal Medicine Medical Oncology
DX: C34.31 Malignant neoplasm of lower lobe, right bronchus or lung (principal); J91.0 Malignant pleural effusion; R06.02 Shortness of breath; I31.3 Pericardial effusion (noninflammatory); Z79.899 Other long term (current) drug therapy
CPT/HCPCS: 36415; 71275; 80053; 84443; 85025

== ENCOUNTER → 2020-12-30 11:00 | Outpatient (BNVA) | payer MEDICARE, OTHER, SELFPAY | PROVIDERS: PCP Nurse Practitioner Family; Visit Provider Thoracic Surgery (Cardiothoracic Vascular Surgery) | DX: C34.90 Malignant neoplasm of unspecified part of unspecified bronchus or lung (principal); R91.8 Other nonspecific abnormal finding of lung field; Z20.822 Contact with and (suspected) exposure to COVID-19 | CPT/HCPCS: 87635 ==

== ENCOUNTER 2021-01-02 06:30 | Outpatient (CLI) | payer MEDICARE, OTHER, SELFPAY ==
[2021-01-02] MEDS: cyanocobalamin 1,000 mcg/mL SDV 1000 MCG SUBCUT (11:48)
== END 2021-01-02 06:31 | disposition home or self-care (01) ==
PROVIDERS: PCP Nurse Practitioner Family; Visit Provider Internal Medicine Medical Oncology
DX: C34.31 Malignant neoplasm of lower lobe, right bronchus or lung (principal); J91.0 Malignant pleural effusion; D51.9 Vitamin B12 deficiency anemia, unspecified; Z79.899 Other long term (current) drug therapy
CPT/HCPCS: 96372; J3420

== ENCOUNTER 2021-01-03 10:46 | Day surgery (SDC) | payer MEDICARE, OTHER, SELFPAY ==
[2021-01-03] VITALS (7 sets, daily range): BP systolic 108–163; BP diastolic 59–73; PULSE 85–95; RESP 14–22; TEMP 36.3–36.6; O2SAT 92–100; BMI 25.8
--- NOTE | 2021-01-03 | SCC_ITS ---
Procedure Done: Left subclavian Port-A-Cath placement 11.3 seconds of fluoroscopic guidance, for a cumulative dose of 1.75 mGy, was provided to Dr. Cox by the radiology department. C-arm images of the chest were saved for the patient's permanent record. DOMINIC
[2021-01-03] MEDS: sodium chloride 0.9% 1,000 ML 30 ML IV (11:25)
[2021-01-03 11:31] LABS: Add Urine Microscopic? YES; Bilirubin Urine 1+ (Negative); Blood Urine Neg (Negative); Glucose Urine UA Norm (Normal); Ketones Urine 1+ (Negative); Leukocyte Esterase Urine Negative (Negative); Nitrate Urine Negative (Negative); Protein Urine Trace (Negative); Urine Appearance SL Hazy (CLEAR); Urine Color Dark Yellow (Yellow); Urobilinogen Urine 4 mg/dL (Negative); pH Urine 5 (5-7)
[2021-01-03 11:32] LABS: Bacteria Urine 1+ /hpf; RBC Urine 0-4 /hpf (0-2); Squamous Epithelial Cell Urine 0-4 /hpf (0-5); WBC Urine 0-4 /hpf (0-5)
[2021-01-03 11:36] LABS: Basophils % 0.1 %; Eosinophils # 0.5 10^3/uL (0.0-0.8); Eosinophils % 6.5 %; Hematocrit 36.4 % (37.0-47.0); Hemoglobin 10.8 g/dL (11.5-15.3); Lymphocytes # 1.8 10^3/uL (0.8-4.8); Lymphocytes % 24.4 %; Mean Corpuscular HGB Conc 29.7 g/dL (30.0-36.0); Mean Corpuscular Hemoglobin 26.2 pg (28.0-34.0); Mean Corpuscular Volume 88.3 fl (81-99); Mean Platelet Volume 9.6 fL (7.4-10.4); Monocytes # 0.6 10^3/uL (0.2-0.9); Monocytes % 7.4 %; Neutrophils # 4.63 10^3/uL (1.8-7.7); Neutrophils % 61.3 %; Nucleated Red Blood Cells % 0 %; Platelet Count 394 10^3/cmm (130-400); Red Blood Count 4.12 10^6/uL (4.1-5.3); Red Cell Distribution Width 19.1 % (12.1-15.1); White Blood Count 7.6 10^3/uL (4.0-10.0)
[2021-01-03 11:49] LABS: INR 0.99 (0.8-1.2)
[2021-01-03 11:55] LABS: Anion Gap 18.5 (5-19); Blood Urea Nitrogen 16 mg/dL (8-23); Calcium 8.4 mg/dL (8.5-10.5); Carbon Dioxide 27 mmol/L (22-29); Chloride 105 mmol/L (98-107); Glucose 162 mg/dL (65-115); Osmolality Calculated 303 mOsm/kg (285-295); Sodium 144 mmol/L (136-145)
[2021-01-03 12:16] LABS: Potassium 6.5 mmol/L (3.5-5.1)
--- NOTE | 2021-01-03 12:37 | ANES.PREANE2 ---
Pre-Anesthetic Assessment Pre-Anesthetic Assessment: Height/Weight: Height 1.75 m Weight 79.379 kg Temp Pulse Resp BP Pulse Ox 97.7 F 87 16 153/59 92 01/03/21 11:12 01/03/21 11:12 01/03/21 11:12 01/03/21 11:12 01/03/21 11:12 Preop Diagnosis: Port-A-Cath placement/lung carcinoma Proposed Procedure: Operation Date: 01/03/21 12:15 Proposed Procedures p Portacath Insertion(Not Applicable) - Antonio Cox MD Was Beta Loulou taken within 24 hours: Yes Was Clonidine taken within 24 hours: N/A Last intake: Intake Last Liquid Date 01/03/21 Last Liquid Time 00:00 Last Solid Date 01/02/21 Last Solid Time 21:00 Social: Social History: Tobacco and No alcohol Exam: Pre-Anes Outpt Exam: alert, oriented x 3, clear to auscultation bilaterally and regular rate & rhythm Airway: Submandibular: WNL Cervical ROM: WNL MP: 2 Dentition: False Pulmonary: Pulmonary: COPD Comments: Lung CA CV/HEM: CV/HEM: HTN Comments: PE, hyperkalemia Musc/skel: Musc/skel: RA Anesthetic Plan: ASA status: 3 Anesthesia: MAC Risk of > 500 ml blood loss (7ml/kg in children): No PFSH Anesthesia PFSH: Medical History Chronic obstructive pulmonary disease, unspecified Continuous nicotine dependence Encounter for screening for other viral diseases Enrolled in chronic care management Essential (primary) hypertension Gastro-esophageal reflux disease without esophagitis High risk medication use Hyperlipidemia, unspecified Immunization counseling Lung mass Neuropathy Rheumatoid arthritis involving both hands with positive rheumatoid factor Smoker Type 2 diabetes mellitus without complications Surgical History (Updated 12/23/20 @ 08:12 by LUIS Dailey) H/O colonoscopy 3 yrs ago History of lobectomy of lung right lower No pertinent past surgical history Status post lobectomy of lung Family History Father Osteoarthritis Mother Hypertension Fibromyalgia Denies family history of Rheumatoid arthritis Lupus Anesthesia complication Bleeding disorder Social History (Updated 12/21/20 @ 14:58 by Glory Franklin LPN, RT) Quit status (tobacco): has quit using tobacco Year quit tobacco: 2019 1PPD x 50 Years Second hand smoke exposure: No Alcohol intake: never Caregiver/support person: Yes Lives independently: Yes Household members: none Housing: House Marital status: / service: No Current occupational status: retired History of recent travel: No Current gender identity: Female Special ac needs: No Agree to transfusion: Yes Data Anesthesia CBC & Chem 7: 01/03/21 11:27 01/03/21 11:27 Other Labs: Laboratory Results - last 48 hr 01/03/21 01/03/21 01/03/21 11:04 11:27 11:27 WBC 7.6 RBC 4.12 Hgb 10.8 L Hct 36.4 L MCV 88.3 MCH 26.2 L MCHC 29.7 L RDW 19.1 H Plt Count 394 MPV 9.6 Neut % (Auto) 61.3 Lymph % (Auto) 24.4 Woods % (Auto) 7.4 Eos % (Auto) 6.5 Baso % (Auto) 0.1 Neut # (Auto) 4.63 Lymph # (Auto) 1.8 Woods # (Auto) 0.6 Eos # (Auto) 0.5 Baso # (Auto) 0.0 Nucleated RBC % (auto) 0 Nucleated RBCs # 0.0 PT 13.40 INR 0.99 Sodium Potassium Chloride Carbon Dioxide Anion Gap BUN Creatinine GFR Calculation Glucose Calculated Osmolality Calcium Urine Color Dark yellow Urine Appearance Sl hazy Urine pH 5 Ur Specific [place] 1.020 Urine Protein Trace Urine Glucose (UA) Norm Urine Ketones 1+ H Urine Blood Neg Urine Nitrate Negative Urine Bilirubin 1+ H Urine Urobilinogen 4 H Ur Leukocyte Esterase Negative Urine RBC 0-4 H Urine WBC 0-4 H Ur Squamous Epith Cells 0-4 H Calcium Oxalate Crystal 5-10 H Amorphous Sediment Not Reportable Urine Bacteria 1+ H 01/03/21 11:27 WBC RBC Hgb Hct MCV MCH MCHC RDW Plt Count MPV Neut % (Auto) Lymph % (Auto) Woods % (Auto) Eos % (Auto) Baso % (Auto) Neut # (Auto) Lymph # (Auto) Woods # (Auto) Eos # (Auto) Baso # (Auto) Nucleated RBC % (auto) Nucleated RBCs # PT INR Sodium 144 Potassium 6.5 H* Chloride 105 Carbon Dioxide 27 Anion Gap 18.5 BUN 16 Creatinine 0.5 GFR Calculation 122.0 Glucose 162 H Calculated Osmolality 303 H Calcium 8.4 L Urine Color Urine Appearance Urine pH Ur Specific [place] Urine Protein Urine Glucose (UA) Urine Ketones Urine Blood Urine Nitrate Urine Bilirubin Urine Urobilinogen Ur Leukocyte Esterase Urine RBC Urine WBC Ur Squamous Epith Cells Calcium Oxalate Crystal Amorphous Sediment Urine Bacteria Cardiac Studies: No Data to Display
[2021-01-03 13:01] LABS: Potassium 4.1 mmol/L (3.5-5.1)
--- NOTE | 2021-01-03 13:25 | W.PM.OPSUD ---
Surgery/Procedure H&P Update DATE OF PROCEDURE: January 03, 2021 DATE H&P PERFORMED: 12/20/20 H&P UPDATE INFORMATION: I have reviewed H&P completed within last 30 days, I have examined patient prior to procedure and No changes to prior documentation PREOP DIAGNOSIS: Port-A-Cath placement/lung carcinoma PRIMARY INDICATION FOR PROCEDURE: Continue treatment for poorly differentiated adenocarcinoma right lower lobe PLANNED PROCEDURE: Operation Date: 01/03/21 12:15 Proposed Procedures p Portacath Insertion(Not Applicable) - Antonio Cox MD
--- NOTE | 2021-01-03 13:32 | SC_ITS ---
WS: [id number] Exam: C-arm FL for CVA [id number] Date/Time of Exam: 01/03/2021 1:32 PM Reason For Exam: PORTACATH Single AP C-arm image of the upper chest is submitted for evaluation. A Port-A-Cath appears to enter from the left side with the tip ending at the expected region of the l ower one third of the SVC. Surgical clips at the right pulmonary hilum. No other significant finding on this limited study.
[2021-01-03] MEDS: heparin, porcine 1,000 unit/mL INJ 10 mL 10000 UNIT IRRIGATION (14:10)
[2021-01-03] MEDS: lidocaine 1% INJ 50 mL INJECTION (14:10)
[2021-01-03] MEDS: ceFAZolin 1,000 mg SDV 1000 MG IRRIGATION (14:10)
--- NOTE | 2021-01-03 14:44 | XR_ITS ---
WS: [id number] Exam: XR chest 1V portable [id number] Date/Time of Exam: 01/03/2021 3:07 PM Reason For Exam: Status post Port-A-Cath placement Comparison 10/31/2020. A left subclavian port has been placed and appears to end at the cavoatrial junction in good position . Moderate size right pleural effusion is noted with some compressive atelectasis of the middle and l ower lobes the right lung. There are ill-defined nodular densities in both lungs which apparently rep resent known pulmonary metastasis. Infiltrates in the mid and lower right lung that may represent pne umonia. The heart is enlarged. No pneumothorax. Regional bony structures are intact. The mediastinum does not appear to be widened. Surgical clips at the right hilum. XR/XR chest 1V portable [id number] IMPRESSION: 1. Left-sided port in place appearing to end at the cavoatrial junction in good position. 2. Moderate-sized right pleural effusion with compressive atelectasis of the mi ddle and lower lobes the right lung. 3. There is some diffuse infiltrate in the mid and lower right lung that may re present pneumonia. There are soft tissue nodules in both lungs apparently repre senting pulmonary metastasis. 4. Cardiac enlargement.
--- NOTE | 2021-01-03 14:46 | PM.OP ---
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 Currently undergoing chemotherapy at the direction of Dr. Olson through our oncology department. Port-A-Cath placement has been requested to assist with management. Rationale, details and risk of the procedure were carefully and frankly discussed. Appropriate consents have been reviewed and signed. Procedure: Details and risks of the procedure were carefully and frankly reviewed. Appropriate consents were provided for review and signature. Ms. Aguilar was taken to the operating room and placed on the OR table in supine position. Appropriate sedation and relaxation were provided by our anesthesia colleagues. The patient's entire upper chest and neck was sterilely prepped and draped. 1% lidocaine was infiltrated for local anesthesia. The patient was then placed in Trendelenburg position. Utilizing modified Seldinger technique, the left subclavian vein was engaged with needle and aspirated blood. A guidewire was then placed into position. Position was confirmed by fluoroscopy. Needle was withdrawn. The patient was then placed in the supine position. A #15 scalpel blade was used to incise the skin at the exit point from the guidewire and continued laterally and inferiorly. Utilizing cautery for meticulous hemostasis, a subcutaneous pocket was then created to allow for placement of the Port-A-Cath reservoir. Antibiotic-soaked sponge was then placed in the subcutaneous pocket. Port-A-Cath tubing was measured to the appropriate length and then cut. It was then connected to the Port-A-Cath reservoir, secured, and the entire system was flushed with heparin solution. The dilator, followed by tear-a-way sheath, were placed over the guidewire. The guidewire and dilator were removed intact. The Port-A-Cath vascular tubing was then placed through the sheath, which was then removed. The entire system was interrogated by fluoroscopy throughout the procedure. Vo needle was placed through the Port-A-Cath diaphragm, easily aspirated blood, and flushed with heparin lock solution. The Port-A-Cath reservoir was then secured to the floor of the subcutaneous pocket with suture. The pocket was then carefully irrigated with antibiotic solution. Hemostasis was confirmed. The wound was then closed in 2 layers of 3-0 Vicryl suture subcutaneously. The skin was reapproximated carefully in a subcuticular manner with 4-0 Monocryl suture. A sterile dressing was applied followed by a compressive dressing. At the completion of the procedure there are equal breath sounds bilaterally. Vital signs remained stable. Ms. Aguilar was then transported to outpatient surgery. Chest x-ray is pending. We did mental health counselor with the family at the completion of the procedure.
--- NOTE | 2021-01-03 15:33 | ANE.PACU2 ---
Inpatient post-anesthesia follow up: Airway intact: Yes Vital signs: Temperature 97.7 F Pulse Rate 88 Respiratory Rate 14 Blood Pressure 108/60 Pulse Oximetry 92 Oxygen Delivery Me thod Room Air Oxygen Flow Rate 8 Fraction of Inspir ed Oxygen Hydration adequate: Yes Nausea and vomiting: No Pain level: 1 Mental status: Baseline
== END 2021-01-03 16:05 | disposition home or self-care (01) ==
PROVIDERS: PCP Nurse Practitioner Family; Visit Provider Thoracic Surgery (Cardiothoracic Vascular Surgery)
PROC: (CPT 36561; principal; 2021-01-03 12:15)
DX: C34.31 Malignant neoplasm of lower lobe, right bronchus or lung (principal); J44.9 Chronic obstructive pulmonary disease, unspecified; I10 Essential (primary) hypertension; M06.9 Rheumatoid arthritis, unspecified; F17.210 Nicotine dependence, cigarettes, uncomplicated; E11.40 Type 2 diabetes mellitus with diabetic neuropathy, unspecified; Z82.49 Family history of ischemic heart disease and other diseases of the circulatory system
CPT/HCPCS: 36561; 36415; 71045; 77001; 80048; 81001; 84132; 85025; 85610; C1788; J0690; J1644; J2704; J3010; J7030; J7040

== ENCOUNTER 2021-01-05 05:54 | Outpatient (CLI) | payer MEDICARE, OTHER, SELFPAY ==
[2021-01-05 08:59] LABS: Basophils % 0.1 %; Eosinophils # 0.4 10^3/uL (0.0-0.8); Eosinophils % 5.4 %; Hematocrit 32.8 % (37.0-47.0); Hemoglobin 9.7 g/dL (11.5-15.3); Lymphocytes # 1.2 10^3/uL (0.8-4.8); Lymphocytes % 16.8 %; Mean Corpuscular HGB Conc 29.6 g/dL (30.0-36.0); Mean Corpuscular Volume 87.9 fl (81-99); Mean Platelet Volume 9.4 fL (7.4-10.4); Monocytes # 0.6 10^3/uL (0.2-0.9); Monocytes % 8.3 %; Neutrophils # 4.71 10^3/uL (1.8-7.7); Neutrophils % 69.1 %; Nucleated Red Blood Cells % 0 %; Platelet Count 331 10^3/cmm (130-400); Red Blood Count 3.73 10^6/uL (4.1-5.3); Red Cell Distribution Width 19.4 % (12.1-15.1); White Blood Count 6.8 10^3/uL (4.0-10.0)
[2021-01-05 09:25] LABS: Alanine Aminotransferase 7 U/L (0-33); Albumin Level 3.2 g/dL (3.5-5.2); Alkaline Phosphatase 92 IU/L (35-105); Anion Gap 12.3 (5-19); Aspartate Amino Transferase 8 U/L (0-32); Blood Urea Nitrogen 11 mg/dL (8-23); Calcium 8.5 mg/dL (8.5-10.5); Carbon Dioxide 27 mmol/L (22-29); Chloride 103 mmol/L (98-107); Globulin 2.7 g/dL (1.3-4.6); Glucose 159 mg/dL (65-115); Osmolality Calculated 291 mOsm/kg (285-295); Potassium 3.3 mmol/L (3.5-5.1); Sodium 139 mmol/L (136-145); Total Bilirubin 0.3 mg/dL (0.15-1.2); Total Protein 5.9 g/dL (6.6-8.7)
[2021-01-05 10:19] LABS: Magnesium 1.9 mg/dL (1.7-2.3)
[2021-01-05] MEDS: famotidine 20 mg/2 mL INJ IVP (11:05)
[2021-01-05] MEDS: diphenhydrAMINE 50 mg/mL SDV 1mL 25 MG IVP (11:07)
[2021-01-05] MEDS: palonosetron 0.25 mg/5 mL SDV IVP (11:10)
[2021-01-05] MEDS: sodium chloride 0.9% 250 ML 75 ML IV (11:10)
== END 2021-01-05 05:55 | disposition home or self-care (01) ==
PROVIDERS: Internal Medicine Medical Oncology; PCP Nurse Practitioner Family; Visit Provider Internal Medicine Hematology & Oncology
DX: Z51.12 Encounter for antineoplastic immunotherapy (principal); Z51.11 Encounter for antineoplastic chemotherapy; C34.31 Malignant neoplasm of lower lobe, right bronchus or lung; J91.0 Malignant pleural effusion; C78.02 Secondary malignant neoplasm of left lung; I26.99 Other pulmonary embolism without acute cor pulmonale; J44.9 Chronic obstructive pulmonary disease, unspecified; M06.9 Rheumatoid arthritis, unspecified; Z79.899 Other long term (current) drug therapy
CPT/HCPCS: 80053; 83735; 85025; 96365; 96375; 96413; 96415; J1100; J1200; J1453; J2469; J3490; J7050; J9045; J9271; J9305

== ENCOUNTER 2021-02-09 06:24 | Outpatient (RCR) | payer MEDICARE, OTHER, SELFPAY ==
[2021-01-12 12:57] LABS: Eosinophils # 0.2 10^3/uL (0.0-0.8); Eosinophils % 8.7 %; Hemoglobin 10.9 g/dL (11.5-15.3); Mean Corpuscular HGB Conc 30.3 g/dL (30.0-36.0); Mean Corpuscular Hemoglobin 26.2 pg (28.0-34.0); Mean Corpuscular Volume 86.5 fl (81-99); Mean Platelet Volume 9.8 fL (7.4-10.4); Monocytes # 0.1 10^3/uL (0.2-0.9); Monocytes % 4.8 %; Neutrophils % 35.5 %; Nucleated Red Blood Cells % 0 %; Platelet Count 144 10^3/cmm (130-400); Red Blood Count 4.16 10^6/uL (4.1-5.3); Red Cell Distribution Width 18.9 % (12.1-15.1); White Blood Count 2.1 10^3/uL (4.0-10.0)
[2021-01-12 13:24] LABS: Alanine Aminotransferase 10 U/L (0-33); Albumin Level 3.4 g/dL (3.5-5.2); Alkaline Phosphatase 93 IU/L (35-105); Anion Gap 14.2 (5-19); Aspartate Amino Transferase 9 U/L (0-32); Blood Urea Nitrogen 24 mg/dL (8-23); Calcium 8.5 mg/dL (8.5-10.5); Carbon Dioxide 27 mmol/L (22-29); Chloride 96 mmol/L (98-107); Globulin 2.8 g/dL (1.3-4.6); Glomerular Filtration Rate 82.7 mL/min (90-130); Glucose 173 mg/dL (65-115); Osmolality Calculated 286 mOsm/kg (285-295); Potassium 3.2 mmol/L (3.5-5.1); Sodium 134 mmol/L (136-145); Total Bilirubin 0.3 mg/dL (0.15-1.2); Total Protein 6.2 g/dL (6.6-8.7)
[2021-01-12 13:35] LABS: Neutrophils # 0.74 10^3/uL (1.8-7.7)
[2021-01-12 13:36] LABS: Slide Review Slide Review Perform
--- NOTE | 2021-01-15 13:24 | ONC FU_ITS ---
Dr. Olson Patient Follow-Up Note Patient: Eunice Aguilar Unit #: [id number]: 1950 Dicatated By: Chino Olson M.D.Date of Visit:Jan 12, 2021 Onc Med Follow-up/Prog Note Chief Complaint: Lung cancer. 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 In June 2019 she had a coughing fit which led to a chest x-ray. That study showed a possible mass in the right lower lobe. Her further evaluation was delayed, I assume because of the restrictions related to the coronavirus pandemic. In any case, her chest CT on 09/11/2019 showed a lobulated mass in the right lower lobe measuring 2.9 x 3.7 x 2.8 cm. It was noted to abut the diaphragm anteriorly. There were a few tiny micronodular satellite opacities. A small left suprahilar opacity measured 8 mm. A noncalcified nodule in the right upper lobe measured 2 mm. An additional fibrotic opacity in the right upper lobe measured 4 mm. There was no mediastinal or hilar lymphadenopathy. She was incidentally noted to have a 9 mm left breast nodule. PET/CT on 09/19/2019 showed FDG avid mass in the right lower lobe measuring 4.0 x 3.5 cm, SUV 12.5, indicating high probability of malignancy. A 6 mm left upper lobe nodule with SUV 2.5, which was concerning for contralateral metastatic disease. There were no other areas of abnormal uptake on that study. On 10/02/2019 she underwent navigational bronchoscopy with EBUS and transbronchial biopsy of the right lung mass. The EBUS did show evidence of mediastinal and hilar lymphadenopathy, and the procedure also included FNA biopsies of stations 7, 10 R, and 11 R lymph nodes. Pathology on the transbronchial biopsy showed benign bronchial mucosa with no dysplasia or malignancy seen. Cytology on the FNA biopsies was also negative for malignancy. I had seen her initially on 10/19/2019. With those findings, she was referred to Dr. Cox and on 12/07/2019 she underwent right lower lobectomy. 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 The tumor measured 4 x 4.2 x 3.2 cm. There was involvement in 1/3 lymph nodes, which included an intrabronchial lymph node, and inferior hilar lymph node, and a posterior hilar lymph node. The procedure did not include mediastinal lymph node sampling. Pathologic staging was pT2b, pN1. Postoperatively she underwent further evaluation for the left breast mass which had been noted on her chest CT scan. She eventually underwent left breast lumpectomy under needle localization on 02/01/2020. Pathology was benign. She then had radiation oncology follow-up with Dr. Hong regarding the left upper lobe nodule. Restaging chest CT on 03/08/2020 showed the left upper lobe nodule stable at 10 mm. There was slight increase in the right subcarinal lymph node measuring 14 mm as well as slight increase in a right anterior mediastinal lymph node measuring 10 mm. This was felt to be suspicious for disease progression. Restaging PET/CT on 03/12/2020 showed no evidence for recurrent or residual malignancy. The left upper lobe nodule measured 6 mm and showed low FDG activity, SUV 1.5, improved from the prior study. The mediastinal lymph nodes appeared radiographically benign and without significant FDG uptake. I had seen her for a follow-up visit on 03/23/2020, and with those findings, she continued on observation/expectant management for the lung cancer. However, at that point I had requested a next generation sequencing study on the primary tumor. It was found to have positive PD-L1 expression for 22C3 and for 28-8, both at 20%. The tumor also was found to harbor a exon 2 p.G12C KRAS mutation. There were no other actionable mutations identified. Her repeat chest CT on 07/18/2020 showed postoperative changes of prior right lower lobectomy. A left upper pulmonary nodule measuring 10 mm appeared unchanged. A right lower lobe nodule along the fissure measuring 6 mm also appeared stable. There were several new subcentimeter noncalcified pulmonary nodules, the largest in the right upper lobe measuring 3 mm. There appeared to be significant progression of the mediastinal and subcarinal lymphadenopathy with the right subcarinal lymph node measuring 19 mm compared to 14 mm on the previous study and with the anterior mediastinal lymph node measuring 17 mm compared to 10 mm. I had seen her for a follow-up visit on 07/27/2020. Although the CT findings were suspicious for disease progression, at that point she still preferred to continue with observation/expectant management. On 08/30/2020 she was admitted to the hospital after presenting to the emergency room with shortness of breath and hypoxic respiratory failure. Her CT pulmonary angiogram showed no evidence of pulmonary embolism, but there was a new large right pleural effusion with compressive atelectasis in the right lung. Also noted was increasing size of scattered pulmonary nodules in the left lung possibly due to metastatic disease. Mediastinal and right hilar lymphadenopathy appeared stable. She had significant improvement in symptoms following ultrasound-guided thoracentesis. Her pleural fluid cytology was positive for malignancy. On 09/09/2020 she underwent placement of a Pleurx catheter in the right chest. On 10/16/2019 when she was admitted to the hospital with empyema due to E. coli. Her chest CT at that time showed evidence of right lower lobectomy with partial right lower lung consolidation. Multiple left pulmonary nodules were noted to be minimally increased. Mediastinal adenopathy was noted to be stable. She was treated with antibiotic therapy. Her discharge summary also noted that she had evidence of pulmonary emboli by CT scan, though on my review I do not see where that was actually reported. She was discharged home on ciprofloxacin and rivaroxaban. She then continued followup with Dr. Santacruz. As of her visit with him on 11/25/2020 she was able to have the Pleurx catheter removed. She was seen for a follow-up visit on 12/20/2020. At that point she agreed to proceed with a trial of systemic therapy with carboplatin/pemetrexed chemotherapy in combination with pembrolizumab. Her other medical illnesses include COPD, hypertension, hyperlipidemia, type 2 diabetes with neuropathy, and rheumatoid arthritis. She has history of smoking 1-1/2 packs of cigarettes daily for 50 years. INTERIM HISTORY: She began cycle 1 of carboplatin/pemetrexed/pembrolizumab on 01/05/2021. She experienced no acute toxicity with that treatment. She says her energy is not that good, but it also has not gotten much worse. She has doing light work. ECOG score is 1. Her appetite is not very good, as food does not taste good. She does not have fever or night sweats. She has not had sore mouth or throat. She does have some cough and she has shortness of breath. She does not complain of chest pain. Her stomach has been just a little queasy. She has had ongoing problems with constipation. She has no complaints. She has no significant joint or bone pain. She does not complain of headache or dizziness. She has had no numbness/paresthesia or other neuropathy symptoms. Medications: Apixaban (5 mg) Tablet Oral b.i.d., Carvedilol 1.5 Tablet (of 12.5 mg) Tablet Oral b.i.d., Cinnamon Capsule Oral, Ciprofloxacin HCl (500 mg) Tablet Oral b.i.d., [employer] Fish Oil Capsule Oral, Folic Acid 1 Tablet (of 800 mcg) Oral daily, metFORMIN HCl 1 Tablet (of 500 mg) Oral b.i.d., Methotrexate Sodium (2.5 mg) Tablet Oral Take as Directed, Potassium Chloride ER Capsule, controlled release Oral daily, predniSONE 1 Tablet (of 10 mg) Tablet Oral daily PRN, Spironolactone 0.5 Tablet (of 25 mg) Oral daily Allergies: Aspirin, Lisinopril, and Nickel. Vital Signs: Performed on Jan 12, 2021 14:29 Height - 63.00 in Weight - 168.8 lbs (LOW) BSA - 1.80 sq.m BMI - 29.90 Temperature - 98.2 F (LOW) Pulse - 86 /min Respiration - 18 /min BP - 147/67 mm(hg) (HIGH) O2 Sat - 92 % (LOW) Pain - 0 Fatigue - 7 Physical Examination: Constitutional - She looks pretty good generally, Eyes - Sclerae nonicteric. Conjunctivae clear, ENMT - No lesions noted in the oral cavity, Hematologic/Lymphatic - No cervical, clavicular, or axillary adenopathy, Respiratory - Lungs show coarse breath sounds bilaterally with diminished air movement on the right, Cardiovascular - Heart rhythm is regular. There is a II/ systolic murmur. There is no gallop or rub noted, Abdomen - Soft. Liver and spleen are not enlarged. There is no abdominal mass or ascites noted and there is no inguinal adenopathy, Extremities - No edema, Neurologic - No focal neurologic deficits noted. Lab/Imaging: Test performed on Jan 12, 2021 12:30 Sodium 134 mmol/L Potassium 3.2 mmol/L Chloride 96 mmol/L CO2 27 mmol/L Anion Gap 14.2 BUN 24 mg/dL Creatinine 0.7 mg/dL Cr Clearance (Est) 95.7500 mL/min eGFR 82.7 mL/min Glucose 173 mg/dL Osmolality - Calculated 286 mOsm/kg Calcium 8.5 mg/dL Protein, Total 6.2 g/dL Albumin 3.4 g/dL Globulin 2.8 g/dL Bilirubin, Total 0.3 mg/dL ALT (SGPT) 10 U/L AST (SGOT) 9 U/L Alkaline Phosphatase 93 IU/L WBC 2.1 10 3/uL RBC 4.16 10 6/uL HGB 10.9 g/dL HCT 36.0 % MCV 86.5 fl MCH 26.2 pg MCHC 30.3 g/dL RDW 18.9 % Platelet Count 144 10 3/cmm MPV 9.8 fL Neutrophils 0.74 10 3/uL Lymphocytes 1.0 10 3/uL Monocytes 0.1 10 3/uL Eosinophils 0.2 10 3/uL Basophils 0.0 10 3/uL Neutrophil % 35.5 % Lymphocyte % 49.0 % Monocyte % 4.8 % Eosinophil % 8.7 % Basophils % 1.0 % NRBC % 0 % CBC Slide Review Slide Review Perform SLIDE REVIEWED AGREES WITH THE AUTO RESULT Problem List: 1. 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 She underwent right lower lobectomy on 12/07/2019. Her disease was initially stage IIB (pT2b, pN1, M0). She had subsequent progression to stage GLADYS (M1a) with development malignant pleural effusion. 2. She also was found to have an additional subcentimeter left upper lobe nodule with mild FDG activity, initially felt to be suspicious for contralateral lung malignancy. 3. She also had CT evidence of pulmonary emboli. 4. She has underlying COPD. 5. Hypertension. 6. Hyperlipidemia. 7. Type 2 diabetes with neuropathy. 8. Rheumatoid arthritis. She as been on immunosuppressive therapy with methotrexate and hydroxychloroquine. 9. She had CT evidence of a left breast nodule, but that was ultimately determined to be benign on excisional biopsy. Problems Addressed with this Encounter and Plan: 1. 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 She underwent right lower lobectomy on 12/07/2019. She had subsequent progression to stage GLADYS (M1a) with development malignant pleural effusion. Her tumor was found to be positive for PD-L1 expression at 20%. It also was found to harbor a KRAS G12C mutation. During follow-up she was noted to have enlarging subcarinal and anterior mediastinal lymph nodes, suspicious for metastatic disease. These had previously been evaluated with bronchoscopy/EBUS with benign findings on FNA biopsy. The progressive enlargement of the lymph nodes appeared suspicious for metastatic disease, but she preferred to continue close observation. On 08/30/2020 she was admitted to the hospital with development of new large right pleural effusion. She had significant symptomatic improvement following thoracentesis. Her pleural fluid cytology was positive, consistent with metastatic disease. She had recurrence of symptoms following discharge from the hospital, and on 09/10/2019 when she underwent placement of a Pleurx catheter in the right chest. Her further clinical course was complicated by development of empyema due to E. coli and also, apparently, by pulmonary emboli. She had improvement on antibiotic therapy and she then continued on anticoagulation with rivaroxaban. She then continued follow-up with Dr. Santacruz. She is able to have her chest tube removed on 11/25/2020. She was seen for a follow-up visit on 12/20/2020, and at that point she was recommended to proceed with a trial of systemic therapy with carboplatin/pemetrexed chemotherapy in combination with pembrolizumab. She began cycle 1 on 01/05/2021. At this point she has become significantly neutropenic, but she has not had fever with it and she otherwise appears to be tolerating the treatment pretty well. She will be given antibiotic coverage with Levaquin and she will be given Neupogen for 2 days. Her blood count will be repeated next week. In the meantime, she will also start a potassium supplement for the hypokalemia and she will start a bowel regimen with senna/docusate. 2. She reportedly had evidence of pulmonary emboli by chest CT scan. She has been on anticoagulation with rivaroxaban. She had recently reduced the dosage to 10 mg daily due to intermittent rectal bleeding. Her repeat CT pulmonary angiogram on 12/26/2020 showed no evidence of pulmonary embolism, and at that point she stopped anticoagulation. Signed By: Chino Olson M.D. <<Signature on File>>
[2021-01-23] MEDS: sodium chloride 0.9% 1,000 ML 999 ML IV (09:20)
[2021-01-23 09:43] LABS: Hematocrit 30.8 % (37.0-47.0); Hemoglobin 9.3 g/dL (11.5-15.3); Mean Corpuscular HGB Conc 30.2 g/dL (30.0-36.0); Mean Corpuscular Hemoglobin 25.4 pg (28.0-34.0); Mean Corpuscular Volume 84.2 fl (81-99); Platelet Count 282 10^3/cmm (130-400); Red Blood Count 3.66 10^6/uL (4.1-5.3); Red Cell Distribution Width 20.2 % (12.1-15.1); White Blood Count 2.1 10^3/uL (4.0-10.0)
[2021-01-23 10:25] LABS: Alanine Aminotransferase 10 U/L (0-33); Albumin Level 2.6 g/dL (3.5-5.2); Alkaline Phosphatase 85 IU/L (35-105); Aspartate Amino Transferase 17 U/L (0-32); Blood Urea Nitrogen 22 mg/dL (8-23); Calcium 7.7 mg/dL (8.5-10.5); Carbon Dioxide 23 mmol/L (22-29); Chloride 98 mmol/L (98-107); Globulin 2.9 g/dL (1.3-4.6); Glomerular Filtration Rate 82.7 mL/min (90-130); Glucose 116 mg/dL (65-115); Osmolality Calculated 280 mOsm/kg (285-295); Sodium 133 mmol/L (136-145); Total Bilirubin 0.2 mg/dL (0.15-1.2); Total Protein 5.5 g/dL (6.6-8.7)
[2021-01-23 10:39] LABS: Slide Review Slide Review Perform
[2021-01-23 10:46] LABS: Absolute Segmented Neutrophil 0.9 10/cmm (1.6-7.1); Band Neutrophils Absolute 0.2 10^3/cmm (0.0-1.2); Eosinophils 1 %; Lymphocytes 42 %; Lymphocytes Absolute 0.9 10^3/cmm (1.2-3.4); Monocytes Absolute 0.1 10^3/cmm (0.1-0.6); Segmented Neutrophils 42 %; Total Cells Counted 100 (0-100)
[2021-01-23 10:47] LABS: Absolute Neutrophil 1.1 10^3/cmm (1.4-6.5); Anisocytosis 2+; Ovalocytes Trace; Platelet Estimate Normal (Normal); Poikilocytosis 1+; Smudge Cells 1+
[2021-01-23 10:48] LABS: Blastocytes 1 % (0-0)
[2021-01-23 11:29] LABS: Iron 23 ug/dL (37-145); Percent Saturation 14.5 % (20-50); Total Iron Binding Capacity 158 mcg/dl; Unsaturated Iron Binding 135 ug/dL (112-347)
[2021-01-26 09:46] LABS: Alanine Aminotransferase 16 U/L (0-33); Albumin Level 2.7 g/dL (3.5-5.2); Alkaline Phosphatase 84 IU/L (35-105); Anion Gap 13.6 (5-19); Aspartate Amino Transferase 18 U/L (0-32); Blood Urea Nitrogen 16 mg/dL (8-23); Calcium 8.1 mg/dL (8.5-10.5); Carbon Dioxide 24 mmol/L (22-29); Chloride 100 mmol/L (98-107); Globulin 2.9 g/dL (1.3-4.6); Glomerular Filtration Rate 98.8 mL/min (90-130); Glucose 141 mg/dL (65-115); Osmolality Calculated 282 mOsm/kg (285-295); Potassium 3.6 mmol/L (3.5-5.1); Sodium 134 mmol/L (136-145); Total Bilirubin 0.3 mg/dL (0.15-1.2); Total Protein 5.6 g/dL (6.6-8.7)
[2021-01-26 10:22] LABS: Basophils % 0.8 %; Eosinophils % 0.8 %; Hematocrit 30.2 % (37.0-47.0); Hemoglobin 9.3 g/dL (11.5-15.3); Lymphocytes # 0.5 10^3/uL (0.8-4.8); Lymphocytes % 39.8 %; Mean Corpuscular HGB Conc 30.8 g/dL (30.0-36.0); Mean Corpuscular Hemoglobin 26.2 pg (28.0-34.0); Mean Corpuscular Volume 85.1 fl (81-99); Mean Platelet Volume 9.6 fL (7.4-10.4); Monocytes # 0.1 10^3/uL (0.2-0.9); Monocytes % 9.4 %; Neutrophils % 47.6 %; Nucleated Red Blood Cells % 0 %; Platelet Count 303 10^3/cmm (130-400); Red Blood Count 3.55 10^6/uL (4.1-5.3); White Blood Count 1.3 10^3/uL (4.0-10.0)
[2021-01-26 10:33] LABS: Neutrophils # 0.61 10^3/uL (1.8-7.7); Slide Review Slide Review Perform
--- NOTE | 2021-01-26 15:29 | ONC FU_ITS ---
Dr. Olson Patient Follow-Up Note Patient: Eunice Aguilar Unit #: [id number]: 1950 Dicatated By: Chino Olson M.D.Date of Visit:Jan 26, 2021 Onc Med Follow-up/Prog Note Chief Complaint: Lung cancer. 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 In June 2019 she had a coughing fit which led to a chest x-ray. That study showed a possible mass in the right lower lobe. Her further evaluation was delayed, I assume because of the restrictions related to the coronavirus pandemic. In any case, her chest CT on 09/11/2019 showed a lobulated mass in the right lower lobe measuring 2.9 x 3.7 x 2.8 cm. It was noted to abut the diaphragm anteriorly. There were a few tiny micronodular satellite opacities. A small left suprahilar opacity measured 8 mm. A noncalcified nodule in the right upper lobe measured 2 mm. An additional fibrotic opacity in the right upper lobe measured 4 mm. There was no mediastinal or hilar lymphadenopathy. She was incidentally noted to have a 9 mm left breast nodule. PET/CT on 09/19/2019 showed FDG avid mass in the right lower lobe measuring 4.0 x 3.5 cm, SUV 12.5, indicating high probability of malignancy. A 6 mm left upper lobe nodule with SUV 2.5, which was concerning for contralateral metastatic disease. There were no other areas of abnormal uptake on that study. On 10/02/2019 she underwent navigational bronchoscopy with EBUS and transbronchial biopsy of the right lung mass. The EBUS did show evidence of mediastinal and hilar lymphadenopathy, and the procedure also included FNA biopsies of stations 7, 10 R, and 11 R lymph nodes. Pathology on the transbronchial biopsy showed benign bronchial mucosa with no dysplasia or malignancy seen. Cytology on the FNA biopsies was also negative for malignancy. I had seen her initially on 10/19/2019. With those findings, she was referred to Dr. Cox and on 12/07/2019 she underwent right lower lobectomy. 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 The tumor measured 4 x 4.2 x 3.2 cm. There was involvement in 1/3 lymph nodes, which included an intrabronchial lymph node, and inferior hilar lymph node, and a posterior hilar lymph node. The procedure did not include mediastinal lymph node sampling. Pathologic staging was pT2b, pN1. Postoperatively she underwent further evaluation for the left breast mass which had been noted on her chest CT scan. She eventually underwent left breast lumpectomy under needle localization on 02/01/2020. Pathology was benign. She then had radiation oncology follow-up with Dr. Hong regarding the left upper lobe nodule. Restaging chest CT on 03/08/2020 showed the left upper lobe nodule stable at 10 mm. There was slight increase in the right subcarinal lymph node measuring 14 mm as well as slight increase in a right anterior mediastinal lymph node measuring 10 mm. This was felt to be suspicious for disease progression. Restaging PET/CT on 03/12/2020 showed no evidence for recurrent or residual malignancy. The left upper lobe nodule measured 6 mm and showed low FDG activity, SUV 1.5, improved from the prior study. The mediastinal lymph nodes appeared radiographically benign and without significant FDG uptake. I had seen her for a follow-up visit on 03/23/2020, and with those findings, she continued on observation/expectant management for the lung cancer. However, at that point I had requested a next generation sequencing study on the primary tumor. It was found to have positive PD-L1 expression for 22C3 and for 28-8, both at 20%. The tumor also was found to harbor a exon 2 p.G12C KRAS mutation. There were no other actionable mutations identified. Her repeat chest CT on 07/18/2020 showed postoperative changes of prior right lower lobectomy. A left upper pulmonary nodule measuring 10 mm appeared unchanged. A right lower lobe nodule along the fissure measuring 6 mm also appeared stable. There were several new subcentimeter noncalcified pulmonary nodules, the largest in the right upper lobe measuring 3 mm. There appeared to be significant progression of the mediastinal and subcarinal lymphadenopathy with the right subcarinal lymph node measuring 19 mm compared to 14 mm on the previous study and with the anterior mediastinal lymph node measuring 17 mm compared to 10 mm. I had seen her for a follow-up visit on 07/27/2020. Although the CT findings were suspicious for disease progression, at that point she still preferred to continue with observation/expectant management. On 08/30/2020 she was admitted to the hospital after presenting to the emergency room with shortness of breath and hypoxic respiratory failure. Her CT pulmonary angiogram showed no evidence of pulmonary embolism, but there was a new large right pleural effusion with compressive atelectasis in the right lung. Also noted was increasing size of scattered pulmonary nodules in the left lung possibly due to metastatic disease. Mediastinal and right hilar lymphadenopathy appeared stable. She had significant improvement in symptoms following ultrasound-guided thoracentesis. Her pleural fluid cytology was positive for malignancy. On 09/09/2020 she underwent placement of a Pleurx catheter in the right chest. On 10/16/2019 when she was admitted to the hospital with empyema due to E. coli. Her chest CT at that time showed evidence of right lower lobectomy with partial right lower lung consolidation. Multiple left pulmonary nodules were noted to be minimally increased. Mediastinal adenopathy was noted to be stable. She was treated with antibiotic therapy. Her discharge summary also noted that she had evidence of pulmonary emboli by CT scan, though on my review I do not see where that was actually reported. She was discharged home on ciprofloxacin and rivaroxaban. She then continued followup with Dr. Santacruz. As of her visit with him on 11/25/2020 she was able to have the Pleurx catheter removed. She was seen for a follow-up visit on 12/20/2020. At that point she agreed to proceed with a trial of systemic therapy with carboplatin/pemetrexed chemotherapy in combination with pembrolizumab. Her other medical illnesses include COPD, hypertension, hyperlipidemia, type 2 diabetes with neuropathy, and rheumatoid arthritis. She has history of smoking 1-1/2 packs of cigarettes daily for 50 years. INTERIM HISTORY: She began cycle 1 of carboplatin/pemetrexed/pembrolizumab on 01/05/2021. She experienced no acute toxicity with that treatment. At her day 8 toxicity check she was neutropenic, but not febrile. She was given Neupogen for 2 days. Subsequent to that visit, she had significant worsening of her joint pain, and on Saturday she opted on her own to restart her methotrexate. She is seen now for a follow-up visit. She says her energy is not worth a crap. She has had decline in her activity tolerance. ECOG score is 2. She has very little appetite. She is not having fever or night sweats. She has had no mouth sores. She does have cough and she has been short of breath. She is not complaining of any chest pain. She recently had some nausea, just for 1 day. She has no other GI or complaints. She continues to have significant joint pain associated with her underlying RA. She does not complain of headache. She sometimes has lightheadedness. She has neuropathy in her feet, but it is not getting any worse. Medications: Carvedilol 1 Tablet (of 12.5 mg) Oral daily, [employer] Fish Oil Capsule Oral, Folic Acid 1 Tablet (of 800 mcg) Oral daily, Methotrexate Sodium (2.5 mg) Tablet Oral Take as Directed, Potassium Chloride ER Capsule, controlled release Oral daily, predniSONE 1 Tablet (of 5 mg) Oral daily Allergies: Aspirin, Lisinopril, and Nickel. Vital Signs: Performed on Jan 26, 2021 10:17 Height - 63.00 in Weight - 172.6 lbs (HIGH) BSA - 1.82 sq.m BMI - 30.57 (HIGH) Temperature - 98.3 F (LOW) Pulse - 101 /min (HIGH) Respiration - 20 /min BP - 126/68 mm(hg) O2 Sat - 93 % (LOW) Pain - 8 Fatigue - 7 Physical Examination: Constitutional - She appears somewhat weak generally, but not acutely ill, Eyes - Sclerae nonicteric. Conjunctivae clear, ENMT - No lesions noted in the oral cavity, Hematologic/Lymphatic - No cervical, clavicular, or axillary adenopathy, Respiratory - Lungs sound clear with diminished air movement on the right, Cardiovascular - Heart shows an irregular tachycardia. There is a II/ systolic murmur. There is no gallop or rub noted, Abdomen - Soft. Liver and spleen are not enlarged. There is no abdominal mass or ascites noted and there is no inguinal adenopathy, Extremities - Mild edema, Neurologic - No focal neurologic deficits noted. Lab/Imaging: Test performed on Jan 26, 2021 08:40 Sodium 134 mmol/L Potassium 3.6 mmol/L Chloride 100 mmol/L CO2 24 mmol/L Anion Gap 13.6 BUN 16 mg/dL Creatinine 0.6 mg/dL Cr Clearance (Est) 111.7100 mL/min eGFR 98.8 mL/min Glucose 141 mg/dL Osmolality - Calculated 282 mOsm/kg Calcium 8.1 mg/dL Protein, Total 5.6 g/dL Albumin 2.7 g/dL Globulin 2.9 g/dL Bilirubin, Total 0.3 mg/dL ALT (SGPT) 16 U/L AST (SGOT) 18 U/L Alkaline Phosphatase 84 IU/L WBC 1.3 10 3/uL RBC 3.55 10 6/uL HGB 9.3 g/dL HCT 30.2 % MCV 85.1 fl MCH 26.2 pg MCHC 30.8 g/dL RDW 21.0 % Platelet Count 303 10 3/cmm MPV 9.6 fL Neutrophils 0.61 10 3/uL Lymphocytes 0.5 10 3/uL Monocytes 0.1 10 3/uL Eosinophils 0.0 10 3/uL Basophils 0.0 10 3/uL Neutrophil % 47.6 % Lymphocyte % 39.8 % Monocyte % 9.4 % Eosinophil % 0.8 % Basophils % 0.8 % NRBC % 0 % CBC Slide Review Slide Review Perform SLIDE REVIEW AGREES WITH AUTOMATED RESULTS ST Test performed on Dec 26, 2020 09:44 TSH 0.74 uIU/mL Problem List: 1. 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 She underwent right lower lobectomy on 12/07/2019. Her disease was initially stage IIB (pT2b, pN1, M0). She had subsequent progression to stage GLADYS (M1a) with development malignant pleural effusion. 2. She also was found to have an additional subcentimeter left upper lobe nodule with mild FDG activity, initially felt to be suspicious for contralateral lung malignancy. 3. She also had CT evidence of pulmonary emboli. 4. She has underlying COPD. 5. Hypertension. 6. Hyperlipidemia. 7. Type 2 diabetes with neuropathy. 8. Rheumatoid arthritis. She as been on immunosuppressive therapy with methotrexate and hydroxychloroquine. 9. She had CT evidence of a left breast nodule, but that was ultimately determined to be benign on excisional biopsy. Problems Addressed with this Encounter and Plan: 1. 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 She underwent right lower lobectomy on 12/07/2019. She had subsequent progression to stage GLADYS (M1a) with development malignant pleural effusion. Her tumor was found to be positive for PD-L1 expression at 20%. It also was found to harbor a KRAS G12C mutation. During follow-up she was noted to have enlarging subcarinal and anterior mediastinal lymph nodes, suspicious for metastatic disease. These had previously been evaluated with bronchoscopy/EBUS with benign findings on FNA biopsy. The progressive enlargement of the lymph nodes appeared suspicious for metastatic disease, but she preferred to continue close observation. On 08/30/2020 she was admitted to the hospital with development of new large right pleural effusion. She had significant symptomatic improvement following thoracentesis. Her pleural fluid cytology was positive, consistent with metastatic disease. She had recurrence of symptoms following discharge from the hospital, and on 09/10/2019 when she underwent placement of a Pleurx catheter in the right chest. Her further clinical course was complicated by development of empyema due to E. coli and also, apparently, by pulmonary emboli. She had improvement on antibiotic therapy and she then continued on anticoagulation with rivaroxaban. She then continued follow-up with Dr. Santacruz. She is able to have her chest tube removed on 11/25/2020. She was seen for a follow-up visit on 12/20/2020, and at that point she was recommended to proceed with a trial of systemic therapy with carboplatin/pemetrexed chemotherapy in combination with pembrolizumab. She began cycle 1 on 01/05/2021. She tolerated it without acute toxicity. By day 8 she had developed moderately severe neutropenia, for which she was given Neupogen for 2 days. She has since then had worsening joint pain. While the Neupogen may have been a contributing factor, the more likely possibility is that she is having a flareup of her RA associated with the immunotherapy. She did opt to restart her methotrexate, but as she is still neutropenic, I advised her to stop it until further notice. I will have her increase prednisone to 10 mg daily. Her chemotherapy, for the time being, will remain on hold. 2. She presents today with an irregular tachycardia. Her EKG shows atrial fibrillation with rapid ventricular response. She is an established patient with Dr. Michelle, and she is being referred to cardiology for further management. 3. She reportedly had evidence of pulmonary emboli by chest CT scan. She has been on anticoagulation with rivaroxaban. She had recently reduced the dosage to 10 mg daily due to intermittent rectal bleeding. Her repeat CT pulmonary angiogram on 12/26/2020 showed no evidence of pulmonary embolism, and at that point she stopped anticoagulation. Signed By: Chino Olson M.D. <<Signature on File>>
[2021-02-06 16:05] LABS: Basophils % 0.6 %; Eosinophils % 0.6 %; Hematocrit 33.3 % (37.0-47.0); Hemoglobin 10.3 g/dL (11.5-15.3); Lymphocytes # 1.2 10^3/uL (0.8-4.8); Lymphocytes % 68.2 %; Mean Corpuscular HGB Conc 30.9 g/dL (30.0-36.0); Mean Corpuscular Hemoglobin 26.3 pg (28.0-34.0); Mean Corpuscular Volume 85.2 fl (81-99); Mean Platelet Volume 9.6 fL (7.4-10.4); Monocytes # 0.4 10^3/uL (0.2-0.9); Monocytes % 22.9 %; Neutrophils % 7.1 %; Nucleated Red Blood Cells % 0 %; Platelet Count 261 10^3/cmm (130-400); Red Blood Count 3.91 10^6/uL (4.1-5.3); White Blood Count 1.8 10^3/uL (4.0-10.0)
[2021-02-06 16:36] LABS: Alanine Aminotransferase 14 U/L (0-33); Albumin Level 2.8 g/dL (3.5-5.2); Alkaline Phosphatase 68 IU/L (35-105); Anion Gap 14.8 (5-19); Aspartate Amino Transferase 15 U/L (0-32); Blood Urea Nitrogen 19 mg/dL (8-23); Calcium 8.6 mg/dL (8.5-10.5); Carbon Dioxide 24 mmol/L (22-29); Chloride 90 mmol/L (98-107); Globulin 3.4 g/dL (1.3-4.6); Glucose 190 mg/dL (65-115); Neutrophils # 0.13 10^3/uL (1.8-7.7); Osmolality Calculated 267 mOsm/kg (285-295); Potassium 3.8 mmol/L (3.5-5.1); Slide Review Slide Review Perform; Sodium 125 mmol/L (136-145); Total Bilirubin 0.4 mg/dL (0.15-1.2); Total Protein 6.2 g/dL (6.6-8.7)
--- NOTE | 2021-02-07 10:10 | ONC FU_ITS ---
Dr. Olson Patient Follow-Up Note Patient: Eunice Aguilar Unit #: [id number]: 1950 Dicatated By: Chino Olson M.D.Date of Visit:Feb 07, 2021 Onc Med Follow-up/Prog Note Chief Complaint: Lung cancer. 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 In June 2019 she had a coughing fit which led to a chest x-ray. That study showed a possible mass in the right lower lobe. Her further evaluation was delayed, I assume because of the restrictions related to the coronavirus pandemic. In any case, her chest CT on 09/11/2019 showed a lobulated mass in the right lower lobe measuring 2.9 x 3.7 x 2.8 cm. It was noted to abut the diaphragm anteriorly. There were a few tiny micronodular satellite opacities. A small left suprahilar opacity measured 8 mm. A noncalcified nodule in the right upper lobe measured 2 mm. An additional fibrotic opacity in the right upper lobe measured 4 mm. There was no mediastinal or hilar lymphadenopathy. She was incidentally noted to have a 9 mm left breast nodule. PET/CT on 09/19/2019 showed FDG avid mass in the right lower lobe measuring 4.0 x 3.5 cm, SUV 12.5, indicating high probability of malignancy. A 6 mm left upper lobe nodule with SUV 2.5, which was concerning for contralateral metastatic disease. There were no other areas of abnormal uptake on that study. On 10/02/2019 she underwent navigational bronchoscopy with EBUS and transbronchial biopsy of the right lung mass. The EBUS did show evidence of mediastinal and hilar lymphadenopathy, and the procedure also included FNA biopsies of stations 7, 10 R, and 11 R lymph nodes. Pathology on the transbronchial biopsy showed benign bronchial mucosa with no dysplasia or malignancy seen. Cytology on the FNA biopsies was also negative for malignancy. I had seen her initially on 10/19/2019. With those findings, she was referred to Dr. Cox and on 12/07/2019 she underwent right lower lobectomy. 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 The tumor measured 4 x 4.2 x 3.2 cm. There was involvement in 1/3 lymph nodes, which included an intrabronchial lymph node, and inferior hilar lymph node, and a posterior hilar lymph node. The procedure did not include mediastinal lymph node sampling. Pathologic staging was pT2b, pN1. Postoperatively she underwent further evaluation for the left breast mass which had been noted on her chest CT scan. She eventually underwent left breast lumpectomy under needle localization on 02/01/2020. Pathology was benign. She then had radiation oncology follow-up with Dr. Hong regarding the left upper lobe nodule. Restaging chest CT on 03/08/2020 showed the left upper lobe nodule stable at 10 mm. There was slight increase in the right subcarinal lymph node measuring 14 mm as well as slight increase in a right anterior mediastinal lymph node measuring 10 mm. This was felt to be suspicious for disease progression. Restaging PET/CT on 03/12/2020 showed no evidence for recurrent or residual malignancy. The left upper lobe nodule measured 6 mm and showed low FDG activity, SUV 1.5, improved from the prior study. The mediastinal lymph nodes appeared radiographically benign and without significant FDG uptake. I had seen her for a follow-up visit on 03/23/2020, and with those findings, she continued on observation/expectant management for the lung cancer. However, at that point I had requested a next generation sequencing study on the primary tumor. It was found to have positive PD-L1 expression for 22C3 and for 28-8, both at 20%. The tumor also was found to harbor a exon 2 p.G12C KRAS mutation. There were no other actionable mutations identified. Her repeat chest CT on 07/18/2020 showed postoperative changes of prior right lower lobectomy. A left upper pulmonary nodule measuring 10 mm appeared unchanged. A right lower lobe nodule along the fissure measuring 6 mm also appeared stable. There were several new subcentimeter noncalcified pulmonary nodules, the largest in the right upper lobe measuring 3 mm. There appeared to be significant progression of the mediastinal and subcarinal lymphadenopathy with the right subcarinal lymph node measuring 19 mm compared to 14 mm on the previous study and with the anterior mediastinal lymph node measuring 17 mm compared to 10 mm. I had seen her for a follow-up visit on 07/27/2020. Although the CT findings were suspicious for disease progression, at that point she still preferred to continue with observation/expectant management. On 08/30/2020 she was admitted to the hospital after presenting to the emergency room with shortness of breath and hypoxic respiratory failure. Her CT pulmonary angiogram showed no evidence of pulmonary embolism, but there was a new large right pleural effusion with compressive atelectasis in the right lung. Also noted was increasing size of scattered pulmonary nodules in the left lung possibly due to metastatic disease. Mediastinal and right hilar lymphadenopathy appeared stable. She had significant improvement in symptoms following ultrasound-guided thoracentesis. Her pleural fluid cytology was positive for malignancy. On 09/09/2020 she underwent placement of a Pleurx catheter in the right chest. On 10/16/2019 when she was admitted to the hospital with empyema due to E. coli. Her chest CT at that time showed evidence of right lower lobectomy with partial right lower lung consolidation. Multiple left pulmonary nodules were noted to be minimally increased. Mediastinal adenopathy was noted to be stable. She was treated with antibiotic therapy. Her discharge summary also noted that she had evidence of pulmonary emboli by CT scan, though on my review I do not see where that was actually reported. She was discharged home on ciprofloxacin and rivaroxaban. She then continued followup with Dr. Santacruz. As of her visit with him on 11/25/2020 she was able to have the Pleurx catheter removed. She was seen for a follow-up visit on 12/20/2020. At that point she agreed to proceed with a trial of systemic therapy with carboplatin/pemetrexed chemotherapy in combination with pembrolizumab. Her other medical illnesses include COPD, hypertension, hyperlipidemia, type 2 diabetes with neuropathy, and rheumatoid arthritis. She has history of smoking 1-1/2 packs of cigarettes daily for 50 years. INTERIM HISTORY: She began cycle 1 of carboplatin/pemetrexed/pembrolizumab on 01/05/2021. She experienced no acute toxicity with that treatment. At her day 8 toxicity check she was neutropenic, but not febrile. She was given Neupogen for 2 days. Subsequent to that visit, she had significant worsening of her joint pain, and she opted on her own to restart her methotrexate. As of her follow-up visit on 01/26/2021 she remained neutropenic. She was recommended to stop methotrexate, and she then restarted prednisone for the rheumatoid arthritis. Her chemotherapy remained on hold. She is seen for a follow-up visit. Her main complaint is that she has been prone to falling. She is not certain exactly why. She says she just goes down and wakes up on the floor. She is being followed at cardiology, and she is now wearing a telemetry monitor. She complains that she has no energy, and her activity is very limited. ECOG score is 2. She has good appetite. She has no fever or night sweats. She has not had mouth sores. She has a little bit of sore throat and she has a cough. She says her breathing is okay, though she does have some shortness of breath. She does not complain of chest pain. She has no GI or complaints. Her arthritis pain is somewhat better with her prednisone dosage increased to 15 mg daily. She does not complain of headache. She has numbness in her feet. Medications: Carvedilol 1 Tablet (of 12.5 mg) Oral daily, [employer] Fish Oil Capsule Oral, Folic Acid 1 Tablet (of 800 mcg) Oral daily, Methotrexate Sodium (2.5 mg) Tablet Oral Take as Directed, Potassium Chloride ER Capsule, controlled release Oral daily, predniSONE 1 Tablet (of 5 mg) Oral daily, Xarelto Tablet Oral Allergies: Aspirin, Lisinopril, and Nickel. Vital Signs: Performed on Feb 07, 2021 08:34 Height - 63.00 in Temperature - 99.1 F (HIGH) Pulse - 102 /min (HIGH) Respiration - 18 /min BP - 113/58 mm(hg) O2 Sat - 95 % (LOW) Pain - 4 Fatigue - 7 Physical Examination: Constitutional - She appears somewhat weak generally, Eyes - Sclerae nonicteric. Conjunctivae clear, ENMT - No lesions noted in the oral cavity, Hematologic/Lymphatic - No cervical, clavicular, or axillary adenopathy, Respiratory - Lungs sound clear with some decrease in air movement on the right, Cardiovascular - Heart rhythm is irregular. There is a II/ systolic murmur. There is no gallop or rub noted, Abdomen - Soft. Liver and spleen are not enlarged. There is no abdominal mass or ascites noted and there is no inguinal adenopathy, Extremities - No edema, Neurologic - No focal neurologic deficits noted. Lab/Imaging: CBC shows hemoglobin 10.3 g, white blood cell count 1800, and platelet count 261,000. The absolute neutrophil count is 130. Comprehensive metabolic profile shows low sodium at 125 mmol/L and decreased albumin 2.8 g/dL. Problem List: 1. 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 She underwent right lower lobectomy on 12/07/2019. Her disease was initially stage IIB (pT2b, pN1, M0). She had subsequent progression to stage GLADYS (M1a) with development malignant pleural effusion. 2. She also was found to have an additional subcentimeter left upper lobe nodule with mild FDG activity, initially felt to be suspicious for contralateral lung malignancy. 3. She also had CT evidence of pulmonary emboli. 4. She has underlying COPD. 5. Hypertension. 6. Hyperlipidemia. 7. Type 2 diabetes with neuropathy. 8. Rheumatoid arthritis. She as been on immunosuppressive therapy with methotrexate and hydroxychloroquine. 9. She had CT evidence of a left breast nodule, but that was ultimately determined to be benign on excisional biopsy. Problems Addressed with this Encounter and Plan: 1. 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 She underwent right lower lobectomy on 12/07/2019. She had subsequent progression to stage GLADYS (M1a) with development malignant pleural effusion. Her tumor was found to be positive for PD-L1 expression at 20%. It also was found to harbor a KRAS G12C mutation. During follow-up she was noted to have enlarging subcarinal and anterior mediastinal lymph nodes, suspicious for metastatic disease. These had previously been evaluated with bronchoscopy/EBUS with benign findings on FNA biopsy. The progressive enlargement of the lymph nodes appeared suspicious for metastatic disease, but she preferred to continue close observation. On 08/30/2020 she was admitted to the hospital with development of new large right pleural effusion. She had significant symptomatic improvement following thoracentesis. Her pleural fluid cytology was positive, consistent with metastatic disease. She had recurrence of symptoms following discharge from the hospital, and on 09/10/2019 when she underwent placement of a Pleurx catheter in the right chest. Her further clinical course was complicated by development of empyema due to E. coli and also, apparently, by pulmonary emboli. She had improvement on antibiotic therapy and she then continued on anticoagulation with rivaroxaban. She then continued follow-up with Dr. Santacruz. She is able to have her chest tube removed on 11/25/2020. She was seen for a follow-up visit on 12/20/2020, and at that point she was recommended to proceed with a trial of systemic therapy with carboplatin/pemetrexed chemotherapy in combination with pembrolizumab. She began cycle 1 on 01/05/2021. She tolerated it without acute toxicity. By day 8 she had developed moderately severe neutropenia, for which she was given Neupogen for 2 days. She then developed worsening joint pain, suspected to have been a flareup of her RA associated with the immunotherapy. She had opted to restart her methotrexate, I had advised her to stop it , as she was still neutropenic. She has had improvement in the joint pain with the prednisone increased to 15 mg daily. However, she has remained neutropenic despite having stopped the methotrexate and with her chemotherapy remaining on hold. At this point she will be given 2 more injections of Neupogen and I will then repeat a CBC. 2. She has atrial fibrillation. She is being followed by cardiology. 3. She reportedly had evidence of pulmonary emboli by chest CT scan. She has now restarted anticoagulation with rivaroxaban. Signed By: Chino Olson M.D. <<Signature on File>>
[2021-02-09] MEDS: ondansetron 2 mg/ML SDV 2 mL 8 MG IV (13:30)
[2021-02-09 13:44] LABS: Hematocrit 32.6 % (37.0-47.0); Hemoglobin 9.9 g/dL (11.5-15.3); Mean Corpuscular HGB Conc 30.4 g/dL (30.0-36.0); Mean Corpuscular Hemoglobin 26.3 pg (28.0-34.0); Mean Corpuscular Volume 86.7 fl (81-99); Mean Platelet Volume 10.3 fL (7.4-10.4); Platelet Count 214 10^3/cmm (130-400); Red Blood Count 3.76 10^6/uL (4.1-5.3); Red Cell Distribution Width 21.9 % (12.1-15.1); White Blood Count 3.8 10^3/uL (4.0-10.0)
[2021-02-09] MEDS: sodium chloride 0.9% 1,000 ML 999 ML IV (13:47)
[2021-02-09 14:32] LABS: Absolute Segmented Neutrophil 0.9 10/cmm (1.6-7.1); Band Neutrophils Absolute 0.5 10^3/cmm (0.0-1.2); Lymphocytes 49 %; Monocytes Absolute 0.3 10^3/cmm (0.1-0.6); Segmented Neutrophils 23 %; Total Cells Counted 100 (0-100)
[2021-02-09 14:33] LABS: Absolute Neutrophil 1.4 10^3/cmm (1.4-6.5); Anisocytosis 1+; Giant Platelets Trace; Hypochromasia 1+; Lymphocytes Absolute 2.1 10^3/cmm (1.2-3.4); Platelet Estimate Normal (Normal); Poikilocytosis Trace; Smudge Cells Trace; Spherocytes Trace; Tear Drop Cells Trace
[2021-02-09 14:34] LABS: Ovalocytes Trace
== END 2021-02-09 23:59 | disposition home or self-care (01) ==
LOC: ONCMED 06:24
PROVIDERS: PCP Nurse Practitioner Family; Visit Provider Internal Medicine Medical Oncology
DX: Z51.11 Encounter for antineoplastic chemotherapy (principal); C34.31 Malignant neoplasm of lower lobe, right bronchus or lung; J91.0 Malignant pleural effusion; C78.02 Secondary malignant neoplasm of left lung; I26.99 Other pulmonary embolism without acute cor pulmonale; J44.9 Chronic obstructive pulmonary disease, unspecified; I10 Essential (primary) hypertension; E78.5 Hyperlipidemia, unspecified; E11.42 Type 2 diabetes mellitus with diabetic polyneuropathy; M06.9 Rheumatoid arthritis, unspecified; Z79.52 Long term (current) use of systemic steroids; Z79.899 Other long term (current) drug therapy; Z85.3 Personal history of malignant neoplasm of breast
CPT/HCPCS: 36591; 80053; 83540; 83550; 85007; 85025; 96360; 96361; 96365; 96372; 99214; 99215; J1100; J1442; J2405; J7030; Q5101

== ENCOUNTER 2021-03-08 06:08 | Outpatient (RCR) | payer MEDICARE, OTHER, SELFPAY ==
[2021-02-16] MEDS: sodium chloride 0.9% 1,000 ML 999 ML IV (12:45)
[2021-03-08 09:44] LABS: Basophils % 0.3 %; Eosinophils # 0.3 10^3/uL (0.0-0.8); Eosinophils % 2.5 %; Hematocrit 35.6 % (37.0-47.0); Hemoglobin 10.6 g/dL (11.5-15.3); Lymphocytes # 1.1 10^3/uL (0.8-4.8); Lymphocytes % 9.6 %; Mean Corpuscular HGB Conc 29.8 g/dL (30.0-36.0); Mean Corpuscular Hemoglobin 27.6 pg (28.0-34.0); Mean Corpuscular Volume 92.7 fl (81-99); Mean Platelet Volume 8.7 fL (7.4-10.4); Monocytes # 0.6 10^3/uL (0.2-0.9); Monocytes % 5.7 %; Neutrophils % 81.1 %; Nucleated Red Blood Cells % 0 %; Platelet Count 333 10^3/cmm (130-400); Red Blood Count 3.84 10^6/uL (4.1-5.3)
[2021-03-08 09:58] LABS: Alanine Aminotransferase 17 U/L (0-33); Albumin Level 3.3 g/dL (3.5-5.2); Alkaline Phosphatase 61 IU/L (35-105); Anion Gap 17.2 (5-19); Aspartate Amino Transferase 13 U/L (0-32); Blood Urea Nitrogen 16 mg/dL (8-23); Carbon Dioxide 24 mmol/L (22-29); Chloride 99 mmol/L (98-107); Globulin 3.1 g/dL (1.3-4.6); Glucose 128 mg/dL (65-115); Osmolality Calculated 285 mOsm/kg (285-295); Potassium 4.2 mmol/L (3.5-5.1); Sodium 136 mmol/L (136-145); Total Bilirubin 0.3 mg/dL (0.15-1.2); Total Protein 6.4 g/dL (6.6-8.7)
--- NOTE | 2021-03-08 17:08 | ONC FU_ITS ---
Dr. Olson Patient Follow-Up Note Patient: Eunice Aguilar Unit #: [id number]: 1950 Dicatated By: Chino Olson M.D.Date of Visit:Mar 08, 2021 Onc Med Follow-up/Prog Note Chief Complaint: Lung cancer. 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 In June 2019 she had a coughing fit which led to a chest x-ray. That study showed a possible mass in the right lower lobe. Her further evaluation was delayed, I assume because of the restrictions related to the coronavirus pandemic. In any case, her chest CT on 09/11/2019 showed a lobulated mass in the right lower lobe measuring 2.9 x 3.7 x 2.8 cm. It was noted to abut the diaphragm anteriorly. There were a few tiny micronodular satellite opacities. A small left suprahilar opacity measured 8 mm. A noncalcified nodule in the right upper lobe measured 2 mm. An additional fibrotic opacity in the right upper lobe measured 4 mm. There was no mediastinal or hilar lymphadenopathy. She was incidentally noted to have a 9 mm left breast nodule. PET/CT on 09/19/2019 showed FDG avid mass in the right lower lobe measuring 4.0 x 3.5 cm, SUV 12.5, indicating high probability of malignancy. A 6 mm left upper lobe nodule with SUV 2.5, which was concerning for contralateral metastatic disease. There were no other areas of abnormal uptake on that study. On 10/02/2019 she underwent navigational bronchoscopy with EBUS and transbronchial biopsy of the right lung mass. The EBUS did show evidence of mediastinal and hilar lymphadenopathy, and the procedure also included FNA biopsies of stations 7, 10 R, and 11 R lymph nodes. Pathology on the transbronchial biopsy showed benign bronchial mucosa with no dysplasia or malignancy seen. Cytology on the FNA biopsies was also negative for malignancy. I had seen her initially on 10/19/2019. With those findings, she was referred to Dr. Cox and on 12/07/2019 she underwent right lower lobectomy. 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 The tumor measured 4 x 4.2 x 3.2 cm. There was involvement in 1/3 lymph nodes, which included an intrabronchial lymph node, and inferior hilar lymph node, and a posterior hilar lymph node. The procedure did not include mediastinal lymph node sampling. Pathologic staging was pT2b, pN1. Postoperatively she underwent further evaluation for the left breast mass which had been noted on her chest CT scan. She eventually underwent left breast lumpectomy under needle localization on 02/01/2020. Pathology was benign. She then had radiation oncology follow-up with Dr. Hong regarding the left upper lobe nodule. Restaging chest CT on 03/08/2020 showed the left upper lobe nodule stable at 10 mm. There was slight increase in the right subcarinal lymph node measuring 14 mm as well as slight increase in a right anterior mediastinal lymph node measuring 10 mm. This was felt to be suspicious for disease progression. Restaging PET/CT on 03/12/2020 showed no evidence for recurrent or residual malignancy. The left upper lobe nodule measured 6 mm and showed low FDG activity, SUV 1.5, improved from the prior study. The mediastinal lymph nodes appeared radiographically benign and without significant FDG uptake. I had seen her for a follow-up visit on 03/23/2020, and with those findings, she continued on observation/expectant management for the lung cancer. However, at that point I had requested a next generation sequencing study on the primary tumor. It was found to have positive PD-L1 expression for 22C3 and for 28-8, both at 20%. The tumor also was found to harbor a exon 2 p.G12C KRAS mutation. There were no other actionable mutations identified. Her repeat chest CT on 07/18/2020 showed postoperative changes of prior right lower lobectomy. A left upper pulmonary nodule measuring 10 mm appeared unchanged. A right lower lobe nodule along the fissure measuring 6 mm also appeared stable. There were several new subcentimeter noncalcified pulmonary nodules, the largest in the right upper lobe measuring 3 mm. There appeared to be significant progression of the mediastinal and subcarinal lymphadenopathy with the right subcarinal lymph node measuring 19 mm compared to 14 mm on the previous study and with the anterior mediastinal lymph node measuring 17 mm compared to 10 mm. I had seen her for a follow-up visit on 07/27/2020. Although the CT findings were suspicious for disease progression, at that point she still preferred to continue with observation/expectant management. On 08/30/2020 she was admitted to the hospital after presenting to the emergency room with shortness of breath and hypoxic respiratory failure. Her CT pulmonary angiogram showed no evidence of pulmonary embolism, but there was a new large right pleural effusion with compressive atelectasis in the right lung. Also noted was increasing size of scattered pulmonary nodules in the left lung possibly due to metastatic disease. Mediastinal and right hilar lymphadenopathy appeared stable. She had significant improvement in symptoms following ultrasound-guided thoracentesis. Her pleural fluid cytology was positive for malignancy. On 09/09/2020 she underwent placement of a Pleurx catheter in the right chest. On 10/16/2019 when she was admitted to the hospital with empyema due to E. coli. Her chest CT at that time showed evidence of right lower lobectomy with partial right lower lung consolidation. Multiple left pulmonary nodules were noted to be minimally increased. Mediastinal adenopathy was noted to be stable. She was treated with antibiotic therapy. Her discharge summary also noted that she had evidence of pulmonary emboli by CT scan, though on my review I do not see where that was actually reported. She was discharged home on ciprofloxacin and rivaroxaban. She then continued followup with Dr. Santacruz. As of her visit with him on 11/25/2020 she was able to have the Pleurx catheter removed. She was seen for a follow-up visit on 12/20/2020. At that point she agreed to proceed with a trial of systemic therapy with carboplatin/pemetrexed chemotherapy in combination with pembrolizumab. Her other medical illnesses include COPD, hypertension, hyperlipidemia, type 2 diabetes with neuropathy, and rheumatoid arthritis. She has history of smoking 1-1/2 packs of cigarettes daily for 50 years. INTERIM HISTORY: She began cycle 1 of carboplatin/pemetrexed/pembrolizumab on 01/05/2021. She experienced no acute toxicity with that treatment. At her day 8 toxicity check she was neutropenic, but not febrile. She was given Neupogen for 2 days. Subsequent to that visit, she had significant worsening of her joint pain, and she opted on her own to restart her methotrexate. As of her follow-up visit on 01/26/2021 she remained neutropenic. She was recommended to stop methotrexate, and she then restarted prednisone for the rheumatoid arthritis. Her chemotherapy remained on hold. She is seen for a follow-up visit. At the present time she continues prednisone 15 mg daily for her arthritis. She thinks she has developed a cutaneous yeast infection, which she has been treating topically. She complains that she still has no energy and she does have limited activity, but it has improved somewhat. ECOG score is 2. Her appetite is okay. She has no fever or night sweats. She has had sore throat and some hoarseness. She has only a little bit of cough. She does complain of shortness of breath. She has not been having chest pain. She has no GI or complaints. She still has joint pain, particularly in her knees and hands. She does not complain of headache or dizziness, and she has no focal neurologic symptoms. Medications: dilTIAZem CD 1 Tablet (of 120 mg) Capsule SR 24 HR Oral daily, Folic Acid 1 Tablet (of 800 mcg) Oral daily, Metoprolol Tartrate 1 Tablet (of 25 mg) Oral, Potassium Chloride ER Capsule, controlled release Oral daily, predniSONE 1 Tablet (of 5 mg) Oral daily, Xarelto Tablet Oral Allergies: Aspirin, Lisinopril, and Nickel. Vital Signs: Performed on Mar 08, 2021 08:50 Height - 63.00 in Weight - 165 lbs (LOW) BSA - 1.78 sq.m BMI - 29.23 Temperature - 97.5 F (LOW) Pulse - 86 /min Respiration - 18 /min BP - 171/79 mm(hg) (HIGH) O2 Sat - 95 % (LOW) Pain - 0 Fatigue - 7 Physical Examination: Constitutional - She looks a little better generally, Eyes - Sclerae nonicteric. Conjunctivae clear, ENMT - No lesions noted in the oral cavity, Hematologic/Lymphatic - No cervical, clavicular, or axillary adenopathy, Respiratory - Lungs show diminished air movement on the right, Cardiovascular - Heart rhythm is irregular. There is a II/ systolic murmur. There is no gallop or rub noted, Abdomen - Soft. Liver and spleen are not enlarged. There is no abdominal mass or ascites noted and there is no inguinal adenopathy, Extremities - Slight edema, Integumentary - There is some mild erythematous skin eruption on the anterior and posterior trunk. There is a more significant eruption on the lower legs, Neurologic - No focal neurologic deficits noted. Lab/Imaging: Test performed on Mar 08, 2021 09:15 Sodium 136 mmol/L Potassium 4.2 mmol/L Chloride 99 mmol/L CO2 24 mmol/L Anion Gap 17.2 BUN 16 mg/dL Creatinine 0.5 mg/dL Cr Clearance (Est) 134.0500 mL/min eGFR 122.0 mL/min Glucose 128 mg/dL Osmolality - Calculated 285 mOsm/kg Calcium 9.0 mg/dL Protein, Total 6.4 g/dL Albumin 3.3 g/dL Globulin 3.1 g/dL Bilirubin, Total 0.3 mg/dL ALT (SGPT) 17 U/L AST (SGOT) 13 U/L Alkaline Phosphatase 61 IU/L WBC 11.0 10 3/uL RBC 3.84 10 6/uL HGB 10.6 g/dL HCT 35.6 % MCV 92.7 fl MCH 27.6 pg MCHC 29.8 g/dL RDW 22.0 % Platelet Count 333 10 3/cmm MPV 8.7 fL Neutrophils 8.90 10 3/uL Lymphocytes 1.1 10 3/uL Monocytes 0.6 10 3/uL Eosinophils 0.3 10 3/uL Basophils 0.0 10 3/uL Neutrophil % 81.1 % Lymphocyte % 9.6 % Monocyte % 5.7 % Eosinophil % 2.5 % Basophils % 0.3 % NRBC % 0 % Problem List: 1. 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 She underwent right lower lobectomy on 12/07/2019. Her disease was initially stage IIB (pT2b, pN1, M0). She had subsequent progression to stage GLADYS (M1a) with development malignant pleural effusion. 2. She also was found to have an additional subcentimeter left upper lobe nodule with mild FDG activity, initially felt to be suspicious for contralateral lung malignancy. 3. She also had CT evidence of pulmonary emboli. 4. She has underlying COPD. 5. Hypertension. 6. Hyperlipidemia. 7. Type 2 diabetes with neuropathy. 8. Rheumatoid arthritis. She as been on immunosuppressive therapy with methotrexate and hydroxychloroquine. 9. She had CT evidence of a left breast nodule, but that was ultimately determined to be benign on excisional biopsy. Problems Addressed with this Encounter and Plan: 1. 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 She underwent right lower lobectomy on 12/07/2019. She had subsequent progression to stage GLADYS (M1a) with development malignant pleural effusion. Her tumor was found to be positive for PD-L1 expression at 20%. It also was found to harbor a KRAS G12C mutation. During follow-up she was noted to have enlarging subcarinal and anterior mediastinal lymph nodes, suspicious for metastatic disease. These had previously been evaluated with bronchoscopy/EBUS with benign findings on FNA biopsy. The progressive enlargement of the lymph nodes appeared suspicious for metastatic disease, but she preferred to continue close observation. On 08/30/2020 she was admitted to the hospital with development of new large right pleural effusion. She had significant symptomatic improvement following thoracentesis. Her pleural fluid cytology was positive, consistent with metastatic disease. She had recurrence of symptoms following discharge from the hospital, and on 09/10/2019 when she underwent placement of a Pleurx catheter in the right chest. Her further clinical course was complicated by development of empyema due to E. coli and also, apparently, by pulmonary emboli. She had improvement on antibiotic therapy and she then continued on anticoagulation with rivaroxaban. She then continued follow-up with Dr. Santacruz. She is able to have her chest tube removed on 11/25/2020. She was seen for a follow-up visit on 12/20/2020, and at that point she was recommended to proceed with a trial of systemic therapy with carboplatin/pemetrexed chemotherapy in combination with pembrolizumab. She began cycle 1 on 01/05/2021. She tolerated it without acute toxicity. By day 8 she had developed moderately severe neutropenia, for which she was given Neupogen for 2 days. She then developed worsening joint pain, suspected to have been a flareup of her RA associated with the immunotherapy. She had opted to restart her methotrexate. However, I did have her stop it , as she was still neutropenic. As of her follow-up visit on 02/07/2021 she was reporting some improvement in the joint pain with the prednisone increased to 15 mg daily. She was still neutropenic, and her chemotherapy remained on hold. At this point she is showing some improvement in her clinical status, and she has had recovery of her neutrophil count. As such, she will now restart her methotrexate at the previous dosage and she can taper the prednisone as she is able to tolerate. Given the side effects she experienced, she is not going to be a good candidate for further treatment with either the chemotherapy or the immunotherapy. As such, I will now look into the option of a trial of therapy with sotorasib tolerating the KRAS G12C mutation. In the meantime, she also will be given fluconazole 200 mg daily for 14 days. 2. She has atrial fibrillation. She is being followed by cardiology. 3. She reportedly had evidence of pulmonary emboli by chest CT scan. She continues anticoagulation with rivaroxaban. Signed By: Chino Olson M.D. <<Signature on File>>
== END 2021-03-12 23:59 | disposition home or self-care (01) ==
LOC: ONCMED 06:08
PROVIDERS: PCP Nurse Practitioner Family; Visit Provider Internal Medicine Medical Oncology
DX: M05.741 Rheumatoid arthritis with rheumatoid factor of right hand without organ or systems involvement (principal); M05.742 Rheumatoid arthritis with rheumatoid factor of left hand without organ or systems involvement; Z79.899 Other long term (current) drug therapy; J91.0 Malignant pleural effusion; C34.90 Malignant neoplasm of unspecified part of unspecified bronchus or lung; Z90.2 Acquired absence of lung [part of]; E87.5 Hyperkalemia; Z87.891 Personal history of nicotine dependence
CPT/HCPCS: 36591; 80053; 85025; 96360; 99214; J7030

== ENCOUNTER 2021-04-10 06:49 | Outpatient (RCR) | payer MEDICARE, OTHER, SELFPAY ==
[2021-04-10 12:08] LABS: Basophils % 0.1 %; Eosinophils # 0.2 10^3/uL (0.0-0.8); Eosinophils % 1.8 %; Hematocrit 31.8 % (37.0-47.0); Hemoglobin 10.2 g/dL (11.5-15.3); Lymphocytes # 1.2 10^3/uL (0.8-4.8); Lymphocytes % 12.9 %; Mean Corpuscular HGB Conc 32.1 g/dL (30.0-36.0); Mean Corpuscular Volume 93.5 fl (81-99); Mean Platelet Volume 9.2 fL (7.4-10.4); Monocytes # 0.5 10^3/uL (0.2-0.9); Monocytes % 5.8 %; Neutrophils # 7.08 10^3/uL (1.8-7.7); Neutrophils % 78.8 %; Nucleated Red Blood Cells % 0 %; Platelet Count 362 10^3/cmm (130-400); Red Cell Distribution Width 18.6 % (12.1-15.1)
[2021-04-10 12:46] LABS: Alanine Aminotransferase 10 U/L (0-33); Albumin Level 3.5 g/dL (3.5-5.2); Alkaline Phosphatase 67 IU/L (35-105); Anion Gap 15.2 (5-19); Aspartate Amino Transferase 14 U/L (0-32); Blood Urea Nitrogen 11 mg/dL (8-23); Calcium 9.4 mg/dL (8.5-10.5); Carbon Dioxide 26 mmol/L (22-29); Chloride 100 mmol/L (98-107); Globulin 2.9 g/dL (1.3-4.6); Glucose 140 mg/dL (65-115); Osmolality Calculated 286 mOsm/kg (285-295); Potassium 4.2 mmol/L (3.5-5.1); Sodium 137 mmol/L (136-145); Total Bilirubin 0.3 mg/dL (0.15-1.2); Total Protein 6.4 g/dL (6.6-8.7)
== END 2021-04-11 23:59 | disposition home or self-care (01) ==
LOC: ONCMED 06:49
PROVIDERS: PCP Nurse Practitioner Family; Visit Provider Nurse Practitioner Family
DX: C34.31 Malignant neoplasm of lower lobe, right bronchus or lung (principal); J91.0 Malignant pleural effusion; R91.8 Other nonspecific abnormal finding of lung field
CPT/HCPCS: 36591; 80053; 85025

== ENCOUNTER 2021-05-10 06:40 | Outpatient (RCR) | payer MEDICARE, OTHER, SELFPAY ==
[2021-05-10 13:17] LABS: Basophils % 0.2 %; Eosinophils % 0.3 %; Hematocrit 35.2 % (37.0-47.0); Hemoglobin 10.9 g/dL (11.5-15.3); Lymphocytes # 1.6 10^3/uL (0.8-4.8); Mean Corpuscular Hemoglobin 30.2 pg (28.0-34.0); Mean Corpuscular Volume 97.5 fl (81-99); Mean Platelet Volume 8.9 fL (7.4-10.4); Monocytes # 0.3 10^3/uL (0.2-0.9); Monocytes % 2.3 %; Neutrophils # 9.37 10^3/uL (1.8-7.7); Neutrophils % 82.6 %; Nucleated Red Blood Cells % 0 %; Platelet Count 406 10^3/cmm (130-400); Red Blood Count 3.61 10^6/uL (4.1-5.3); Red Cell Distribution Width 15.5 % (12.1-15.1); White Blood Count 11.3 10^3/uL (4.0-10.0)
[2021-05-10 13:54] LABS: Alanine Aminotransferase 18 U/L (0-33); Albumin Level 3.9 g/dL (3.5-5.2); Alkaline Phosphatase 67 IU/L (35-105); Anion Gap 21.5 (5-19); Aspartate Amino Transferase 18 U/L (0-32); Blood Urea Nitrogen 12 mg/dL (8-23); Calcium 9.3 mg/dL (8.5-10.5); Carbon Dioxide 22 mmol/L (22-29); Chloride 99 mmol/L (98-107); Globulin 2.9 g/dL (1.3-4.6); Glucose 151 mg/dL (65-115); Osmolality Calculated 289 mOsm/kg (285-295); Potassium 4.5 mmol/L (3.5-5.1); Sodium 138 mmol/L (136-145); Total Bilirubin 0.2 mg/dL (0.15-1.2); Total Protein 6.8 g/dL (6.6-8.7)
== END 2021-05-12 23:59 | disposition home or self-care (01) ==
LOC: ONCMED 06:40
PROVIDERS: PCP Nurse Practitioner Family; Visit Provider Nurse Practitioner Family
DX: C34.31 Malignant neoplasm of lower lobe, right bronchus or lung (principal); J91.0 Malignant pleural effusion; C78.02 Secondary malignant neoplasm of left lung; I26.99 Other pulmonary embolism without acute cor pulmonale; J44.9 Chronic obstructive pulmonary disease, unspecified; I10 Essential (primary) hypertension; E78.5 Hyperlipidemia, unspecified; E11.42 Type 2 diabetes mellitus with diabetic polyneuropathy; M06.9 Rheumatoid arthritis, unspecified; D24.2 Benign neoplasm of left breast; D70.1 Agranulocytosis secondary to cancer chemotherapy; T45.1X5A Adverse effect of antineoplastic and immunosuppressive drugs, initial encounter; I48.91 Unspecified atrial fibrillation; D50.9 Iron deficiency anemia, unspecified; Z79.52 Long term (current) use of systemic steroids; Z79.899 Other long term (current) drug therapy; Z79.01 Long term (current) use of anticoagulants
CPT/HCPCS: 80053; 85025; 99214

== ENCOUNTER 2021-06-13 13:46 | Outpatient (RCR) | payer MEDICARE, OTHER, SELFPAY ==
[2021-06-13 12:51] LABS: Basophils % 0.2 %; Eosinophils % 0.1 %; Hematocrit 35.7 % (37.0-47.0); Hemoglobin 10.6 g/dL (11.5-15.3); Lymphocytes # 1.5 10^3/uL (0.8-4.8); Mean Corpuscular HGB Conc 29.7 g/dL (30.0-36.0); Mean Corpuscular Hemoglobin 29.3 pg (28.0-34.0); Mean Corpuscular Volume 98.6 fl (81-99); Mean Platelet Volume 9.3 fL (7.4-10.4); Monocytes # 0.3 10^3/uL (0.2-0.9); Monocytes % 3.7 %; Neutrophils # 7.24 10^3/uL (1.8-7.7); Neutrophils % 79.6 %; Nucleated Red Blood Cells % 0 %; Platelet Count 304 10^3/cmm (130-400); Red Blood Count 3.62 10^6/uL (4.1-5.3); Red Cell Distribution Width 15.6 % (12.1-15.1); White Blood Count 9.1 10^3/uL (4.0-10.0)
[2021-06-13 13:37] LABS: Alanine Aminotransferase 13 U/L (0-33); Albumin Level 3.5 g/dL (3.5-5.2); Alkaline Phosphatase 80 IU/L (35-105); Chloride 98 mmol/L (98-107); Ferritin 99 ng/mL (15-150); Potassium 4.9 mmol/L (3.5-5.1); Sodium 136 mmol/L (136-145)
[2021-06-13 14:36] LABS: Anion Gap 17.9 (5-19); Aspartate Amino Transferase 14 U/L (0-32); Blood Urea Nitrogen 15 mg/dL (8-23); Calcium 9.2 mg/dL (8.5-10.5); Carbon Dioxide 22 mmol/L (22-29); Iron 85 ug/dL (37-145); Percent Saturation 34.1 % (20-50); Total Bilirubin 0.2 mg/dL (0.15-1.2); Total Iron Binding Capacity 249 mcg/dl; Unsaturated Iron Binding 164 ug/dL (112-347)
[2021-06-13 14:37] LABS: Glomerular Filtration Rate 82.7 mL/min (90-130)
[2021-06-13 14:38] LABS: Glucose 151 mg/dL (65-115); Osmolality Calculated 286 mOsm/kg (285-295); Total Protein 6.5 g/dL (6.6-8.7)
--- NOTE | 2021-06-14 08:40 | ONC FU_ITS ---
Dr. Olson Patient Follow-Up Note Patient: Eunice Aguilar Unit #: [id number]: 1950 Dicatated By: Chino Olson M.D.Date of Visit:Jun 13, 2021 Onc Med Follow-up/Prog Note Chief Complaint: Lung cancer. 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 She had subsequent progression to stage GLADYS (M1a) with development of malignant pleural effusion. In June 2019 she had a coughing fit which led to a chest x-ray. That study showed a possible mass in the right lower lobe. Her further evaluation was delayed, I assume because of the restrictions related to the coronavirus pandemic. In any case, her chest CT on 09/11/2019 showed a lobulated mass in the right lower lobe measuring 2.9 x 3.7 x 2.8 cm. It was noted to abut the diaphragm anteriorly. There were a few tiny micronodular satellite opacities. A small left suprahilar opacity measured 8 mm. A noncalcified nodule in the right upper lobe measured 2 mm. An additional fibrotic opacity in the right upper lobe measured 4 mm. There was no mediastinal or hilar lymphadenopathy. She was incidentally noted to have a 9 mm left breast nodule. PET/CT on 09/19/2019 showed FDG avid mass in the right lower lobe measuring 4.0 x 3.5 cm, SUV 12.5, indicating high probability of malignancy. A 6 mm left upper lobe nodule with SUV 2.5, which was concerning for contralateral metastatic disease. There were no other areas of abnormal uptake on that study. On 10/02/2019 she underwent navigational bronchoscopy with EBUS and transbronchial biopsy of the right lung mass. The EBUS did show evidence of mediastinal and hilar lymphadenopathy, and the procedure also included FNA biopsies of stations 7, 10 R, and 11 R lymph nodes. Pathology on the transbronchial biopsy showed benign bronchial mucosa with no dysplasia or malignancy seen. Cytology on the FNA biopsies was also negative for malignancy. I had seen her initially on 10/19/2019. With those findings, she was referred to Dr. Cox and on 12/07/2019 she underwent right lower lobectomy. 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 The tumor measured 4 x 4.2 x 3.2 cm. There was involvement in 1/3 lymph nodes, which included an intrabronchial lymph node, and inferior hilar lymph node, and a posterior hilar lymph node. The procedure did not include mediastinal lymph node sampling. Pathologic staging was pT2b, pN1. Postoperatively she underwent further evaluation for the left breast mass which had been noted on her chest CT scan. She eventually underwent left breast lumpectomy under needle localization on 02/01/2020. Pathology was benign. She then had radiation oncology follow-up with Dr. Hong regarding the left upper lobe nodule. Restaging chest CT on 03/08/2020 showed the left upper lobe nodule stable at 10 mm. There was slight increase in the right subcarinal lymph node measuring 14 mm as well as slight increase in a right anterior mediastinal lymph node measuring 10 mm. This was felt to be suspicious for disease progression. Restaging PET/CT on 03/12/2020 showed no evidence for recurrent or residual malignancy. The left upper lobe nodule measured 6 mm and showed low FDG activity, SUV 1.5, improved from the prior study. The mediastinal lymph nodes appeared radiographically benign and without significant FDG uptake. I had seen her for a follow-up visit on 03/23/2020, and with those findings, she continued on expectant management for the lung cancer. However, at that point I had requested a next generation sequencing study on the primary tumor. It was found to have positive PD-L1 expression for 22C3 and for 28-8, both at 20%. The tumor also was found to harbor an exon 2 p.G12C KRAS mutation. There were no other actionable mutations identified. Her repeat chest CT on 07/18/2020 showed postoperative changes of prior right lower lobectomy. A left upper pulmonary nodule measuring 10 mm appeared unchanged. A right lower lobe nodule along the fissure measuring 6 mm also appeared stable. There were several new subcentimeter noncalcified pulmonary nodules, the largest in the right upper lobe measuring 3 mm. There appeared to be significant progression of the mediastinal and subcarinal lymphadenopathy with the right subcarinal lymph node measuring 19 mm compared to 14 mm on the previous study and with the anterior mediastinal lymph node measuring 17 mm compared to 10 mm. I had seen her for a follow-up visit on 07/27/2020. Although the CT findings were suspicious for disease progression, at that point she still preferred to continue with observation/expectant management. On 08/30/2020 she was admitted to the hospital after presenting to the emergency room with shortness of breath and hypoxic respiratory failure. Her CT pulmonary angiogram showed no evidence of pulmonary embolism, but there was a new large right pleural effusion with compressive atelectasis in the right lung. Also noted was increasing size of scattered pulmonary nodules in the left lung possibly due to metastatic disease. Mediastinal and right hilar lymphadenopathy appeared stable. She had significant improvement in symptoms following ultrasound-guided thoracentesis. Her pleural fluid cytology was positive for malignancy. On 09/09/2020 she underwent placement of a Pleurx catheter in the right chest. On 10/16/2019 when she was admitted to the hospital with empyema due to E. coli. Her chest CT at that time showed evidence of right lower lobectomy with partial right lower lung consolidation. Multiple left pulmonary nodules were noted to be minimally increased. Mediastinal adenopathy was noted to be stable. She was treated with antibiotic therapy. Her discharge summary also noted that she had evidence of pulmonary emboli by CT scan, though on my review I did not see where that was actually reported. She was discharged home on ciprofloxacin and rivaroxaban. She then continued followup with Dr. Santacruz. As of her visit with him on 11/25/2020 she was able to have the Pleurx catheter removed. She was seen for a follow-up visit on 12/20/2020. At that point she agreed to proceed with a trial of systemic therapy with carboplatin/pemetrexed chemotherapy in combination with pembrolizumab. She began cycle 1 on 01/05/2021. She experienced no acute toxicity with that treatment. At her day 8 toxicity check she was neutropenic, but not febrile. She was given Neupogen for 2 days. Subsequent to that visit, she had significant worsening of her joint pain, and she opted on her own to restart her methotrexate. As of her follow-up visit on 01/26/2021 she remained neutropenic. She was recommended to stop methotrexate, and she then restarted prednisone for the rheumatoid arthritis. Her chemotherapy remained on hold. Her other medical illnesses include COPD, hypertension, hyperlipidemia, type 2 diabetes with neuropathy, and rheumatoid arthritis. She has history of smoking 1-1/2 packs of cigarettes daily for 50 years. INTERIM HISTORY: As of her follow-up visit on 03/08/2021 she was showing some improvement clinically. As she was not going to be a candidate for any further immunotherapy, she was recommended to begin second line treatment with sotorasib for the KRAS G12C mutation. During the week of 04/17/2020 when she began sotorasib at the standard dosage of 800 mg daily. Within 2 weeks she did have to start furosemide for some mild lower extremity edema, but has of her follow-up visit on 05/10/2021 she was otherwise tolerating it without adverse effects. She is seen for a scheduled visit. She has been feeling pretty good generally, though she does complain that she has no energy and that she has to make herself do anything. She continues to have significant joint pain, mainly in her ankles and feet. She has remained off methotrexate, and her prednisone has been tapered back to 10 mg daily. She has been taking tramadol as needed. She is able to do housework. Her ECOG score is 1. She has good appetite. She does not have fever or night sweats. She has not had sore mouth or throat, but she has had persistent hoarseness. She does not complain of cough. She is short of breath with activity. She has not been having chest pain, but she has now on medication for atrial fibrillation. She has no GI or complaints. She does not complain of headache or dizziness. She sometimes has numbness in her feet. Medications: dilTIAZem CD 1 Tablet (of 120 mg) Capsule SR 24 HR Oral daily, Folic Acid 1 Tablet (of 800 mcg) Oral daily, Gabapentin Tablet Oral b.i.d., Metoprolol Tartrate 1 Tablet (of 25 mg) Oral, Potassium Chloride ER Capsule, controlled release Oral daily, predniSONE 1 Tablet (of 5 mg) Oral daily, Xarelto Tablet Oral Allergies: Aspirin, Lisinopril, and Nickel. Vital Signs: Performed on Jun 13, 2021 15:05 Height - 63.00 in Weight - 181.6 lbs (HIGH) BSA - 1.86 sq.m BMI - 32.17 (HIGH) Temperature - 97.8 F (LOW) Pulse - 77 /min Respiration - 20 /min BP - 179/69 mm(hg) (HIGH) O2 Sat - 91 % (LOW) Pain - 7 Fatigue - 8 Physical Examination: Constitutional - She looks pretty good generally, Eyes - Sclerae nonicteric. Conjunctivae clear, ENMT - No lesions noted in the oral cavity, Hematologic/Lymphatic - No cervical, clavicular, or axillary adenopathy, Respiratory - Lungs diminished air movement at the right base with slightly coarse breath sounds bilaterally, Cardiovascular - Heart rhythm is irregular. There is a II/ systolic murmur. There is no gallop or rub noted, Abdomen - Soft. Liver and spleen are not enlarged. There is no abdominal mass or ascites noted and there is no inguinal adenopathy, Extremities - Slight edema, Neurologic - No focal neurologic deficits noted. Lab/Imaging: Test performed on Jun 13, 2021 12:40 Ferritin 99 ng/mL Iron 85 mcg/dL Sodium 136 mmol/L Iron Binding Capacity (TIBC) 249 mcg/dl Potassium 4.9 mmol/L % Iron Saturation 34.1 % Chloride 98 mmol/L CO2 22 mmol/L UIBC 164 mcg/dL Anion Gap 17.9 BUN 15 mg/dL Creatinine 0.7 mg/dL Cr Clearance (Est) 97.25 mL/min eGFR 82.7 mL/min Glucose 151 mg/dL Osmolality - Calculated 286 mOsm/kg Calcium 9.2 mg/dL Protein, Total 6.5 g/dL Albumin 3.5 g/dL Globulin 3.0 g/dL Bilirubin, Total 0.2 mg/dL ALT (SGPT) 13 U/L AST (SGOT) 14 U/L Alkaline Phosphatase 80 IU/L WBC 9.1 10 3/uL RBC 3.62 10 6/uL HGB 10.6 g/dL HCT 35.7 % MCV 98.6 fl MCH 29.3 pg MCHC 29.7 g/dL RDW 15.6 % Platelet Count 304 10 3/cmm MPV 9.3 fL Neutrophils 7.24 10 3/uL Lymphocytes 1.5 10 3/uL Monocytes 0.3 10 3/uL Eosinophils 0.0 10 3/uL Basophils 0.0 10 3/uL Neutrophil % 79.6 % Lymphocyte % 16.0 % Monocyte % 3.7 % Eosinophil % 0.1 % Basophils % 0.2 % NRBC % 0 % Problem List: 1. 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 She underwent right lower lobectomy on 12/07/2019. Her disease was initially stage IIB (pT2b, pN1, M0). She had subsequent progression to stage GLADYS (M1a) with development malignant pleural effusion. 2. She also was found to have an additional subcentimeter left upper lobe nodule with mild FDG activity, initially felt to be suspicious for contralateral lung malignancy. 3. She also had CT evidence of pulmonary emboli. 4. She has underlying COPD. 5. Hypertension. 6. Hyperlipidemia. 7. Type 2 diabetes with neuropathy. 8. Rheumatoid arthritis. She as been on immunosuppressive therapy with methotrexate and hydroxychloroquine. 9. She had CT evidence of a left breast nodule, but that was ultimately determined to be benign on excisional biopsy. Problems Addressed with this Encounter and Plan: 1. 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 She underwent right lower lobectomy on 12/07/2019. She had subsequent progression to stage GLADYS (M1a) with development malignant pleural effusion. Her tumor was found to be positive for PD-L1 expression at 20%. It also was found to harbor a KRAS G12C mutation. During follow-up she was noted to have enlarging subcarinal and anterior mediastinal lymph nodes, suspicious for metastatic disease. These had previously been evaluated with bronchoscopy/EBUS with benign findings on FNA biopsy. The progressive enlargement of the lymph nodes appeared suspicious for metastatic disease, but she preferred to continue close observation. On 08/30/2020 she was admitted to the hospital with development of new large right pleural effusion. She had significant symptomatic improvement following thoracentesis. Her pleural fluid cytology was positive, consistent with metastatic disease. She had recurrence of symptoms following discharge from the hospital, and on 09/10/2019 when she underwent placement of a Pleurx catheter in the right chest. Her further clinical course was complicated by development of empyema due to E. coli and also, apparently, by pulmonary emboli. She had improvement on antibiotic therapy and she then continued on anticoagulation with rivaroxaban. She then continued follow-up with Dr. Santacruz. She is able to have her chest tube removed on 11/25/2020. She was seen for a follow-up visit on 12/20/2020, and at that point she was recommended to proceed with a trial of systemic therapy with carboplatin/pemetrexed chemotherapy in combination with pembrolizumab. She began cycle 1 on 01/05/2021. She tolerated it without acute toxicity. By day 8 she had developed moderately severe neutropenia, for which she was given Neupogen for 2 days. She then developed worsening joint pain, suspected to have been a flareup of her RA associated with the immunotherapy. She had opted to restart her methotrexate. However, I did have her stop it , as she was still neutropenic. As of her follow-up visit on 02/07/2021 she was reporting some improvement in the joint pain with the prednisone increased to 15 mg daily. She was still neutropenic, and her chemotherapy remained on hold. During follow-up she did have adequate recovery, but it was clear that she was not going to be able to tolerate further immunotherapy. As such, in April 2021 she began second line treatment with sotorasib, targeting the KRAS G12C mutation. Side effects thus far have included fatigue and mild lower extremity edema. Overall, she has tolerated it well. She has not been evaluated for response, but thus far there has been no clinical evidence of disease progression. She continues sotorasib 800 mg daily. She will be scheduled for a follow-up visit in 1 month. In the meantime, she will be scheduled for restaging chest CT, and I will arrange for referral to Dr. Sanchez for evaluation of the hoarseness. 2. She reportedly had evidence of pulmonary emboli by chest CT scan. She continues anticoagulation with rivaroxaban. Signed By: Chino Olson M.D. <<Signature on File>>
== END 2021-07-10 23:59 | disposition home or self-care (01) ==
LOC: ONCMED 13:46
PROVIDERS: Internal Medicine Medical Oncology; PCP Nurse Practitioner Family; Visit Provider Nurse Practitioner Family
DX: C34.31 Malignant neoplasm of lower lobe, right bronchus or lung (principal); J91.0 Malignant pleural effusion; C78.02 Secondary malignant neoplasm of left lung; D24.2 Benign neoplasm of left breast; I26.99 Other pulmonary embolism without acute cor pulmonale; J44.9 Chronic obstructive pulmonary disease, unspecified; I10 Essential (primary) hypertension; E78.5 Hyperlipidemia, unspecified; E11.42 Type 2 diabetes mellitus with diabetic polyneuropathy; M06.9 Rheumatoid arthritis, unspecified; Z79.52 Long term (current) use of systemic steroids; Z79.01 Long term (current) use of anticoagulants; Z79.899 Other long term (current) drug therapy
CPT/HCPCS: 36591; 80053; 82728; 83540; 83550; 85025; 99214

== ENCOUNTER 2021-07-10 10:28 | Outpatient (CLI) | payer MEDICARE, OTHER, SELFPAY ==
--- NOTE | 2021-07-10 10:52 | CT_ITS ---
WS: [id number] CT CHEST WITH INTRAVENOUS CONTRAST HISTORY: LUNG CANCER TECHNIQUE: Contiguous 5 mm axial imaging performed on the thorax. Coronal and sagittal reformats are submitted. All CT scans at [facility] use at least one of these dose optimization techniques: automated exposure control; mA and/or kV adjustment per patient size (includes targeted exams where dose is matched to clinical indication); or iterative reconstruction. CONTRAST: Omnipaque 300; 95 mL IV. DLP: 727.41 mGy.cm COMPARISON: 07/18/2020, 12/26/2020 Lungs and central airway: Post RIGHT lower lobectomy. Pleural thickening and volume loss in the RIGHT thorax from the lobectomy. Numerous nodules are scattered throughout both lungs. Bilateral periphera l and subpleural distribution. These nodules were new on 12/26/2020 and have moderately improved and d ecreased in size. There are residual nodules. Some of these nodules are spiculated and some are groun dglass, subsolid opacifications now. Largest nodules measure approximately 7 mm. Pleura: Pleural thickening throughout the RIGHT thorax. Pleural thickening has improved since 12/27/19 21. There is a small effusion at the RIGHT lung base which has decreased in size. Heart and pericardium: Normal size heart with no pericardial effusion. Mediastinum and karly: Moderate improvement in the soft tissue density and masslike consolidation cent ered at the RIGHT hilum. Soft tissue of the RIGHT hilum measures 13 x 12 mm which has significantly i mproved since the prior study. There is partial encasement of the RIGHT hilar structures. Significant improvement in the mediastinal and hilar lymphadenopathy since the prior study. Vessels: Moderate atherosclerosis aorta. No aneurysm. Mild pulmonary enlargement. Chest wall and lower neck: No change in the 5 mm nodule in the posterior lateral LEFT breast. Upper abdomen: Visualized liver is negative for masses. Gallbladder is negative. No adrenal mass. Nor mal spleen. Moderate calcification in the visualized upper abdominal aorta Osseous structures: No destructive process. CT/CT chest w con* [id number] IMPRESSION: 1. Moderate improvement in the pulmonary metastatic nodules since 12/26/2020. T here are residual nodules and a few scattered peripheral groundglass opacificat ions which may be due to pneumonitis or the improving treated nodules. 2. Moderate improvement in the soft tissue neoplastic mass centered at the RIG HT hilum and moderate improvement in the hilar and mediastinal lymph nodes sinc e 12/26/2020. 3. Small RIGHT pleural effusion has improved also. 4. Status post RIGHT lower lobectomy. 5. No metastatic lesions identified within the visualized liver or adrenal gla nds.
[2021-07-10] MEDS: iohexol 300 mg/mL 100 mL Btl IV (11:42)
== END 2021-07-10 10:29 | disposition home or self-care (01) ==
PROVIDERS: PCP Nurse Practitioner Family; Visit Provider Internal Medicine Medical Oncology
DX: C34.31 Malignant neoplasm of lower lobe, right bronchus or lung (principal); J91.0 Malignant pleural effusion; Z90.2 Acquired absence of lung [part of]
CPT/HCPCS: 71260

== ENCOUNTER 2021-08-02 08:50 | Outpatient (RCR) | payer MEDICARE, OTHER, SELFPAY ==
[2021-08-02 09:39] LABS: Basophils % 0.2 %; Eosinophils # 0.2 10^3/uL (0.0-0.8); Eosinophils % 1.2 %; Hematocrit 37.2 % (37.0-47.0); Hemoglobin 11.3 g/dL (11.5-15.3); Lymphocytes # 1.4 10^3/uL (0.8-4.8); Lymphocytes % 11.5 %; Mean Corpuscular HGB Conc 30.4 g/dL (30.0-36.0); Mean Corpuscular Hemoglobin 29.7 pg (28.0-34.0); Mean Corpuscular Volume 97.6 fl (81-99); Mean Platelet Volume 9.4 fL (7.4-10.4); Monocytes # 0.7 10^3/uL (0.2-0.9); Monocytes % 5.3 %; Neutrophils % 81.2 %; Nucleated Red Blood Cells % 0 %; Platelet Count 354 10^3/cmm (130-400); Red Blood Count 3.81 10^6/uL (4.1-5.3); Red Cell Distribution Width 14.9 % (12.1-15.1); White Blood Count 12.5 10^3/uL (4.0-10.0)
[2021-08-02 10:20] LABS: Alanine Aminotransferase 16 U/L (0-33); Albumin Level 3.9 g/dL (3.5-5.2); Alkaline Phosphatase 70 IU/L (35-105); Anion Gap 14.7 (5-19); Aspartate Amino Transferase 13 U/L (0-32); Blood Urea Nitrogen 19 mg/dL (8-23); Calcium 9.6 mg/dL (8.5-10.5); Carbon Dioxide 26 mmol/L (22-29); Chloride 99 mmol/L (98-107); Glomerular Filtration Rate 98.8 mL/min (90-130); Glucose 154 mg/dL (65-115); Osmolality Calculated 287 mOsm/kg (285-295); Potassium 3.7 mmol/L (3.5-5.1); Sodium 136 mmol/L (136-145); Thyroid Stimulating Hormone 1.08 uIU/mL (0.27-4.20); Total Bilirubin 0.3 mg/dL (0.15-1.2); Total Protein 6.9 g/dL (6.6-8.7)
[2021-08-02 13:10] LABS: NT Pro B Type Natriuretic Pept 131 pg/mL (0-125)
--- NOTE | 2021-08-06 09:55 | ONC FU_ITS ---
Dr. Olson Patient Follow-Up Note Patient: Eunice Aguilar Unit #: [id number]: 1950 Dicatated By: Chino Olson M.D.Date of Visit:Aug 02, 2021 Onc Med Follow-up/Prog Note Chief Complaint: Lung cancer. 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 She had subsequent progression to stage GLADYS (M1a) with development of malignant pleural effusion. In June 2019 she had a coughing fit which led to a chest x-ray. That study showed a possible mass in the right lower lobe. Her further evaluation was delayed, I assume because of the restrictions related to the coronavirus pandemic. In any case, her chest CT on 09/11/2019 showed a lobulated mass in the right lower lobe measuring 2.9 x 3.7 x 2.8 cm. It was noted to abut the diaphragm anteriorly. There were a few tiny micronodular satellite opacities. A small left suprahilar opacity measured 8 mm. A noncalcified nodule in the right upper lobe measured 2 mm. An additional fibrotic opacity in the right upper lobe measured 4 mm. There was no mediastinal or hilar lymphadenopathy. She was incidentally noted to have a 9 mm left breast nodule. PET/CT on 09/19/2019 showed FDG avid mass in the right lower lobe measuring 4.0 x 3.5 cm, SUV 12.5, indicating high probability of malignancy. A 6 mm left upper lobe nodule with SUV 2.5, which was concerning for contralateral metastatic disease. There were no other areas of abnormal uptake on that study. On 10/02/2019 she underwent navigational bronchoscopy with EBUS and transbronchial biopsy of the right lung mass. The EBUS did show evidence of mediastinal and hilar lymphadenopathy, and the procedure also included FNA biopsies of stations 7, 10 R, and 11 R lymph nodes. Pathology on the transbronchial biopsy showed benign bronchial mucosa with no dysplasia or malignancy seen. Cytology on the FNA biopsies was also negative for malignancy. I had seen her initially on 10/19/2019. With those findings, she was referred to Dr. Cox and on 12/07/2019 she underwent right lower lobectomy. 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 The tumor measured 4 x 4.2 x 3.2 cm. There was involvement in 1/3 lymph nodes, which included an intrabronchial lymph node, and inferior hilar lymph node, and a posterior hilar lymph node. The procedure did not include mediastinal lymph node sampling. Pathologic staging was pT2b, pN1. Postoperatively she underwent further evaluation for the left breast mass which had been noted on her chest CT scan. She eventually underwent left breast lumpectomy under needle localization on 02/01/2020. Pathology was benign. She then had radiation oncology follow-up with Dr. Hong regarding the left upper lobe nodule. Restaging chest CT on 03/08/2020 showed the left upper lobe nodule stable at 10 mm. There was slight increase in the right subcarinal lymph node measuring 14 mm as well as slight increase in a right anterior mediastinal lymph node measuring 10 mm. This was felt to be suspicious for disease progression. Restaging PET/CT on 03/12/2020 showed no evidence for recurrent or residual malignancy. The left upper lobe nodule measured 6 mm and showed low FDG activity, SUV 1.5, improved from the prior study. The mediastinal lymph nodes appeared radiographically benign and without significant FDG uptake. I had seen her for a follow-up visit on 03/23/2020, and with those findings, she continued on expectant management for the lung cancer. However, at that point I had requested a next generation sequencing study on the primary tumor. It was found to have positive PD-L1 expression for 22C3 and for 28-8, both at 20%. The tumor also was found to harbor an exon 2 p.G12C KRAS mutation. There were no other actionable mutations identified. Her repeat chest CT on 07/18/2020 showed postoperative changes of prior right lower lobectomy. A left upper pulmonary nodule measuring 10 mm appeared unchanged. A right lower lobe nodule along the fissure measuring 6 mm also appeared stable. There were several new subcentimeter noncalcified pulmonary nodules, the largest in the right upper lobe measuring 3 mm. There appeared to be significant progression of the mediastinal and subcarinal lymphadenopathy with the right subcarinal lymph node measuring 19 mm compared to 14 mm on the previous study and with the anterior mediastinal lymph node measuring 17 mm compared to 10 mm. I had seen her for a follow-up visit on 07/27/2020. Although the CT findings were suspicious for disease progression, at that point she still preferred to continue with observation/expectant management. On 08/30/2020 she was admitted to the hospital after presenting to the emergency room with shortness of breath and hypoxic respiratory failure. Her CT pulmonary angiogram showed no evidence of pulmonary embolism, but there was a new large right pleural effusion with compressive atelectasis in the right lung. Also noted was increasing size of scattered pulmonary nodules in the left lung possibly due to metastatic disease. Mediastinal and right hilar lymphadenopathy appeared stable. She had significant improvement in symptoms following ultrasound-guided thoracentesis. Her pleural fluid cytology was positive for malignancy. On 09/09/2020 she underwent placement of a Pleurx catheter in the right chest. On 10/16/2019 when she was admitted to the hospital with empyema due to E. coli. Her chest CT at that time showed evidence of right lower lobectomy with partial right lower lung consolidation. Multiple left pulmonary nodules were noted to be minimally increased. Mediastinal adenopathy was noted to be stable. She was treated with antibiotic therapy. Her discharge summary also noted that she had evidence of pulmonary emboli by CT scan, though on my review I did not see where that was actually reported. She was discharged home on ciprofloxacin and rivaroxaban. She then continued followup with Dr. Santacruz. As of her visit with him on 11/25/2020 she was able to have the Pleurx catheter removed. She was seen for a follow-up visit on 12/20/2020. At that point she agreed to proceed with a trial of systemic therapy with carboplatin/pemetrexed chemotherapy in combination with pembrolizumab. She began cycle 1 on 01/05/2021. She experienced no acute toxicity with that treatment. At her day 8 toxicity check she was neutropenic, but not febrile. She was given Neupogen for 2 days. Subsequent to that visit, she had significant worsening of her joint pain, and she opted on her own to restart her methotrexate. As of her follow-up visit on 01/26/2021 she remained neutropenic. She was recommended to stop methotrexate, and she then restarted prednisone for the rheumatoid arthritis. Her chemotherapy remained on hold. Her other medical illnesses include COPD, hypertension, hyperlipidemia, type 2 diabetes with neuropathy, and rheumatoid arthritis. She has history of smoking 1-1/2 packs of cigarettes daily for 50 years. INTERIM HISTORY: As of her follow-up visit on 03/08/2021 she was showing some improvement clinically. As she was not going to be a candidate for any further immunotherapy, she was recommended to begin second line treatment with sotorasib for the KRAS G12C mutation. During the week of 04/17/2021 she began sotorasib at the standard dosage of 800 mg daily. Within 2 weeks she did have to start furosemide for some mild lower extremity edema, but has of her follow-up visit on 05/10/2021 she was otherwise tolerating it without adverse effects. Her restaging chest CT on 07/10/2021 showed moderate improvement in the soft tissue neoplastic mass centered at the right hilum and moderate improvement in the right hilar and mediastinal adenopathy. There was moderate improvement in the pulmonary metastatic lesions compared to the December 2020 study, though residual nodules and a few scattered peripheral groundglass opacifications were noted. She is seen for a scheduled visit. She has not been feeling very good. Her main complaint is that she has been having really bad diarrhea, up to 10 or 12 stools per day, despite taking a maximum dose of loperamide. Her energy is not that good, but she is still doing housework. ECOG score is 1. Her appetite has been okay. She has not had fever or night sweats, but she sometimes has hot flashes. She has a little bit of sinus drainage and a little bit of cough. She has not had sore mouth or throat. She is having shortness of breath with activity. She does not complain of chest pain. She has not been having nausea or abdominal pain, and she has no problems with bladder function. She has some soreness in her joints, especially in her feet. It is severe enough that she sometimes has a hard time walking. She does not complain of headache or dizziness. She does not complain of numbness, but she does describe having burning in her feet. Medications: Carvedilol 1.5 Tablet (of 12.5 mg) Oral b.i.d., Cinnamon 2 Tablet (of 500 mg) Oral daily, dilTIAZem CD 1 Tablet (of 120 mg) Capsule SR 24 HR Oral daily, Folic Acid 1 Tablet (of 800 mcg) Oral daily, Furosemide 1 Tablet (of 40 mg) Oral daily, Gabapentin (300 mg) Tablet Oral b.i.d., Iron 1 Tablet (of 325 (65 fe) mg) Oral daily, Lumakras 8 Tablet (of 120 mg) Oral daily, predniSONE 1 Tablet (of 10 mg) Oral daily, Turmeric 3 Tablet (of 500 mg) Oral daily, Xarelto (10 mg) Tablet Oral daily Allergies: Aspirin, Lisinopril, and Nickel. Vital Signs: Performed on Aug 02, 2021 09:00 Height - 63.00 in BP - 183/95 mm(hg) (HIGH) Performed on Aug 02, 2021 09:00 Height - 63.00 in Weight - 188.6 lbs (HIGH) BSA - 1.89 sq.m BMI - 33.41 (HIGH) Temperature - 97.3 F (LOW) Pulse - 95 /min Respiration - 16 /min BP - 186/88 mm(hg) (HIGH) O2 Sat - 93 % (LOW) Pain - 0 Fatigue - 5 Physical Examination: Constitutional - She looks pretty good generally, Eyes - Sclerae nonicteric. Conjunctivae clear, ENMT - No lesions noted in the oral cavity, Hematologic/Lymphatic - No cervical, clavicular, or axillary adenopathy, Respiratory - Lungs diminished air movement at the right base with slightly coarse breath sounds bilaterally, Cardiovascular - Heart rhythm is regular. There is no murmur, gallop, or rub noted, Abdomen - Soft. Liver and spleen are not enlarged. There is no abdominal mass or ascites noted and there is no inguinal adenopathy, Extremities - No edema, Neurologic - No focal neurologic deficits noted. Lab/Imaging: Test performed on Aug 02, 2021 09:15 Sodium 136 mmol/L TSH 1.08 uIU/mL Potassium 3.7 mmol/L Chloride 99 mmol/L CO2 26 mmol/L Anion Gap 14.7 BUN 19 mg/dL Creatinine 0.6 mg/dL Cr Clearance (Est) 117.8300 mL/min eGFR 98.8 mL/min Glucose 154 mg/dL Osmolality - Calculated 287 mOsm/kg Calcium 9.6 mg/dL Protein, Total 6.9 g/dL Albumin 3.9 g/dL Globulin 3.0 g/dL Bilirubin, Total 0.3 mg/dL ALT (SGPT) 16 U/L AST (SGOT) 13 U/L Alkaline Phosphatase 70 IU/L WBC 12.5 10 3/uL RBC 3.81 10 6/uL HGB 11.3 g/dL HCT 37.2 % MCV 97.6 fl MCH 29.7 pg MCHC 30.4 g/dL RDW 14.9 % Platelet Count 354 10 3/cmm MPV 9.4 fL Neutrophils 10.10 10 3/uL Lymphocytes 1.4 10 3/uL Monocytes 0.7 10 3/uL Eosinophils 0.2 10 3/uL Basophils 0.0 10 3/uL Neutrophil % 81.2 % Lymphocyte % 11.5 % Monocyte % 5.3 % Eosinophil % 1.2 % Basophils % 0.2 % NRBC % 0 % Problem List: 1. 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 She underwent right lower lobectomy on 12/07/2019. Her disease was initially stage IIB (pT2b, pN1, M0). She had subsequent progression to stage GLADYS (M1a) with development malignant pleural effusion. 2. She also was found to have an additional subcentimeter left upper lobe nodule with mild FDG activity, initially felt to be suspicious for contralateral lung malignancy. 3. She also had CT evidence of pulmonary emboli. 4. She has underlying COPD. 5. Hypertension. 6. Hyperlipidemia. 7. Type 2 diabetes with neuropathy. 8. Rheumatoid arthritis. She as been on immunosuppressive therapy with methotrexate and hydroxychloroquine. 9. She had CT evidence of a left breast nodule, but that was ultimately determined to be benign on excisional biopsy. Problems Addressed with this Encounter and Plan: 1. 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 She underwent right lower lobectomy on 12/07/2019. She had subsequent progression to stage GLADYS (M1a) with development malignant pleural effusion. Her tumor was found to be positive for PD-L1 expression at 20%. It also was found to harbor a KRAS G12C mutation. During follow-up she was noted to have enlarging subcarinal and anterior mediastinal lymph nodes, suspicious for metastatic disease. These had previously been evaluated with bronchoscopy/EBUS with benign findings on FNA biopsy. The progressive enlargement of the lymph nodes appeared suspicious for metastatic disease, but she preferred to continue close observation. On 08/30/2020 she was admitted to the hospital with development of new large right pleural effusion. She had significant symptomatic improvement following thoracentesis. Her pleural fluid cytology was positive, consistent with metastatic disease. She had recurrence of symptoms following discharge from the hospital, and on 09/10/2019 when she underwent placement of a Pleurx catheter in the right chest. Her further clinical course was complicated by development of empyema due to E. coli and also, apparently, by pulmonary emboli. She had improvement on antibiotic therapy and she then continued on anticoagulation with rivaroxaban. She then continued follow-up with Dr. Santacruz. She is able to have her chest tube removed on 11/25/2020. She was seen for a follow-up visit on 12/20/2020, and at that point she was recommended to proceed with a trial of systemic therapy with carboplatin/pemetrexed chemotherapy in combination with pembrolizumab. She began cycle 1 on 01/05/2021. She tolerated it without acute toxicity. By day 8 she had developed moderately severe neutropenia, for which she was given Neupogen for 2 days. She then developed worsening joint pain, suspected to have been a flareup of her RA associated with the immunotherapy. She had opted to restart her methotrexate. However, I did have her stop it , as she was still neutropenic. As of her follow-up visit on 02/07/2021 she was reporting some improvement in the joint pain with the prednisone increased to 15 mg daily. She was still neutropenic, and her chemotherapy remained on hold. During follow-up she did have adequate recovery, but it was clear that she was not going to be able to tolerate further immunotherapy. As such, in April 2021 she began second line treatment with sotorasib, targeting the KRAS G12C mutation. As of her follow-up visit on 06/13/2021 she appeared to be tolerating treatment well, and she was showing evidence of response by follow-up chest CT on 07/10/2021. However, since then she has developed significant diarrhea, which I assume to be due to the sotorasib. As such, her treatment will be put on hold. She will continue taking loperamide, but I also will have her bring in a stool sample to check for C. difficile. I will tentatively plan a follow-up visit in 1 month. 2. She reportedly had evidence of pulmonary emboli by chest CT scan. She continues anticoagulation with rivaroxaban. Signed By: Chino Olson M.D. <<Signature on File>>
== END 2021-08-10 23:59 | disposition home or self-care (01) ==
LOC: ONCMED 08:50
PROVIDERS: Internal Medicine Cardiovascular Disease; PCP Nurse Practitioner Family; Visit Provider Internal Medicine Medical Oncology
DX: C34.31 Malignant neoplasm of lower lobe, right bronchus or lung (principal); J91.0 Malignant pleural effusion; C78.02 Secondary malignant neoplasm of left lung; I26.99 Other pulmonary embolism without acute cor pulmonale; J44.9 Chronic obstructive pulmonary disease, unspecified; I10 Essential (primary) hypertension; E78.5 Hyperlipidemia, unspecified; E11.42 Type 2 diabetes mellitus with diabetic polyneuropathy; M06.9 Rheumatoid arthritis, unspecified; D24.2 Benign neoplasm of left breast; Z79.01 Long term (current) use of anticoagulants; Z79.52 Long term (current) use of systemic steroids; Z79.899 Other long term (current) drug therapy
CPT/HCPCS: 36591; 80053; 83880; 84443; 85025; 99214

== ENCOUNTER 2021-08-16 10:07 | Outpatient (CLI) | payer MEDICARE, OTHER, SELFPAY ==
--- NOTE | 2021-08-16 10:15 | USCV_ITS ---
Eunice Aguilar Age: 70 Gender: F : 1950 Exam Date: 08/16/2021 10:18 Ordering Phys: Kiko Albright MD ([email or web address]) Technologist: DOROTHY [place] [facility] [place]: bruit Risk Factors: Previous Vascular Surgery: Right Brachial BP: / Left Brachial BP: / Right Left Velocity (cm/s) Spectral Plaque Velocity (cm/s) Spectral Plaque Syst/Diast Broadening Syst/Diast Broadening 125.70/17.60 Prox CCA 76.10 / 18.70 88.20/ 15.40 Mid CCA 71.70 / 15.40 70.70/ 14.80 Distal CCA 78.50 / 14.80 84.70/ 21.80 Prox ICA 91.70 / 17.10 83.90/ 21.20 Mid ICA 83.80 / 24.80 91.00/ 24.40 Distal ICA 80.20 / 23.40 100.20 ECA 95.50 0.72 ICA/CCA 1.17 Antegrade Vertebral Antegrade 24.70/ 11.10 cm/s 52.10/ 15.40 cm/s Tri Subclavian Tri 106.9 155.1 0 0 FINDINGS Mild to moderate dense plaques at the bifurcations and proximal internal carotid arteries bilaterally Intimal thickening in the common carotid arteries bilaterally. Antegrade flow in the vertebral arteries bilaterally Normal Doppler flow velocities in the external carotid, vertebral and subclavian arteries bilaterally CONCLUSIONS Mild to moderate dense plaques at the bifurcations and proximal internal carotid arteries bilaterally, suggesting less than 50% stenosis. No significant arterial obstruction in the vertebral, subclavian and external carotid arteries, based on the above findings. Dr Kiko Albright MD [facility] (Electronically Signed) Final Date: 19 August 2021 08:36 S
== END 2021-08-16 10:08 | disposition home or self-care (01) ==
LOC: RAD 10:08
PROVIDERS: PCP Nurse Practitioner Family; Visit Provider Internal Medicine Cardiovascular Disease
DX: R09.89 Other specified symptoms and signs involving the circulatory and respiratory systems (principal); I77.9 Disorder of arteries and arterioles, unspecified; R06.02 Shortness of breath; I65.23 Occlusion and stenosis of bilateral carotid arteries
CPT/HCPCS: 93880

== ENCOUNTER 2021-09-04 12:25 | Outpatient (RCR) | payer MEDICARE, OTHER, SELFPAY ==
[2021-09-04 12:58] LABS: Basophils % 0.1 %; Eosinophils # 0.3 10^3/uL (0.0-0.8); Eosinophils % 3.2 %; Hematocrit 36.3 % (37.0-47.0); Hemoglobin 11.1 g/dL (11.5-15.3); Lymphocytes # 1.2 10^3/uL (0.8-4.8); Lymphocytes % 12.3 %; Mean Corpuscular HGB Conc 30.6 g/dL (30.0-36.0); Mean Corpuscular Hemoglobin 28.1 pg (28.0-34.0); Mean Corpuscular Volume 91.9 fl (81-99); Mean Platelet Volume 9.4 fL (7.4-10.4); Monocytes # 0.4 10^3/uL (0.2-0.9); Monocytes % 3.6 %; Neutrophils # 8.07 10^3/uL (1.8-7.7); Neutrophils % 80.2 %; Nucleated Red Blood Cells % 0 %; Platelet Count 341 10^3/cmm (130-400); Red Blood Count 3.95 10^6/uL (4.1-5.3); Red Cell Distribution Width 14.5 % (12.1-15.1); White Blood Count 10.1 10^3/uL (4.0-10.0)
[2021-09-04 13:14] LABS: Alanine Aminotransferase 6 U/L (0-33); Albumin Level 3.6 g/dL (3.5-5.2); Alkaline Phosphatase 88 IU/L (35-105); Aspartate Amino Transferase 12 U/L (0-32); Blood Urea Nitrogen 19 mg/dL (8-23); Calcium 8.2 mg/dL (8.5-10.5); Carbon Dioxide 24 mmol/L (22-29); Chloride 97 mmol/L (98-107); Globulin 2.7 g/dL (1.3-4.6); Glomerular Filtration Rate 98.8 mL/min (90-130); Glucose 174 mg/dL (65-115); Osmolality Calculated 284 mOsm/kg (285-295); Sodium 134 mmol/L (136-145); Total Bilirubin 0.3 mg/dL (0.15-1.2); Total Protein 6.3 g/dL (6.6-8.7)
[2021-09-04 13:23] LABS: Anion Gap 17.4 (5-19); Potassium 4.4 mmol/L (3.5-5.1)
--- NOTE | 2021-09-06 13:07 | ONC FU_ITS ---
[facility]ao [facility] Progress Note Patient: Eunice Aguilar Unit #: [id number]: 1950 Dicatated By: Pao Montaño N.P.Date of Visit:Sep 04, 2021 Onc MED Follow-up/Prog Note Chief Complaint: Lung cancer. 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 She had subsequent progression to stage GLADYS (M1a) with development of malignant pleural effusion. In June 2019 she had a coughing fit which led to a chest x-ray. That study showed a possible mass in the right lower lobe. Her further evaluation was delayed, I assume because of the restrictions related to the coronavirus pandemic. In any case, her chest CT on 09/11/2019 showed a lobulated mass in the right lower lobe measuring 2.9 x 3.7 x 2.8 cm. It was noted to abut the diaphragm anteriorly. There were a few tiny micronodular satellite opacities. A small left suprahilar opacity measured 8 mm. A noncalcified nodule in the right upper lobe measured 2 mm. An additional fibrotic opacity in the right upper lobe measured 4 mm. There was no mediastinal or hilar lymphadenopathy. She was incidentally noted to have a 9 mm left breast nodule. PET/CT on 09/19/2019 showed FDG avid mass in the right lower lobe measuring 4.0 x 3.5 cm, SUV 12.5, indicating high probability of malignancy. A 6 mm left upper lobe nodule with SUV 2.5, which was concerning for contralateral metastatic disease. There were no other areas of abnormal uptake on that study. On 10/02/2019 she underwent navigational bronchoscopy with EBUS and transbronchial biopsy of the right lung mass. The EBUS did show evidence of mediastinal and hilar lymphadenopathy, and the procedure also included FNA biopsies of stations 7, 10 R, and 11 R lymph nodes. Pathology on the transbronchial biopsy showed benign bronchial mucosa with no dysplasia or malignancy seen. Cytology on the FNA biopsies was also negative for malignancy. Dr. Olson had seen her initially on 10/19/2019. With those findings, she was referred to Dr. Cox and on 12/07/2019 she underwent right lower lobectomy. 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 The tumor measured 4 x 4.2 x 3.2 cm. There was involvement in 1/3 lymph nodes, which included an intrabronchial lymph node, and inferior hilar lymph node, and a posterior hilar lymph node. The procedure did not include mediastinal lymph node sampling. Pathologic staging was pT2b, pN1. Postoperatively she underwent further evaluation for the left breast mass which had been noted on her chest CT scan. She eventually underwent left breast lumpectomy under needle localization on 02/01/2020. Pathology was benign. She then had radiation oncology follow-up with Dr. Hong regarding the left upper lobe nodule. Restaging chest CT on 03/08/2020 showed the left upper lobe nodule stable at 10 mm. There was slight increase in the right subcarinal lymph node measuring 14 mm as well as slight increase in a right anterior mediastinal lymph node measuring 10 mm. This was felt to be suspicious for disease progression. Restaging PET/CT on 03/12/2020 showed no evidence for recurrent or residual malignancy. The left upper lobe nodule measured 6 mm and showed low FDG activity, SUV 1.5, improved from the prior study. The mediastinal lymph nodes appeared radiographically benign and without significant FDG uptake. I had seen her for a follow-up visit on 03/23/2020, and with those findings, she continued on expectant management for the lung cancer. However, at that point I had requested a next generation sequencing study on the primary tumor. It was found to have positive PD-L1 expression for 22C3 and for 28-8, both at 20%. The tumor also was found to harbor an exon 2 p.G12C KRAS mutation. There were no other actionable mutations identified. Her repeat chest CT on 07/18/2020 showed postoperative changes of prior right lower lobectomy. A left upper pulmonary nodule measuring 10 mm appeared unchanged. A right lower lobe nodule along the fissure measuring 6 mm also appeared stable. There were several new subcentimeter noncalcified pulmonary nodules, the largest in the right upper lobe measuring 3 mm. There appeared to be significant progression of the mediastinal and subcarinal lymphadenopathy with the right subcarinal lymph node measuring 19 mm compared to 14 mm on the previous study and with the anterior mediastinal lymph node measuring 17 mm compared to 10 mm. I had seen her for a follow-up visit on 07/27/2020. Although the CT findings were suspicious for disease progression, at that point she still preferred to continue with observation/expectant management. On 08/30/2020 she was admitted to the hospital after presenting to the emergency room with shortness of breath and hypoxic respiratory failure. Her CT pulmonary angiogram showed no evidence of pulmonary embolism, but there was a new large right pleural effusion with compressive atelectasis in the right lung. Also noted was increasing size of scattered pulmonary nodules in the left lung possibly due to metastatic disease. Mediastinal and right hilar lymphadenopathy appeared stable. She had significant improvement in symptoms following ultrasound-guided thoracentesis. Her pleural fluid cytology was positive for malignancy. On 09/09/2020 she underwent placement of a Pleurx catheter in the right chest. On 10/16/2019 when she was admitted to the hospital with empyema due to E. coli. Her chest CT at that time showed evidence of right lower lobectomy with partial right lower lung consolidation. Multiple left pulmonary nodules were noted to be minimally increased. Mediastinal adenopathy was noted to be stable. She was treated with antibiotic therapy. Her discharge summary also noted that she had evidence of pulmonary emboli by CT scan, though on my review I did not see where that was actually reported. She was discharged home on ciprofloxacin and rivaroxaban. She then continued followup with Dr. Santacruz. As of her visit with him on 11/25/2020 she was able to have the Pleurx catheter removed. She was seen for a follow-up visit on 12/20/2020. At that point she agreed to proceed with a trial of systemic therapy with carboplatin/pemetrexed chemotherapy in combination with pembrolizumab. She began cycle 1 on 01/05/2021. She experienced no acute toxicity with that treatment. At her day 8 toxicity check she was neutropenic, but not febrile. She was given Neupogen for 2 days. Subsequent to that visit, she had significant worsening of her joint pain, and she opted on her own to restart her methotrexate. As of her follow-up visit on 01/26/2021 she remained neutropenic. She was recommended to stop methotrexate, and she then restarted prednisone for the rheumatoid arthritis. Her chemotherapy remained on hold. Her other medical illnesses include COPD, hypertension, hyperlipidemia, type 2 diabetes with neuropathy, and rheumatoid arthritis. She has history of smoking 1-1/2 packs of cigarettes daily for 50 years. INTERIM HISTORY: As of her follow-up visit on 03/08/2021 she was showing some improvement clinically. As she was not going to be a candidate for any further immunotherapy, she was recommended to begin second line treatment with sotorasib for the KRAS G12C mutation. During the week of 04/17/2021 she began sotorasib at the standard dosage of 800 mg daily. Within 2 weeks she did have to start furosemide for some mild lower extremity edema, but has of her follow-up visit on 05/10/2021 she was otherwise tolerating it without adverse effects. Her restaging chest CT on 07/10/2021 showed moderate improvement in the soft tissue neoplastic mass centered at the right hilum and moderate improvement in the right hilar and mediastinal adenopathy. There was moderate improvement in the pulmonary metastatic lesions compared to the December 2020 study, though residual nodules and a few scattered peripheral groundglass opacifications were noted. Patient presents today for follow-up. She continues to have moderate amount of fatigue. Her appetite is good. She denies fever, chills, night sweats. She does experience shortness of breath with activity and is currently on oxygen therapy at 2 L as needed. She denies nausea and vomiting. Patient was on sotorasib 800 mg but it was placed on hold on 08/02/2021 due to diarrhea. That has now resolved. She denies joint or muscle pain. No headaches or dizziness. Review Of Symptoms: See above. Past Medical History: Chronic obstructive pulmonary disease Hyperlipidemia Hypertension Peripheral neuropathy Rheumatoid arthritis Type II diabetes Past Surgical History: Breast biopsy Covis vaccine #2 in 2020 Covis vaccine #1 in 2020 Flu vacc in 2019 Pneumoc in 2019 Lobectomy in 2020 - right lower lobe Navigational bronchoscopy with EBUS and transbronchial biopsy of right lung nodule in 2019 Colonoscopy in 2017 Allergies: Aspirin, Lisinopril, and Nickel. Medications: Carvedilol 1.5 Tablet (of 12.5 mg) Oral b.i.d. Cinnamon 2 Tablet (of 500 mg) Oral daily dilTIAZem CD 1 Tablet (of 120 mg) Capsule SR 24 HR Oral daily Folic Acid 1 Tablet (of 800 mcg) Oral daily Furosemide 1 Tablet (of 40 mg) Oral daily Gabapentin (300 mg) Tablet Oral b.i.d. Iron 1 Tablet (of 325 (65 fe) mg) Oral daily predniSONE 1 Tablet (of 10 mg) Oral daily Turmeric 3 Tablet (of 500 mg) Oral daily Xarelto (10 mg) Tablet Oral daily Family History: Ms. Aguilar's mother is alive. Ms. Aguilar's father at age 69: myocardial infarction. Father of heart attack at age 69. Mother is still living at age 92. She is being treated for breast cancer. A brother of vasculitis. Another brother has had a stroke. A maternal aunt had breast cancer. Social History: Ms. Aguilar is and she is retired. Ms. Aguilar no longer smokes but had smoked 1.0 pack/day for 52 years. She has no history of drinking. Ms. Aguilar reports the following support systems: lives alone, supportive family/friends willing to assist with needs, and adequate transportation available for expected visits. Her diet consists of regular meals. She indicates her activity level as: regular exercise. She has a history of smoking 1-1/2 packs of cigarettes daily for 50 years. She does not drink alcohol. Physical Examination: Performed on Sep 04, 2021 14:07: Height - 63.00 in, Weight - 189.2 lbs (HIGH), BSA - 1.89 sq.m, BMI - 33.52 (HIGH), Temperature - 97.6 F (LOW), Pulse - 83 /min, Respiration - 20 /min, BP - 151/69 mm(hg) (HIGH), O2 Sat - 93 % (LOW), Pain - 0, and Fatigue - 7. Performance Status: 1 - No physically strenuous activity, but ambulatory and able to carry out light or sedentary work (e.g. office work, light house work). (ECOG) Constitutional Alert, cooperative, oriented. Mood and affect appropriate. Appears close to chronological age. Well nourished. Well developed. Head Normocephalic; no scars. Respiratory Lungs are clear to auscultation without rhonchi or wheezing. Cardiovascular Regular rate and rhythm of heart without murmurs, gallops or rubs. Abdomen Non-tender, non-distended, no masses, ascites or hepatosplenomegaly. Good bowel sounds. No guarding or rebound tenderness. Musculoskeletal No tenderness or swelling, normal range of motion without obvious weakness. Psychiatric Alert and oriented times three. Coherent speech. Verbalizes understanding of our discussions today. Laboratory: Test performed on Sep 04, 2021 12:46 Sodium 134 mmol/L Potassium 4.4 mmol/L Chloride 97 mmol/L CO2 24 mmol/L Anion Gap 17.4 BUN 19 mg/dL Creatinine 0.6 mg/dL Cr Clearance (Est) 118.2000 mL/min eGFR 98.8 mL/min Glucose 174 mg/dL Osmolality - Calculated 284 mOsm/kg Calcium 8.2 mg/dL Protein, Total 6.3 g/dL Albumin 3.6 g/dL Globulin 2.7 g/dL Bilirubin, Total 0.3 mg/dL ALT (SGPT) 6 U/L AST (SGOT) 12 U/L Alkaline Phosphatase 88 IU/L WBC 10.1 10 3/uL RBC 3.95 10 6/uL HGB 11.1 g/dL HCT 36.3 % MCV 91.9 fl MCH 28.1 pg MCHC 30.6 g/dL RDW 14.5 % Platelet Count 341 10 3/cmm MPV 9.4 fL Neutrophils 8.07 10 3/uL Lymphocytes 1.2 10 3/uL Monocytes 0.4 10 3/uL Eosinophils 0.3 10 3/uL Basophils 0.0 10 3/uL Neutrophil % 80.2 % Lymphocyte % 12.3 % Monocyte % 3.6 % Eosinophil % 3.2 % Basophils % 0.1 % NRBC % 0 % Test performed on Aug 02, 2021 09:15 TSH 1.08 uIU/mL Test performed on Jun 13, 2021 12:40 Ferritin 99 ng/mL Iron 85 mcg/dL Iron Binding Capacity (TIBC) 249 mcg/dl % Iron Saturation 34.1 % UIBC 164 mcg/dL Impression: 1. 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 She underwent right lower lobectomy on 12/07/2019. Her disease was initially stage IIB (pT2b, pN1, M0). She had subsequent progression to stage GLADYS (M1a) with development malignant pleural effusion. 2. She also was found to have an additional subcentimeter left upper lobe nodule with mild FDG activity, initially felt to be suspicious for contralateral lung malignancy. 3. She also had CT evidence of pulmonary emboli. 4. She has underlying COPD. 5. Hypertension. 6. Hyperlipidemia. 7. Type 2 diabetes with neuropathy. 8. Rheumatoid arthritis. She as been on immunosuppressive therapy with methotrexate and hydroxychloroquine. 9. She had CT evidence of a left breast nodule, but that was ultimately determined to be benign on excisional biopsy. Plan: 1. 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 She underwent right lower lobectomy on 12/07/2019. She had subsequent progression to stage GLADYS (M1a) with development malignant pleural effusion. Her tumor was found to be positive for PD-L1 expression at 20%. It also was found to harbor a KRAS G12C mutation. During follow-up she was noted to have enlarging subcarinal and anterior mediastinal lymph nodes, suspicious for metastatic disease. These had previously been evaluated with bronchoscopy/EBUS with benign findings on FNA biopsy. The progressive enlargement of the lymph nodes appeared suspicious for metastatic disease, but she preferred to continue close observation. On 08/30/2020 she was admitted to the hospital with development of new large right pleural effusion. She had significant symptomatic improvement following thoracentesis. Her pleural fluid cytology was positive, consistent with metastatic disease. She had recurrence of symptoms following discharge from the hospital, and on 09/10/2019 when she underwent placement of a Pleurx catheter in the right chest. Her further clinical course was complicated by development of empyema due to E. coli and also, apparently, by pulmonary emboli. She had improvement on antibiotic therapy and she then continued on anticoagulation with rivaroxaban. She then continued follow-up with Dr. Santacruz. She is able to have her chest tube removed on 11/25/2020. She was seen for a follow-up visit on 12/20/2020, and at that point she was recommended to proceed with a trial of systemic therapy with carboplatin/pemetrexed chemotherapy in combination with pembrolizumab. She began cycle 1 on 01/05/2021. She tolerated it without acute toxicity. By day 8 she had developed moderately severe neutropenia, for which she was given Neupogen for 2 days. She then developed worsening joint pain, suspected to have been a flareup of her RA associated with the immunotherapy. She had opted to restart her methotrexate. However, I did have her stop it , as she was still neutropenic. As of her follow-up visit on 02/07/2021 she was reporting some improvement in the joint pain with the prednisone increased to 15 mg daily. She was still neutropenic, and her chemotherapy remained on hold. During follow-up she did have adequate recovery, but it was clear that she was not going to be able to tolerate further immunotherapy. As such, in April 2021 she began second line treatment with sotorasib, targeting the KRAS G12C mutation. As of her follow-up visit on 06/13/2021 she appeared to be tolerating treatment well, and she was showing evidence of response by follow-up chest CT on 07/10/2021. However, since then she has developed significant diarrhea, which we assume to be due to the sotorasib. As such, her treatment will be put on hold. She presents today for follow-up. Her diarrhea has now resolved. We will restart her sotorasib at a reduced dose of 400 mg daily. She will follow-up in 2 weeks with CBC and CMP. 2. She reportedly had evidence of pulmonary emboli by chest CT scan. She continues anticoagulation with rivaroxaban. Signed By: Pao Montaño N.P. <<Signature on File>>
== END 2021-09-09 23:59 | disposition home or self-care (01) ==
LOC: ONCMED 12:25
PROVIDERS: Internal Medicine Medical Oncology; PCP Nurse Practitioner Family; Visit Provider Nurse Practitioner Family
DX: C34.31 Malignant neoplasm of lower lobe, right bronchus or lung (principal); J91.0 Malignant pleural effusion; J43.9 Emphysema, unspecified; Z86.19 Personal history of other infectious and parasitic diseases; Z86.711 Personal history of pulmonary embolism; Z79.01 Long term (current) use of anticoagulants; M06.9 Rheumatoid arthritis, unspecified; Z79.52 Long term (current) use of systemic steroids; Z92.25 Personal history of immunosuppression therapy; D70.1 Agranulocytosis secondary to cancer chemotherapy; T45.1X5A Adverse effect of antineoplastic and immunosuppressive drugs, initial encounter; Z79.899 Other long term (current) drug therapy
CPT/HCPCS: 36591; 80053; 85025; 99214

== ENCOUNTER 2021-09-28 12:28 | Oncology outpatient (recurring) (ONCR) | payer MEDICARE, OTHER, SELFPAY ==
[2021-09-28 12:57] LABS: Basophils % 0.2 %; Eosinophils # 0.3 10^3/uL (0.0-0.8); Eosinophils % 2.4 %; Hematocrit 39.1 % (37.0-47.0); Hemoglobin 11.7 g/dL (11.5-15.3); Lymphocytes # 1.4 10^3/uL (0.8-4.8); Lymphocytes % 13.1 %; Mean Corpuscular HGB Conc 29.9 g/dL (30.0-36.0); Mean Corpuscular Hemoglobin 27.4 pg (28.0-34.0); Mean Corpuscular Volume 91.6 fl (81-99); Mean Platelet Volume 9.2 fL (7.4-10.4); Monocytes # 0.4 10^3/uL (0.2-0.9); Monocytes % 3.6 %; Neutrophils # 8.51 10^3/uL (1.8-7.7); Neutrophils % 80.2 %; Nucleated Red Blood Cells % 0 %; Platelet Count 336 10^3/cmm (130-400); Red Blood Count 4.27 10^6/uL (4.1-5.3); Red Cell Distribution Width 14.8 % (12.1-15.1); White Blood Count 10.6 10^3/uL (4.0-10.0)
[2021-09-28 13:18] LABS: Alanine Aminotransferase 12 U/L (0-33); Albumin Level 3.7 g/dL (3.5-5.2); Alkaline Phosphatase 79 IU/L (35-105); Anion Gap 17.8 (5-19); Aspartate Amino Transferase 10 U/L (0-32); Blood Urea Nitrogen 17 mg/dL (8-23); Calcium 8.2 mg/dL (8.5-10.5); Carbon Dioxide 26 mmol/L (22-29); Chloride 93 mmol/L (98-107); Globulin 2.6 g/dL (1.3-4.6); Glomerular Filtration Rate 82.7 mL/min (90-130); Glucose 251 mg/dL (65-115); Osmolality Calculated 286 mOsm/kg (285-295); Potassium 3.8 mmol/L (3.5-5.1); Sodium 133 mmol/L (136-145); Total Bilirubin 0.2 mg/dL (0.15-1.2); Total Protein 6.3 g/dL (6.6-8.7)
--- NOTE | 2021-10-03 09:30 | CT_ITS ---
WS: [id number] CTA OF THE CHEST WITH PULMONARY EMBOLISM PROTOCOL TECHNIQUE: High-resolution contrast enhanced CTA of the chest with coronal and sagittal reformatted i mages with pulmonary embolism protocol. MIP images are also reviewed. CLINICAL INFORMATION: shortness of breath, hypoxia COMPARISON: CT chest July 10, 2021 DLP: 546.[address] scans at [facility] use at least one of these dose optimization techniques: automated e xposure control; mA and/or kV adjustment per patient size (includes targeted exams where dose is matc hed to clinical indication); or iterative reconstruction. FINDINGS: Prior postoperative changes RIGHT lung with RIGHT lower lobe lobectomy. Volume loss RIGHT hemithorax with pleural fluid and pleural thickening. Surgical clips about the RIGHT hilum. RIGHT hilar soft tis valeriano thickening with RIGHT hilar soft tissue mass similar to the prior examination measuring 1.6 x 1.9 cm. Secretions with diffuse opacification RIGHT distal main stem bronchus is new from previous. Comp lete obstruction of the bronchus intermedius and RIGHT upper lobe bronchi . Small RIGHT pleural effusion with diffuse pleural thickening throughout the RIGHT lung. Interstitial thickening with airspace infiltrates likely due to postobstructive pneumonia throughout the RIGHT urszula g. Pleural thickening in the RIGHT lower lobe with suspected empyema. Extensive progressed disease throughout the LEFT lung with innumerable metastatic nodules markedly in creased and size and number. The largest nodules today measure 1.6 CM. Similar-appearing metastatic lesions within the RIGHT lung although difficult to quantify due to exte nsive pneumonia. Obstruction of the RIGHT distal main stem bronchus likely due to soft tissue mass an d fluid. Normal caliber thoracic aorta. Aortic calcification. Proximal main pulmonary arteries are normal. No evidence of pulmonary embolus. Cardiomegaly. Normal LEFT adrenal gland. RIGHT adrenal gland is not entirely included. Normal GE junc tion. RIGHT supraclavicular lymphadenopathy measuring 1.5 cm. This appears new from previous.Nodular thickening due to metastatic disease involving the pericardium
[2021-10-03] MEDS: iohexol 350 mg/mL 100 mL Btl IV (11:21)
== END 2021-10-10 23:59 | disposition home or self-care (01) ==
LOC: ONCMED 12:29
PROVIDERS: PCP Nurse Practitioner Family; Visit Provider Internal Medicine Medical Oncology
DX: C34.31 Malignant neoplasm of lower lobe, right bronchus or lung (principal); Z87.891 Personal history of nicotine dependence
CPT/HCPCS: 36591; 71275; 80053; 85025; 99214; 99999; Q9967

== ENCOUNTER 2021-10-02 11:49 | Emergency (ER) | payer MEDICARE, OTHER, SELFPAY ==
[2021-10-02 11:59] VITALS: BP 188/74; PULSE 112; RESP 24; TEMP 36.5; O2SAT 92; BMI 31.6
--- NOTE | 2021-10-02 12:31 | XR_ITS ---
WS: [id number] Exam: XR chest 1V portable [id number] Date/Time of Exam: 10/02/2021 12:42 PM Reason For Exam: dyspnea Large volume right-sided pleural effusion noted with almost complete white out of the right pleural c avity. There is infiltrate in the ventilated portion of the right upper lobe. There are numerous pulm onary nodules and small masses throughout the left lung apparently reflecting pulmonary metastatic di sease. The heart is probably slightly enlarged. No pneumothorax. Left-sided subclavian port probably ends near the cavoatrial junction. Surgical clips at the right hilum. Regional bony structures are in tact. XR/XR chest 1V portable [id number] IMPRESSION: 1. Large volume right-sided pleural effusion. Infiltrate and consolidation in t he ventilated aspects of the right upper lobe. 2. Numerous pulmonary nodules seen throughout the left lung. 3. Probable mild cardiac enlargement.
--- NOTE | 2021-10-02 12:32 | ECG_ITS ---
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 Measurements Intervals [place] Rate: 80 P: 56 AK: 179 QRS: 38 QRSD: 69 T: 65 QT: 363 QTc: 420 Interpretive Statements SINUS RHYTHM Compared to ECG 10/14/2020 16:04:38 No significant changes Electronically Signed On 10-02-2021 17:24:20 CDT by Bill Bradshaw M.D. [id number]
--- NOTE | 2021-10-02 12:40 | W.ED.GENADLT ---
Documented by User: Anderson Burgos MD 10/02/21 13:46 HPI - General Adult General: Chief complaint: Shortness of Breath/Dyspnea Stated complaint: short of breath, Time Seen by Provider: 10/02/21 12:19 History of Present Illness: Patient is a 70-year-old female with a history of stage IV lung cancer not on chemotherapy, paroxsymal afib on xarelto, COPD, hypertension, rheumatoid arthritis hyperlipidemia who presents the emergency room for worsening dyspnea x2 weeks. Patient tells me that over that period time, she has had increased sputum production. Patient denies any fever or chills. 3 days ago, patient started using a pulse ox. She noticed that she has been feeling increasingly fatigued upon exertion. Patient was in her O2 sats were in the 70s upon ambulation. Patient denies any chest pain, palpitation, nausea/vomiting, diarrhea, melena/hematochezia. Patient has no acute complaints or abdominal complaints. Patient was told by Dr. Olson to come to the emergency room given increased oxygen requirement. Onset: 2 weeks ago Duration:2 weeks Location:home Severity:moderate Associated symptoms: Reports dyspnea; Deny chest pain, nausea, rash, palpitations or vomiting Review of Systems Const: Denies: fever(s) or chills Eyes: Denies: change in vision ENMT: Denies: mouth pain Card: Denies: chest pain or palpitations Resp: Reports: dyspnea; Denies: non-productive cough GI: Denies: abdominal pain, nausea, vomiting or diarrhea : Denies: dysuria Musc: Denies: extremity pain Skin/Breast: Denies: rash or new lesions Neuro: Denies: weakness in extremities Psych: Reports: other (Normal mood) Rene/Lymph: Denies: easy bruising PFS ED PFSH: Medical History Chronic obstructive pulmonary disease, unspecified Essential (primary) hypertension Gastro-esophageal reflux disease without esophagitis Hyperlipidemia, unspecified Malignant neoplasm of lower lobe, right bronchus or lung (~02/2020) Stage IIB - T2b, N1, M0 Neuropathy Peripheral neuropathy Rheumatoid arthritis involving both hands with positive rheumatoid factor Type 2 diabetes mellitus without complications Surgical History H/O colonoscopy 3 yrs ago History of bronchoscopy (10/02/19) navigational bronchoscopy with EBUS Status post lobectomy of lung (12/07/19) right lower lobectomy Family History Father Osteoarthritis CAD (coronary artery disease) MS @ 66 Mother Hypertension Fibromyalgia Dementia Diabetes Brother Chronic kidney disease (CKD) Stroke Brother Stroke Denies family history of Rheumatoid arthritis Lupus Clotting disorder Suicide Anesthesia complication Bleeding disorder Lung disease Cancer Social History Smoking and tobacco status: former smoker Quit status (tobacco): has quit using tobacco Year quit tobacco: 2019 1PPD x 50 Years Second hand smoke exposure: No Alcohol intake: never Caregiver/support person: Yes Lives independently: Yes Household members: none Housing: House Marital status: / service: No Current occupational status: retired History of recent travel: No Current gender identity: Female Special ac needs: No Agree to transfusion: Yes Physical Exam Const: COMMON NORMALS: alert HENMT: COMMON NORMALS: atraumatic HEAD & SCALP: atraumatic MOUTH: moist mucous membranes not abnormal Eye: COMMON NORMALS: EOMs intact bilaterally and conjunctivae normal CONJUNCTIVA: Yes conjunctivae normal Neck/C-Spine: COMMON NORMALS: full ROM and supple Resp: COMMON NORMALS: normal respiratory effort OTHER: +coarse breath sounds b/l, decreased breath sounds R side Cardio: COMMON NORMALS: regular rate RATE: regular rate GI: COMMON NORMALS: Soft to palpation and non-tender PALPATION: Yes Soft to palpation Extremity: COMMON NORMALS: full ROM Neuro: SENSORIUM/ORIENTATION: Yes alert MOTOR EXAM: No Abnormal motor strength present and Other motor observations present (no focal motor deficits) Psych: COMMON NORMALS: speech normal SPEECH: Yes normal speech MOOD & AFFECT: Yes euthymic mood Course Vital Signs: Vital signs: Vital Signs Temperature 97.7 F 10/02/21 11:59 Pulse Rate 81 10/02/21 13:30 Respiratory Rate 18 10/02/21 13:30 Blood Pressure 131/49 10/02/21 13:30 Pulse Oximetry 91 10/02/21 13:30 [facility] - General Adult Medical Decision Making 70-year-old female with history of stage IV lung cancer, diabetes, hypertension, COPD presenting to the emergency room for evaluation of worsening dyspnea x2 weeks now with oxygen requirement. On physical exam, patient is hemodynamically stable. Patient noted to be satting 89 to 90% on room air. Patient has no prior oxygen use. Patient requires 2 L of oxygen. Also appears to be coarse bilaterally. No increased work of breathing. X-ray showed right sided large pleural effusion. Patient is resting comfortably on 2 L of fluid. Discussed case with Dr. Santacruz who admitted the Patient follow-up tomorrow morning for thoracentesis. Patient has been having symptoms for 2 weeks and is currently satting greater than 95% on 2 L of oxygen. Patient has oxygen to go home with. Chronically uses 2 L if needed for dyspnea. Have given patient strict return precaution for any worsening respiratory distress, increased work of breathing, fever/chills or any new or concerning complaints. Patient verbalized understanding and plans to call follow with Dr. Santacruz's office tomorrow morning. Disposition: Discharge. Patient counseled regarding diagnostic impression, treatment plan. Patient given ED strict return precautions to return for continuation, worsening, or development of new symptoms. Instructed to f/u w/ Pulmonology regarding symptoms today. Patient verbalized understanding. Lab Data : 10/02/21 12:25 10/02/21 12:25 Radiology Impressions Chest X-Ray 10/02/21 12:31 IMPRESSION: 1. Large volume right-sided pleural effusion. Infiltrate and consolidation in the ventilated aspects of the right upper lobe. 2. Numerous pulmonary nodules seen throughout the left lung. 3. Probable mild cardiac enlargement. Laboratory Results WBC 10.9 10^3/uL (4.0-10.0) H 10/02/21 12:25 RBC 4.48 10^6/uL (4.1-5.3) 10/02/21 12:25 Hgb 12.0 g/dL (11.5-15.3) 10/02/21 12:25 Hct 40.3 % (37.0-47.0) 10/02/21 12:25 MCV 90.0 fl (81-99) 10/02/21 12:25 MCH 26.8 pg (28.0-34.0) L 10/02/21 12:25 MCHC 29.8 g/dL (30.0-36.0) L 10/02/21 12:25 RDW 14.5 % (12.1-15.1) 10/02/21 12:25 Plt Count 350 10^3/cmm (130-400) 10/02/21 12:25 MPV 9.5 fL (7.4-10.4) 10/02/21 12:25 Neut % (Auto) 78.7 % 10/02/21 12:25 Lymph % (Auto) 11.4 % 10/02/21 12:25 Heard % (Auto) 4.8 % 10/02/21 12:25 Eos % (Auto) 4.6 % 10/02/21 12:25 Baso % (Auto) 0.2 % 10/02/21 12:25 Neut # (Auto) 8.61 10^3/uL (1.8-7.7) H 10/02/21 12:25 Lymph # (Auto) 1.3 10^3/uL (0.8-4.8) 10/02/21 12:25 Heard # (Auto) 0.5 10^3/uL (0.2-0.9) 10/02/21 12:25 Eos # (Auto) 0.5 10^3/uL (0.0-0.8) 10/02/21 12:25 Baso # (Auto) 0.0 10^3/uL (0.0-0.1) 10/02/21 12:25 Nucleated RBC % (auto) 0 % 10/02/21 12:25 Nucleated RBCs # 0.0 /100WBC 10/02/21 12:25 PT 21.50 SECONDS (12.1-14.9) H 10/02/21 12:25 INR 1.83 (0.8-1.2) H 10/02/21 12:25 APTT 36.0 SECONDS (23.9-36.7) 10/02/21 12:25 Sodium 138 mmol/L (136-145) 10/02/21 12:25 Potassium 4.0 mmol/L (3.5-5.1) 10/02/21 12:25 Chloride 96 mmol/L (98-107) L 10/02/21 12:25 Carbon Dioxide 31 mmol/L (22-29) H 10/02/21 12:25 Anion Gap 15.0 (5-19) 10/02/21 12:25 BUN 11 mg/dL (8-23) 10/02/21 12:25 Creatinine 0.6 mg/dL (0.5-0.9) 10/02/21 12:25 GFR Calculation 98.8 mL/min (90-130) 10/02/21 12:25 Glucose 168 mg/dL (65-115) H 10/02/21 12:25 Calculated Osmolality 289 mOsm/kg (285-295) 10/02/21 12:25 Calcium 9.4 mg/dL (8.5-10.5) 10/02/21 12:25 Troponin T Baseline 19 ng/L (0-10) H 10/02/21 12:25 NT-Pro-B Natriuret Pep 153 pg/mL (0-125) H 10/02/21 12:25 Influenza Type A Ag Negative (Negative) 10/02/21 12:50 Influenza Type B Ag Negative (Negative) 10/02/21 12:50 Imaging Data Other Imaging: Radiologist's impression: [address] [place] [id number] XRay Report Signed Patient: Eunice Aguilar Unit #: [id number] : 1950 Age/Sex: 70 / F ADM Date: 10/02/21 Loc: ER Room/Bed: Attending Dr: Ordering Provider/Ordering MD: Anderson Burgos MD Date of Service: 10/02/21 Procedure(s): XR chest 1V portable [id number] Accession Number(s): [id number] Report Number: [id number] WS: [id number] Exam: XR chest 1V portable [id number] Date/Time of Exam: 10/02/2021 12:42 PM Reason For Exam: dyspnea Large volume right-sided pleural effusion noted with almost complete white out of the right pleural cavity. There is infiltrate in the ventilated portion of the right upper lobe. There are numerous pulmonary nodules and small masses throughout the left lung apparently reflecting pulmonary metastatic disease. The heart is probably slightly enlarged. No pneumothorax. Left-sided subclavian port probably ends near the cavoatrial junction. Surgical clips at the right hilum. Regional bony structures are intact. XR/XR chest 1V portable [id number] IMPRESSION: 1. Large volume right-sided pleural effusion. Infiltrate and consolidation in the ventilated aspects of the right upper lobe. 2. Numerous pulmonary nodules seen throughout the left lung. 3. Probable mild cardiac enlargement. ? Dictated By: Jose Ramon Campo DO Signed By: Jose Ramon Campo DO Signed Date/Time: 10/02/21 1251 DD/ 1244 Discharge Plan Discharge Patient Disposition: Home Clinical Impression: Dyspnea, Pleural effusion Condition: Stable Prescriptions: No Action (DME) FreeStyle Lite Strips Strip See Rx Instructions .ROUTE .MEDSUPPLY Qty: 10 0RF Rx Instructions: As directed (DME) lancets [FreeStyle Lancets] 28 gauge misc See Rx Instructions .ROUTE .MEDSUPPLY Qty: 25 0RF Rx Instructions: As directed diltiazem HCl 120 mg capsule,extended release 24hr 120 mg PO DAILY Qty: 90 2RF folic acid 1 mg tablet 1 mg PO DAILY@0830 Qty: 90 1RF prednisone 10 mg tablet 10 mg PO DAILY Qty: 30 3RF furosemide 40 mg tablet 40 mg PO DAILY 0RF gabapentin 300 mg capsule 300 mg PO BID 0RF ferrous sulfate [FeroSul] 325 mg (65 mg iron) tablet 325 mg PO DAILY 0RF cinnamon bark [Cinnamon] 500 mg capsule 1,000 mg PO DAILY 0RF turmeric root extract 500 mg capsule 1,500 mg PO DAILY 0RF carvedilol 12.5 mg tablet 25 mg PO BID@0830,2030 Qty: 180 5RF acetaminophen 650 mg tablet extended release 1,300 mg PO Q12H 0RF Xarelto 10 mg tablet 10 mg PO DAILY 0RF Discharge Orders: Discharge ED (Routine); Ordered 10/02/21 Ordered By: Anderson Burgos Referrals: Glory Valencia FNP [Primary Care Provider] - Discharge Diet: Advance as tolerated Discharge Activity: Increase activity as tolerated Patient Instructions: Pleurisy (ED) Activity Restrictions/Additional Instructions: Please call Dr. Santacruz's office at [phone] Please follow-up with Dr. Santacruz tomorrow morning in clinic. Please come back to the emergency have any worsening shortness of breath. Please use 2 L oxygen at home. Come back to the emergency room if your symptoms worsen, have any shortness of breath, fever/chills, dehydration, inability tolerate food or drinks, any difficulty breathing, or any new or concerning complaints. Please hold your xarelto for one day until you are seen tomorrow. 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
[2021-10-02] MEDS: ipratropium-albuterol 3 mL Neb INHALATION ×3 (12:52)
[2021-10-02 12:53] VITALS: PULSE 85; RESP 95; O2SAT 96
[2021-10-02 13:00] VITALS: PULSE 77
[2021-10-02] MEDS: FUROsemide 10 mg/mL SDV 4mL 40 MG IVP (13:02)
[2021-10-02 13:03] LABS: Basophils % 0.2 %; Eosinophils # 0.5 10^3/uL (0.0-0.8); Eosinophils % 4.6 %; Hematocrit 40.3 % (37.0-47.0); Lymphocytes # 1.3 10^3/uL (0.8-4.8); Lymphocytes % 11.4 %; Mean Corpuscular HGB Conc 29.8 g/dL (30.0-36.0); Mean Corpuscular Hemoglobin 26.8 pg (28.0-34.0); Mean Platelet Volume 9.5 fL (7.4-10.4); Monocytes # 0.5 10^3/uL (0.2-0.9); Monocytes % 4.8 %; Neutrophils # 8.61 10^3/uL (1.8-7.7); Neutrophils % 78.7 %; Nucleated Red Blood Cells % 0 %; Platelet Count 350 10^3/cmm (130-400); Red Blood Count 4.48 10^6/uL (4.1-5.3); Red Cell Distribution Width 14.5 % (12.1-15.1); White Blood Count 10.9 10^3/uL (4.0-10.0)
[2021-10-02 13:11] LABS: INR 1.83 (0.8-1.2)
[2021-10-02 13:19] LABS: Troponin(5th) Baseline 19 ng/L (0-10)
[2021-10-02 13:27] LABS: Blood Urea Nitrogen 11 mg/dL (8-23); Calcium 9.4 mg/dL (8.5-10.5); Carbon Dioxide 31 mmol/L (22-29); Chloride 96 mmol/L (98-107); Glomerular Filtration Rate 98.8 mL/min (90-130); Glucose 168 mg/dL (65-115); NT Pro B Type Natriuretic Pept 153 pg/mL (0-125); Osmolality Calculated 289 mOsm/kg (285-295); Sodium 138 mmol/L (136-145)
[2021-10-02 13:29] LABS: Influenza A by IFA Negative (Negative)
[2021-10-02 13:30] VITALS: BP 131/49; PULSE 81; RESP 18; O2SAT 91
[2021-10-02 13:30] LABS: Influenza B by IFA Negative (Negative)
[2021-10-02 14:52] LABS: Adenovirus Not Detected (NOT DETECT); Chlamydia Pneumoniae Not Detected (NOT DETECT); Coronavirus 229E,HKU1,NL63,OC4 Not Detected (NOT DETECT); Human Metapneumovirus Not Detected (NOT DETECT); Human Rhinovirus/Enterovirus Not Detected (NOT DETECT); Influenza A Not Detected (NOT DETECT); Influenza A H1 Not Detected (NOT DETECT); Influenza A H1-2009 Not Detected (NOT DETECT); Influenza A H3 Not Detected (NOT DETECT); Influenza B Not Detected (NOT DETECT); Mycoplasma Pneumoniae Not Detected (NOT DETECT); Parainfluenza Virus Type 1 Not Detected (NOT DETECT); Parainfluenza Virus Type 2 Not Detected (NOT DETECT); Parainfluenza Virus Type 3 Not Detected (NOT DETECT); Parainfluenza Virus Type 4 Not Detected (NOT DETECT); Respiratory Syncytial Virus A Not Detected (NOT DETECT); Respiratory Syncytial Virus B Not Detected (NOT DETECT); SARS-COV-2 Not Detected (NOT DETECT)
--- NOTE | 2021-10-03 11:45 | DCPLANNER ---
Addendum entered by Lore Hoffman 01/02/22 14:08: Patient had a follow up appointment scheduled with [facility] - appointment was rescheduled. Addendum entered by Lore Hoffman 10/05/21 13:24: Patient has a follow up appointment scheduled for , October 12, 2021 at 3:[address] Santacruz, pulmonology. Clinic will call patient with appointment information. Original Note: fisheries manager had message to schedule a follow up appointment for patient with Dr. Santacruz at [facility]. fisheries manager sent patients information to the front office staff at [facility]. Patients information will be printed and reviewed. Clinic will call patient with appointment information.
== END 2021-10-02 13:55 | disposition home or self-care (01) ==
PROVIDERS: Emergency Provider Emergency Medicine; PCP Nurse Practitioner Family
DX: J90 Pleural effusion, not elsewhere classified (principal); E11.9 Type 2 diabetes mellitus without complications; I10 Essential (primary) hypertension; J44.9 Chronic obstructive pulmonary disease, unspecified; C34.90 Malignant neoplasm of unspecified part of unspecified bronchus or lung; E78.5 Hyperlipidemia, unspecified
CPT/HCPCS: 71045; 80048; 83880; 84484; 85025; 85610; 85730; 87635; 87804; 93005; 94640; 96374; 96375; 99285; J1940; J2930

== ENCOUNTER → 2021-10-03 09:08 | Day surgery (SDC) | payer MEDICARE, OTHER, SELFPAY ==
[2021-10-02 15:24] VITALS: BMI 31.6
[2021-10-03 09:32] VITALS: BP 178/70; PULSE 95; RESP 20; TEMP 36.8; O2SAT 96
--- NOTE | 2021-10-03 10:25 | SUR.OPER ---
pt arrived with SOB and was scheduled for Thoracentesis with Dr. Santacruz prior to procedure starting Dr. Santacruz scanned the pt with the ultrasound finding no fluid to explain the SOB he then cancelled the procedure and contacted his office to have the pt scheduled for a CT today to determine the change in her ability to breathe
--- NOTE | 2021-10-03 15:12 | CT_ITS ---
WS: [id number] CTA OF THE CHEST WITH PULMONARY EMBOLISM PROTOCOL TECHNIQUE: High-resolution contrast enhanced CTA of the chest with coronal and sagittal reformatted i mages with pulmonary embolism protocol. MIP images are also reviewed. CLINICAL INFORMATION: shortness of breath, hypoxia COMPARISON: CT chest July 10, 2021 DLP: 546.[address] scans at [facility] use at least one of these dose optimization techniques: automated e xposure control; mA and/or kV adjustment per patient size (includes targeted exams where dose is matc hed to clinical indication); or iterative reconstruction. FINDINGS: Prior postoperative changes RIGHT lung with RIGHT lower lobe lobectomy. Volume loss RIGHT hemithorax with pleural fluid and pleural thickening. Surgical clips about the RIGHT hilum. RIGHT hilar soft tis valeriano thickening with RIGHT hilar soft tissue mass similar to the prior examination measuring 1.6 x 1.9 cm. Secretions with diffuse opacification RIGHT distal main stem bronchus is new from previous. Comp lete obstruction of the bronchus intermedius and RIGHT upper lobe bronchi . Small RIGHT pleural effusion with diffuse pleural thickening throughout the RIGHT lung. Interstitial thickening with airspace infiltrates likely due to postobstructive pneumonia throughout the RIGHT urszula g. Pleural thickening in the RIGHT lower lobe with suspected empyema. Extensive progressed disease throughout the LEFT lung with innumerable metastatic nodules markedly in creased and size and number. The largest nodules today measure 1.6 CM. Similar-appearing metastatic lesions within the RIGHT lung although difficult to quantify due to exte nsive pneumonia. Obstruction of the RIGHT distal main stem bronchus likely due to soft tissue mass an d fluid. Normal caliber thoracic aorta. Aortic calcification. Proximal main pulmonary arteries are normal. No evidence of pulmonary embolus. Cardiomegaly. Normal LEFT adrenal gland. RIGHT adrenal gland is not entirely included. Normal GE junc tion. RIGHT supraclavicular lymphadenopathy measuring 1.5 cm. This appears new from previous.Nodular thickening due to metastatic disease involving the pericardium CT/CT angio chest PE protcl [id number] IMPRESSION: 1. Evidence of significantly progressed disease compared to previous. 2. No evidence of pulmonary embolus. 3. Prior postoperative changes RIGHT lower lobectomy. 4. Volume loss RIGHT lung with diffuse circumferential pleural thickening with a small RIGHT pleural effusion likely empyema with pleural thickening. 5. Poor aeration of the RIGHT lung with diffuse postobstructive pneumonia and new diffuse metastatic lesions. 6. Complete obstruction of the distal RIGHT mainstem bronchus, bronchus interm edius, and upper lobe bronchi likely due to a combination of fluid and soft tis valeriano metastatic disease. 7. RIGHT hilar mass previously described is unchanged. 8. New RIGHT supraclavicular lymph node measuring 1.5 cm. 9. Innumerable new metastatic nodules throughout the LEFT lung markedly increa sed in size and number the largest measuring 1.5 to 1.8 cm. New nodular metasta tic lesions RIGHT lung but difficult to visualize due to pneumonia. 10. Nodular thickening due to metastatic disease involving the pericardium Notified Chino Olson MD at 10/03/2021 12:06 PM.
== END ==
PROVIDERS: PCP Nurse Practitioner Family; Visit Provider Internal Medicine Critical Care Medicine
DX: R06.02 Shortness of breath (principal); C34.31 Malignant neoplasm of lower lobe, right bronchus or lung
CPT/HCPCS: 71275

== ENCOUNTER 2021-10-18 10:52 | Oncology outpatient (recurring) (ONCR) | payer MEDICARE, OTHER, SELFPAY ==
[2021-10-18 12:39] LABS: Basophils % 0.2 %; Eosinophils # 0.2 10^3/uL (0.0-0.8); Hematocrit 38.5 % (37.0-47.0); Hemoglobin 11.8 g/dL (11.5-15.3); Lymphocytes # 1.1 10^3/uL (0.8-4.8); Mean Corpuscular HGB Conc 30.6 g/dL (30.0-36.0); Mean Corpuscular Hemoglobin 27.1 pg (28.0-34.0); Mean Corpuscular Volume 88.5 fl (81-99); Monocytes # 0.4 10^3/uL (0.2-0.9); Monocytes % 3.3 %; Neutrophils # 9.11 10^3/uL (1.8-7.7); Neutrophils % 83.9 %; Nucleated Red Blood Cells % 0 %; Platelet Count 273 10^3/cmm (130-400); Red Blood Count 4.35 10^6/uL (4.1-5.3); Red Cell Distribution Width 14.8 % (12.1-15.1); White Blood Count 10.9 10^3/uL (4.0-10.0)
[2021-10-18 12:59] LABS: Alanine Aminotransferase 10 U/L (0-33); Albumin Level 3.5 g/dL (3.5-5.2); Alkaline Phosphatase 108 IU/L (35-105); Anion Gap 14.6 (5-19); Aspartate Amino Transferase 8 U/L (0-32); Blood Urea Nitrogen 14 mg/dL (8-23); Calcium 9.1 mg/dL (8.5-10.5); Carbon Dioxide 31 mmol/L (22-29); Chloride 95 mmol/L (98-107); Glomerular Filtration Rate 98.8 mL/min (90-130); Glucose 189 mg/dL (65-115); Osmolality Calculated 290 mOsm/kg (285-295); Potassium 3.6 mmol/L (3.5-5.1); Sodium 137 mmol/L (136-145); Total Bilirubin 0.4 mg/dL (0.15-1.2); Total Protein 6.5 g/dL (6.6-8.7)
== END 2021-11-09 23:59 | disposition home or self-care (01) ==
PROVIDERS: PCP Nurse Practitioner Family; Visit Provider Internal Medicine Medical Oncology
DX: C34.31 Malignant neoplasm of lower lobe, right bronchus or lung (principal); Z87.891 Personal history of nicotine dependence
CPT/HCPCS: 36591; 80053; 85025; 99214

== ENCOUNTER 2021-12-12 07:53 | Oncology outpatient (recurring) (ONCR) | payer MEDICARE, OTHER, SELFPAY | END 2022-01-10 23:59 | disposition home or self-care (01) | PROVIDERS: PCP Nurse Practitioner Family; Visit Provider Internal Medicine Medical Oncology | DX: C34.81 Malignant neoplasm of overlapping sites of right bronchus and lung (principal); C78.02 Secondary malignant neoplasm of left lung; J91.0 Malignant pleural effusion; J43.9 Emphysema, unspecified; K52.1 Toxic gastroenteritis and colitis; T45.1X5A Adverse effect of antineoplastic and immunosuppressive drugs, initial encounter; R06.02 Shortness of breath; Z79.899 Other long term (current) drug therapy; Z92.21 Personal history of antineoplastic chemotherapy; Z92.25 Personal history of immunosuppression therapy; Z87.891 Personal history of nicotine dependence | CPT/HCPCS: 99214; 99215 ==

== ENCOUNTER 2022-02-08 12:25 | Oncology outpatient (recurring) (ONCR) | payer MEDICARE, OTHER, SELFPAY ==
[2022-02-08 13:02] LABS: Basophils % 0.1 %; Eosinophils # 0.2 10^3/uL (0.0-0.8); Eosinophils % 1.8 %; Hematocrit 40.2 % (37.0-47.0); Hemoglobin 11.7 g/dL (11.5-15.3); Lymphocytes # 1.6 10^3/uL (0.8-4.8); Lymphocytes % 16.1 %; Mean Corpuscular HGB Conc 29.1 g/dL (30.0-36.0); Mean Corpuscular Hemoglobin 26.2 pg (28.0-34.0); Mean Corpuscular Volume 90.1 fl (81-99); Mean Platelet Volume 9.7 fL (7.4-10.4); Monocytes # 0.4 10^3/uL (0.2-0.9); Monocytes % 3.7 %; Nucleated Red Blood Cells % 0 %; Platelet Count 297 10^3/cmm (130-400); Red Blood Count 4.46 10^6/uL (4.1-5.3); Red Cell Distribution Width 14.7 % (12.1-15.1); White Blood Count 10.1 10^3/uL (4.0-10.0)
[2022-02-08 13:19] LABS: Alanine Aminotransferase 10 U/L (0-33); Albumin Level 3.4 g/dL (3.5-5.2); Alkaline Phosphatase 84 U/L (35-105); Anion Gap 14.2 (5-19); Aspartate Amino Transferase 8 U/L (0-32); Blood Urea Nitrogen 12 mg/dL (8-23); Calcium 9.3 mg/dL (8.5-10.5); Carbon Dioxide 27 mmol/L (22-29); Chloride 102 mmol/L (98-107); Globulin 2.7 g/dL (1.3-4.6); Glucose 149 mg/dL (65-115); Osmolality Calculated 291 mOsm/kg (285-295); Potassium 4.2 mmol/L (3.5-5.1); Sodium 139 mmol/L (136-145); Total Bilirubin 0.2 mg/dL (0.15-1.2); Total Protein 6.1 g/dL (6.6-8.7)
== END 2022-02-09 23:59 | disposition home or self-care (01) ==
PROVIDERS: PCP Nurse Practitioner Family; Visit Provider Internal Medicine Medical Oncology
DX: C34.81 Malignant neoplasm of overlapping sites of right bronchus and lung (principal); C78.02 Secondary malignant neoplasm of left lung; J91.0 Malignant pleural effusion; K52.1 Toxic gastroenteritis and colitis; T45.1X5A Adverse effect of antineoplastic and immunosuppressive drugs, initial encounter; Z79.899 Other long term (current) drug therapy; Z87.891 Personal history of nicotine dependence; Z86.711 Personal history of pulmonary embolism; Z79.01 Long term (current) use of anticoagulants
CPT/HCPCS: 36591; 80053; 85025; 99214

== ENCOUNTER 2022-03-09 10:33 | Outpatient (CLI) | payer MEDICARE, OTHER, SELFPAY ==
--- NOTE | 2022-03-09 10:30 | CT_ITS ---
WS: [id number] CT CHEST TECHNIQUE: Contrast enhanced CT of the chest with coronal and sagittal reformatted images. CLINICAL INFORMATION: lung cancer COMPARISON: CTA October 03, 2021 DLP: 724.[address] scans at [facility] use at least one of these dose optimization techniques: automated e xposure control; mA and/or kV adjustment per patient size (includes targeted exams where dose is matc hed to clinical indication); or iterative reconstruction. FINDINGS: Prior postoperative changes RIGHT lower lobectomy. Again seen is volume loss RIGHT lung with diffuse circumferential pleural thickening with pleural fluid likely empyema with diffuse pleural thickening. Pleural fluid has increased compared to previous with decreased aeration RIGHT upper lobe compared t o previous. Complete obstruction of the RIGHT mainstem bronchus. Increased bulky RIGHT anterior media stinal lymphadenopathy with compression of the RIGHT brachiocephalic vein slightly progressed. LEFT b rachiocephalic vein and superior vena cava remain patent. LEFT central venous catheter with tip in th e distal SVC. Similar-appearing bulky RIGHT hilar and suprahilar lymphadenopathy appears slightly pro gressed. Progressed RIGHT axillary and subpectoral lymphadenopathy. Innumerable metastatic lesions th roughout the visualized LEFT lung with decreased overall number of lesions in the LEFT lung. A few of the lesions have progressed. Mild thickening with slightly improved metastatic nodularity involving the pericardium. Hepatomegaly. Normal GE junction. Splenic granulomas. Adrenal glands are normal. Partially visualize d complex lesion upper pole RIGHT kidney measuring 2.2 CM. Progressed lymphadenopathy in the anterior mediastinum at the thoracic inlet. Progressed AP window lymphadenopathy. Normal caliber thoracic aor ta. Aortic calcification. Coronary calcification. Proximal main pulmonary arteries appear patent. New fracture at the distal clavicle with lytic lucencies evidence of some callus formation. This may be pathologic or due to trauma. This appears new since October 03, 2021. In addition, sclerotic lesion in the T4 vertebral body inferior endplate may be degenerative or metastatic. This is also new from pre vious. Partially visualized induration in the LEFT upper abdominal mesentery. This can be further evaluated with CT abdomen pelvis and may represent early peritoneal carcinomatosis. This appears new from previ ous. CT/CT chest w con* [id number] IMPRESSION: 1. Evidence of mixed response to therapy compared to October 03, 2021. 2. Innumerable metastatic lesions throughout the LEFT lung. Lesions have decre ased in number compared to previous but some lesions have increased in size. 3. Increased enhancing pleural and intraparenchymal metastasis within the resi dual RIGHT upper lobe compared to previous. Prior RIGHT lower lobectomy. 4. Diffuse circumferential pleural thickening throughout the RIGHT 5. RIGHT lower lobe empyema similar to previous. Pleural fluid has increased i n the RIGHT upper lobe. 6. Decreased aeration of the RIGHT upper lobe compared to previous with pleura l fluid opacification and parenchymal and pleural metastatic lesions. 7. Increased RIGHT axillary RIGHT subpectoral and thoracic inlet lymphadenopat hy. 8. Slight increase in the RIGHT upper anterior mediastinal lesion with che daniel of the RIGHT brachiocephalic vein. Superior vena cava and LEFT brachioceph alic vein remain patent. 9. New RIGHT distal clavicular fracture with mottled lucencies may be posttrau matic versus pathologic with metastatic disease. 10. New focus of sclerosis in the T4 vertebral body new from previous may be d egenerative and metastatic disease not excluded. 11. Partially visualized RIGHT upper pole renal lesion with septations. This i s only partially visualizing and can be further evaluated with ultrasound. This appears slightly increased in size compared to the prior examinations. 12. Partially visualized induration in the LEFT upper abdominal mesentery. Thi s can be further evaluated with CT abdomen pelvis and may represent early perit alas carcinomatosis. This appears new from previous. Recommend further evaluat ion with contrast-enhanced CT abdomen pelvis. Dr. Olson not in office today. Discussed with Annemarie in oncology clinic at 03/09/2022 11:55 AM.
[2022-03-09] MEDS: iohexol 350 mg/mL 100 mL Btl IV (13:36)
== END 2022-03-09 10:34 | disposition home or self-care (01) ==
LOC: RAD 10:33
PROVIDERS: PCP Nurse Practitioner Family; Visit Provider Internal Medicine Medical Oncology
DX: C34.31 Malignant neoplasm of lower lobe, right bronchus or lung (principal); C78.02 Secondary malignant neoplasm of left lung; S42.031A Displaced fracture of lateral end of right clavicle, initial encounter for closed fracture; R59.0 Localized enlarged lymph nodes; M89.8X8 Other specified disorders of bone, other site; N28.89 Other specified disorders of kidney and ureter
CPT/HCPCS: 71260

== ENCOUNTER 2022-03-19 11:53 | Emergency (ER) | payer MEDICARE, OTHER, SELFPAY ==
[2022-03-19 11:56] VITALS: BP 134/79; PULSE 103; RESP 18; TEMP 36.2; O2SAT 95
[2022-03-19 12:39] VITALS: BP 125/73; PULSE 99; RESP 16; O2SAT 96
--- NOTE | 2022-03-19 12:45 | ECG_ITS ---
[facility] Test Date: 2022-03-19 Pat Name: Eunice Aguilar Department: Room: Gender: Female Advertising Copy Writer: : 1950 Requested By: Francisco Galvan Order Number: [id number] Tonio MD: Babs Young M.D. Measurements Intervals [place] Rate: 94 P: 47 [place]: 173 QRS: 29 QRSD: 82 T: 50 QT: 361 QTc: 453 Interpretive Statements SINUS RHYTHM WITH SINUS ARRHYTHMIA POSSIBLE LEFT ATRIAL ENLARGEMENT [-0.1mV P-WAVE IN V1/V2] LOW QRS VOLTAGE IN PRECORDIAL LEADS [QRS DEFLECTION < 1.0 mV IN CHEST LEADS] Compared to ECG 10/02/2021 12:43:06 Low QRS voltage now present Electronically Signed On 03-20-2022 12:03:07 CHAINSTITCH SEWING MACHINE OPERATOR by Babs Young M.D. [email or web address]
--- NOTE | 2022-03-19 12:45 | CTR_ITS ---
PROCEDURE INFORMATION: Exam: CT Head Without Contrast Exam date and time: 03/19/2022 12:51 PM Age: 71 years old Clinical indication: Stroke-like symptoms; Speech disturbance; Right facial droop; Lt upper extremity weakness; Additional info: Symptoms of acute stroke TECHNIQUE: Imaging protocol: Computed tomography of the head without contrast. Radiation optimization: All CT scans at this facility use at least one of these dose optimization techniques: automated exposure control; mA and/or kV adjustment per patient size (includes targeted exams where dose is matched to clinical indication); or iterative reconstruction. Other technique: STROKE PROTOCOL was implemented. COMPARISON: No relevant prior studies available. RADIATION DOSE METRICS: Total DLP (mGy-cm): 1029.78 FINDINGS: Brain: Hypodensity is seen in the periventricular cerebral white matter. This change is nonspecific but is most likely secondary to chronic ischemia within microvascular distributions. No radiographic evidence of intracranial hemorrhage. Nodular lesion within the right frontal lobe measuring nearly 10 mm. Surrounding vasogenic edema. Recommend follow-up MRI with gadolinium. Cerebral ventricles: No ventriculomegaly. Paranasal sinuses: Visualized sinuses are unremarkable. No fluid levels. Mastoid air cells: Visualized mastoid air cells are well aerated. Bones/joints: Unremarkable. No acute fracture. Soft tissues: Unremarkable. CT/CT head thrombolytic 22292 IMPRESSION: Nodular lesion within the right frontal lobe measuring nearly 10 mm. Surrounding vasogenic edema. Recommend follow-up MRI with gadolinium. Primary versus metastatic lesion. ASSESSMENT: ASPECTS ([place] Stroke Program Early CT Score) is 10.
[2022-03-19 13:16] LABS: Basophils % 0.2 %; Eosinophils # 0.4 10^3/uL (0.0-0.8); Hematocrit 44.1 % (37.0-47.0); Hemoglobin 13.4 g/dL (11.5-15.3); Lymphocytes # 1.3 10^3/uL (0.8-4.8); Mean Corpuscular HGB Conc 30.4 g/dL (30.0-36.0); Mean Corpuscular Hemoglobin 26.2 pg (28.0-34.0); Mean Corpuscular Volume 86.3 fl (81-99); Mean Platelet Volume 9.3 fL (7.4-10.4); Monocytes # 0.7 10^3/uL (0.2-0.9); Monocytes % 5.5 %; Neutrophils % 79.9 %; Nucleated Red Blood Cells % 0 %; Platelet Count 300 10^3/cmm (130-400); Red Blood Count 5.11 10^6/uL (4.1-5.3); Red Cell Distribution Width 14.6 % (12.1-15.1); White Blood Count 12.1 10^3/uL (4.0-10.0)
--- NOTE | 2022-03-19 13:22 | ED_ITS ---
HPI - Neuro Symptoms/Deficit General: Chief Complaint: Neuro Symptoms/Deficit Stated Complaint: Possible stroke Time Seen by Provider: 03/19/22 12:44 Source: patient Mode of arrival: ambulatory History of Present Illness: 71-year-old female presents emergency room complaining of intermittent left arm numbness and at times right facial droop with slurring of speech it intermittently the last couple very brief period of time and then resolves spontaneously she is having any symptoms now. She has a history of right lung cancer she took 1 round of chemo and then stopped because she did not tolerate it well. She is currently on a oral suppressant. Onset (ago): week(s) (1) Timing confirmed by: family member Location: speech, right face and left arm History of same: No Severity: mild Quality: weak Relieving factors: none Exacerbating factors: none Context: sudden onset On Anticoagulants: No Associated symptoms: Deny chest pain, cough, diaphoresis, fevers/chills, headache(s), anorexia, malaise, nausea, seizures, short of breath, syncope, tingling, vertigo, vomiting or weakness Treatments Prior to Arrival: none Review of Systems Const: Denies: fever(s), chills, malaise or diaphoresis ENMT: Denies: throat pain, ear or mastoid pain, nasal discharge or nasal congestion Card: Denies: chest pain or syncope Resp: Denies: dyspnea, productive cough or non-productive cough GI: Denies: abdominal pain, nausea or vomiting : Denies: flank pain, difficulty voiding, dysuria, urinary frequency or urinary urgency Skin/Breast: Denies: rash or pruritus Neuro: Denies: headache(s) or vertigo PFS ED PFSH: Medical History Chronic obstructive pulmonary disease, unspecified Essential (primary) hypertension Gastro-esophageal reflux disease without esophagitis Hyperlipidemia, unspecified Malignant neoplasm of lower lobe, 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, N1, M0 Neuropathy Peripheral neuropathy Rheumatoid arthritis involving both hands with positive rheumatoid factor Type 2 diabetes mellitus without complications Surgical History H/O colonoscopy 3 yrs ago History of bronchoscopy (10/02/19) navigational bronchoscopy with EBUS Status post lobectomy of lung (12/07/19) right lower lobectomy Family History Father Osteoarthritis CAD (coronary artery disease) NH @ 66 Mother Hypertension Fibromyalgia Dementia Diabetes Brother Chronic kidney disease (CKD) Stroke Brother Stroke Denies family history of Rheumatoid arthritis Lupus Clotting disorder Suicide Anesthesia complication Bleeding disorder Lung disease Cancer Social History Smoking and tobacco status: former smoker Quit status (tobacco): has quit using tobacco Year quit tobacco: 2019 1PPD x 50 Years Second hand smoke exposure: No Alcohol intake: never Caregiver/support person: Yes Lives independently: Yes Household members: none Housing: House Marital status: / service: No Current occupational status: retired History of recent travel: No Current gender identity: Female Special ac needs: No Agree to transfusion: Yes Course Vital Signs: Vital signs: Vital Signs Temperature 97.2 F L 03/19/22 11:56 Pulse Rate 99 03/19/22 12:39 Respiratory Rate 16 03/19/22 12:39 Blood Pressure 142/74 03/19/22 14:11 Pulse Oximetry 96 03/19/22 12:39 MDM - Neuro Symptoms/Deficit Medical Decision Making No focal neurologic symptoms at this time. She does have 1 cm brain lesion there is small amount of edema around it I called and discussed Dr. Olson. We will discharge her home set her up for an outpatient MRI with contrast and then set her up to see radiation oncology for consideration of treatment options including focused radiation. Medical Records I reviewed the patient's medical records. Lab Data I reviewed the patient's lab results. : 03/19/22 13:10 03/19/22 13:[address] 03/19/22 12:45 IMPRESSION: Nodular lesion within the right frontal lobe measuring nearly 10 mm. Surrounding vasogenic edema. Recommend follow-up MRI with gadolinium. Primary versus metastatic lesion. ASSESSMENT: ASPECTS ([place] Stroke Program Early CT Score) is 10. ADDENDUM: 03/19/22 1324 The above was read and discussed at approximately 1:22 PM REPAIR WEAVER on03/19/2022 with the attending physician , FRANCISCO Houston. Laboratory Results WBC 12.1 10^3/uL (4.0-10.0) H 03/19/22 13:10 RBC 5.11 10^6/uL (4.1-5.3) 03/19/22 13:10 Hgb 13.4 g/dL (11.5-15.3) 03/19/22 13:10 Hct 44.1 % (37.0-47.0) 03/19/22 13:10 MCV 86.3 fl (81-99) 03/19/22 13:10 MCH 26.2 pg (28.0-34.0) L 03/19/22 13:10 MCHC 30.4 g/dL (30.0-36.0) 03/19/22 13:10 RDW 14.6 % (12.1-15.1) 03/19/22 13:10 Plt Count 300 10^3/cmm (130-400) 03/19/22 13:10 MPV 9.3 fL (7.4-10.4) 03/19/22 13:10 Neut % (Auto) 79.9 % 03/19/22 13:10 Lymph % (Auto) 11.0 % 03/19/22 13:10 [place] % (Auto) 5.5 % 03/19/22 13:10 Eos % (Auto) 3.0 % 03/19/22 13:10 Baso % (Auto) 0.2 % 03/19/22 13:10 Neut # (Auto) 9.70 10^3/uL (1.8-7.7) H 03/19/22 13:10 Lymph # (Auto) 1.3 10^3/uL (0.8-4.8) 03/19/22 13:10 [place] # (Auto) 0.7 10^3/uL (0.2-0.9) 03/19/22 13:10 Eos # (Auto) 0.4 10^3/uL (0.0-0.8) 03/19/22 13:10 Baso # (Auto) 0.0 10^3/uL (0.0-0.1) 03/19/22 13:10 Nucleated RBC % (auto) 0 % 03/19/22 13:10 Nucleated RBCs # 0.0 /100WBC 03/19/22 13:10 Sodium 136 mmol/L (136-145) 03/19/22 13:10 Potassium 3.7 mmol/L (3.5-5.1) 03/19/22 13:10 Chloride 95 mmol/L (98-107) L 03/19/22 13:10 Carbon Dioxide 28 mmol/L (22-29) 03/19/22 13:10 Anion Gap 16.7 (5-19) 03/19/22 13:10 BUN 19 mg/dL (8-23) 03/19/22 13:10 Creatinine 0.7 mg/dL (0.5-0.9) 03/19/22 13:10 GFR Calculation Not Reportable 03/19/22 13:10 Glucose 132 mg/dL (65-115) H 03/19/22 13:10 Calculated Osmolality 286 mOsm/kg (285-295) 03/19/22 13:10 Calcium 9.6 mg/dL (8.5-10.5) 03/19/22 13:10 Total Bilirubin 0.4 mg/dL (0.15-1.2) 03/19/22 13:10 AST 9 U/L (0-32) 03/19/22 13:10 ALT 8 U/L (0-33) 03/19/22 13:10 Alkaline Phosphatase 95 U/L (35-105) 03/19/22 13:10 Total Protein 6.8 g/dL (6.6-8.7) 03/19/22 13:10 Albumin 3.9 g/dL (3.5-5.2) 03/19/22 13:10 Globulin 2.9 g/dL (1.3-4.6) 03/19/22 13:10 Discharge Plan Discharge Patient Disposition: Home Clinical Impression: Malignant neoplasm of lower lobe, right bronchus or lung, Brain metastases Condition: Stable Prescriptions: New Decadron 4 mg tablet 4 mg PO BID Qty: 60 0RF No Action (DME) FreeStyle Lite Strips Strip See Rx Instructions .ROUTE .MEDSUPPLY Qty: 10 Rx Instructions: As directed (DME) lancets [FreeStyle Lancets] 28 gauge misc See Rx Instructions .ROUTE .MEDSUPPLY Qty: 25 Rx Instructions: As directed folic acid 1 mg tablet 1 mg PO DAILY@0830 Qty: 90 1RF furosemide 40 mg tablet 40 mg PO DAILY cinnamon bark [Cinnamon] 500 mg capsule 1,000 mg PO DAILY carvedilol 12.5 mg tablet 18.75 mg PO BID@0830,2029 levofloxacin 500 mg tablet 500 mg PO DAILY 7 Days Qty: 7 0RF (DME) nebulizer See Rx Instructions .Route .MEDSUPPLY Qty: 1 0RF Rx Instructions: As directed guaifenesin 600 mg tablet extended release 12hr 600 mg PO BID PRN (Reason: congestion) Qty: 60 0RF diltiazem HCl 120 mg capsule,extended release 24hr 120 mg PO DAILY Qty: 90 2RF ipratropium-albuterol 0.5 mg-3 mg(2.5 mg base)/3 mL solution for nebulization 3 ml inhalation QID PRN (Reason: wheezing) Qty: 180 0RF Tylenol Ex Str Arthritis Pain 500 mg Tablet 1,000 mg PO Q6H PRN (Reason: Pain) prednisone 10 mg tablet 10 mg PO DAILY vitamin E 268 mg (400 unit) Capsule 268 mg PO DAILY Xarelto 10 mg tablet 10 mg PO DAILY Discharge Orders: Discharge ED (Routine); Ordered 03/19/22 Ordered By: Francisco Riley Referrals: Glory Valencia FNP [Primary Care Provider] - Discharge Diet: Usual diet Discharge Activity: Limit activity as instructed Patient Instructions: Opioid Safety, Pain Management Activity Restrictions/Additional Instructions: custodial operations manager will make arrangements for her to have a follow-up MRI of the head with contrast and then follow-up at the oncology clinic with radiation oncology to discuss treatment options. Coding Level of Care Code ED Photographic Enlarger Operator for Olman Gomez
[2022-03-19 13:35] LABS: Alanine Aminotransferase 8 U/L (0-33); Albumin Level 3.9 g/dL (3.5-5.2); Alkaline Phosphatase 95 U/L (35-105); Anion Gap 16.7 (5-19); Aspartate Amino Transferase 9 U/L (0-32); Blood Urea Nitrogen 19 mg/dL (8-23); Calcium 9.6 mg/dL (8.5-10.5); Carbon Dioxide 28 mmol/L (22-29); Chloride 95 mmol/L (98-107); Creatinine Clr Calc Pharmacy 66.1377; Globulin 2.9 g/dL (1.3-4.6); Glucose 132 mg/dL (65-115); Osmolality Calculated 286 mOsm/kg (285-295); Potassium 3.7 mmol/L (3.5-5.1); Sodium 136 mmol/L (136-145); Total Bilirubin 0.4 mg/dL (0.15-1.2); Total Protein 6.8 g/dL (6.6-8.7)
[2022-03-19] MEDS: dexamethasone 10 mg/mL INJ IVP (13:58)
[2022-03-19 14:11] VITALS: BP 142/74
--- NOTE | 2022-03-20 10:11 | DCPLANNER ---
Addendum entered by Lore Hoffman 04/03/22 12:34: district manager was told that the MRI was cancelled per Dr. Olson and that patient was seen by Dr. Wang at the [facility] on 03.29.22. Original Note: district manager had message to schedule an outpatient MRI of head for patient. district manager faxed signed order to centralized scheduling, who will call patient with appointment information. district manager also sent notification to patients primary care physician that ER physician ordered the MRI as an outpatient.
--- NOTE | 2022-03-27 11:40 | W.ED.NEUROSD ---
HPI - Neuro Symptoms/Deficit General: Chief Complaint: Neuro Symptoms/Deficit Stated Complaint: Possible stroke Time Seen by Provider: 03/19/22 12:44 Source: patient Mode of arrival: ambulatory History of Present Illness: 71-year-old female comes in with left arm numbness and intermittent slurring of her words. This is been going on off and on for an entire week. She said she feels completely normal right now. She has not noticed anything that seems to exacerbate it or relieve it. She has no specific weakness she denies any abdominal pain denies any chest pain. Bowel and bladder function are normal no sinus congestion drainage no sore throat no difficulty breathing. Patient does have a history of lung cancer. Onset (ago): week(s) (1) Location: speech, right face and left arm History of same: No Severity: mild Quality: weak Relieving factors: none Exacerbating factors: none On Anticoagulants: No Associated symptoms: Deny chest pain, malaise, nausea or vomiting Treatments Prior to Arrival: none Review of Systems Const: Denies: fever(s), chills, body aches, change in appetite, fatigue or malaise ENMT: Denies: throat pain, ear or mastoid pain, nasal discharge or nasal congestion Card: Denies: chest pain, edema, dyspnea on exertion or orthopnea Resp: Denies: dyspnea, productive cough or non-productive cough GI: Denies: abdominal pain, nausea, vomiting, hematemesis, coffee ground emesis, diarrhea, constipation, bloating, hematochezia or melena : Denies: flank pain, difficulty voiding, dysuria, urinary frequency or urinary urgency Skin/Breast: Denies: rash or pruritus PFS ED PFSH: Medical History Chronic obstructive pulmonary disease, unspecified Essential (primary) hypertension Gastro-esophageal reflux disease without esophagitis Hyperlipidemia, unspecified Malignant neoplasm of lower lobe, 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, N1, M0 Neuropathy Peripheral neuropathy Rheumatoid arthritis involving both hands with positive rheumatoid factor Type 2 diabetes mellitus without complications Surgical History H/O colonoscopy 3 yrs ago History of bronchoscopy (10/02/19) navigational bronchoscopy with EBUS Status post lobectomy of lung (12/07/19) right lower lobectomy Family History Father Osteoarthritis CAD (coronary artery disease) [place] @ 66 Mother Hypertension Fibromyalgia Dementia Diabetes Brother Chronic kidney disease (CKD) Stroke Brother Stroke Denies family history of Rheumatoid arthritis Lupus Clotting disorder Suicide Anesthesia complication Bleeding disorder Lung disease Cancer Social History Smoking and tobacco status: former smoker Quit status (tobacco): has quit using tobacco Year quit tobacco: 2019 1PPD x 50 Years Second hand smoke exposure: No Alcohol intake: never Caregiver/support person: Yes Lives independently: Yes Household members: none Housing: House Marital status: / service: No Current occupational status: retired History of recent travel: No Current gender identity: Female Special ac needs: No Agree to transfusion: Yes NIH stroke score NIHSS: Level Of Consciousness - 1a: 0 Level Of Consciousness Questions - 1b: Both Correct Level Of Consciousness Commands - 1c: Both Correct Best Gaze - 2: Normal Visual [place] - 3: No Visual Loss Facial Palsy - 4: Normal Motor Arm Right - 5: No Drift Motor Arm Left - 5: No Drift Motor Leg Right - 6: No Drift Motor Leg Left - 6: No Drift Limb Ataxia - 7: Absent Sensory - 8: Normal Best Language - 9: No Aphasia Dysarthia - 10: Normal Extinction And Inattention - 11: 0 Score: Total Score: 0 Physical Exam Const: COMMON NORMALS: no acute distress GENERAL APPEARANCE: cooperative and comfortable ORIENTATION/CONSCIOUSNESS: Yes awake, Yes oriented to person, Yes oriented to place and Yes oriented to time HENMT: COMMON NORMALS: normocephalic, atraumatic, hearing grossly normal bilaterally, external ears normal, EAC's normal, TM's normal bilaterally, Normal nasal mucous membranes and turbinates present, moist oral mucous membranes and oropharynx normal HEAD & SCALP: normocephalic and atraumatic NOSE: Normal nasal mucous membranes and turbinates present EXTERNAL EAR: Yes external ears normal EXTERNAL AUDITORY CANAL: EAC's normal TYMPANIC MEMBRANE: TM's normal bilaterally Eye: COMMON NORMALS: Equal, round and reactive pupils present, EOMs intact bilaterally, conjunctivae normal and no scleral icterus CONJUNCTIVA: Yes conjunctivae normal PUPIL: Yes Equal, round and reactive pupils present Neck/C-Spine: COMMON NORMALS: full ROM, no lymphadenopathy, supple and no JVD Resp: COMMON NORMALS: normal respiratory effort, No retractions, No use of accessory muscles and clear to auscultation bilaterally AUSCULTATION: clear to auscultation bilaterally Cardio: COMMON NORMALS: no JVD, regular rate, regular rhythm and No murmurs present (Cardio) RATE: regular rate RHYTHM: regular rhythm GI: COMMON NORMALS: Soft to palpation and No hepatosplenomegaly present AUSCULTATION: Yes normoactive bowel sounds PALPATION: Yes Soft to palpation, No Tenderness to palpation present (GI), No Guarding due to palpation present (GI) and Yes No hepatosplenomegaly present Extremity: COMMON NORMALS: normal to inspection, capillary refill normal, no clubbing, cyanosis or edema, no calf tenderness and no pedal edema Neuro: SENSORIUM/ORIENTATION: Yes oriented to person, Yes oriented to place and Yes oriented to time Skin: COMMON NORMALS: no rashes or lesions noted GENERAL SKIN EXAM: no rashes or lesions noted Course Vital Signs: Vital signs: Vital Signs Temperature 97.2 F L 03/19/22 11:56 Pulse Rate 99 03/19/22 12:39 Respiratory Rate 16 03/19/22 12:39 Blood Pressure 142/74 03/19/22 14:11 Pulse Oximetry 96 03/19/22 12:39 MDM - Neuro Symptoms/Deficit Medical Decision Making Her stroke score at this time is 0 she has no noticeable deficits. Unfortunately she does have metastasis to the brain on CT this is a new finding for suspect this is what is causing her intermittent symptoms. Discussed with Dr. Olson we will get her into radiation oncology they can begin palliative radiation care. Start her on dexamethasone 4 mg twice daily discussed with the family and the patient. They are aware of the findings. She is not a candidate for an thrombolytics because of her Xarelto. Medical Records I reviewed the patient's medical records. Lab Data I reviewed the patient's lab results. 03/19/22 13:10 03/19/22 13:[address] 03/19/22 12:45 IMPRESSION: Nodular lesion within the right frontal lobe measuring nearly 10 mm. Surrounding vasogenic edema. Recommend follow-up MRI with gadolinium. Primary versus metastatic lesion. ASSESSMENT: ASPECTS ([place] Stroke Program Early CT Score) is 10. ADDENDUM: 03/19/22 1324 The above was read and discussed at approximately 1:22 PM CORPORATE REAL ESTATE SPECIALIST on03/19/2022 with the attending physician , FRANCISCO [place]. Laboratory Results WBC 12.1 10^3/uL (4.0-10.0) H 03/19/22 13:10 RBC 5.11 10^6/uL (4.1-5.3) 03/19/22 13:10 Hgb 13.4 g/dL (11.5-15.3) 03/19/22 13:10 Hct 44.1 % (37.0-47.0) 03/19/22 13:10 MCV 86.3 fl (81-99) 03/19/22 13:10 MCH 26.2 pg (28.0-34.0) L 03/19/22 13:10 MCHC 30.4 g/dL (30.0-36.0) 03/19/22 13:10 RDW 14.6 % (12.1-15.1) 03/19/22 13:10 Plt Count 300 10^3/cmm (130-400) 03/19/22 13:10 MPV 9.3 fL (7.4-10.4) 03/19/22 13:10 Neut % (Auto) 79.9 % 03/19/22 13:10 Lymph % (Auto) 11.0 % 03/19/22 13:10 [place] % (Auto) 5.5 % 03/19/22 13:10 Eos % (Auto) 3.0 % 03/19/22 13:10 Baso % (Auto) 0.2 % 03/19/22 13:10 Neut # (Auto) 9.70 10^3/uL (1.8-7.7) H 03/19/22 13:10 Lymph # (Auto) 1.3 10^3/uL (0.8-4.8) 03/19/22 13:10 [place] # (Auto) 0.7 10^3/uL (0.2-0.9) 03/19/22 13:10 Eos # (Auto) 0.4 10^3/uL (0.0-0.8) 03/19/22 13:10 Baso # (Auto) 0.0 10^3/uL (0.0-0.1) 03/19/22 13:10 Nucleated RBC % (auto) 0 % 03/19/22 13:10 Nucleated RBCs # 0.0 /100WBC 03/19/22 13:10 Sodium 136 mmol/L (136-145) 03/19/22 13:10 Potassium 3.7 mmol/L (3.5-5.1) 03/19/22 13:10 Chloride 95 mmol/L (98-107) L 03/19/22 13:10 Carbon Dioxide 28 mmol/L (22-29) 03/19/22 13:10 Anion Gap 16.7 (5-19) 03/19/22 13:10 BUN 19 mg/dL (8-23) 03/19/22 13:10 Creatinine 0.7 mg/dL (0.5-0.9) 03/19/22 13:10 GFR Calculation Not Reportable 03/19/22 13:10 Glucose 132 mg/dL (65-115) H 03/19/22 13:10 Calculated Osmolality 286 mOsm/kg (285-295) 03/19/22 13:10 Calcium 9.6 mg/dL (8.5-10.5) 03/19/22 13:10 Total Bilirubin 0.4 mg/dL (0.15-1.2) 03/19/22 13:10 AST 9 U/L (0-32) 03/19/22 13:10 ALT 8 U/L (0-33) 03/19/22 13:10 Alkaline Phosphatase 95 U/L (35-105) 03/19/22 13:10 Total Protein 6.8 g/dL (6.6-8.7) 03/19/22 13:10 Albumin 3.9 g/dL (3.5-5.2) 03/19/22 13:10 Globulin 2.9 g/dL (1.3-4.6) 03/19/22 13:10 Discharge Plan Discharge Patient Disposition: Home Clinical Impression: Malignant neoplasm of lower lobe, right bronchus or lung, Brain metastases Condition: Stable Prescriptions: New Decadron 4 mg tablet 4 mg PO BID Qty: 60 0RF No Action (DME) FreeStyle Lite Strips Strip See Rx Instructions .ROUTE .MEDSUPPLY Qty: 10 Rx Instructions: As directed (DME) lancets [FreeStyle Lancets] 28 gauge misc See Rx Instructions .ROUTE .MEDSUPPLY Qty: 25 Rx Instructions: As directed folic acid 1 mg tablet 1 mg PO DAILY@0830 Qty: 90 1RF furosemide 40 mg tablet 40 mg PO DAILY cinnamon bark [Cinnamon] 500 mg capsule 1,000 mg PO DAILY carvedilol 12.5 mg tablet 18.75 mg PO BID@0830,2030 levofloxacin 500 mg tablet 500 mg PO DAILY 7 Days Qty: 7 0RF (DME) nebulizer See Rx Instructions .Route .MEDSUPPLY Qty: 1 0RF Rx Instructions: As directed guaifenesin 600 mg tablet extended release 12hr 600 mg PO BID PRN (Reason: congestion) Qty: 60 0RF diltiazem HCl 120 mg capsule,extended release 24hr 120 mg PO DAILY Qty: 90 2RF ipratropium-albuterol 0.5 mg-3 mg(2.5 mg base)/3 mL solution for nebulization 3 ml inhalation QID PRN (Reason: wheezing) Qty: 180 0RF Tylenol Ex Str Arthritis Pain 500 mg Tablet 1,000 mg PO Q6H PRN (Reason: Pain) prednisone 10 mg tablet 10 mg PO DAILY vitamin E 268 mg (400 unit) Capsule 268 mg PO DAILY Xarelto 10 mg tablet 10 mg PO DAILY Discharge Orders: Discharge ED (Routine); Ordered 03/19/22 Ordered By: Francisco Riley Referrals: Glory Valencia FNP [Primary Care Provider] - Discharge Diet: Usual diet Discharge Activity: Limit activity as instructed Patient Instructions: Opioid Safety, Pain Management Activity Restrictions/Additional Instructions: industrial hygiene manager will make arrangements for her to have a follow-up MRI of the head with contrast and then follow-up at the oncology clinic with radiation oncology to discuss treatment options. Coding Level of Care Code ED Light Bulb Replacer for Olman Gomez
== END 2022-03-19 14:12 | disposition home or self-care (01) ==
PROVIDERS: Emergency Provider Family Medicine; PCP Nurse Practitioner Family
DX: C79.31 Secondary malignant neoplasm of brain (principal); C34.31 Malignant neoplasm of lower lobe, right bronchus or lung; Z87.891 Personal history of nicotine dependence; Z79.899 Other long term (current) drug therapy
CPT/HCPCS: 70450; 80053; 85025; 93005; 96374; 99285; J1100

== ENCOUNTER 2022-03-29 10:49 | Oncology outpatient (recurring) (ONCR) | payer MEDICARE, OTHER, SELFPAY ==
[2022-03-13 12:48] LABS: Basophils % 0.1 %; Eosinophils # 0.2 10^3/uL (0.0-0.8); Eosinophils % 2.5 %; Hematocrit 39.5 % (37.0-47.0); Hemoglobin 11.7 g/dL (11.5-15.3); Lymphocytes # 1.5 10^3/uL (0.8-4.8); Lymphocytes % 15.4 %; Mean Corpuscular HGB Conc 29.6 g/dL (30.0-36.0); Mean Corpuscular Hemoglobin 26.2 pg (28.0-34.0); Mean Corpuscular Volume 88.4 fl (81-99); Monocytes # 0.4 10^3/uL (0.2-0.9); Monocytes % 3.7 %; Neutrophils # 7.63 10^3/uL (1.8-7.7); Neutrophils % 77.9 %; Nucleated Red Blood Cells % 0 %; Platelet Count 302 10^3/cmm (130-400); Red Blood Count 4.47 10^6/uL (4.1-5.3); White Blood Count 9.8 10^3/uL (4.0-10.0)
[2022-03-13 13:08] LABS: Alanine Aminotransferase 9 U/L (0-33); Albumin Level 3.4 g/dL (3.5-5.2); Alkaline Phosphatase 92 U/L (35-105); Anion Gap 13.9 (5-19); Aspartate Amino Transferase 9 U/L (0-32); Blood Urea Nitrogen 17 mg/dL (8-23); Calcium 9.4 mg/dL (8.5-10.5); Carbon Dioxide 31 mmol/L (22-29); Chloride 95 mmol/L (98-107); Globulin 3.1 g/dL (1.3-4.6); Glucose 131 mg/dL (65-115); Osmolality Calculated 285 mOsm/kg (285-295); Potassium 3.9 mmol/L (3.5-5.1); Sodium 136 mmol/L (136-145); Total Bilirubin 0.3 mg/dL (0.15-1.2); Total Protein 6.5 g/dL (6.6-8.7)
[2022-03-13] MEDS: ipratropium-albuterol 3 mL Neb INHALATION (14:36)
--- NOTE | 2022-03-20 | CT_ITS ---
Radiation Therapy Planning CT images; total exam DLP: 775.64 mGy-cm MTDD
--- NOTE | 2022-03-20 14:45 | N.ONRAD NP_ITS ---
Radiation Oncology Consultation Patient Name: Eunice Aguilar Date of : 1950 Date of Service: 03/20/2022 Attending Physician: Martinez Wang M.D. Eunice Aguilar was seen in consultation this morning at the request of Chino Olson M.D. 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 The patient was initially diagnosed with an adenocarcinoma of the right lower-lobe of the lung in November of 2019 following a right lower lobectomy. The tumor measured 4 cm x 4.2 cm x 3.2 cm with metastatic involvement of a hilar lymph node (pT2BN1). A surveillance CT scan quested in July of 2020 demonstrated disease progression with new subcentimeter noncalcified pulmonary nodules and mediastinal lymphadenopathy. At the patient's request, observation was continued. A large right pleural effusion was identified upon evaluation at the [facility]'s emergency department in August of 2020. Pleural fluid cytology was positive for malignancy. A PleurX catheter was inserted. Systemic chemotherapy consisting of carboplatin, pemetrexed, and Keytruda was initiated in December 2020. Immunotherapy was discontinued on account of complications related to rheumatoid arthritis and second line LUMAKRAS was instituted (KRAS mutation) in April 2021. She was evaluated for increasing shortness of breath in September. A CT pulmonary angiogram did not discover a pulmonary embolus but significant progression was reported. She was referred to [facility] in [place], [place] for treatment recommendations. A mucous plug was present in the right lung in lieu of disease progression and LUMAKRAS was restarted. A thoracic CT scan obtained on March 09, 2022 identified numerous metastatic lesions throughout the left lung, right axillary lymphadenopathy, mediastinal lymphadenopathy, and a T4 vertebral body sclerotic lesion. She was evaluated at the [facility] Emergency Department on March 19, 2022 for CVA symptoms. A head CT scan (independently reviewed in [facility]) detected a nodular lesion within the right frontal lobe measuring 1 cm with surrounding vasogenic edema. The patient was referred to discuss cranial radiotherapy. I reviewed with the Ms. the National Comprehensive Cancer Network Guidelines for extensive brain metastases and the role of hypothalamic- avoidance whole brain radiotherapy and memantine, cranial radiotherapy with or without memantine, and stereotactic radiosurgery for the management of cranial metastases. In consideration of the patient's metastatic disease burden, I anticipate a short-course of radiotherapy. A CT scan will be performed for radiotherapy planning prior to implementing treatment to delineate the clinical target volume. I discussed the potential toxicity of whole brain radiotherapy. The patient verbalized understanding and would like to proceed as recommended. The patient???s treatment plan was discussed with Chino Olson M.D. Signed by: Dr. Martinez aWng 03/20/2022 2:43:06 PM
--- NOTE | 2022-03-27 11:31 | ONCRAD TMN_ITS ---
Radiation Oncology Treatment Management Note Patient Name: Eunice Aguilar Date of : 1950 Date of Service: 03/27/2022 Attending Physician: Martinez Wang M.D. Eunice Aguilar is a 71 year old white female diagnosed with non-small cell lung cancer and brain metastases. The patient was initially diagnosed with an adenocarcinoma of the right lower-lobe of the lung in November of 2019 following a right lower lobectomy. The tumor measured 4 cm x 4.2 cm x 3.2 cm with metastatic involvement of a hilar lymph node (pT2BN1). A surveillance CT scan quested in July of 2020 demonstrated disease progression with new subcentimeter noncalcified pulmonary nodules and mediastinal lymphadenopathy. At the patient's request, observation was continued. A large right pleural effusion was identified upon evaluation at the [facility]'s emergency department in August of 2020. Pleural fluid cytology was positive for malignancy. A PleurX catheter was inserted. Systemic chemotherapy consisting of carboplatin, pemetrexed, and Keytruda was initiated in December 2020. Immunotherapy was discontinued on account of complications related to rheumatoid arthritis and second line LUMAKRAS was instituted (KRAS mutation) in April 2021. She was evaluated for increasing shortness of breath in September. A CT pulmonary angiogram did not discover a pulmonary embolus but significant progression was reported. She was referred to [facility] in [place], [place] for treatment recommendations. A mucous plug was present in the right lung in lieu of disease progression and LUMAKRAS was restarted. A thoracic CT scan obtained on March 09, 2022 identified numerous metastatic lesions throughout the left lung, right axillary lymphadenopathy, mediastinal lymphadenopathy, and a T4 vertebral body sclerotic lesion. She was evaluated at the [facility] Emergency Department on March 19, 2022 for CVA symptoms. A head CT scan detected a nodular lesion within the right frontal lobe measuring 1 cm with surrounding vasogenic edema. The patient has received 12 Gy of a prescribed 20 Ivy with a 3-dimensional conformal radiotherapy plan utilizing a half-beam block treatment technique with opposed lateral portal de la cruz. Upon review of systems, she denied neurological symptoms. On physical examination, the patient weighed 169 lbs. Her temperature was 97.8 ???F and the blood pressure was 149/81 mmHg. Her pulse was 92 bpm and the respiratory rate was 20. Cranial nerves were intact. Continue whole brain radiotherapy as planned Signed by: Dr. Martinez Wang 03/27/2022 11:30:15 AM
--- NOTE | 2022-03-29 12:25 | N.ONRD TS_ITS ---
Radiation OncologyTreatment Summary Patient Name: Eunice Aguilar Date of : 1950 Date of Service: 03/29/2022 Attending Physician: Martinez Wang M.D. Eunice Aguilar has completed cranial radiotherapy for the management of a non-small cell lung cancer and brain metastases. The patient was initially diagnosed with an adenocarcinoma of the right lower-lobe of the lung in November of 2019 following a right lower lobectomy. The tumor measured 4 cm x 4.2 cm x 3.2 cm with metastatic involvement of a hilar lymph node ([id number]). A surveillance CT scan quested in July of 2020 demonstrated disease progression with new subcentimeter noncalcified pulmonary nodules and mediastinal lymphadenopathy. At the patient's request, observation was continued. A large right pleural effusion was identified upon evaluation at the [facility]'s emergency department in August of 2020. Pleural fluid cytology was positive for malignancy. A PleurX catheter was inserted. Systemic chemotherapy consisting of carboplatin, pemetrexed, and Keytruda was initiated in December 2020. Immunotherapy was discontinued on account of complications related to rheumatoid arthritis and second line LUMAKRAS was instituted (KRAS mutation) in April 2021. She was evaluated for increasing shortness of breath in September. A CT pulmonary angiogram did not discover a pulmonary embolus but significant progression was reported. She was referred to [facility] in [place], [place] for treatment recommendations. A mucous plug was present in the right lung in lieu of disease progression and LUMAKRAS was restarted. A thoracic CT scan obtained on March 09, 2022 identified numerous metastatic lesions throughout the left lung, right axillary lymphadenopathy, mediastinal lymphadenopathy, and a T4 vertebral body sclerotic lesion. She was evaluated at the [facility] Emergency Department on March 19, 2022 for CVA symptoms. A head CT scan detected a nodular lesion within the right frontal lobe measuring 1 cm with surrounding vasogenic edema. Daily radiotherapy was administered between the dates March 22, 2002 through March 28, 2022. A prescribed dose of 20 Gy was delivered in 5 fractions encompassing 7 elapsed days. The cranial fossa was treated utilizing a 3-dimensional conformal radiotherapy plan with an opposed lateral portal field design and a half-beam treatment technique. The left lateral port employed a gantry angle of 90??? and a collimator angle of 325???. The field size measured 12 cm x12 cm within X-direction and 17 cm x 0 cm within the Y-direction. The measured SSD was 92.2 cm with the field allocating 210 monitor units. The right lateral field utilized a 270??? gantry angle with a collimator angle of 35???. The field size measured 12 cm x 12 cm within the X-direction and 14 cm x 0 cm within the Y-direction. The SSD measured 92.7 cm with the port delivering 200 monitor units. All treatments were performed with the EndoStim linear accelerator and an isocentric technique. The dose was calculated by Anisotropic Analytic Algorithm. Photon energies of 15 MV were prescribed with the plan normalized to deliver 100% of the prescription dose to 100% of the planning target volume. Signed by: Dr. Martinez Wang 03/29/2022 12:24:02 PM
== END 2022-04-11 23:59 | disposition home or self-care (01) ==
PROVIDERS: Internal Medicine Medical Oncology; PCP Nurse Practitioner Family; Visit Provider Radiology Radiation Oncology
DX: C34.31 Malignant neoplasm of lower lobe, right bronchus or lung (principal)
CPT/HCPCS: 36591; 77280; 77290; 77295; 77300; 77334; 77336; 77412; 80053; 85025; 96374; 99214; 99215; J2930

== ENCOUNTER 2022-04-12 11:30 | Oncology outpatient (recurring) (ONCR) | payer MEDICARE, OTHER, SELFPAY ==
[2022-04-12 11:57] LABS: Basophils % 0.2 %; Eosinophils % 0.2 %; Hematocrit 44.2 % (37.0-47.0); Hemoglobin 13.7 g/dL (11.5-15.3); Lymphocytes # 0.6 10^3/uL (0.8-4.8); Lymphocytes % 5.6 %; Mean Corpuscular Hemoglobin 27.1 pg (28.0-34.0); Mean Corpuscular Volume 87.5 fl (81-99); Mean Platelet Volume 9.6 fL (7.4-10.4); Monocytes # 0.4 10^3/uL (0.2-0.9); Monocytes % 3.4 %; Neutrophils # 9.69 10^3/uL (1.8-7.7); Neutrophils % 88.6 %; Nucleated Red Blood Cells % 0.2 %; Platelet Count 124 10^3/cmm (130-400); Red Blood Count 5.05 10^6/uL (4.1-5.3); Red Cell Distribution Width 15.5 % (12.1-15.1); White Blood Count 10.9 10^3/uL (4.0-10.0)
[2022-04-12 12:14] LABS: Alanine Aminotransferase 26 U/L (0-33); Albumin Level 3.6 g/dL (3.5-5.2); Alkaline Phosphatase 87 U/L (35-105); Anion Gap 17.7 (5-19); Aspartate Amino Transferase 12 U/L (0-32); Blood Urea Nitrogen 28 mg/dL (8-23); Calcium 8.7 mg/dL (8.5-10.5); Carbon Dioxide 32 mmol/L (22-29); Chloride 91 mmol/L (98-107); Globulin 2.1 g/dL (1.3-4.6); Glucose 186 mg/dL (65-115); Osmolality Calculated 294 mOsm/kg (285-295); Potassium 3.7 mmol/L (3.5-5.1); Sodium 137 mmol/L (136-145); Total Bilirubin 0.4 mg/dL (0.15-1.2); Total Protein 5.7 g/dL (6.6-8.7)
== END 2022-05-12 23:59 | disposition home or self-care (01) ==
PROVIDERS: PCP Nurse Practitioner Family; Visit Provider Internal Medicine Medical Oncology
DX: C34.31 Malignant neoplasm of lower lobe, right bronchus or lung (principal); J91.0 Malignant pleural effusion; C77.8 Secondary and unspecified malignant neoplasm of lymph nodes of multiple regions; J43.9 Emphysema, unspecified; I26.99 Other pulmonary embolism without acute cor pulmonale; Z79.01 Long term (current) use of anticoagulants; Z79.52 Long term (current) use of systemic steroids; M06.9 Rheumatoid arthritis, unspecified; R19.7 Diarrhea, unspecified; C78.02 Secondary malignant neoplasm of left lung; C79.31 Secondary malignant neoplasm of brain; Z79.899 Other long term (current) drug therapy; Z87.891 Personal history of nicotine dependence
CPT/HCPCS: 36591; 80053; 85025; 99214

== ENCOUNTER 2022-04-26 10:52 | Emergency (ER) | payer MEDICARE, OTHER, SELFPAY ==
--- NOTE | 2022-04-26 11:04 | ED_ITS ---
HPI - SOB/Dyspnea General: Chief Complaint: Shortness of Breath/Dyspnea Stated Complaint: SOB Time Seen by Provider: 04/26/22 11:02 History of Present Illness: HPI Narrative: Ms. Aguilar is a 71-year-old lady with complex past medical history including metastatic lung cancer presenting to the emergency department due to shortness of breath. She reports gradual onset of symptoms approximately 1 week ago. Symptoms progressed to the point that they are severe. She reports associated cough and orthopnea. Also has noticed some lower extremity edema greater than baseline. She is tried home treatments including nebulized respiratory treatments without significant relief. She does chronically wear oxygen 3 L at baseline. No other specific changes in health, exacerbating, or alleviating factors identified. Onset (ago): day(s) Context: other Timing: progressively worsening Severity: severe Exacerbating factors: lying flat, exertion and coughing Relieving factors: nothing Known history of: COPD, PE and other Associated symptoms: Reports chest congestion, cough, orthopnea and other Review of Systems General: Reports: 10 or more systems reviewed and unremarkable except in HPI and below Card: Reports: orthopnea Resp: Reports: chest congestion PFSH ED PFSH: Medical History Chronic obstructive pulmonary disease, unspecified Essential (primary) hypertension Gastro-esophageal reflux disease without esophagitis Hyperlipidemia, unspecified Malignant neoplasm of lower lobe, 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, N1, M0 Neuropathy Peripheral neuropathy Rheumatoid arthritis involving both hands with positive rheumatoid factor Type 2 diabetes mellitus without complications Surgical History H/O colonoscopy 3 yrs ago History of bronchoscopy (10/02/19) navigational bronchoscopy with EBUS Status post lobectomy of lung (12/07/19) right lower lobectomy Family History Father Osteoarthritis CAD (coronary artery disease) [place] @ 66 Mother Hypertension Fibromyalgia Dementia Diabetes Brother Chronic kidney disease (CKD) Stroke Brother Stroke Denies family history of Rheumatoid arthritis Lupus Clotting disorder Suicide Anesthesia complication Bleeding disorder Lung disease Cancer Social History Smoking and tobacco status: former smoker Quit status (tobacco): has quit using tobacco Year quit tobacco: 2019 1PPD x 50 Years Second hand smoke exposure: No Alcohol intake: never Caregiver/support person: Yes Lives independently: Yes Household members: none Housing: House Marital status: / service: No Current occupational status: retired History of recent travel: No Current gender identity: Female Special ac needs: No Agree to transfusion: Yes Physical Exam Const: COMMON NORMALS: alert GENERAL APPEARANCE: cooperative, well developed and ill appearing (Acute on chronic) HENMT: COMMON NORMALS: normocephalic and atraumatic HEAD & SCALP: normocephalic and atraumatic THROAT: posterior oropharynx normal Eye: COMMON NORMALS: conjunctivae normal CONJUNCTIVA: Yes conjunctivae normal SCLERA: sclerae normal Neck/C-Spine: COMMON NORMALS: supple GENERAL: Yes trachea midline Resp: EFFORT & INSPECTION: Yes tachypneic AUSCULTATION: breath sounds absent on the right (Base), diminished lung sounds and bronchial breath sounds Cardio: COMMON NORMALS: regular rate and regular rhythm RATE: regular rate RHYTHM: regular rhythm GI: COMMON NORMALS: Soft to palpation PALPATION: Yes Soft to palpation and No Tenderness to palpation present (GI) Extremity: GENERAL: Yes normal exam except as noted and Yes edema (2+ bilateral feet) Neuro: COMMON NORMALS: moves all extremities SENSORIUM/ORIENTATION: Yes alert and No Orientation impaired Psych: COMMON NORMALS: mental status grossly normal and Normal thought process present THOUGHT PROCESS: Normal thought process present Course Vital Signs: Vital signs: Vital Signs Temperature 97.6 F 04/26/22 11:13 Pulse Rate 89 04/26/22 16:37 Respiratory Rate 16 04/26/22 16:37 Blood Pressure 156/88 04/26/22 16:37 Pulse Oximetry 95 04/26/22 16:37 Oxygen Delivery Me thod 04/26/22 13:15 Oxygen Flow Rate 3 04/26/22 13:15 MDM - SOB/Dyspnea Medical Decision Making 71-year-old lady presenting with shortness of breath in the context of underlying lung cancer. Exam as above. EKG notable for sinus rhythm with nonspecific ST segment abnormalities, no STEMI Labs notable for no leukocytosis, normocytic anemia. Metabolic panel with similar abnormalities compared to prior. Baseline troponin is significantly e levated though repeat is negative. Negative viral studies. Chest x-ray x-rays complete opacification of the right hemithorax. Given abnormalities that progressed from prior and history of underlying cancer CTA is warranted. Patient has cancer that has progressed. Discussed incidental findings with patient. She did feel somewhat improved with RT treatment, also given steroids and antibiotics as well as Lasix. I discussed possible disposition options with the patient including most recent findings on ED evaluation. I offered the patient admission however she prefers to have outpatient management. Case was discussed with oncology recommended continuing current anticoagulation regimen. I also discussed the case with pulmonology, patient can follow-up in clinic if desired. Most likely cause of patient symptoms is multifactorial primarily due to progression of cancer though patient have a component of exacerbated underlying lung disease and infection which will be treated. The results of ED evaluation were discussed with the patient including prescriptions and/or symptomatic cares (if applicable) including appropriate and responsible use, followup plan, and return precautions. The patient verbalized understanding and felt safe for discharge. Medical Records I reviewed the patient's medical records. Lab Data I reviewed the patient's lab results. 04/26/22 11:25 04/26/22 11:25 Labs/Radiology: Radiology Impressions Chest X-Ray 04/26/22 11:14 IMPRESSION: 1. Complete opacification of the right hemithorax likely reflecting consolidation, loculated fluid and pleural metastases. 2. Numerous pulmonary metastases in the left chest are better seen on prior CT. 3. Patchy opacities in the lateral left chest that could reflect pneumonia. 4. Mild peribronchial wall thickening; query viral infection/bronchitis, chronic bronchitis and/or asthma. 5. Lytic metastatic lesion involving the distal right clavicle with associated pathologic fracture. Chest CTA 04/26/22 12:14 IMPRESSION: 1. There is an intraluminal filling defect with a left lower lobe pulmonary artery. This was not present previously. 2. Complete opacification of the right hemithorax with suspected hilar mass invading the superior vena cava compressing right-sided pulmonary arteries. 3. Metastatic disease to T5 which appears new with improvement in multiple pulmonary nodules on the left but at least 1 nodule has increased in size. 4. Enlarged mediastinal adenopathy as discussed above. 5. Axillary adenopathy which is increased in size. 6. The overall constellation of findings shows a mixed response to therapy. ADDENDUM: 04/26/22 0321 THIS REPORT CONTAINS FINDINGS THAT MAY BE CRITICAL TO PATIENT CARE. The findings were verbally communicated by me to Jaime Bazan at 1:53 PM BAND SAW OPERATOR CAKE CUTTING on 04/26/2022. The findings were acknowledged and understood. Laboratory Results WBC 4.8 10^3/uL (4.0-10.0) 04/26/22 11:25 RBC 4.14 10^6/uL (4.1-5.3) 04/26/22 11:25 Hgb 11.4 g/dL (11.5-15.3) L 04/26/22 11:25 Hct 37.7 % (37.0-47.0) 04/26/22 11:25 MCV 91.1 fl (81-99) 04/26/22 11:25 MCH 27.5 pg (28.0-34.0) L 04/26/22 11:25 MCHC 30.2 g/dL (30.0-36.0) 04/26/22 11:25 RDW 16.3 % (12.1-15.1) H 04/26/22 11:25 Plt Count 143 10^3/cmm (130-400) 04/26/22 11:25 MPV 9.3 fL (7.4-10.4) 04/26/22 11:25 Neut % (Auto) 78.9 % 04/26/22 11:25 Lymph % (Auto) 14.1 % 04/26/22 11:25 [place] % (Auto) 5.1 % 04/26/22 11:25 Eos % (Auto) 0.2 % 04/26/22 11:25 Baso % (Auto) 0.2 % 04/26/22 11:25 Neut # (Auto) 3.75 10^3/uL (1.8-7.7) 04/26/22 11:25 Lymph # (Auto) 0.7 10^3/uL (0.8-4.8) L 04/26/22 11:25 [place] # (Auto) 0.2 10^3/uL (0.2-0.9) 04/26/22 11:25 Eos # (Auto) 0.0 10^3/uL (0.0-0.8) 04/26/22 11:25 Baso # (Auto) 0.0 10^3/uL (0.0-0.1) 04/26/22 11:25 Nucleated RBC % (auto) 0 % 04/26/22 11:25 Nucleated RBCs # 0.0 /100WBC 04/26/22 11:25 Specimen Type Arterial 04/26/22 11:41 Sample Site Radial, left 04/26/22 11:41 ABG pH 7.46 (7.35-7.45) H 04/26/22 11:41 ABG pCO2 49.8 mmHg (35-45) H 04/26/22 11:41 ABG pO2 99.6 mmHg (80.0-100.0) 04/26/22 11:41 ABG HCO3 35.4 mmol/L (22-26) H 04/26/22 11:41 ABG Base Excess 10.1 mmol/L (-2.0-2.0) H 04/26/22 11:41 Rgupo Test Pos 04/26/22 11:41 Hematocrit 34.3 % (37-47) L 04/26/22 11:41 Hgb O2 Saturation 95.7 % (95-100) 04/26/22 11:41 Carboxyhemoglobin 2.3 %THgb (0.4-20.1) 04/26/22 11:41 Methemoglobin 0.8 % (0.4-1.5) 04/26/22 11:41 Total Hemoglobin 11.2 g/dL (12-16) L 04/26/22 11:41 O2 Delivery Device Nc 04/26/22 11:41 O2 Liters/Min 3.0 % 04/26/22 11:41 FiO2 32.0 % 04/26/22 11:41 Extrusion Die Template Maker ID glc 04/26/22 11:41 Sodium 138 mmol/L (136-145) 04/26/22 11:25 Potassium 3.9 mmol/L (3.5-5.1) 04/26/22 11:25 Chloride 96 mmol/L (98-107) L 04/26/22 11:25 Carbon Dioxide 32 mmol/L (22-29) H 04/26/22 11:25 Anion Gap 13.9 (5-19) 04/26/22 11:25 BUN 20 mg/dL (8-23) 04/26/22 11:25 Creatinine 0.4 mg/dL (0.5-0.9) L 04/26/22 11:25 GFR Calculation Not Reportable 04/26/22 11:25 Glucose 159 mg/dL (65-115) H 04/26/22 11:25 Calculated Osmolality 292 mOsm/kg (285-295) 04/26/22 11:25 Lactic Acid 2.3 mmol/L (0.5-2.2) H 04/26/22 11:25 Calcium 9.0 mg/dL (8.5-10.5) 04/26/22 11:25 Total Bilirubin 0.4 mg/dL (0.15-1.2) 04/26/22 11:25 AST 14 U/L (0-32) 04/26/22 11:25 ALT 27 U/L (0-33) 04/26/22 11:25 Alkaline Phosphatase 97 U/L (35-105) 04/26/22 11:25 Troponin T Baseline 200 ng/L (0-10) H* 04/26/22 11:25 Troponin T 120 Minute 160.7 ng/L (0-10) H 04/26/22 14:22 Delta Troponin T -39.3 ABS# (0-10) L 04/26/22 14:22 C-Reactive Protein 47.8 mg/L (0.0-4.9) H 04/26/22 11:25 NT-Pro-B Natriuret Pep 459 pg/mL (0-125) H 04/26/22 11:25 Total Protein 5.2 g/dL (6.6-8.7) L 04/26/22 11:25 Albumin 3.3 g/dL (3.5-5.2) L 04/26/22 11:25 Globulin 1.9 g/dL (1.3-4.6) 04/26/22 11:25 Procalcitonin 0.06 ng/mL (0-0.5) 04/26/22 11:25 Nasal Influ A H1 2008 PCR Not detected (NOT DETECT) 04/26/22 11:35 Adenovirus (PCR) Not detected (NOT DETECT) 04/26/22 11:35 C. pneumoniae DNA (PCR) Not detected (NOT DETECT) 04/26/22 11:35 Coronavirus 229E (PCR) Not detected (NOT DETECT) 04/26/22 11:35 Human Metapneumovir PCR Not detected (NOT DETECT) 04/26/22 11:35 Influenza A (H1) PCR Not detected (NOT DETECT) 04/26/22 11:35 Influenza A (H3) PCR Not detected (NOT DETECT) 04/26/22 11:35 Influenza Type A (PCR) Not detected (NOT DETECT) 04/26/22 11:35 Influenza Type B (PCR) Not detected (NOT DETECT) 04/26/22 11:35 M. pneumoniae (PCR) Not detected (NOT DETECT) 04/26/22 11:35 Parainfluenza 1 (PCR) Not detected (NOT DETECT) 04/26/22 11:35 Parainfluenza 2 (PCR) Not detected (NOT DETECT) 04/26/22 11:35 Parainfluenza 3 (PCR) Not detected (NOT DETECT) 04/26/22 11:35 Parainfluenza 4 (PCR) Not detected (NOT DETECT) 04/26/22 11:35 RSV Type A (PCR) Not detected (NOT DETECT) 04/26/22 11:35 RSV Type B (PCR) Not detected (NOT DETECT) 04/26/22 11:35 Entero/Rhino (PCR) Not detected (NOT DETECT) 04/26/22 11:35 SARS-CoV-2 (PCR) Not detected (NOT DETECT) 04/26/22 11:35 Discharge Plan Discharge Patient Disposition: Home Clinical Impression: Shortness of breath, Lung cancer metastatic to brain Condition: Stable Prescriptions: New levofloxacin 750 mg tablet 750 mg PO Q24H 10 Days Qty: 10 0RF No Action (DME) FreeStyle Lite Strips Strip See Rx Instructions .ROUTE .MEDSUPPLY Qty: 10 Rx Instructions: As directed (DME) lancets [FreeStyle Lancets] 28 gauge misc See Rx Instructions .ROUTE .MEDSUPPLY Qty: 25 Rx Instructions: As directed folic acid 1 mg tablet 1 mg PO DAILY@0830 Qty: 90 1RF cinnamon bark [Cinnamon] 500 mg capsule 1,000 mg PO QAM carvedilol 12.5 mg tablet 12.5 mg PO BID@30,2029 Dose Instruction: TAKE 1 & 1/2 (ONE & ONE-HALF) TABLETS BY MOUTH TWICE DAILY AT 8:30AM AND 8:30PM (DME) nebulizer See Rx Instructions .Route .MEDSUPPLY Qty: 1 0RF Rx Instructions: As directed guaifenesin 600 mg tablet extended release 12hr 600 mg PO BID PRN (Reason: congestion) Qty: 60 0RF ipratropium-albuterol 0.5 mg-3 mg(2.5 mg base)/3 mL solution for nebulization 3 ml inhalation QID PRN (Reason: wheezing) Qty: 180 0RF gabapentin 600 mg tablet 600 mg PO BID Qty: 180 0RF furosemide 40 mg tablet 40 mg PO BID acetaminophen [Tylenol Ex Str Arthritis Pain] 500 mg Tablet 1,000 mg PO Q6H PRN (Reason: Pain) ondansetron HCl 4 mg tablet 4 mg PO Q6H PRN (Reason: Nausea And Vomiting) prednisone 10 mg tablet 10 mg PO QAM diltiazem HCl 120 mg capsule,extended release 24hr 120 mg PO QAM Xarelto 10 mg tablet 10 mg PO QAM Discharge Orders: Discharge ED (Routine); Ordered 04/26/22 Ordered By: Jaime Bazan Referrals: Glory Valencia FNP [Primary Care Provider] - Discharge Diet: Usual diet Discharge Activity: Increase activity as tolerated Patient Instructions: Shortness of Breath (ED) Activity Restrictions/Additional Instructions: Thank you for visiting the emergency department. You were seen evaluated for shortness of breath. The most likely cause of your symptoms is multifactorial. You do have considerably more consolidation of the right lung as well as effusions. Additionally you may have infection and inflammation. I will message case management for follow-up with pulmonology. Please also follow-up with your oncologist. I will prescribe steroids and antibiotics. Please also use your albuterol metered-dose inhaler 2 puffs or nebulized treatment every 4 hours for 24 hours followed by 2 puffs or nebulized treatment every 6 hours for 24 hours followed by 2 puffs every 8 hours or nebulized treatment for 24 hours and then return to the normal schedule. I recommend for the next 3 days increasing your Lasix from 40 mg daily to 40 mg twice daily. Please continue your other medications. Coding Level of Care Code ED Development Rep for [employer] Exam Comprehensive
[2022-04-26 11:13] VITALS: BP 139/86; PULSE 87; RESP 16; TEMP 36.4; O2SAT 97; BMI 28.1
--- NOTE | 2022-04-26 11:14 | ECG_ITS ---
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 Measurements Intervals [place] Rate: 84 P: 22 MN: 166 QRS: 5 QRSD: 86 T: 68 QT: 372 QTc: 440 Interpretive Statements SINUS RHYTHM LOW QRS VOLTAGE IN PRECORDIAL LEADS [QRS DEFLECTION < 1.0 mV IN CHEST LEADS] POSSIBLE ANTERIOR MYOCARDIAL INFARCTION , OF INDETERMINATE AGE [30 ms Q WAVE IN V3/V4, OR R < 0.2 mV IN V4] Compared to ECG 03/19/2022 13:02:02 Myocardial infarct finding now present Sinus arrhythmia no longer present Electronically Signed On 04-27-2022 13:49:41 METHOD CONSULTANT by Bill Bradshaw M.D. [id number]
--- NOTE | 2022-04-26 11:14 | XRR_ITS ---
PROCEDURE INFORMATION: Exam: XR Chest Exam date and time: 04/26/2022 11:44 AM Age: 71 years old Clinical indication: Shortness of breath. Right lower lung lobectomy, port. History of lung cancer. Shortness of breath. TECHNIQUE: Imaging protocol: Radiologic exam of the chest. Views: 1 view. COMPARISON: CT chest w con* [id number] 03/09/2022 10:54 AM FINDINGS: Tubes, catheters and devices: Left port with tip in the SVC. Lungs: Numerous pulmonary metastases in the left chest are better seen on prior CT. There are patchy opacities in the lateral left chest that could reflect pneumonia. There is mild peribronchial wall thickening. Pleural spaces: There is complete opacification of the right hemithorax likely reflecting consolidation, loculated fluid and pleural metastases. No pneumothorax. Heart/Mediastinum: The visualized cardiac silhouette is approximately unchanged. No gross evidence of pneumomediastinum. Bones/joints: There is a lytic metastatic lesion involving the distal right clavicle with associated pathologic fracture. XR/XR chest 1V portable [id number] IMPRESSION: 1. Complete opacification of the right hemithorax likely reflecting consolidation, loculated fluid and pleural metastases. 2. Numerous pulmonary metastases in the left chest are better seen on prior CT. 3. Patchy opacities in the lateral left chest that could reflect pneumonia. 4. Mild peribronchial wall thickening; query viral infection/bronchitis, chronic bronchitis and/or asthma. 5. Lytic metastatic lesion involving the distal right clavicle with associated pathologic fracture.
[2022-04-26] MEDS: ipratropium-albuterol 3 mL Neb INHALATION (11:31)
[2022-04-26 11:34] VITALS: PULSE 84; RESP 22; O2SAT 96
--- NOTE | 2022-04-26 11:34 | PC.PHAR ---
pt states she takes care of her own medications-ext med history shows carvedilol last filled 04/02/22 90d/s for 18.75mg (1&1/2 tab) bid-pt states just takes 12.5mg bid written 04/12/22-pt states she finished decadron 4mg bid filled 03/19/22 30d/s pt states only taking prednisone 10mg qam-pt states she is not taking vitamin e 268mg daily prn written 04/12/22-notes are made in the pharmacy comments
[2022-04-26 11:38] VITALS: BP 139/86; PULSE 84; RESP 16; O2SAT 97
[2022-04-26 11:40] LABS: Basophils % 0.2 %; Eosinophils % 0.2 %; Hematocrit 37.7 % (37.0-47.0); Hemoglobin 11.4 g/dL (11.5-15.3); Lymphocytes # 0.7 10^3/uL (0.8-4.8); Lymphocytes % 14.1 %; Mean Corpuscular HGB Conc 30.2 g/dL (30.0-36.0); Mean Corpuscular Hemoglobin 27.5 pg (28.0-34.0); Mean Corpuscular Volume 91.1 fl (81-99); Mean Platelet Volume 9.3 fL (7.4-10.4); Monocytes # 0.2 10^3/uL (0.2-0.9); Monocytes % 5.1 %; Neutrophils # 3.75 10^3/uL (1.8-7.7); Neutrophils % 78.9 %; Nucleated Red Blood Cells % 0 %; Platelet Count 143 10^3/cmm (130-400); Red Blood Count 4.14 10^6/uL (4.1-5.3); Red Cell Distribution Width 16.3 % (12.1-15.1); White Blood Count 4.8 10^3/uL (4.0-10.0)
[2022-04-26 11:49] LABS: ABG PCO2 49.8 mmHg (35-45); ABG PH Result 7.46 (7.35-7.45); Arterial Blood Gas Hematocrit 34.3 % (37-47); Base Excess ABG 10.1 mmol/L (-2.0-2.0); Blood Gas Allen Test Pos; Blood Gas Operator Identificat glc; Blood Gas Sample Site Radial, left; Blood Gas Sample Type Arterial; Carboxyhemoglobin 2.3 %THgb (0.4-20.1); HCO3 ABG 35.4 mmol/L (22-26); HGB O2 Sat 95.7 % (95-100); Methemoglobin 0.8 % (0.4-1.5); Oxygen Device NC; PO2 ABG 99.6 mmHg (80.0-100.0); Total Hemoglobin 11.2 g/dL (12-16)
[2022-04-26 11:50] LABS: Lactic Sepsis W/Reflex 2.3 mmol/L (0.5-2.2)
[2022-04-26 11:55] VITALS: BP 139/86; PULSE 84; RESP 16; O2SAT 99
[2022-04-26 11:59] LABS: Troponin(5th) Baseline 200 ng/L (0-10)
[2022-04-26 12:01] LABS: NT Pro B Type Natriuretic Pept 459 pg/mL (0-125); Procalcitonin 0.06 ng/mL (0-0.5)
[2022-04-26 12:12] LABS: Alanine Aminotransferase 27 U/L (0-33); Albumin Level 3.3 g/dL (3.5-5.2); Alkaline Phosphatase 97 U/L (35-105); Anion Gap 13.9 (5-19); Aspartate Amino Transferase 14 U/L (0-32); Blood Urea Nitrogen 20 mg/dL (8-23); C Reactive Protein 47.8 mg/L (0.0-4.9); Carbon Dioxide 32 mmol/L (22-29); Chloride 96 mmol/L (98-107); Globulin 1.9 g/dL (1.3-4.6); Glucose 159 mg/dL (65-115); Osmolality Calculated 292 mOsm/kg (285-295); Potassium 3.9 mmol/L (3.5-5.1); Sodium 138 mmol/L (136-145); Total Bilirubin 0.4 mg/dL (0.15-1.2); Total Protein 5.2 g/dL (6.6-8.7)
--- NOTE | 2022-04-26 12:14 | CTR_ITS ---
PROCEDURE INFORMATION: Exam: CTA Chest With Contrast Exam date and time: 04/26/2022 12:50 PM Age: 71 years old Clinical indication: Shortness of breath; Prior surgery; Surgery type: RT lower lobectomy, port; Patient HX: HX of lung cancer; Additional info: Severe SOB x 1 week , HX cancer, abnormal cxr TECHNIQUE: Imaging protocol: Computed tomographic angiography of the chest with contrast. 3D rendering (Not supervised by radiologist): MIP and/or 3D reconstructed images were created by the technologist. Radiation optimization: All CT scans at this facility use at least one of these dose optimization techniques: automated exposure control; mA and/or kV adjustment per patient size (includes targeted exams where dose is matched to clinical indication); or iterative reconstruction. Contrast material: OMNI 350; Contrast volume: 100 ml; Contrast route: INTRAVENOUS (IV); COMPARISON: CT chest with contrast 03/09/2022. RADIATION DOSE METRICS: Total DLP (mGy-cm): 344.61 FINDINGS: Tubes, catheters and devices: Vhxzac-J-Dgdh type catheter with its tip is not seen due to dense contrast in the veins. Pulmonary arteries: There is compression of numerous pulmonary arteries in the right collapsed lung without evidence of intraluminal filling defects likely due to a central right hilar mass. Numerous clips are seen in the right hilum. There is a filling defect noted within a left lower lobe pulmonary artery specifically image 7/224. By definition this is a pulmonary embolism and appears new since the previous examination but it is more vertical than horizontal. Aorta: Unremarkable. No aortic aneurysm. No aortic dissection. Veins: There is a questionable mass in the right suprahilar region invading the posterior aspect of the superior vena cava especially images 7/192 through 211. The mass may measure at least 22 mm. Lungs: Multiple pulmonary nodules that were present previously have regressed with some nodule still persistent. There is 1 nodule medially in the left apex that is larger now measuring 14 x 10 mm image 7/105. Pleural spaces: The right hemithorax is now completely opacified as a combination of pleural fluid in the base and suspected atelectasis extending superiorly. There is now a small left pleural effusion. Heart: The right ventricle/left ventricle ratio is 25/30 which is 0.8. Lymph nodes: Numerous calcified mediastinal lymph nodes are seen. Enlarged prevascular lymph nodes are seen. The largest which is 15 mm and this has calcification and. This is enlarged since previous examination. The calcification could be due to therapy related changes. Axillary adenopathy is seen on the right. The largest lymph node is increased now measuring 22 by 12 mm image 11/10. Bones/joints: There is a new sclerotic lesion involving T5 measuring 8 mm suspicious for metastatic focus. Soft tissues: Unremarkable. CT/CT angio chest PE protcl [id number] IMPRESSION: 1. There is an intraluminal filling defect with a left lower lobe pulmonary artery. This was not present previously. 2. Complete opacification of the right hemithorax with suspected hilar mass invading the superior vena cava compressing right-sided pulmonary arteries. 3. Metastatic disease to T5 which appears new with improvement in multiple pulmonary nodules on the left but at least 1 nodule has increased in size. 4. Enlarged mediastinal adenopathy as discussed above. 5. Axillary adenopathy which is increased in size. 6. The overall constellation of findings shows a mixed response to therapy.
[2022-04-26] MEDS: iohexol 350 mg/mL 500 mL Btl (per mL) IV (12:56)
--- NOTE | 2022-04-26 13:14 | ECG_ITS ---
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 Measurements Intervals [place] Rate: 89 P: 42 WI: 177 QRS: 45 QRSD: 81 T: 43 QT: 362 QTc: 443 Interpretive Statements SINUS RHYTHM LOW QRS VOLTAGE IN PRECORDIAL LEADS [QRS DEFLECTION < 1.0 mV IN CHEST LEADS] Compared to ECG 04/26/2022 12:07:26 Myocardial infarct finding no longer present Electronically Signed On 04-27-2022 13:53:23 GEOMAGNETIST by Bill Bradshaw M.D. [id number]
[2022-04-26 13:15] VITALS: BP 156/88; PULSE 89; RESP 16; O2SAT 95
[2022-04-26 13:16] LABS: Reflex Lactate Order REFLEX LACTIC ORDERD
[2022-04-26 13:31] LABS: Adenovirus Not Detected (NOT DETECT); Chlamydia Pneumoniae Not Detected (NOT DETECT); Coronavirus 229E,HKU1,NL63,OC4 Not Detected (NOT DETECT); Human Metapneumovirus Not Detected (NOT DETECT); Human Rhinovirus/Enterovirus Not Detected (NOT DETECT); Influenza A Not Detected (NOT DETECT); Influenza A H1 Not Detected (NOT DETECT); Influenza A H1-2009 Not Detected (NOT DETECT); Influenza A H3 Not Detected (NOT DETECT); Influenza B Not Detected (NOT DETECT); Mycoplasma Pneumoniae Not Detected (NOT DETECT); Parainfluenza Virus Type 1 Not Detected (NOT DETECT); Parainfluenza Virus Type 2 Not Detected (NOT DETECT); Parainfluenza Virus Type 3 Not Detected (NOT DETECT); Parainfluenza Virus Type 4 Not Detected (NOT DETECT); Respiratory Syncytial Virus A Not Detected (NOT DETECT); Respiratory Syncytial Virus B Not Detected (NOT DETECT); SARS-COV-2 Not Detected (NOT DETECT)
[2022-04-26] MEDS: levofloxacin-dextrose 5 % 750 MG/150 ML PREMIX 100 MG IV (14:06)
[2022-04-26 15:17] LABS: Troponin 5 2HR 160.7 ng/L (0-10); Troponin 5 2HR Delta -39.3 ABS# (0-10)
[2022-04-26 16:37] VITALS: BP 156/88; PULSE 89; RESP 16; O2SAT 95
== END 2022-04-26 16:24 | disposition home or self-care (01) ==
PROVIDERS: Emergency Provider Emergency Medicine; PCP Nurse Practitioner Family
DX: R06.02 Shortness of breath (principal); C34.90 Malignant neoplasm of unspecified part of unspecified bronchus or lung; C79.31 Secondary malignant neoplasm of brain; Z20.822 Contact with and (suspected) exposure to COVID-19; Z87.891 Personal history of nicotine dependence; Z90.2 Acquired absence of lung [part of]; J44.9 Chronic obstructive pulmonary disease, unspecified; I10 Essential (primary) hypertension; E78.5 Hyperlipidemia, unspecified; E11.9 Type 2 diabetes mellitus without complications; Z99.81 Dependence on supplemental oxygen
CPT/HCPCS: 36415; 36600; 71045; 71275; 80053; 82805; 83605; 83880; 84145; 84484; 85025; 86140; 87040; 87486; 87581; 87633; 93005; 94640; 96365; 96366; 96375; 99285; J1956; J2930; Q9967

== ENCOUNTER → 2022-05-10 09:48 | Outpatient (BNVA) | payer MEDICARE, OTHER, SELFPAY | PROVIDERS: PCP Nurse Practitioner Family; Visit Provider Internal Medicine Pulmonary Disease | DX: J98.11 Atelectasis (principal); C34.90 Malignant neoplasm of unspecified part of unspecified bronchus or lung; C79.31 Secondary malignant neoplasm of brain; M05.741 Rheumatoid arthritis with rheumatoid factor of right hand without organ or systems involvement; M05.742 Rheumatoid arthritis with rheumatoid factor of left hand without organ or systems involvement; Z87.891 Personal history of nicotine dependence; Z86.711 Personal history of pulmonary embolism; Z79.01 Long term (current) use of anticoagulants; Z79.52 Long term (current) use of systemic steroids | CPT/HCPCS: 71046; 99214 ==

== ENCOUNTER 2022-05-22 05:56 | Day surgery (SDC) | payer MEDICARE, OTHER, SELFPAY ==
[2022-05-18 09:17] VITALS: BMI 28.1
[2022-05-22] VITALS (20 sets, daily range): BP systolic 112–181; BP diastolic 54–121; PULSE 99–109; RESP 18–22; TEMP 36.1–36.2; O2SAT 84–98
[2022-05-22] MEDS: sodium chloride 0.9% 1,000 ML 30 ML IV (06:27)
[2022-05-22 06:38] LABS: Glucose Point of Care 124 mg/dL (70-110)
[2022-05-22] MEDS: ipratropium-albuterol 3 mL Neb INHALATION (07:03)
--- NOTE | 2022-05-22 07:05 | W.PM.OPSUD ---
Surgery/Procedure H&P Update DATE OF PROCEDURE: May 22, 2022 DATE H&P PERFORMED: 05/10/22 CHANGES TO PREVIOUS DOCUMENTATION: Increased bilateral diffuse wheezing-we will pretreat with albuterol nebulization PREOP DIAGNOSIS: Port-A-Cath placement/lung carcinoma PRIMARY INDICATION FOR PROCEDURE: Right lung collapse-suspect mucous plugging versus endobronchial lesion PLANNED PROCEDURE: Operation Date: 05/22/22 07:00 Proposed Procedures p bronchoscopy for airway clearance and possible biopsy; 24447, 25039, 42411/J98.19, C34.90(Not Applicable) - Cristopher Paige DatarMD
--- NOTE | 2022-05-22 07:07 | ANES.PREANE2 ---
Pre-Anesthetic Assessment Height/Weight: Height 1.65 m Weight 76.657 kg Temp Pulse Resp BP Pulse Ox O2 Del Method O2 Flow Rate 97.2 F L 99 22 H 129/71 98 3 05/22/22 06:18 05/22/22 07:05 05/22/22 07:05 05/22/22 06:18 05/22/22 07:05 05/22/22 07:05 05/22/22 07:05 Preop Diagnosis: Port-A-Cath placement/lung carcinoma Operation Date: 05/22/22 07:00 Proposed Procedures p bronchoscopy for airway clearance and possible biopsy; 97264, 22993, 37584/J98.19, C34.90(Not Applicable) - Cristopher Soriano MD Familial anesthetic complications: none Was Beta Loulou taken within 24 hours: Yes Was Clonidine taken within 24 hours: N/A Last intake: Intake Last Liquid Date 05/21/22 Last Liquid Time 18:30 Last Solid Date 05/21/22 Last Solid Time 18:30 Social No alcohol and No tobacco (quit 2.5 years ago) Exam alert and oriented x 3 Airway Submandibular: within normal limits Cervical ROM: within normal limits Mallampati: Class II Dentition: false (uppers) History/ROS No significant history except as noted Pulmonary Chronic Obstructive Pulmonary Disease (2L O2 continuous) lower right lung removed d/t cancer CV/HEM Hypertension None reported Hepatic None reported Metabolic Diabetes Mellitus Musc/skel arthritis Neuropsych None reported Anesthetic Plan ASA status: 4 Anesthesia: Anesthesia Evaluation and General Risk of > 500 ml blood loss (7ml/kg in children): No Medications/Allergies Home Medications Medication Instructions Recorded Confirmed Last Taken Type blood sugar diagnostic (FreeStyle #10 ea 05/12/19 05/10/22 Unknown History Lite Strips) lancets 28 gauge (FreeStyle #25 ea 05/12/19 05/10/22 Unknown History Lancets) folic acid 1 mg tablet 1 mg PO DAILY@0830 #90 tabs 11/22/20 05/18/22 05/21/22 Rx rivaroxaban 10 mg tablet (Xarelto) 10 mg PO QAM 10/02/21 05/18/22 05/19/22 History guaifenesin 600 mg tablet, 600 mg PO BID PRN congestion #60 11/01/21 05/18/22 05/20/22 Rx extended release 12 hr tabs cinnamon bark 500 mg capsule 1,000 mg PO QAM 12/12/21 05/18/22 05/21/22 History (Cinnamon) nebulizer #1 ea 03/13/22 05/10/22 Unknown Rx ipratropium 0.5 mg-albuterol 3 mg 3 ml inhalation QID PRN wheezing 03/15/22 05/18/22 05/21/22 Rx (2.5 mg base)/3 mL nebulization #180 mL soln acetaminophen 500 mg tablet 1,000 mg PO Q6H PRN Pain 03/19/22 05/18/22 05/20/22 History carvedilol 12.5 mg tablet 12.5 mg PO BID@0830,2030 04/12/22 05/18/22 05/22/22 04:30 History gabapentin 600 mg tablet 600 mg PO BID #180 tabs 04/23/22 05/18/22 05/21/22 Rx diltiazem HCl 120 mg 120 mg PO QAM 04/26/22 05/18/22 05/22/22 04:30 History capsule,extended release 24 hr ondansetron HCl 4 mg tablet 4 mg PO Q6H PRN Nausea And Vomiting 04/26/22 05/18/22 05/20/22 History prednisone 10 mg tablet 10 mg PO QAM 04/26/22 05/18/22 05/21/22 History furosemide 40 mg tablet 40 mg PO BID 05/01/22 05/18/22 05/21/22 History umeclidinium 62.5 mcg/actuation 1 inh inhalation DAILY #30 ea 05/10/22 05/18/22 05/20/22 Rx blister powder for inhalation (Incruse Ellipta) mupirocin 2 % topical ointment 1 applic topical BID #15 grams 05/17/22 05/18/22 05/17/22 Rx Allergies Allergy/AdvReac Type Severity Reaction Status Date / Time aspirin Allergy Intermediate bloody Verified 05/10/22 08:50 stools lisinopril Allergy Mild rash Verified 05/10/22 08:50 nickel Allergy Mild rash Verified 05/10/22 08:50 Current Medications Generic Name Dose Route Start Last Admin Trade Name Freq PRN Reason Stop Dose Admin Sodium Chloride 1,000 mls @ 30 mls/hr 05/22/22 06:00 05/22/22 06:27 Sodium Chloride 0.9% IV 05/23/22 05:59 30 mls/hr .Q24H GEOFFREY Administration PFSH Anesthesia Medical History Chronic obstructive pulmonary disease, unspecified Essential (primary) hypertension Gastro-esophageal reflux disease without esophagitis Hyperlipidemia, unspecified Malignant neoplasm of lower lobe, 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, N1, M0 Neuropathy Peripheral neuropathy Rheumatoid arthritis involving both hands with positive rheumatoid factor Type 2 diabetes mellitus without complications Surgical History H/O colonoscopy 3 yrs ago History of bronchoscopy (10/02/19) navigational bronchoscopy with EBUS Status post lobectomy of lung (12/07/19) right lower lobectomy Family History Father Osteoarthritis CAD (coronary artery disease) [place] @ 66 Mother Hypertension Fibromyalgia Dementia Diabetes Brother Chronic kidney disease (CKD) Stroke Brother Stroke Denies family history of Rheumatoid arthritis Lupus Clotting disorder Suicide Anesthesia complication Bleeding disorder Lung disease Cancer Social History Smoking and tobacco status: former smoker Quit status (tobacco): has quit using tobacco Year quit tobacco: 2019 1PPD x 50 Years Second hand smoke exposure: No Alcohol intake: never Caregiver/support person: Yes Lives independently: Yes Household members: none Housing: House Marital status: / service: No Current occupational status: retired History of recent travel: No Current gender identity: Female Special ac needs: No Agree to transfusion: Yes Data Anesthesia Cardiac Studies: Echocardiogram Limited Views 08/31/20 Cardiac Event Monitor 01/27/21
[2022-05-22] MEDS: lidocaine 1% INJ 20 mL XX (07:28)
--- NOTE | 2022-05-22 07:28 | SUR.PREOP ---
procedure was delayed due to patient receiving a breathing treatment and physician arrived to unit at 0701
--- NOTE | 2022-05-22 07:48 | PM.OP ---
Operative Report Date of procedure: May 22, 2022 Pre-op diagnosis: Preop Diagnosis Port-A-Cath placement/lung carcinoma Post-op diagnosis: Significant mucus plugging causing right lung collapse Procedure done: Bronchoscopic inspection of airways causing right lung collapse-clearance of airways Surgeon: Cristopher Soriano MD [facility] Brief History: 71-year-old Ms. 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 There was significant disease progression with further volume loss of the right hemithorax with pleural fluid and pleural thickening.There was right hilar soft tissue thickening and right hilar soft tissue mass with complete obstruction of the bronchus intermedius and right upper lobe bronchi.? Secretions with diffuse opacification were noted in the right distal mainstem bronchus.? There was new right supraclavicular adenopathy and there were innumerable new metastatic nodules throughout the left lung, markedly increased in size and number. She was referred to [facility] for endobronchial stent but was found to have mucous plugging in the right lung rather than progression of lung cancer. She again had an ER visit on 04/26/22 - for sob and CT chest again revealed There is an intraluminal filling defect with a left lower lobe pulmonary artery. This was not present previously.complete opacification of the right hemithorax with suspected hilar mass invading the superior vena cava compressing right-sided pulmonary arteries. Enlarged mediastinal adenopathy. Axillary adenopathy which is increased in size. The overall constellation of findings shows a mixed response to therapy. Today I have scheduled patient for bronchoscopic inspection of the airways and clearance of mucous plugging to what ever extent it may open up her airways Procedure: 79401 Dx Bronchoscope w/Washings or airway inspection 76034 Dx Bronchoscope w/BAL 32983 Bronchoscopy w/ therapeutic aspiration of the tracheobronchial tree (clearance of airway secretions, removal of mucus plugs) Indication: CT chest 04/26/2022 showed complete opacification of the right hemithorax with suspected hilar mass invading the superior vena cava compressing right-sided pulmonary arteries. Enlarged mediastinal adenopathy. Axillary adenopathy which is increased in size. Description of the procedure: The procedure was explained to the patient and the consent was obtained. The patient was brought to the OR. Anesthesia: The patient underwent endotracheal intubation for general anesthesia. Local anesthesia: The claritza in the right and left mainstem bronchi were anesthetized with 1% lidocaine, 3 mL. Following induction of general anesthesia, the flexible bronchoscope used for initial inspection (70304) and airway clearance (15835). The scope was advanced through the ET tube. The lower trachea mucosa appeared normal, no endotracheal lesion was seen. There were copious amounts of thick mucus secretions predominantly from right mainstem bronchus up to the level of claritza. After suctioning, the claritza was visible entities sharp. The claritza, the right and left mainstem bronchi are anesthetized with 1% lidocaine. In a systematic manner bilateral bronchial tree was then examined. The bronchoscope was advanced into the left mainstem bronchus. The mucosa appeared normal with no endobronchial lesions. The left upper lobe, lingula and left lower lobe bronchi were examined up to the third subsegmental level and no abnormalities were identified. Mucosa appeared normal with no endobronchial lesion, active bleeding or mucous plug. There were some mucus secretions in lower lobe-which were suctioned right away. The bronchoscope was then introduced into the right mainstem bronchus. Both bronchus intermedius and the right upper lobe were completely occluded with thick mucus secretions, which were all suctioned right away. The scope was advanced to right upper lobe-anterior subsegment opening is completely occluded with mass. The right apical as well as posterior segmental openings were visualized after thoroughly suctioning the secretions. Then the scope was passed into bronchus intermedius. There were significant mucus secretions occluding the bronchus intermedius which were suctioned right away. There is no right lower lobe opening as patient previously had right lower lobectomy. There was significant edema occluding the opening of right middle lobe with thick mucous plug blocking it. Took some time to instill normal saline and suction as much as mucus from right middle lobe as possible. Bronchoalveolar lavage was performed from the right middle lobe, 15 mL of saline was instilled, fluid return was 10 mL. The fluid was mixed with thick mucous plugs late. Samples: 1. Bronchoalveolar lavage (79184) from right middle lobe sent for cell count, cultures for microbiology, fungal, AFB Complications: None.The patient was extubated and brought to the PACU in stable condition. Postprocedure chest x-ray: No evidence of pneumothorax Disposition: Patient can be discharged home in stable condition.
--- NOTE | 2022-05-22 08:15 | ANE.PACU2 ---
Inpatient post-anesthesia follow up: Airway intact: Yes Vital signs: Temperature 97 F Pulse Rate 109 Respiratory Rate 18 Blood Pressure 145/121 Pulse Oximetry 84 Oxygen Delivery Me thod Nasal Cannula Oxygen Flow Rate 4 Fraction of Inspir ed Oxygen Hydration adequate: Yes Nausea and vomiting: No Pain level: 1 Mental status: Baseline
--- NOTE | 2022-05-22 08:28 | XR_ITS ---
WS: [id number] XR chest 1V portable [id number] REASON FOR EXAM: Post bronchoscopy with lavage FINDINGS: Left chest chemotherapy infusion port and catheter remain in proper position and unchanged compared t o 05/10/2022. Compared to the examination of 05/10/2022, there is some increase in the aeration of the right lung i n the upper right hemithorax and an irregular area of aeration in the mid medial right hemithorax in the region of the surgical clips. There is still significant atelectasis of the remaining right lung with shift of mediastinal structures to the right. Again noted is the presumed metastatic lesion in the distal right clavicle. Again noted are the multiple ill-defined densities in the left lung. XR/XR chest 1V portable [id number] IMPRESSION: Minimal aeration improvement in the remaining right lung as above.
[2022-05-22 08:35] LABS: Color, Bronc Wash Slight Pink
[2022-05-22 08:38] LABS: Apprearance, Bronch Wash Hazy (CLEAR)
[2022-05-22 08:39] LABS: Bronch Source Right Lower Lobe
[2022-05-22 08:40] LABS: Total Cells Counted Bronch 1
[2022-05-22 08:41] LABS: Cyto Order Verification No Order
== END 2022-05-22 10:00 | disposition home or self-care (01) ==
PROVIDERS: PCP Nurse Practitioner Family; Visit Provider Internal Medicine Pulmonary Disease
PROC: 0BJ08ZZ Inspection of Tracheobronchial Tree, Via Natural or Artificial Opening Endoscopic (ICD-10-PCS; CPT 31622; principal; 2022-05-22 07:00)
DX: C34.90 Malignant neoplasm of unspecified part of unspecified bronchus or lung (principal); J98.19 Other pulmonary collapse; Z87.891 Personal history of nicotine dependence; J44.9 Chronic obstructive pulmonary disease, unspecified; Z99.81 Dependence on supplemental oxygen; Z90.2 Acquired absence of lung [part of]; I10 Essential (primary) hypertension; M19.90 Unspecified osteoarthritis, unspecified site; M06.9 Rheumatoid arthritis, unspecified; E11.42 Type 2 diabetes mellitus with diabetic polyneuropathy
CPT/HCPCS: 31624; 31645; 36416; 71045; 80503; 82962; 87015; 87070; 87102; 87116; 87205; 87206; 87801; 88108; 88305; 89050; 94640; J0330; J1100; J2405; J2704; J3010; J3490; J7030

== ENCOUNTER 2022-05-24 13:09 | Oncology outpatient (recurring) (ONCR) | payer MEDICARE, OTHER, SELFPAY ==
[2022-05-24 14:06] LABS: Basophils % 0.3 %; Eosinophils % 0.2 %; Hematocrit 36.6 % (37.0-47.0); Hemoglobin 11.3 g/dL (11.5-15.3); Lymphocytes # 1.5 10^3/uL (0.8-4.8); Lymphocytes % 11.8 %; Mean Corpuscular HGB Conc 30.9 g/dL (30.0-36.0); Mean Corpuscular Hemoglobin 28.4 pg (28.0-34.0); Mean Platelet Volume 9.4 fL (7.4-10.4); Monocytes # 0.9 10^3/uL (0.2-0.9); Monocytes % 7.2 %; Neutrophils # 9.98 10^3/uL (1.8-7.7); Neutrophils % 79.5 %; Nucleated Red Blood Cells % 0.2 %; Platelet Count 316 10^3/cmm (130-400); Red Blood Count 3.98 10^6/uL (4.1-5.3); Red Cell Distribution Width 18.6 % (12.1-15.1); White Blood Count 12.6 10^3/uL (4.0-10.0)
[2022-05-24 14:33] LABS: Alanine Aminotransferase 12 U/L (0-33); Albumin Level 2.9 g/dL (3.5-5.2); Alkaline Phosphatase 84 U/L (35-105); Anion Gap 12.3 (5-19); Aspartate Amino Transferase 8 U/L (0-32); Blood Urea Nitrogen 22 mg/dL (8-23); Calcium 8.7 mg/dL (8.5-10.5); Carbon Dioxide 33 mmol/L (22-29); Chloride 93 mmol/L (98-107); Globulin 2.3 g/dL (1.3-4.6); Glucose 131 mg/dL (65-115); Osmolality Calculated 285 mOsm/kg (285-295); Potassium 3.3 mmol/L (3.5-5.1); Sodium 135 mmol/L (136-145); Thyroid Stimulating Hormone 0.83 uIU/mL (0.27-4.20); Total Bilirubin 0.3 mg/dL (0.15-1.2); Total Protein 5.2 g/dL (6.6-8.7)
== END 2022-05-24 23:59 | disposition home or self-care (01) ==
LOC: ONCMED 13:09
PROVIDERS: PCP Nurse Practitioner Family; Visit Provider Internal Medicine Medical Oncology
DX: C34.31 Malignant neoplasm of lower lobe, right bronchus or lung (principal); J91.0 Malignant pleural effusion; C77.8 Secondary and unspecified malignant neoplasm of lymph nodes of multiple regions; C78.02 Secondary malignant neoplasm of left lung; C79.31 Secondary malignant neoplasm of brain; J43.9 Emphysema, unspecified; I26.99 Other pulmonary embolism without acute cor pulmonale; R19.7 Diarrhea, unspecified; Z79.01 Long term (current) use of anticoagulants; Z79.52 Long term (current) use of systemic steroids; Z79.899 Other long term (current) drug therapy; Z87.891 Personal history of nicotine dependence; Z92.3 Personal history of irradiation; C79.51 Secondary malignant neoplasm of bone
CPT/HCPCS: 36591; 80053; 84443; 85025; 99215

== ENCOUNTER 2022-05-29 17:46 | Inpatient (IN) | payer MEDICARE, OTHER, SELFPAY ==
[2022-05-29] VITALS (18 sets, daily range): BP systolic 120–170; BP diastolic 54–98; PULSE 94–112; RESP 12–29; TEMP 35.8; O2SAT 87–100; BMI 30.5
--- NOTE | 2022-05-29 17:58 | ECG_ITS ---
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 Measurements Intervals [place] Rate: 97 P: 42 AK: 167 QRS: 33 QRSD: 81 T: 39 QT: 364 QTc: 463 Interpretive Statements SINUS RHYTHM POSSIBLE LEFT ATRIAL ENLARGEMENT [-0.1mV P-WAVE IN V1/V2] POSSIBLE ANTERIOR MYOCARDIAL INFARCTION , PROBABLY OLD [30 ms Q WAVE IN V3/V4, OR R < 0.2 mV IN V4] Compared to ECG 04/26/2022 13:25:09 Myocardial infarct finding now present Electronically Signed On 05-29-2022 21:35:42 FOUNDRY METALLURGIST by Bill Bradshaw M.D. [id number]
--- NOTE | 2022-05-29 17:59 | XRR_ITS ---
PROCEDURE INFORMATION: Exam: XR Chest Exam date and time: 05/29/2022 6:45 PM Age: 71 years old Clinical indication: Shortness of breath; Prior surgery; Surgery date: 6+ months; Surgery type: Rll; Patient HX: C/O worsening SOB TECHNIQUE: Imaging protocol: Radiologic exam of the chest. Views: 1 view. COMPARISON: CR XR chest 1V portable [id number] 05/22/2022 8:51 AM FINDINGS: Tubes, catheters and devices: Left-sided Port-A-Cath. Lungs: Right hemithorax is completely opacified with lack of airspace opacification and volume loss given some rightward deviation of the trachea, chest CT could further characterize this. Mild interstitial edema. Patchy left lung ground-glass airspace infiltrates suspected. Pleural spaces: Small left pleural effusion. Heart/Mediastinum: Unremarkable. No cardiomegaly. Bones/joints: Unremarkable. XR/XR chest 1V portable [id number] IMPRESSION: 1. Right hemithorax is completely opacified with lack of airspace opacification and volume loss given some rightward deviation of the trachea, chest CT could further characterize this. 2. Left-sided Port-A-Cath. 3. Mild interstitial edema. 4. Small left pleural effusion. 5. Patchy left lung ground-glass airspace infiltrates suspected.
--- NOTE | 2022-05-29 18:03 | ED_ITS ---
HPI - SOB/Dyspnea General: Chief Complaint: Shortness of Breath/Dyspnea Stated Complaint: SOB Time Seen by Provider: 05/29/22 17:58 Source: patient Mode of arrival: ambulatory Limitations: no limitations History of Present Illness: HPI Narrative: 71-year-old female has a history of stage IV lung cancer she denies any treatment currently she also has history of COPD is a former smoker states over the last 1 to 2 hours she has had increasing shortness of breath she is in distr ess here with audible wheezing and rales with tachypnea able to speak in roughly 2-4 word sentences she denies any fever or chest pain. Associated symptoms: Deny abdominal pain, chest pain, fever(s), nausea or vomiting Review of Systems Const: Denies: fever(s), chills, body aches or change in appetite Eyes: Denies: blurry vision or eye discomfort ENMT: Denies: throat pain or dental pain Card: Denies: chest pain Resp: Reports: dyspnea and non-productive cough GI: Denies: abdominal pain, nausea, vomiting or diarrhea : Denies: dysuria Musc: Denies: neck pain or back pain Skin/Breast: Denies: rash Neuro: Denies: headache(s) Psych: Denies: depression Rene/Lymph: Denies: easy bruising All/Imm: Denies: urticaria PFSH ED PFSH: Medical History Chronic obstructive pulmonary disease, unspecified Essential (primary) hypertension Gastro-esophageal reflux disease without esophagitis Hyperlipidemia, unspecified Malignant neoplasm of lower lobe, 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, N1, M0 Neuropathy Peripheral neuropathy Rheumatoid arthritis involving both hands with positive rheumatoid factor Type 2 diabetes mellitus without complications Surgical History H/O colonoscopy 3 yrs ago History of bronchoscopy (10/02/19) navigational bronchoscopy with EBUS History of bronchoscopy (05/22/22) Dr. Soriano - 05/22/2021 Status post lobectomy of lung (12/07/19) right lower lobectomy Family History Father Osteoarthritis CAD (coronary artery disease) [place] @ 66 Mother Hypertension Fibromyalgia Dementia Diabetes Brother Chronic kidney disease (CKD) Stroke Brother Stroke Denies family history of Rheumatoid arthritis Lupus Clotting disorder Suicide Anesthesia complication Bleeding disorder Lung disease Cancer Social History Smoking and tobacco status: former smoker Quit status (tobacco): has quit using tobacco Year quit tobacco: 2019 1PPD x 50 Years Second hand smoke exposure: No Alcohol intake: never Caregiver/support person: Yes Lives independently: Yes Household members: none Housing: House Marital status: / service: No Current occupational status: retired History of recent travel: No Current gender identity: Female Special ac needs: No Agree to transfusion: Yes Physical Exam Const: COMMON NORMALS: patient oriented x3 GENERAL APPEARANCE: in distress and ill appearing HENMT: COMMON NORMALS: normocephalic and atraumatic HEAD & SCALP: normocephalic and atraumatic Eye: COMMON NORMALS: Equal, round and reactive pupils present and EOMs intact bilaterally PUPIL: Yes Equal, round and reactive pupils present Neck/C-Spine: COMMON NORMALS: full ROM and supple Chest: COMMONS NORMALS: normal inspection of the chest and normal palpation of entire chest wall Resp: EFFORT & INSPECTION: Yes tachypneic, Yes respiratory distress and Yes la bored AUSCULTATION: rales and rhonchi Cardio: COMMON NORMALS: regular rate, regular rhythm and No murmurs present (Cardio) RATE: regular rate RHYTHM: regular rhythm GI: COMMON NORMALS: Normal to inspection, nondistended, normoactive bowel sounds present, Soft to palpation, non-tender and no masses PALPATION: Yes Soft to palpation Extremity: COMMON NORMALS: normal to inspection and full ROM Neuro: COMMON NORMALS: patient oriented x3, moves all extremities and no focal motor deficits Psych: COMMON NORMALS: mental status grossly normal, Normal thought process present and cooperative THOUGHT PROCESS: Normal thought process present Skin: COMMON NORMALS: no rashes or lesions noted and no wounds GENERAL SKIN EXAM: no rashes or lesions noted Course Vital Signs: Vital signs: Vital Signs Temperature 96.4 F L 05/29/22 17:49 Pulse Rate 95 05/29/22 19:23 Respiratory Rate 12 05/29/22 19:23 Blood Pressure 138/96 05/29/22 19:23 Pulse Oximetry 98 05/29/22 19:23 Oxygen Delivery Me thod 01/17/23 19:23 Oxygen Flow Rate 3 05/29/22 17:49 Fraction of Inspir ed Oxygen 45 05/29/22 18:17 MDM - SOB/Dyspnea Medical Decision Making Patient presents here with collapse of the right lung most likely from a mucous plug or her cancer she is respiratory distress did place her on BiPAP she is improving spoke to hospitalist will admit to the ICU at this time. Lab Data 05/29/22 18:16 05/29/22 18:16 Labs/Radiology: Laboratory Results WBC 23.3 10^3/uL (4.0-10.0) H 05/29/22 18:16 RBC 4.23 10^6/uL (4.1-5.3) 05/29/22 18:16 Hgb 12.0 g/dL (11.5-15.3) 05/29/22 18:16 Hct 39.4 % (37.0-47.0) 05/29/22 18:16 MCV 93.1 fl (81-99) 05/29/22 18:16 MCH 28.4 pg (28.0-34.0) 05/29/22 18:16 MCHC 30.5 g/dL (30.0-36.0) 05/29/22 18:16 RDW 17.9 % (12.1-15.1) H 05/29/22 18:16 Plt Count 369 10^3/cmm (130-400) 05/29/22 18:16 MPV 8.9 fL (7.4-10.4) 05/29/22 18:16 Neut % (Auto) 85.8 % 05/29/22 18:16 Lymph % (Auto) 6.6 % 05/29/22 18:16 [place] % (Auto) 5.5 % 05/29/22 18:16 Eos % (Auto) 0.2 % 05/29/22 18:16 Baso % (Auto) 0.4 % 05/29/22 18:16 Neut # (Auto) 19.99 10^3/uL (1.8-7.7) H 05/29/22 18:16 Lymph # (Auto) 1.5 10^3/uL (0.8-4.8) 05/29/22 18:16 [place] # (Auto) 1.3 10^3/uL (0.2-0.9) H 05/29/22 18:16 Eos # (Auto) 0.1 10^3/uL (0.0-0.8) 05/29/22 18:16 Baso # (Auto) 0.1 10^3/uL (0.0-0.1) 05/29/22 18:16 Nucleated RBC % (auto) 0.1 % 05/29/22 18:16 Nucleated RBCs # 0.0 /100WBC 05/29/22 18:16 PT 16.30 SECONDS (12.1-14.9) H 05/29/22 18:16 INR 1.27 (0.8-1.2) H 05/29/22 18:16 Specimen Type Arterial 05/29/22 18:02 Sample Site Radial, right 05/29/22 18:02 ABG pH 7.34 (7.35-7.45) L 05/29/22 18:02 ABG pCO2 63.2 mmHg (35-45) H* 05/29/22 18:02 ABG pO2 81.7 mmHg (80.0-100.0) 05/29/22 18:02 ABG HCO3 33.9 mmol/L (22-26) H 05/29/22 18:02 ABG Base Excess 6.2 mmol/L (-2.0-2.0) H 05/29/22 18:02 Grupo Test Pos 05/29/22 18:02 Hematocrit 38.5 % (37-47) 05/29/22 18:02 Hgb O2 Saturation 93.4 % (95-100) L 05/29/22 18:02 Carboxyhemoglobin 1.8 %THgb (0.4-20.1) 05/29/22 18:02 Methemoglobin 0.3 % (0.4-1.5) L 05/29/22 18:02 Total Hemoglobin 12.6 g/dL (12-16) 05/29/22 18:02 O2 Delivery Device Bipap 05/29/22 18:02 FiO2 45.0 % 05/29/22 18:02 Supply And Distribution Manager ID [place] 05/29/22 18:02 Sodium 139 mmol/L (136-145) 05/29/22 18:16 Potassium 4.1 mmol/L (3.5-5.1) 05/29/22 18:16 Chloride 97 mmol/L (98-107) L 05/29/22 18:16 Carbon Dioxide 34 mmol/L (22-29) H 05/29/22 18:16 Anion Gap 12.1 (5-19) 05/29/22 18:16 BUN 25 mg/dL (8-23) H 05/29/22 18:16 Creatinine 0.9 mg/dL (0.5-0.9) 05/29/22 18:16 GFR Calculation Not Reportable 05/29/22 18:16 Glucose 179 mg/dL (65-115) H 05/29/22 18:16 Calculated Osmolality 297 mOsm/kg (285-295) H 05/29/22 18:16 Lactic Acid 1.1 mmol/L (0.5-2.2) 05/29/22 18:16 Calcium 8.7 mg/dL (8.5-10.5) 05/29/22 18:16 Total Bilirubin 0.3 mg/dL (0.15-1.2) 05/29/22 18:16 AST 8 U/L (0-32) 05/29/22 18:16 ALT 14 U/L (0-33) 05/29/22 18:16 Alkaline Phosphatase 90 U/L (35-105) 05/29/22 18:16 NT-Pro-B Natriuret Pep 541 pg/mL (0-125) H 05/29/22 18:16 Total Protein 5.4 g/dL (6.6-8.7) L 05/29/22 18:16 Albumin 3.0 g/dL (3.5-5.2) L 05/29/22 18:16 Globulin 2.4 g/dL (1.3-4.6) 05/29/22 18:16 Influenza Type A Ag negative (Negative) 05/29/22 18:20 Influenza Type B Ag negative (Negative) 05/29/22 18:20 SARS-CoV-2 Ag (Rapid) negative (Negative) 05/29/22 18:20 Critical Care Time Critical Care Time: Critical Care Time: Yes Total Critical Care Time: 45 Attestation: The high probability of a clinically significant, sudden or life threatening deterioration of the patient's resp system(s) required my full and direct attention, intervention and personal management. The critical care time is as shown. This time is in addition to time spent performing any reported procedures but includes the following: [x] Data and vital sign review and interpretation [x] Patient assessment, examination and intervention [x] Documentation [x] Medication orders and management Discharge Plan Discharge Patient Disposition: Admitted As Inpatient Clinical Impression: Malignant neoplasm of lower lobe, right bronchus or lung, Collapse of right lung, Acute respiratory failure with hypoxia Condition: Stable Prescriptions: No Action (DME) FreeStyle Lite Strips Strip See Rx Instructions .ROUTE .MEDSUPPLY Qty: 10 Rx Instructions: As directed (DME) lancets [FreeStyle Lancets] 28 gauge misc See Rx Instructions .ROUTE .MEDSUPPLY Qty: 25 Rx Instructions: As directed folic acid 1 mg tablet 1 mg PO DAILY@0830 Qty: 90 1RF cinnamon bark [Cinnamon] 500 mg capsule 1,000 mg PO QAM carvedilol 12.5 mg tablet 12.5 mg PO BID@30,2029 Dose Instruction: TAKE 1 & 1/2 (ONE & ONE-HALF) TABLETS BY MOUTH TWICE DAILY AT 8:30AM AND 8:30PM Incruse Ellipta 62.5 mcg/actuation blister with device 1 inh inhalation DAILY PRN (DME) nebulizer See Rx Instructions .Route .MEDSUPPLY Qty: 1 0RF Rx Instructions: As directed guaifenesin 600 mg tablet extended release 12hr 600 mg PO BID PRN (Reason: congestion) Qty: 60 0RF ipratropium-albuterol 0.5 mg-3 mg(2.5 mg base)/3 mL solution for nebulization 3 ml inhalation QID PRN (Reason: wheezing) Qty: 180 0RF gabapentin 600 mg tablet 600 mg PO BID Qty: 180 0RF mupirocin 2 % ointment 1 applic topical BID Qty: 15 1RF furosemide 40 mg tablet See Rx Instructions PO BID Qty: 90 0RF Rx Instructions: orally twice a day; 2 tablets in the morning and 1 in the early afternoon potassium chloride 10 mEq capsule, extended release 10 meq PO BID Qty: 60 0RF acetaminophen 500 mg Tablet 1,000 mg PO Q6H PRN (Reason: Pain) ondansetron HCl 4 mg tablet 4 mg PO Q6H PRN (Reason: Nausea And Vomiting) prednisone 10 mg tablet 10 mg PO QAM diltiazem HCl 120 mg capsule,extended release 24hr 120 mg PO QAM Xarelto 10 mg tablet 10 mg PO QAM Referrals: Glory Valencia FNP [Primary Care Provider] - Coding Level of Care Code ED Firer Locomotive Crane for Chg Fwd Exam Comprehensive
[2022-05-29 18:13] LABS: ABG PCO2 63.2 mmHg (35-45); ABG PH Result 7.34 (7.35-7.45); Arterial Blood Gas Hematocrit 38.5 % (37-47); Base Excess ABG 6.2 mmol/L (-2.0-2.0); Blood Gas Allen Test Pos; Blood Gas Operator Identificat WALCI; Blood Gas Sample Site Radial, right; Blood Gas Sample Type Arterial; Carboxyhemoglobin 1.8 %THgb (0.4-20.1); HCO3 ABG 33.9 mmol/L (22-26); HGB O2 Sat 93.4 % (95-100); Methemoglobin 0.3 % (0.4-1.5); Oxygen Device BIPAP; PO2 ABG 81.7 mmHg (80.0-100.0); Total Hemoglobin 12.6 g/dL (12-16)
[2022-05-29 18:24] LABS: Basophils # 0.1 10^3/uL (0.0-0.1); Basophils % 0.4 %; Eosinophils # 0.1 10^3/uL (0.0-0.8); Eosinophils % 0.2 %; Hematocrit 39.4 % (37.0-47.0); Lymphocytes # 1.5 10^3/uL (0.8-4.8); Lymphocytes % 6.6 %; Mean Corpuscular HGB Conc 30.5 g/dL (30.0-36.0); Mean Corpuscular Hemoglobin 28.4 pg (28.0-34.0); Mean Corpuscular Volume 93.1 fl (81-99); Mean Platelet Volume 8.9 fL (7.4-10.4); Monocytes # 1.3 10^3/uL (0.2-0.9); Monocytes % 5.5 %; Neutrophils # 19.99 10^3/uL (1.8-7.7); Neutrophils % 85.8 %; Nucleated Red Blood Cells % 0.1 %; Platelet Count 369 10^3/cmm (130-400); Red Blood Count 4.23 10^6/uL (4.1-5.3); Red Cell Distribution Width 17.9 % (12.1-15.1); White Blood Count 23.3 10^3/uL (4.0-10.0)
[2022-05-29 18:37] LABS: INR 1.27 (0.8-1.2)
[2022-05-29 18:46] LABS: Lactic Sepsis W/Reflex 1.1 mmol/L (0.5-2.2)
[2022-05-29 18:54] LABS: Alanine Aminotransferase 14 U/L (0-33); Alkaline Phosphatase 90 U/L (35-105); Anion Gap 12.1 (5-19); Aspartate Amino Transferase 8 U/L (0-32); Blood Urea Nitrogen 25 mg/dL (8-23); Calcium 8.7 mg/dL (8.5-10.5); Carbon Dioxide 34 mmol/L (22-29); Chloride 97 mmol/L (98-107); Globulin 2.4 g/dL (1.3-4.6); Glucose 179 mg/dL (65-115); NT Pro B Type Natriuretic Pept 541 pg/mL (0-125); Osmolality Calculated 297 mOsm/kg (285-295); Potassium 4.1 mmol/L (3.5-5.1); Sodium 139 mmol/L (136-145); Total Bilirubin 0.3 mg/dL (0.15-1.2); Total Protein 5.4 g/dL (6.6-8.7)
[2022-05-29] MEDS: LORazepam 2 mg/mL INJ 1 mL 0.5 MG IVP (19:03)
[2022-05-29 19:04] LABS: Influenza A by IFA negative (Negative); Influenza B by IFA negative (Negative)
[2022-05-29] MEDS: piperacillin-tazobactam 3.375 GM in sodium chloride 0.9% (plus) 50 ML IV (19:05)
[2022-05-29 19:14] LABS: SARS Covid-2 Antigen negative (Negative)
--- NOTE | 2022-05-29 20:55 | ECG_ITS ---
[facility] Test Date: 2022-05-29 Pat Name: Eunice Aguilar Department: Room: Gender: Female Clinical Laboratory Assistant: : 1950 Requested By: Duke Estrada Order Number: [id number] Tonio MD: Babs Young M.D. Measurements Intervals [place] Rate: 106 P: 32 NE: 166 QRS: 23 QRSD: 86 T: 42 QT: 334 QTc: 444 Interpretive Statements SINUS TACHYCARDIA POSSIBLE LEFT ATRIAL ENLARGEMENT [-0.1mV P-WAVE IN V1/V2] POSSIBLE ANTERIOR MYOCARDIAL INFARCTION , PROBABLY OLD [30 ms Q WAVE IN V3/V4, OR R < 0.2 mV IN V4] ABNORMAL RHYTHM ECG Compared to ECG 05/29/2022 18:21:02 Sinus rhythm no longer present Myocardial infarct finding still present Electronically Signed On 05-30-2022 7:30:19 FARM GENERAL MANAGER by Babs Young M.D. [email or web address]
--- NOTE | 2022-05-29 21:01 | PM.HP ---
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 Soriano, for right lung collapse, was found to have mucous plugging, however after the procedure she continued to have right lung collapse, so was felt that it was rather progression of the disease, her pleural fluid on the right was positive for non-small cell lung cancer, she is off sorotinib, she presents to [facility] due to worsening shortness of breath, fatigue, malaise, lower extremity edema. Currently patient is alert to person, to place, not to time she is on the BiPAP, has received Ativan, she does open her eyes, she does follow some commands but falls back asleep mostly history was provided by daughter at bedside. Patient daughter tells me that after her bronchoscopy she did get better for about 2 days she was actually able to walk, on 2 L, some shortness of breath but significant improved. However her condition started to deteriorate, she started feeling increased shortness of breath, acute on chronic cough, shortness of breath and with exertion, orthopnea, paroxysmal nocturnal dyspnea. No fevers reported, no chills, no nausea, vomiting has a poor appetite. Review of Systems Const: Denies: fever(s) Card: Denies: chest pain Resp: Reports: dyspnea Medications/Allergies Home Medications Medication Instructions Recorded Confirmed Last Taken Type blood sugar diagnostic (FreeStyle #10 ea 05/12/19 05/24/22 Unknown History Lite Strips) lancets 28 gauge (FreeStyle #25 ea 05/12/19 05/24/22 Unknown History Lancets) folic acid 1 mg tablet 1 mg PO DAILY@0830 #90 tabs 11/22/20 05/24/22 05/21/22 Rx rivaroxaban 10 mg tablet (Xarelto) 10 mg PO QAM 10/02/21 05/24/22 05/19/22 History guaifenesin 600 mg tablet, 600 mg PO BID PRN congestion #60 11/01/21 05/24/22 05/20/22 Rx extended release 12 hr tabs cinnamon bark 500 mg capsule 1,000 mg PO QAM 12/12/21 05/24/22 05/21/22 History (Cinnamon) nebulizer #1 ea 03/13/22 05/10/22 Unknown Rx ipratropium 0.5 mg-albuterol 3 mg 3 ml inhalation QID PRN wheezing 03/15/22 05/24/22 05/21/22 Rx (2.5 mg base)/3 mL nebulization #180 mL soln acetaminophen 500 mg tablet 1,000 mg PO Q6H PRN Pain 03/19/22 05/24/22 05/20/22 History carvedilol 12.5 mg tablet 12.5 mg PO BID@0830,2030 04/12/22 05/24/22 05/22/22 04:30 History gabapentin 600 mg tablet 600 mg PO BID #180 tabs 04/23/22 05/24/22 05/21/22 Rx diltiazem HCl 120 mg 120 mg PO QAM 04/26/22 05/24/22 05/22/22 04:30 History capsule,extended release 24 hr ondansetron HCl 4 mg tablet 4 mg PO Q6H PRN Nausea And Vomiting 04/26/22 05/24/22 05/20/22 History prednisone 10 mg tablet 10 mg PO QAM 04/26/22 05/24/22 05/21/22 History mupirocin 2 % topical ointment 1 applic topical BID #15 grams 05/17/22 05/24/22 05/17/22 Rx umeclidinium 62.5 mcg/actuation 1 inh inhalation DAILY PRN 05/24/22 Unknown History blister powder for inhalation (Incruse Ellipta) furosemide 40 mg tablet See Rx Instructions PO BID #90 tabs 05/25/22 Unknown Rx potassium chloride 10 mEq 10 meq PO BID #60 caps 05/25/22 Unknown Rx capsule,extended release Allergies Allergy/AdvReac Type Severity Reaction Status Date / Time aspirin Allergy Intermediate bloody Verified 05/24/22 14:51 stools lisinopril Allergy Mild rash Verified 05/24/22 14:51 nickel Allergy Mild rash Verified 05/24/22 14:51 PFSH Acute PFSH: Medical History Chronic obstructive pulmonary disease, unspecified Essential (primary) hypertension Gastro-esophageal reflux disease without esophagitis Hyperlipidemia, unspecified Malignant neoplasm of lower lobe, 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, N1, M0 Neuropathy Peripheral neuropathy Rheumatoid arthritis involving both hands with positive rheumatoid factor Type 2 diabetes mellitus without complications Surgical History H/O colonoscopy 3 yrs ago History of bronchoscopy (10/02/19) navigational bronchoscopy with EBUS History of bronchoscopy (05/22/22) Dr. Soriano - 05/22/2021 Status post lobectomy of lung (12/07/19) right lower lobectomy Family History Father Osteoarthritis CAD (coronary artery disease) CA @ 66 Mother Hypertension Fibromyalgia Dementia Diabetes Brother Chronic kidney disease (CKD) Stroke Brother Stroke Denies family history of Rheumatoid arthritis Lupus Clotting disorder Suicide Anesthesia complication Bleeding disorder Lung disease Cancer Social History Smoking and tobacco status: former smoker Quit status (tobacco): has quit using tobacco Year quit tobacco: 2019 1PPD x 50 Years Second hand smoke exposure: No Alcohol intake: never Caregiver/support person: Yes Lives independently: Yes Household members: none Housing: House Marital status: / service: No Current occupational status: retired History of recent travel: No Current gender identity: Female Special ac needs: No Agree to transfusion: Yes Vitals/I&O/Wt Last Vital Signs Temp 96.4 F L 05/29/22 17:49 Pulse 95 05/29/22 19:23 Resp 12 05/29/22 19:23 BP 138/96 05/29/22 19:23 Pulse Ox 98 05/29/22 19:23 O2 Del Method 05/29/22 19:23 O2 Flow Rate 3 05/29/22 17:49 FiO2 45 05/29/22 18:17 Physical Exam Const: COMMON NORMALS: no acute distress EXAM LIMITATIONS: altered mental status ORIENTATION/CONSCIOUSNESS: Yes awake, Yes oriented to person, Yes oriented to place and Yes confused; not oriented to time HENMT: COMMON NORMALS: normocephalic HEAD & SCALP: normocephalic Eye: COMMON NORMALS: Equal, round and reactive pupils present and EOMs intact bilaterally Neck/C-Spine: COMMON NORMALS: no JVD Lymph: LYMPHATIC: lymphadenopathy Chest: COMMONS NORMALS: normal inspection of the chest Resp: COMMON NORMALS: normal respiratory effort and No retractions EFFORT & INSPECTION: Yes tachypneic AUSCULTATION: crackles, wheezes and diminished lung sounds on the right throughout Cardio: COMMON NORMALS: regular rate, regular rhythm, S1 normal heart sound present and S2 normal heart sound present RATE: regular rate RHYTHM: regular rhythm HEART SOUNDS: S1 normal heart sound present and S2 normal heart sound present GI: COMMON NORMALS: Normal to inspection, nondistended, normoactive bowel sounds present, Soft to palpation, non-tender and no bruits Extremity: NARRATIVE EXTREMITY EXAM: 2+ pitting edema bilateral lower extremity Neuro: OTHER: Difficult to follow neurologic testing, Data 05/29/22 18:16 05/29/22 18:16 Micro: Microbiology 05/29/22 19:20 Blood Culture - Preliminary Blood SPECIMEN COLLECTED 05/29/22 18:16 Blood Culture - Preliminary Blood SPECIMEN COLLECTED A&P Assessment and plan (1) Acute respiratory failure with hypoxia: (2) Collapse of right lung: (3) Malignant neoplasm of lower lobe, right bronchus or lung: (4) Malignant pleural effusion: (5) Type 2 diabetes mellitus without complications: Qualifiers: Diabetes mellitus bed bug exterminator insulin use: without nursing home use Qualified Code(s): E11.9 - Type 2 diabetes mellitus without complications (6) SOB (shortness of breath): (7) Benign essential HTN: (8) New onset atrial fibrillation: (9) Postobstructive pneumonia: (10) CHF exacerbation: (11) Acute encephalopathy: (12) Goals of care, counseling/discussion: (13) Mucus plugging of bronchi: Plan Acute respiratory failure with hypoxia and hypercarbia -Multifactorial -From systolic and diastolic CHF exacerbation -Postobstructive pneumonia -Mucous plugging -Fluid overload Plan -Admit to ICU -Continue BiPAP therapy -Mucomyst, hypertonic saline, chest vest therapy -Broad-spectrum antibiotic therapy vancomycin, Zosyn -Sputum cultures, blood cultures -Lasix 40 IV twice daily -Monitor respiratory status closely -DuoNeb, budesonide -DNR/DNI, currently as patient is encephalopathic patient's CODE STATUS was obtained from daughter, who tells me that it would her mother's wish to not have any aggressive interventions, -Xarelto for DVT prophylaxis Acute encephalopathy -Secondary to hypoxic respiratory failure, hypercarbia, postobstructive pneumonia, fluid overload Acute systolic diastolic CHF exacerbation, elevated BNP, serial EKGs here tomorrow telemetry monitoring Mucous plugging, postobstructive pneumonia as above Right lung cancer, will speak to Dr. Olson in a.m. Type 2 diabetes mellitus, A1c, low-dose sliding scale Attestations Medical Necessity Statement*: Patient requires hospitalization, inpatient, greater than 2 midnights, for acute hypoxic and hypercarbic respiratory failure, postobstructive pneumonia, CHF exacerbation, acute encephalopathy, Coding Level of Care Code Acute Code for Chg Fwd Diagnoses Acute respiratory failure with hypoxia J96.01 Collapse of right lung J98.11 Malignant neoplasm of lower lobe, right bronchus or lung C34.31 Malignant pleural effusion J91.0 Type 2 diabetes mellitus without complications E11.9 Diabetes mellitus bed bug exterminator insulin use: without bed bug exterminator use SOB (shortness of breath) R06.02 Benign essential HTN I10 New onset atrial fibrillation I48.91 Postobstructive pneumonia J18.9 CHF exacerbation I50.9 Acute encephalopathy G93.40 Goals of care, counseling/discussion Z71.89 Mucus plugging of bronchi T17.500A
[2022-05-29 21:57] LABS: INR 1.18 (0.8-1.2)
[2022-05-29] MEDS: vancomycin 1,000 MG in sodium chloride 0.9% 250 ML 250 MG IV (22:11)
[2022-05-29 22:23] LABS: Troponin(5th) Baseline 43 ng/L (0-10)
[2022-05-29 22:29] LABS: Procalcitonin 0.06 ng/mL (0-0.5)
[2022-05-29 22:40] LABS: C Reactive Protein 33.7 mg/L (0.0-4.9)
[2022-05-29 23:57] LABS: Thyroid Stimulating Hormone 1.05 uIU/mL (0.27-4.20)
[2022-05-30] VITALS (79 sets, daily range): BP systolic 63–195; BP diastolic 39–168; PULSE 79–126; RESP 14–33; TEMP 35.8–37.1; O2SAT 82–100
[2022-05-30] MEDS: pantoprazole 40 mg SDV IVP (00:45)
[2022-05-30] MEDS: FUROsemide 10 mg/mL SDV 4mL 40 MG IVP ×2 (00:46→11:32)
[2022-05-30 00:57] LABS: Troponin 5 2HR 46.63 ng/L (0-10)
[2022-05-30 01:10] LABS: Troponin 5 2HR Delta 3.63 ABS# (0-10)
[2022-05-30] MEDS: dexmedetomidine 400 MCG in sodium chloride 0.9% (100 ml) 100 ML IV (02:12)
[2022-05-30] MEDS: metOLazone 5 MG Tablet PO (02:33)
[2022-05-30] MEDS: ipratropium-albuterol 3 mL Neb INHALATION ×4 (03:24→15:11)
[2022-05-30] MEDS: budesonide 0.5 mg/2 mL Neb INHALATION ×2 (03:24→11:00)
[2022-05-30] MEDS: acetylcysteine 200 mg/mL SDV 4 mL 100 MG INHALATION ×4 (03:25→15:11)
[2022-05-30 03:28] LABS: Basophils # 0.1 10^3/uL (0.0-0.1); Basophils % 0.4 %; Eosinophils # 0.2 10^3/uL (0.0-0.8); Eosinophils % 0.9 %; Hemoglobin 11.8 g/dL (11.5-15.3); Lymphocytes # 1.8 10^3/uL (0.8-4.8); Lymphocytes % 7.2 %; Mean Corpuscular HGB Conc 30.3 g/dL (30.0-36.0); Mean Corpuscular Hemoglobin 28.9 pg (28.0-34.0); Mean Corpuscular Volume 95.6 fl (81-99); Mean Platelet Volume 9.3 fL (7.4-10.4); Monocytes # 1.7 10^3/uL (0.2-0.9); Monocytes % 6.9 %; Neutrophils # 20.24 10^3/uL (1.8-7.7); Neutrophils % 83.1 %; Nucleated Red Blood Cells % 0.1 %; Platelet Count 355 10^3/cmm (130-400); Red Blood Count 4.08 10^6/uL (4.1-5.3); Red Cell Distribution Width 17.9 % (12.1-15.1); White Blood Count 24.4 10^3/uL (4.0-10.0)
[2022-05-30 03:57] LABS: Troponin 5 6HR 49.28 ng/L (0-10)
[2022-05-30 04:03] LABS: Troponin 5 6HR Delta 6.28 ng/L (0-12)
[2022-05-30] MEDS: piperacillin-tazobactam 3.375 GM in sodium chloride 0.9% (plus) 50 ML IV ×2 (04:04→11:35)
[2022-05-30 04:06] LABS: Anion Gap 11.6 (5-19); Blood Urea Nitrogen 26 mg/dL (8-23); Calcium 7.9 mg/dL (8.5-10.5); Carbon Dioxide 33 mmol/L (22-29); Chloride 97 mmol/L (98-107); Glucose 145 mg/dL (65-115); Magnesium 2.1 mg/dL (1.7-2.3); NT Pro B Type Natriuretic Pept 760 pg/mL (0-125); Osmolality Calculated 293 mOsm/kg (285-295); Phosphorus 4.5 mg/dL (2.5-4.5); Potassium 3.6 mmol/L (3.5-5.1); Sodium 138 mmol/L (136-145)
[2022-05-30 07:48] LABS: Glucose Point of Care 139 mg/dL (70-110)
[2022-05-30] MEDS: sodium chloride 3.5% neb 4 mL Neb INHALATION (08:19)
--- NOTE | 2022-05-30 08:52 | PC.SLP ---
Attempted REVENUE STAMPER evaluation this am. Nursing stated patient had just refused all attempts to take medications orally and was on bipap. Nursing advised to complete REVENUE STAMPER evaluation at later time.
--- NOTE | 2022-05-30 10:47 | PC.CHAP ---
Pastoral Care Encounter/Spiritual Assessment Type of Contact [] Declined rn oncology research visit [] Patient/Family/Request visit [] Outpatient visit [] Follow-up visit [] Physician referral [] Code/Alert [x] Routine visit [] Staff referral [] Actively dying [] Patient sleeping [] Family support [] [] Out of room [] Palliative care [] [] Receiving care in room [] Pre-surgical visit [] Trauma [] Long length of stay [x] ICU visit [] Other: Relational/Emotional Strength [] Patient feels connected with others/family/visitors/staff [] Distress [] Loneliness/isolation [] Abandonment Spirituality of Patient [] Person of Viktoriya [] Attends Orthodox of their Viktoriya [] Believes in Prayer [] Reads Bible or Zoroastrianism materials [] There are Spiritual issues to be addressed Brokerage Manager Interventions []x Prayer [] Active listening [] Non-anxious presence [] Spiritual/emotional support [] Crisis/trauma care [] Spiritual counseling [] Bereavement support [] Provided bereavement packet [] Provided Bible/devotional materials [] Provided toy/stuffed animal, coloring book to patient or family member [] Provided Communion [] Anointing/[place] [] Salvation [] Completed spiritual assessment [] Other: Impact on Illness or Injury [] Angry [] Fearful [] Anxious [] Often cries [] Exhaustion [] Unable to work [] Unable to attend orthodox [] Unable to walk/stand [] Unable to read [] Unable to drive [] Unable to eat/drink [] Unable to sleep [] Unable to be with family [] Patient intubated [] Other: Summary Time spent with patient
--- NOTE | 2022-05-30 10:58 | USCV_ITS ---
Eunice Aguilar Age: 71 Gender: F : 1950 Exam Date: 05/30/2022 14:48 Ordering Phys: Mary Carr MD Technologist: DOROTHY [place] [facility] [place]: Possible Heart Failure BP: / HR: Rhythm: Sinus Technical Quality: Very technically difficult study MEASUREMENTS (Male / Female) Normal Values FINDINGS Left Ventricle Right Ventricle Right Atrium Left Atrium Mitral Valve Aortic Valve Tricuspid Valve Pulmonic Valve Pericardium Aorta IVC CONCLUSIONS Technically very difficult study because of poor ultrasonic windows. Difficult to assess however grossly LV systolic function appears to be normal. Regional wall motion maladies cannot be assessed because of poor ultrasonic windows. Recommend repeating echo with contrast once patient is stable. Bill Bradshaw MD (Electronically Signed) Final Date: 30 May 2022 18:21 S
[2022-05-30 11:49] LABS: Glucose Point of Care 145 mg/dL (70-110)
[2022-05-30] MEDS: insulin lispro 100 unit/1 mL SUBCUT (12:07)
--- NOTE | 2022-05-30 12:32 | XRR_ITS ---
PROCEDURE INFORMATION: Exam: XR Chest Exam date and time: 05/30/2022 12:41 PM Age: 71 years old Clinical indication: Other: Hypoxia; Prior surgery; Patient HX: HX of lung cancer PT on vent TECHNIQUE: Imaging protocol: Radiologic exam of the chest. Views: 1 view. COMPARISON: CR XR chest 1V portable [id number] 05/29/2022 6:45 PM FINDINGS: Lungs: Diffuse right lung opacity is seen with volume loss in the right hemithorax. Metallic surgical clips seen in the area of the right hilum. There is low lung volume present in the left lung. Patchy interstitial densities seen in the mid and lower left lung.. Pleural spaces: Unremarkable. No pleural effusion. No pneumothorax. Heart/Mediastinum: Unremarkable. No cardiomegaly. Bones/joints: Unremarkable. Left central line extends into the SVC XR/XR chest 1V portable [id number] IMPRESSION: 1. Complete opacity right hemithorax. 2. Metallic surgical clips right hilar region 3. Left central line is in the SVC. 4. Scattered interstitial densities are seen in the left lung
--- NOTE | 2022-05-30 12:36 | P.PN_ITS ---
Subjective Subjective: She was seen this morning. She is currently on BiPAP at this time. Unable to answer many questions however does nod her head when asked to say yes and no. She says she is not in any pain at this time. Sounds very very congested. Has a very weak cough. Currently on BiPAP. Family present at [facility]. Daughter is there as well. Blood pressure stable when seen however later did drop to 70s over 40s. Levophed was ordered. WBC count 24,000 on admission. Patient's chart was reviewed extensively including her bronchoscopy report done on May 22 and her oncology visit May 24, 2022. Oncology has recommended hospice for the patient at this time. Bronchoscopy done on May 22 did show progression of disease and extensive mucous plugging. Bronchus intermedius and right upper lobe noted to be completely occluded with thick mucus secretions which were suctioned away initially. Right upper lobe anterior segment bronchus occluded by mass. Findings consistent with disease prog ression. Family states that she was doing sort of okay until now however yesterday suddenly became short of breath and since then has been in this condition and was brought to the hospital. They states she has a good appetite no fever or night sweats. She did have a recent cold a few weeks ago. Recently her Lasix was increased to 80 in the morning and 40 in the afternoon. Last oncology note states that patient was still considering the possibility of trying immunotherapy again. Prognosis is very poor. I did have a socorro discussion with the family regarding hospice however they are not wanting to pursue that at this time. Daughter states she does not think they need that. They would like to try antibiotics and see if this infection would go away. I did explain to them that patient is getting medications to loosen up mucus however constant pressure from BiPAP is not going to help though secretions to be removed. We will try to suction as much as we can however patient's cough is very weak unsure if she will be able to cough up much. Vitals/I&O/Wt Last Vital Signs Temp 98.7 F 05/30/22 08:00 Pulse 82 05/30/22 11:14 Resp 19 H 05/30/22 11:02 BP 105/65 05/30/22 09:15 Pulse Ox 94 05/30/22 11:03 O2 Del Method 05/30/22 11:02 O2 Flow Rate 8 05/30/22 08:00 FiO2 45 05/30/22 11:03 05/29/22 05/30/22 05/30/22 22:59 06:59 14:59 Intake Total 50 / 50 356.723 / 406.723 99.312 / 99.312 Output Total 350 / 350 Balance 50 / 50 6.723 / 56.723 99.312 / 99.312 Weight last 48 hrs Weight 80.694 kg Physical Exam Narrative: General: Somewhat alert, unable to check orientation. She is currently on BiPAP. Appears lethargic and fatigued. Has a very weak cough. Unable to speak. Appears very weak. Sounds very congested. Constant rattling noticed. Appears to be distressed with BiPAP. Appears chronically ill and weak. HEENT: Normocephalic, atraumatic, has her eyes closed but opens them on command. Cardio: Regular rate rhythm, variable S1-S2 Respiratory: Gross rhonchi present throughout lung de [place], [place] GI: Abdomen soft, nontender, obese rounded abdomen, bowel sounds positive. Extremities: Trace bilateral lower extremity edema. Urinary Catheter Management: Cano: Cath Placed During This Visit: yes Reason for Continuing Indwelling Catheter: Accurate Measurement of Urinary Output in Critically Ill Patients Urinary Catheter Date of Insertion: 05/30/22 Urinary Catheter Time of Insertion: 01:00 Data 05/30/22 02:40 05/30/22 02:40 Micro: Microbiology 05/29/22 19:20 Blood Culture - Preliminary Blood SPECIMEN COLLECTED 05/29/22 18:16 Blood Culture - Preliminary Blood SPECIMEN COLLECTED A&P Assessment and plan (1) Acute respiratory failure with hypoxia: (2) Collapse of right lung: (3) Malignant neoplasm of lower lobe, right bronchus or lung: (4) Malignant pleural effusion: (5) Type 2 diabetes mellitus without complications: Qualifiers: Diabetes mellitus superintendent terminal insulin use: without superintendent terminal use Qualified Code(s): E11.9 - Type 2 diabetes mellitus without complications (6) SOB (shortness of breath): (7) Benign essential HTN: (8) New onset atrial fibrillation: (9) Postobstructive pneumonia: (10) CHF exacerbation: (11) Acute encephalopathy: (12) Goals of care, counseling/discussion: (13) Mucus plugging of bronchi: Plan #Acute respiratory failure with hypoxia and hypercarbia #Altered mental status #Etiology is multifactorial #Component of systolic and diastolic CHF exacerbation #Postobstructive pneumonia #Complete whiteout right lung #Disease progression as evidenced by bronchoscopy last week #Postobstructive pneumonia ? Continue to monitor in ICU ? Continue BiPAP therapy ? Mucomyst, hypertonic saline, chest vest therapy ? Continue BiPAP however unsure if patient will be able to cough up much due to her generalized weakness and weak cough. We will aid with suction. ? Continue vancomycin and Zosyn at this time ? Sputum cultures gram stain, blood cultures ? Lasix IV twice daily ? Monitor respiratory status closely ? Patient is DNR/DNI. Confirmed with daughter. They would not like to be intubation. ? Continue DuoNeb and budesonide ? Patient on Xarelto. That will suffice for DVT prophylaxis as well ? Mental status most likely secondary to hypoxic respiratory failure, hyperca rbia, postop pneumonia, fluid overload ? Continue low-dose sliding scale for type 2 diabetes mellitus ? I discussed with family regarding hospice as I believe that would be appropriate for the patient. However they are not wanting to speak to anybody in regards to that at this time. They would like to see how the patient does over the next 1 day. I will order an echocardiogram. ? Patient's blood pressure has been low. I have ordered Levophed in case needed. We will avoid IV fluids at this time. May also use stress dose steroids if needed. ? We do not have pulmonology support available today. I did discuss briefly over the phone with Dr. Butler as he performed a bronchoscopy last week. He also stated that patient's disease has progressed and hospice will most likely be appropriate for the patient at this time. ? Family would like to discuss this with pulmonology. I will consult them in a.m. there is no one available coding consultant today. -I am not so sure if patient will survive this hospitalization given her current status. We will continue to provide supportive care. -I will also try to reach out to Dr. Olson for recommendations. Prognosis is severely guarded. Attestations Medical Necessity Statement*: Continue to monitor in ICU today. Patient is severely ill. Critical Care Time: The high probability of a clinically significant, sudden or life threatening deterioration of the patient's [] system(s) required my full and direct attention, intervention and personal management. The critical care time is as shown. This time is in addition to time spent performing any reported procedures but includes the following: [x] Data and vital sign review and interpretation [x] Patient assessment, examination and intervention [x] Documentation [x] Medication orders and management Critical Care Time (min): 60 Coding Level of Care Code Acute Code for Chg Fwd Diagnoses Acute respiratory failure with hypoxia J96.01 Collapse of right lung J98.11 Malignant neoplasm of lower lobe, right bronchus or lung C34.31 Malignant pleural effusion J91.0 Type 2 diabetes mellitus without complications E11.9 Diabetes mellitus correction insulin use: without superintendent terminal use SOB (shortness of breath) R06.02 Benign essential HTN I10 New onset atrial fibrillation I48.91 Postobstructive pneumonia J18.9 CHF exacerbation I50.9 Acute encephalopathy G93.40 Goals of care, counseling/discussion Z71.89 Mucus plugging of bronchi T17.500A
--- NOTE | 2022-05-30 14:21 | PC.SLP ---
Attempted to do evaluation at 09:40 am and 12:40 pm. Nursing staff stated that the patient was not well enough to complete evaluation (impaired cognitive status, BiPap, patient refusal, and severely sick). Dot Chand M.S., CCC-ACQUISITIONS ASSISTANT
[2022-05-30] MEDS: LORazepam 2 mg/mL INJ 1 mL IVP (17:09)
[2022-05-30] MEDS: glycopyrrolate 0.2 mg/mL SDV 2 mL IV (17:21)
--- NOTE | 2022-05-30 18:36 | PC.NURSE ---
ICU shift SUmmary: Uneventful shift. Patient rested in bed throughout the day. Briefly needed levophed. Code status changed to comfort measures and patient transferred to [facility] surge room [id number]
[2022-05-30] MEDS: morphine 4 mg/mL SDV 1 mL IVP ×3 (21:41→22:47)
--- NOTE | 2022-05-30 22:46 | PC.NURSE ---
@1930 patient family at beside, family made aware of orders in place for patient's comfort, family informed that from this nurse assessment pt appears to be in some distress with respiration, family not receptive to using current meds ordered. family verbalized that nurse will be notified, family at this point declined vitals to be taken, nurse explained that that is okay but family might consider allowing us to take temp and family educated about how uncomfortable it might be for pt if she has fever and be untreated, family agreed, family declined repositioning stating that at this point it is pointless and will be more discomfort to pt than helpful. family remains at bedside attentive to pt.
--- NOTE | 2022-05-30 22:54 | PC.NURSE ---
@2141 family requested morphine due to pt having increased difficulty breathing, resp rapid and accessory muscled used, 2 mg given then 4 mg, for third dose family requested 4 mg instead of 6mg since pt resp is slowing down. family remains at bedside, pt having periods of apnea at this time
--- NOTE | 2022-05-30 23:19 | PC.NURSE ---
@2310 pt ceassed breathing, no hearbeat auscultated, both verified by second nurse RN Jose, Dr. Estrada notified, house sup notified. family remained at bedside.
--- NOTE | 2022-05-31 02:21 | PC.NURSE ---
pt body picked up by froy patel and taken to the morgue awaiting home burr picker per home request
--- NOTE | 2022-05-31 07:40 | P.DES_ITS ---
Discharge Providers DDS Date of Admission: 05/29/22 22:39 Date Summary Completed: 05/31/22 Attending Provider at Admission: Duke Estrada MD Attending Provider at Discharge: Mary Carr MD Primary Care Provider: LUIS Dailey DS Diagnoses Hospital Diagnoses (1) Acute respiratory failure with hypoxia: (2) Collapse of right lung: (3) Malignant neoplasm of lower lobe, right bronchus or lung: Permanent Problem Comments: Stage IIB - T2b, N1, M0 (4) Malignant pleural effusion: (5) Type 2 diabetes mellitus without complications: Qualifiers: Diabetes mellitus machine long goods helper insulin use: without machine long goods helper use Qualified Code(s): E11.9 - Type 2 diabetes mellitus without complications (6) SOB (shortness of breath): (7) Benign essential HTN: (8) New onset atrial fibrillation: (9) Postobstructive pneumonia: (10) CHF exacerbation: (11) Acute encephalopathy: (12) Goals of care, counseling/discussion: (13) Mucus plugging of bronchi: Reason for Visit Reason for Visit SOB Summary Summary Summary: please see last progress note patient made comfort measures she peacefully at 2310 Additional Data Family: at bedside Additional persons at bedside: nursing staff Advance directives?: Yes Discharge Plan Discharge Patient Disposition: Condition: Stable DS Attestations Time Spent in /Discharge Care*: less than 30 min Quality - AMI: AMI present?: No Quality - Stroke: CVA present?: No Quality - VTE: VTE present?: No Coding Level of Care Code Acute Code for Chg Fwd Diagnoses Acute respiratory failure with hypoxia J96.01 Collapse of right lung J98.11 Malignant neoplasm of lower lobe, right bronchus or lung C34.31 Malignant pleural effusion J91.0 Type 2 diabetes mellitus without complications E11.9 Diabetes mellitus fci insulin use: without machine long goods helper use SOB (shortness of breath) R06.02 Benign essential HTN I10 New onset atrial fibrillation I48.91 Postobstructive pneumonia J18.9 CHF exacerbation I50.9 Acute encephalopathy G93.40 Goals of care, counseling/discussion Z71.89 Mucus plugging of bronchi T17.500A
== END 2022-05-31 02:00 | disposition expired | DRG 189 ==
LOC: ER 22:38 → ICU 22:40 → MEDSURG 05-30 18:14
PROVIDERS: Admitting Provider Family Medicine; Emergency Provider Emergency Medicine; PCP Nurse Practitioner Family; Visit Provider Internal Medicine
DX: J96.01 Acute respiratory failure with hypoxia (principal); J18.9 Pneumonia, unspecified organism; I50.43 Acute on chronic combined systolic (congestive) and diastolic (congestive) heart failure; C34.31 Malignant neoplasm of lower lobe, right bronchus or lung; C78.01 Secondary malignant neoplasm of right lung; C79.51 Secondary malignant neoplasm of bone; J91.0 Malignant pleural effusion; J44.1 Chronic obstructive pulmonary disease with (acute) exacerbation; J44.0 Chronic obstructive pulmonary disease with (acute) lower respiratory infection; G93.40 Encephalopathy, unspecified; J98.19 Other pulmonary collapse; J96.02 Acute respiratory failure with hypercapnia; I11.0 Hypertensive heart disease with heart failure; I48.91 Unspecified atrial fibrillation; K21.9 Gastro-esophageal reflux disease without esophagitis; E78.5 Hyperlipidemia, unspecified; E11.42 Type 2 diabetes mellitus with diabetic polyneuropathy; R00.0 Tachycardia, unspecified; T17.990A Other foreign object in respiratory tract, part unspecified in causing asphyxiation, initial encounter; X58.XXXA Exposure to other specified factors, initial encounter; M05.9 Rheumatoid arthritis with rheumatoid factor, unspecified; Z90.2 Acquired absence of lung [part of]; Z87.891 Personal history of nicotine dependence; Z79.01 Long term (current) use of anticoagulants; Z51.5 Encounter for palliative care; Z66 Do not resuscitate
CPT/HCPCS: 36415; 36416; 36600; 51702; 71045; 80048; 80053; 82805; 82962; 83605; 83735; 83880; 84100; 84145; 84443; 84484; 85025; 85610; 86140; 87040; 87426; 87641; 87804; 93005; 93306; 94640; 94660; 94669; 96365; 96366; 96367; 96372; 99285; C9113; J1815; J1940; J2060; J2270; J2543; J3370; J3490; J7050; J7060; J7512; J7608; J7626